=== PATIENT | female | born 1960 | race Caucasian/White ===

== ENCOUNTER → 2020-07-08 13:48 | Outpatient (CLI) | payer BC, SELFPAY ==
--- NOTE | 2020-07-08 13:53 | ECHOD_ITS ---
Reason For Study: RBBB Procedure This was a 2D Doppler, Color Flow transthoracic echocardiogram. Exam performed in department. Left Ventricle Normal LV size. Left ventricular systolic function is normal. The estimated ejection fraction is 60 %. No evidence for diastolic dysfunction. No regional wall motion abnormalities noted. Right Ventricle Normal RV size. Normal systolic function. Atria Normal left atrium. Normal right atrium. No doppler evidence for ASD. Mitral Valve There is mild mitral annular calcification. Extension of the mitral annular calcification onto the base of the posterior mitral valve leaflet. Mild mitral valve prolapse, posterior leaflet. Trivial mitral valve insufficiency. Tricuspid Valve Normal tricuspid valve. Trivial tricuspid valve insufficiency. Unable to estimate RV systolic pressure/pulmonary artery pressure due to technically difficult study. Aortic Valve Trisinus/trileaflet aortic valve. Mild diffuse aortic valve thickening. Pulmonic Valve The pulmonic valve is not well visualized. Great Vessels Normal sized aortic root. Pericardium/Pleural No pericardial effusion. MMode/2D Measurements & Calculations LVIDd: 4.7 cm IVSd: 1.1 cm Ao root diam: 3.3 cm LVIDs: 2.8 cm LVPWd: 0.99 cm LA dimension: 2.8 cm FS: 39.4 % LAV(MOD-bp): 45.1 ml LA A4 area: 13.0 cm2 RA A4 area: 11.5 cm2 LAV(MOD-bp) Indexed: 24.2 ml/m2 LAV(MOD-sp2): 57.9 ml LAV(MOD-sp4): 32.3 ml Time Measurements MV dec time: 0.26 sec Doppler Measurements & Calculations MV E max jacek: 76.4 cm/sec Lat Peak E' Jacek: 9.7 cm/sec Med Peak E' Jacek: 9.4 cm/sec MV A max jacek: 62.4 cm/sec E/E' lat: 7.8 E/E' med: 8.1 MV E/A: 1.2 MV V2 max: 67.7 cm/sec MV P1/2t max jacek: 67.7 cm/sec Ao V2 max: 112.4 cm/sec MV max P.8 mmHg MV P1/2t: 137.0 msec Ao max P.0 mmHg MV V2 mean: 37.5 cm/sec MV dec slope: 144.8 cm/sec2 MV mean P.67 mmHg MVA(P1/2t): 1.6 cm2 MV V2 VTI: 26.2 cm LV V1 max: 106.3 cm/sec PA V2 max: 83.8 cm/sec LV V1 max P.5 mmHg ECHO/Echo Complete Interpretation Summary Left ventricular systolic function is normal. The estimated ejection fraction is 60 %. There is mild mitral annular calcification. Extension of the mitral annular calcification onto the base of the posterior mi tral valve leaflet. Mild mitral valve prolapse, posterior leaflet Trivial mitral valve insufficiency. Trivial tricuspid valve insufficiency. Mild diffuse aortic valve thickening. Unable to estimate RV systolic pressure/pulmonary artery pressure due to techni angélica difficult study. No evidence for diastolic dysfunction. Ordering Physician: Carol Temple Referring Physician: Carol Temple Performed By: Dann Delgado, NATALIE
== END ==
PROVIDERS: PCP Internal Medicine; Referring Provider Internal Medicine; Visit Provider Internal Medicine
DX: I45.10 Unspecified right bundle-branch block (principal)
CPT/HCPCS: 93306

== ENCOUNTER 2023-06-16 15:26 | Emergency (ER) | payer BC, SELFPAY ==
[2023-06-16 15:27] VITALS: BP 145/94; PULSE 69; RESP 16; TEMP 36.2; O2SAT 99
--- NOTE | 2023-06-16 15:47 | EDS_ITS ---
HPI <MITCH Miller - Last Filed: 06/16/23 15:53> History of Present Illness Chief Complaint: Bite Narrative Narrative: Patient presents with a cat bite. There is a local stray cat she was seen for a long time that started staying in her barn over the last week. She wanted the cat to leave so she used gloves and butterfly net and attempted to corner it in the barn and catch it. When she grabbed the cat's neck it scratched her right hand and bit her left arm. She thoroughly cleansed the area with soap and water and covered with antibiotic ointment. She denies weakness or paresthesias in the extremities. Last tetanus unknown. [facility] <MITCH Miller - Last Filed: 06/16/23 15:53> [facility] Medical History (Updated 06/16/23 @ 15:52 by MITCH Miller) Cat bite Home Medications amoxicillin 875 mg-potassium clavulanate 125 mg tablet 1 tab PO BID 7 days #14 tabs 06/16/23 [Rx Last Taken Unknown] Allergy/AdvReac Type Severity Reaction Status Date / Time benzocaine Allergy Hives Verified 06/16/23 15:28 lisinopril Allergy Anaphylaxis Verified 06/16/23 15:28 Social History Smoking Status: Current every day smoker tobacco type: e-cigarettes ROS <MITCH Miller - Last Filed: 06/16/23 15:53> ROS ED ROS Narrative Neuro: Negative for motor/sensory dysfunction. Skin: Positive for wound. Musc: Negative for joint pain. EXAM <MITCH Miller - Last Filed: 06/16/23 15:53> Physical Exam Narrative Exam Narrative: CONST: Patient sitting in no acute distress. EYES: Normal inspection. SKIN: Scattered puncture wounds and small area of hematoma left mid anterior forearm. No involvement of the elbow or wrist joints, full ROM, normal motor and sensory function in median radial and ulnar distributions, 2+ radial pulses. 3 superficial abrasions right hand over the dorsal palm first and second metacarpals. PSYCH: Normal affect. Const Vital Signs: 06/16/23 15:27 06/16/23 16:17 Temperature 97.2 F L 97.2 F L Temperature Source Temporal Pulse Rate 69 66 Respiratory Rate 16 18 Blood Pressure 145/94 H 123/88 H Blood Pressure Mean 111 99 Pulse Ox 99 99 Oxygen Delivery Method Room Air <Dr. Peter Roberts MD - Last Filed: 06/16/23 17:09> Physical Exam Const Vital Signs: 06/16/23 15:27 06/16/23 16:17 Temperature 97.2 F L 97.2 F L Temperature Source Temporal Pulse Rate 69 66 Respiratory Rate 16 18 Blood Pressure 145/94 H 123/88 H Blood Pressure Mean 111 99 Pulse Ox 99 99 Oxygen Delivery Method Room Air MDM <MITCH Miller - Last Filed: 06/16/23 15:53> [facility] Narrative Medical decision making narrative: Patient has superficial Bites to her left forearm and superficial cat scratches to the right hand. Extremities are neurovascularly intact. None of the wounds require repair. Extremities are neurovascular intact. I updated tetanus and prescribed Augmentin and discussed wound care instructions and to return for any signs of infection. She was discharged in stable condition. <Dr. Peter Roberts MD - Last Filed: 06/16/23 17:09> [facility] Treatment and Re-Evaluation Comments:: I have personally performed a face to face assessment of the patient and have reviewed the QUINTON Note. I performed a substantive portion of the visit including all aspects of the following. My dubose findings include: History is according to stray cat in her barn has been there for 5 days not ill, was bitten when try to get her out. Left upper extremity forearm only. Exam is several superficial bite villeda and scratch villeda left forearm along with a hematoma that is small just distal to the bite villeda. No lymphangitic streaking major tenderness or signs of infection. Full range of motion, all compartments nondistended. Medical Decison Making patient had prior rabies immunization series. She is unsure if she will be able to monitor the cat for illness. She states it has been in their barn for 5 days or more without contact with other animals during that time, and did not appear to be ill. Tetanus update given, will place her on a short course of prophylactic Augmentin, we discussed rabies prophylaxis and the relatively low risk of rabies but the consequences if she had it. At this time she declines booster. Other additions or changes: [None] Discharge Plan Triage Chief Complaint: Bite ED Midlevel Provider: Marylou Chung ED Provider: Peter Roberts Dx/Rx/DC Orders Clinical Impression: Cat scratch of right hand, Cat bite of left forearm Instructions: Animal Bites and Scratches Prescriptions: New amoxicillin-pot clavulanate 875-125 mg tablet 1 tab PO BID 7 Days Qty: 14 0RF Primary Care Provider: Carol Temple Referrals: Carol Temple DO [Primary Care Provider] - Activity Restrictions/Additional Instructions: Clean with soap and water and cover with antibiotic ointment. Return immediately if any signs of infection develop like redness, increased swelling or pain, fever or pus. Disposition Disposition: Home, Self Care Discharge Date/Time: 06/16/23 16:19
[2023-06-16] MEDS: Amox/Clavulanate 875 MG Tablet PO (15:59)
[2023-06-16] MEDS: Diphth,Pertuss(Acell),Tet Vac 0.5 ML Vial IM (15:59)
[2023-06-16 16:17] VITALS: BP 123/88; PULSE 66; RESP 18; TEMP 36.2; O2SAT 99
== END 2023-06-16 16:19 | disposition home or self-care (01) ==
PROVIDERS: Emergency Provider Emergency Medicine; PCP Internal Medicine; Visit Provider Emergency Medicine
DX: S51.852A Open bite of left forearm, initial encounter (principal); F17.290 Nicotine dependence, other tobacco product, uncomplicated; W55.01XA Bitten by cat, initial encounter; Z23 Encounter for immunization
CPT/HCPCS: 90471; 90715; 99283

== ENCOUNTER → 2024-11-21 | Outpatient (CLI) | payer BC, SELFPAY ==
--- OUTSIDE RECORDS SUMMARY | 2024-11-21 06:22 | XMS RPT_ITS | CCD ---
Author Organization [facility] Care Team Providers Care Revenue Analyst Name Role Phone Carol Coker Unavailable Jame Hernandez Unavailable Mendel Valdes Unavailable Karina Tam Unavailable Unavailable Manchak, Lalitha Unavailable Unavailable Long, Tabby L Unavailable Unavailable Unavailable Unavailable Renaldo Rodriguez Unavailable Unavailable Carol Coker Unavailable Jame Hernandez Unavailable Mendel Valdes Unavailable Karina Tam Unavailable Unavailable Renaldo Rodriguez Unavailable Unavailable Long Tabby L Unavailable Unavailable Unavailable Unavailable Slarb, Michelle Unavailable Unavailable Unavailable Unavailable Karina Tam Unavailable Unavailable Barbara, Chanel Unavailable Unavailable Long, Tabby L Unavailable Unavailable Manchak, Lalitha Unavailable Unavailable Eriberto Sarah Unavailable Unavailable Gravius, Hanna Unavailable Unavailable Carol Coker DO Unavailable Jame Hernandez Unavailable Dr. Mendel Valdes Unavailable Karina Tam RN Unavailable Unavailable Sarah Wei LPN Unavailable Unavailable Tabby Alves RN Unavailable Unavailable Barbara CLINICAL PATHOLOGIST, Chanel Unavailable Unavailable Manchak CURRICULUM MANAGER, Lalitha Unavailable Unavailable Gravius CURRICULUM MANAGER, Hanna Unavailable Unavailable Unavailable Unavailable Slarb CLINICAL PATHOLOGIST, Michelle Unavailable Unavailable Ciara Scott MA Unavailable Unavailable Pablo ATKINS, TRINA Unavailable Unavailable Carol oCker DO Unavailable Carol Coker DO Primary Care Provider Carol Coker DO Unavailable [phone] Mendel Valdes Unavailable Tameka CURRICULUM MANAGER, Yovanilisbeth Unavailable Unavailable Yonatan RN, Karina Unavailable Unavailable Barbara CLINICAL PATHOLOGIST, Chanel Unavailable Unavailable RN, Tabby Melissa Unavailable Unavailable Tyler BASHIR, Ciara Unavailable Unavailable Kecia CURRICULUM MANAGER, Lalitha Unavailable Unavailable Slarb CLINICAL PATHOLOGIST, Michelle Unavailable Unavailable Unavailable Unavailable Sheela DO, Carol Attending Unavailable Sheela DO, Carol Referring Unavailable Sheela DO, Carol Consulting Unavailable Sheela DO, Carol Rudolph Primary Care Provider [place] CLINICAL PATHOLOGIST, Baron Unavailable Unavailable Sheela DO, Carol Rudolph Primary Care Provider CAROL COKER Referring Unavailab le SHEELA, CAROL RUDOLPH Primary Care Unavailab le SHEELACAROL Primary Care Unavailab le SUROVEC, JENNIFER Referring Unavailable SHEELACAROL Primary Care Unavailab le SHEMARABHAY Melissa Referring Unavailable SUROVEC, JENNIFER Referring Unavailable AMBER ROBERSON Attending Unavailable SHELEACAROL Primary Care Unavailab le SHEELA, CAROL RUDOLPH Primary Care Unavailab DARIELA Villeda Referring Unavailab le AMBER ROBERSON Attending Unavailable SHEELA, CAROL RUDOLPH Primary Care Unavailab le SUROVEC, JENNIFER Referring Unavailable SHEELACAROL Primary Care Unavailab IMMANUEL Schuster Referring Unavailable SheelaCarol Primary Care Unavailable Julita, Waka Attending Unavailable SheelaCarol Referring Unavailable SheelaCarol Attending Unavailable SheelaCarol Primary Care Unavailable SheelaCarol Referring Unavailable SheelaCarol Attending Unavailable Sheela, Carol Primary Care Unavailable SheelaCarol Referring Unavailable Allergies Allergy Classification Reported Allergen(s) Allergy Type Date of Onset Reaction(s) Facility Angiotensin Converting Enzyme (JOSEPH) Inhibitors (5 sources) Lisinopril; Translations: [Lisinopril *ANTIHYPERTENSIVE S*] Drug Allergy 01-03-20 19 [facility]; [facility] Work Phone: Comment on above: cough/lip swelling Benzocaine (1 source) Benzocaine Drug Allergy 09-23-19 16 [facility] (20 sources) lisinopril; Translations: [Lisinopril *ANTIHYPERTENSIVE S*] Drug Allergy 01-03-20 19 [facility] Work Phone: Comment on above: cough/lip swelling (20 sources) Benzocaine *DERMATOLOGICALS* ; Translations: [Benzocaine *DERMATOLOGICALS* ] drug allergy [facility] Work Phone: (20 sources) Benzocaine; Translations: [BENZOCAINE] Drug Allergy 09-23-19 16 [facility] (20 sources) environmental [Other] Propensity to adverse reactions 09-15-19 06 [facility] Work Phone: (1 source) Allergy to drug (finding) [facility]; [facility] Work Phone: (1 source) Allergy to drug (finding) [facility]; [facility] Work Phone: (1 source) Allergy to drug (finding) [facility]; [facility] Work Phone: (1 source) Allergy to drug (finding) [facility]; [facility] Work Phone: (2 sources) Lisinopril; Translations: [LISINOPRIL] Drug Allergy 01-03-20 19 [facility] (1 source) OTHER; Translations: [OTHER] Propensity to adverse reactions (disorder) 09-15-19 06 [facility] (1 source) Benzocaine Drug Allergy 06-16-19 24 [facility] NEGATED: Highlighted row has been ruled out! (1 source) drug allergy [facility] Work Phone: NEGATED: Highlighted row has been ruled out! (1 source) Allergy to drug (finding) [facility]; [facility] Work Phone: NEGATED: Highlighted row has been ruled out! (1 source) Allergy to drug (finding) [facility]; [facility] Work Phone: NEGATED: Highlighted row has been ruled out! (1 source) Allergy to drug (finding) [facility]; [facility] Work Phone: NEGATED: Highlighted row has been ruled out! (1 source) Allergy to drug (finding) [facility]; [facility] Work Phone: NEGATED: Highlighted row has been ruled out! (1 source) Allergy to drug (finding) [facility]; [facility] Work Phone: Medications Current Medications Medication Drug Class(es) Dates Sig (Normalized) Sig (Original) acetaminophen 500 mg oral tablet (20 sources) Start: 02-01-2019 take 2 tablets by mouth every six hours as needed acetaminophen (TYLENOL EXTRA STRENGTH) 500 mg tablet Take 2 tablets by mouth every 6 hours as needed. 30 tablet 02/01/2019 Active Comment on above: Take 2 tablets by mo uth every 6 hours as needed. amoxicillin 875 mg / clavulanate 125 mg oral tablet (20 sources) Penicillin-class Antibacterial Start: 06-16-2023 take 1 tablet by mouth twice daily Amoxicillin-Pot Clavulanate Active 1 TABLET PO TWICE A DAY 23 09June 16, 2023 12:00am Start: 05-08-2014 End: 05-18-2014 Start: 05-08-2014 End: 05-18-2014 take 1 tablet by mouth twice daily AUGMENTIN, 875-125MG (Oral Tablet) 1 Tablet bid for 10 days Quantity: 20 {Tablet} Refills: 0 Ordered: 08-May-2014 Carol Coker DO, DO, Kathleen Start : 08-May-2014 End : 18-May-2014 Inactive benzonatate 100 mg oral capsule (19 sources) Non-narcotic Antitussive Start: 02-19-2021 take 2 capsules by mouth three times daily as needed benzonatate (TESSALON PERLE) 100 mg capsule Indications: Cough , URI, acute Take 2 capsules by mouth three times daily as needed. 30 capsule 02/19/2021 Active Comment on above: Take 2 capsules by m outh three times daily as needed. docusate sodium 100 mg oral capsule (20 sources) Start: 02-01-2019 take 1 capsule by mouth twice daily docusate sodium (COLACE) 100 mg capsule Take 1 capsule by mouth twice daily. 30 capsule 02/01/2019 Active Comment on above: Take 1 capsule by mo [facility] twice daily. doxycycline hyclate 50 mg oral capsule (20 sources) Tetracycline-class Drug Start: 02-10-2021 doxycycline (VIBRAMYCIN) 50 mg capsule 02/10/2021 Active Start: 05-24-2011 End: 06-07-2011 fluorometholone 1 mg/ml ophthalmic suspension (20 sources) Corticosteroid Start: 02-09-2021 fluorometholone (FML LIQUID FILM) 0.1 % ophthalmic suspension 02/09/2021 Active ibuprofen 600 mg oral tablet (20 sources) Nonsteroidal Anti-inflammatory Drug Start: 02-01-2019 take 1 tablet by mouth every six hours as needed ibuprofen (MOTRIN) 600 mg tablet Take 1 tablet by mouth every 6 hours as needed for Pain. 30 tablet 02/01/2019 Active Comment on above: Take 1 tablet by [facility] every 6 hours as needed for Pain. Completed/Discontinued Medications Medication Drug Class(es) Dates Sig (Normalized) Sig (Original) acetaminophen 500 mg / HYDROcodone bitartrate 5 mg oral tablet (20 sources) Opioid Agonist Start: 09-23-2010 End: 01-27-2011 Start: 09-23-2010 End: 01-27-2011 take 1 tablet by mouth every six hours as needed VICODIN, 5-500MG (Oral Tablet) 1 Tablet q 6 hr prn for 0 days Quantity: 30 {Tablet} Refills: 0 Ordered: 27-Jan-2011 TRINA Shah LPN Start : 23-Sep-2010 End : 27-Jan-2011 Inactive Comments: thirty Comment on above: thirty [id number] actuat albutero l 0.09 mg/actuat metered dose inhaler (20 sources) beta2-Adrenergic Agonist Start: 07-05-2021 Start: 07-05-2021 Start: 07-05-2021 Ventolin HFA 1 08 (90 Base) MCG/ACT Inhalation Aerosol Solution 1 or 2 Puff q 4-6 hours prn for 30 days Quantity: 1 {Each} Refills: 2 Ordered: 05-Jul-2021 Chanel Jimenez LPN Start : 05-Jul-2021 Active Comments: dispense generic albuterol sulfate CFC-free aerosol per insurance formulary fax from [employer] Start: 04-21-2021 Ventolin HFA 1 08 (90 Base) MCG/ACT Inhalation Aerosol Solution 1 or 2 Puff q 4-6 hours prn for 0 days Quantity: 1 {Each} Refills: 0 Ordered: 21-Apr-2021 Carol Coker DO, DO, Kathleen Start : 21-Apr-2021 Active Comments: dispense generic albuterol sulfate CFC-free aerosol per insurance formulary fax from [facility] Start: 01-04-2021 Ventolin HFA 1 08 (90 Base) MCG/ACT Inhalation Aerosol Solution 1 or 2 Puff q 4-6 hours prn for 0 days Quantity: 1 {Each} Refills: 0 Ordered: 04-Jan-2021 Carol Coker DO, DO, Kathleen Start : 04-Jan-2021 Active Start: 01-01-2021 End: 01-04-2021 Start: 01-01-2021 End: 01-04-2021 take 2 puff(s) by inhalation every six hours as needed ProAir HFA 108 (90 Base) MCG/ACT Inhalation Aerosol Solution 2 (two) Puff(s) Q 6hr/PRN for 0 days Quantity: 1 {Inhaler} Refills: 3 Ordered: 04-Jan-2021 TRINA Shah LPN Start : 01-Jan-2021 End : 04-Jan-2021 Inactive Start: 12-04-2019 take 2 puff(s) by in halation every six hours as needed ProAir HFA 108 (90 Base) MCG/ACT Inhalation Aerosol Solution 2 (two) Puff(s) Q 6hr/PRN for 0 days Quantity: 1 {Inhaler} Refills: 3 Ordered: 04-Dec-2019 Carol Coker DO, DO, Kathleen Start : 04-Dec-2019 Active Start: 12-04-2019 take 2 puff(s) by in halation every six hours as needed ProAir HFA 108 (90 Base) MCG/ACT Inhalation Aerosol Solution 2 (two) Puff(s) Q 6hr/PRN for 0 days Quantity: 1 {Inhaler} Refills: 3 Ordered: 04-Dec-2019 Carol Coker DO, DO, Kathleen Start : 04-Dec-2019 Active Start: 01-17-2018 End: 11-23-2018 take 2 puff(s) by inhalation every six hours as needed ProAir HFA 108 (90 Base) MCG/ACT Inhalation Aerosol Solution 2 (two) Puff(s) Q 6hr/PRN for 0 days Quantity: 1 {Inhaler} Refills: 3 Ordered: 23-Nov-2018 Karina Tam IMLLY Start : 17-Jan-2018 End : 23-Nov-2018 Inactive Start: 05-14-2015 End: 05-27-2019 Start: 05-14-2015 End: 05-27-2019 Albuterol Sulfate 0.63 MG/3M L Inhalation Nebulization Solution 1 (one) Nebulized Soln Nebulized Soln every 6 hours prn for 30 days Quantity: 1 {Box} Refills: 3 Ordered: 27-May-2019 Asiya JENHanna Start : 14-May-2015 End : 27-May-2019 Inactive albuterol HFA (P ROVENTIL HFA, VENTOLIN HFA) 90 mcg/actuation inhaler Inhale 2 Puffs as instructed. Active take 108 ug by inhal ation every four hours as needed ALBUTEROL SULFATE HFA, 108MCG/ACT (Inhalation Aerosol Soln) 1-2 puffs q 4 hr prn (108 MCG/ACT) Inactive take 108 ug by inhal ation every four hours as needed ALBUTEROL SULFATE HFA, 108MCG/ACT (Inhalation Aerosol Soln) 1-2 puffs q 4 hr prn (108 MCG/ACT) Inactive Comment on above: dispense generic alb uterol sulfate CFC-free aerosol per insurance formulary fax from [facility] Inhale 2 Puffs as in structed. ALBUTEROL SULFATE HFA, 108MCG/ACT (Inhalation Aerosol Soln) (12 sources) take 108 ug by inhalation every four hours as needed ALBUTEROL SULFATE HFA, 108MCG/ACT (Inhalation Aerosol Soln) 1-2 puffs q 4 hr prn (108 MCG/ACT) Inactive amLODIPine 5 mg oral tablet (20 sources) Dihydropyridine Calcium [employer] Start: 04-25-19 18 Comment on above: Take 5 mg by mouth o nce daily. azithromycin 250 mg oral tablet (20 sources) Macrolide Antimicrobial Start: 04-08-19 17 End: 11-24-19 19 betamethasone 0.5 mg/ml topical cream (20 sources) Corticosteroid Start: 12-11-19 08 Start: 12-11-2007 BETAMETHASONE DIPROPIONATE, 0.05% (External Cream) topically Cream tid for 0 days Quantity: 45 {Cream} Refills: 0 Ordered: 04-Nov-2009 Karina Tam RN Start : 11-Dec-2007 Inactive Start: 05-10-2007 Start: 05-10-2007 DIPROLENE AF, 0.05% (External Cream) TAD Cream Twice daily for 0 days Quantity: 15 {Cream} Refills: 0 Ordered: 04-Nov-2009 Karina Tam RN Start : 10-May-2007 Inactive 24 hr buPROPion hydrochlorid e 150 mg extended release oral tablet (20 sources) Aminoketone Start: 12-25-2006 End: 02-12-2007 Comment on above: taper rev cefuroxime 500 mg oral table t (20 sources) Cephalosporin Antibacterial Start: 04-08-2016 End: 04-18-2016 ciprofloxacin 3 mg/ml ophtha lmic solution (20 sources) Quinolone Antimicrobial Start: 05-08-2014 End: 07-08-2014 Start: 05-08-2014 End: 07-08-2014 CIPROFLOXACIN HCL, 0.3% (Oph thalmic Solution) 1 (one) Solution R eye bid for 0 days Quantity: 1 {Bottle} Refills: 0 Ordered: 08-Jul-2014 Karina Tam RN Start : 08-May-2014 End : 08-Jul-2014 Inactive clarithromycin 500 mg oral t ablet (20 sources) Macrolide Antimicrobial Start: 03-31-2014 End: 04-10-2014 Start: 03-31-2014 End: 04-10-2014 take 2 tablets by mouth once daily BIAXIN, 500MG (Oral Tablet) 2 (two) Tablet daily for 10 days Quantity: 20 {Tablet} Refills: 0 Ordered: 31-Mar-2014 Rosie Hull Start : 31-Mar-2014 End : 10-Apr-2014 Inactive Start: 05-10-2011 End: 05-24-2011 Start: 05-10-2011 End: 05-24-2011 take 2 tablets by mouth once daily BIAXIN XL PAC, 500MG (Oral Tablet Extended Release 24 Hour) 2 (two) Tablet ER 24HR daily for 14 days Quantity: 24 {Tablet_ER_24HR} Refills: 0 Ordered: 10-May-2011 Rosie Hull Start : 10-May-2011 End : 24-May-2011 Inactive Start: 05-10-2011 End: 05-24-2011 take 2 tablets by mouth once daily BIAXIN XL PAC, 500MG (Oral Tablet Extended Release 24 Hour) 2 (two) Tablet ER 24HR daily for 14 days Quantity: 24 {Tablet_ER_24HR} Refills: 0 Ordered: 10-May-2011 Rosie Hull CNP Start : 10-May-2011 End : 24-May-2011 Inactive clindamycin 0.01 mg/mg topic al gel (20 sources) Lincosamide Antibacterial Start: 10-16-2008 Start: 10-16-2008 CLEOCIN-T, 1% (External Gel) 1 (one) Gel apply once daily for 0 days Quantity: 1 {Gel} Refills: 2 Ordered: 04-Nov-2009 Karina Tam RN Start : 16-Oct-2008 Inactive cromolyn sodium 40 mg/ml oph thalmic solution (11 sources) Mast Cell Stabilizer desonide 0.5 mg/ml topical c ream (20 sources) Corticosteroid Start: 01-27-2011 End: 10-17-2012 Start: 01-27-2011 End: 10-17-2012 DESOWEN, 0.05% (External Cre am) 1 Cream bid for 0 days Quantity: 1 {Cream} Refills: 0 Ordered: 17-Oct-2012 Karina Tam RN Start : 27-Jan-2011 End : 17-Oct-2012 Inactive 24 hr etodolac 400 mg extended release oral tablet (20 sources) Nonsteroidal Anti-inflammatory Drug Start: 09-23-2010 End: 01-27-2011 Start: 09-23-2010 End: 01-27-2011 take 2 tablets by mouth once daily at mealtime ETODOLAC CR, 400MG (Oral Tablet Extended Release 24 Hour) 2 (two) Tablet ER 24HR qd with food for 0 days Quantity: 30 {Tablet_ER_24HR} Refills: 0 Ordered: 27-Jan-2011 TRINA Shah LPN Start : 23-Sep-2010 End : 27-Jan-2011 Inactive fluconazole 150 mg oral tabl et (20 sources) Azole Antifungal Start: 06-07-2011 End: 06-08-2011 FLUoxetine 20 mg oral capsul e (20 sources) Serotonin Reuptake Inhibitor Start: 10-24-2022 Start: 07-05-2021 Start: 01-01-2021 take 1 capsule by mo ut twice daily PROzac 20 MG Oral Capsule 1 (one) Capsule BID for 0 days Quantity: 180 {Capsule} Refills: 3 Ordered: 01-Jan-2021 SheelaCarol phipps DO, DO, Kathleen Start : 01-Jan-2021 Active Start: 12-04-2019 take 1 capsule by mo ut twice daily PROzac 20 MG Oral Capsule 1 (one) Capsule BID for 0 days Quantity: 180 {Capsule} Refills: 3 Ordered: 04-Dec-2019 Sheela Carol DO, Kathleen Start : 04-Dec-2019 Active Start: 11-23-2018 take 1 capsule by mo ut twice daily PROzac 20 MG Oral Capsule 1 (one) Capsule BID for 0 days Quantity: 180 {Capsule} Refills: 3 Ordered: 23-Nov-2018 SheelaCarol phipps DO, DO, Kathleen Start : 23-Nov-2018 Active Start: 05-16-2018 take 1 capsule by ne ut twice daily PROzac 20 MG Oral Capsule 1 (one) Capsule BID for 0 days Quantity: 180 {Capsule} Refills: 3 Ordered: 16-May-2018 SheelaCarol phipps DO, DO, Kathleen Start : 16-May-2018 Active Start: 06-14-2017 take 1 capsule by [facility] twice daily PROzac 20 MG Oral Capsule 1 (one) Capsule BID for 0 days Quantity: 180 {Capsule} Refills: 3 Ordered: 14-Jun-2017 SheelaCarol phipps DO, DO, Kathleen Start : 14-Jun-2017 Active Start: 08-21-2007 fluoxetine hcl (PROZAC 20 MG CAP) 2 tablets daily 0 08/21/2007 Active Comment on above: 2 tablets daily fluticasone propionate 0.05 mg/actuat metered dose nasal spray (20 sources) Corticosteroid Start: 11-23-2018 End: 05-27-2019 Start: 11-23-2018 End: 05-27-2019 Fluticasone Propionate 50 MC G/ACT Nasal Suspension 1 (one) Suspension uad for 0 days Quantity: 1 {Box} Refills: 1 Ordered: 27-May-2019 Hanna Braden CMA Start : 23-Nov-2018 End : 27-May-2019 Inactive Start: 11-23-2018 Fluticasone Pr opionate 50 MCG/ACT Nasal Suspension 1 (one) Suspension uad for 0 days Quantity: 1 {Box} Refills: 1 Ordered: 23-Nov-2018 Carol Coker DO, DO, Kathleen Start : 23-Nov-2018 Active Start: 08-24-2015 FLUTICASONE DE OPIONATE, 50MCG/ACT (Nasal Suspension) 1 (one) Suspension uad for 0 days Quantity: 1 {Box} Refills: 1 Ordered: 24-Aug-2015 Carol Coker DO, DO Carol Start : 24-Aug-2015 Active Start: 08-24-2015 FLUTICASONE DE OPIONATE, 50MCG/ACT (Nasal Suspension) 1 (one) Suspension uad for 0 days Quantity: 1 {Box} Refills: 1 Ordered: 24-Aug-2015 Carol Coker DO, DO, Kathleen Start : 24-Aug-2015 Active Fluticasone Furo ate 27.5 MCG/SPRAY Nasal Suspension daily (27.5 MCG/SPRAY) Active 14 actuat fluticasone propionate 0.25 mg/actuat / salmeterol 0.05 mg/actuat dry powder inhaler (20 sources) Corticosteroid, beta2-Adrenergic Agonist Start: 04-21-2014 End: 07-08-2014 Start: 04-21-2014 End: 07-08-2014 Start: 04-21-2014 End: 07-08-2014 take 1 puff(s) by inhalation every twelve hours ADVAIR DISKUS, 250-50MCG/DOSE (Inhalation Aerosol Powder Breath Activated) 1 (one) Puff Puff q12hr for 0 days Quantity: 1 {Disk} Refills: 4 Ordered: 08-Jul-2014 Karina Tam RN Start : 21-Apr-2014 End : 08-Jul-2014 Inactive Start: 04-21-2014 End: 07-08-2014 ADVAIR DISKUS, 250-50MCG/DOS E (Inhalation Aerosol Powder Breath Activated) 1 (one) Puff Puff q12hr for 0 days Quantity: 1 {Disk} Refills: 4 Ordered: 08-Jul-2014 Karina Tam LPN Start : 21-Apr-2014 End : 08-Jul-2014 Inactive Start: 12-01-2006 End: 11-04-2009 Start: 12-01-2006 End: 11-04-2009 ADVAIR DISKUS, 100-50MCG/DOS E (Inhalation Miscellaneous) 1 Misc prn for 0 days Quantity: 1 {Misc} Refills: 0 Ordered: 01-Dec-2006 Karina Tam RN Start : 01-Dec-2006 End : 04-Nov-2009 Discontinued Comments: This order discontinued per [facility]. Start: 12-01-2006 End: 11-04-2009 ADVAIR DISKUS, 100-50MCG/DOS E (Inhalation Miscellaneous) 1 Misc prn for 0 days Quantity: 1 {Misc} Refills: 0 Ordered: 01-Dec-2006 Karina Tam LPN Start : 01-Dec-2006 End : 04-Nov-2009 Discontinued Comments: This order discontinued per [facility]. Comment on above: This order discontin ued per [employer]. 14 actuat fluticasone furoat e 0.1 mg/actuat / vilanterol 0.025 mg/actuat dry powder inhaler (12 sources) Corticosteroid, beta2-Adrenergic Agonist Start: 08-03-2020 End: 07-05-2021 Start: 08-03-2020 End: 07-05-2021 Start: 08-03-2020 End: 07-05-2021 take 1 puff(s) by inhalation once daily Breo Ellipta 100-25 MCG/INH Inhalation Aerosol Powder Breath Activated 1 (one) Puff daily for 0 days Quantity: 1 {Inhaler} Refills: 3 Ordered: 05-Jul-2021 Chanel Jimenez LPN Start : 03-Aug-2020 End : 05-Jul-2021 Inactive 120 actuat formoterol fumarate 0.005 mg/actuat / mometasone furoate 0.2 mg/actuat metered dose inhaler (20 sources) Corticosteroid, beta2-Adrenergic Agonist Start: 07-31-2020 End: 08-03-2020 Start: 07-31-2020 End: 08-03-2020 Start: 07-31-2020 End: 08-03-2020 Dulera 200-5 MCG/ACT Inhalat ion Aerosol 1 (one) Aerosol 1 puffs bid for 0 days Quantity: 3 {Each} Refills: 0 Ordered: 03-Aug-2020 Michelle Hawkins LPN Start : 31-Jul-2020 End : 03-Aug-2020 Inactive Comments: 2 bx 09/06/17 Start: 09-06-2017 mometasone-for moterol (DULERA) 200-5 mcg/actuation inhaler Inhale as instructed once daily. 09/06/2017 Active Start: 09-06-2017 Dulera 200-5 M CG/ACT Inhalation Aerosol 1 (one) Aerosol 1 puffs bid for 0 days Quantity: 3 {Each} Refills: 0 Ordered: 06-Sep-2017 Carol Coker DO, DO, Kathleen Start : 06-Sep-2017 Active Comments: 2 bx 09/06/17 Comment on above: 2 bx 09/06/17 Inhale as instructed once daily. hydroCHLOROthiazide 12.5 mg oral capsule (20 sources) Thiazide Diuretic Start: 10-24-2022 Start: 07-05-2021 Start: 01-01-2021 take 1 capsule by mo uth once daily hydroCHLOROthiazide 12.5 MG Oral Capsule 1 (one) Capsule daily for 0 days Quantity: 90 {Capsule} Refills: 3 Ordered: 01-Jan-2021 Carol Coker DO, DO, Kathleen Start : 01-Jan-2021 Active Start: 12-04-2019 take 1 capsule by mo uth once daily hydroCHLOROthiazide 12.5 MG Oral Capsule 1 (one) Capsule daily for 0 days Quantity: 90 {Capsule} Refills: 3 Ordered: 04-Dec-2019 Carol Coker DO, DO, Kathleen Start : 04-Dec-2019 Active Start: 11-23-2018 take 1 capsule by mo uth once daily hydroCHLOROthiazide 12.5 MG Oral Capsule 1 (one) Capsule daily for 0 days Quantity: 90 {Capsule} Refills: 3 Ordered: 23-Nov-2018 Carol Coker DO, DO, Kathleen Start : 23-Nov-2018 Active Start: 02-12-2018 take 1 capsule by mo uth once daily HydroCHLOROthiazide 12.5 MG Oral Capsule 1 (one) Capsule daily for 0 days Quantity: 90 {Capsule} Refills: 3 Ordered: 12-Feb-2018 Carol Coker DO, DO, Kathleen Start : 12-Feb-2018 Active Start: 03-17-2017 take 1 capsule by mo uth once daily HydroCHLOROthiazide 12.5 MG Oral Capsule 1 (one) Capsule daily for 0 days Quantity: 90 {Capsule} Refills: 3 Ordered: 17-Mar-2017 Sheela SPANGLER Carol Coker DO Carol Start : 17-Mar-2017 Active take 1 tablet by anu th once daily hydrochlorothiazide (HYDRODIURIL, ESIDRIX) 12.5 mg tablet Take 12.5 mg by mouth once daily. Active Comment on above: Take 12.5 mg by mout h once daily. hydroCHLOROthiazide 12.5 mg / lisinopril 10 mg oral tablet (20 sources) Thiazide Diuretic, Angiotensin Converting Enzyme Inhibitor Start: 01-08-2014 End: 02-25-2014 Start: 01-08-2014 End: 02-25-2014 take 1 tablet by mouth once daily LISINOPRIL-HYDROCHLOROTHIAZIDE, 10-12.5M G (Oral Tablet) 1 (one) Tablet qd for 0 days Quantity: 90 {Tablet} Refills: 3 Ordered: 25-Feb-2014 Gypsy Sarmiento LPN Start : 08-Jan-2014 End : 25-Feb-2014 Discontinued icosapent ethyl 1000 mg oral capsule (20 sources) Start: 12-19-2013 End: 01-08-2014 Start: 12-19-2013 End: 01-08-2014 take 2 capsules by mouth twice daily VASCEPA, 1GM (Oral Capsule) 2 (two) Capsule Capsule bid for 0 days Quantity: 120 {Capsule} Refills: 4 Ordered: 08-Jan-2014 Karina Tam RN Start : 19-Dec-2013 End : 08-Jan-2014 Inactive ketoconazole 20 mg/ml topica l cream (11 sources) Azole Antifungal Ketoconazole 2 % External Cream two times daily (2 %) Inactive levoFLOXacin 500 mg oral tab let (20 sources) Quinolone Antimicrobial Start: 05-14-2015 End: 01-22-2016 metaxalone 800 mg oral table t (20 sources) Start: 10-20-2010 End: 01-27-2011 Comment on above: thirty minocycline 50 mg oral capsu le (20 sources) Tetracycline-class Drug Start: 01-12-2015 End: 05-14-2015 Start: 01-12-2015 End: 05-14-2015 take 3 capsules by mouth twice daily MINOCYCLINE HCL, 50MG (Oral Capsule) bid for 0 days Refills: 0 Ordered: 14-May-2015 TRINA Shah LPN Start : 12-Jan-2015 End : 14-May-2015 Inactive Comments: 30 day supply, Dr. shen Comment on above: 30 day supply, Dr. manzanares orok 60 actuat mometasone furoate 0.22 mg/actuat dry powder inhaler (20 sources) Corticosteroid Start: 05-14-2015 End: 05-14-2015 Start: 05-14-2015 End: 05-14-2015 Start: 05-14-2015 End: 05-14-2015 ASMANEX 60 METERED DOSES, 220MCG/INH (Inhalation Aerosol Powder Breath Activated) 1 1/2 (one and a half) Puff Puff bid for 0 days Quantity: 1 {Inhaler} Refills: 0 Ordered: 14-May-2015 Janice Chaney MD Start : 14-May-2015 End : 14-May-2015 Discontinued Start: 05-14-2015 End: 05-14-2015 take 2 puff(s) by inhalation every twelve hours ASMANEX HFA, 100MCG/ACT (Inhalation Aerosol) 2 (two) Puff q12h for 0 days Quantity: 2 {Puff} Refills: 0 Ordered: 14-May-2015 Janice Chaney MD Start : 14-May-2015 End : 14-May-2015 Discontinued Start: 03-31-2014 End: 04-21-2014 Start: 03-31-2014 End: 04-21-2014 take 2 puff(s) by inhalation twice daily ASMANEX 14 METERED DOSES, 220MCG/INH (Inhalation Aerosol Powder Breath Activated) 2 (two) Puff bid for 0 days Quantity: 1 {Puff} Refills: 0 Ordered: 21-Apr-2014 Gypsy Sarmiento LPN Start : 31-Mar-2014 End : 21-Apr-2014 Discontinued montelukast 10 mg oral table t (20 sources) Leukotriene Receptor Antagonist Start: 12-15-2017 Comment on above: Take 10 mg by mouth daily at bedtime. mupirocin 0.02 mg/mg topical ointment (20 sources) RNA Synthetase Inhibitor Antibacterial Start: 07-07-2008 End: 08-06-2008 Start: 07-07-2008 End: 08-06-2008 BACTROBAN, 2% (External Oint ment) 1 (one) Ointment tid for 10 days Quantity: 1 {Ointment} Refills: 0 Ordered: 07-Jul-2008 Rosie Hull Start : 07-Jul-2008 End : 06-Aug-2008 Inactive predniSONE 20 mg oral tablet (20 sources) Start: 05-14-2015 End: 05-29-2015 Start: 05-14-2015 End: 05-29-2015 take 2 tablets by mouth once daily, then take 1 tablet by mouth once daily, then take 0.5 tablet by mouth once daily PREDNISONE, 20MG (Oral Tablet) 1 (one) Tablet uad for 15 days Refills: 0 Ordered: 14-May-2015 Janice Chaney MD Start : 14-May-2015 End : 29-May-2015 Inactive Comments: 2 a d for 5 d, 1 a d for 5d, 1/2 a d for 5 d Start: 01-12-2015 End: 01-23-2015 Comment on above: 2 a d for 5 d, 1 a d for 5d, 1/2 a d for 5 d with food varenicline 0.5 mg oral tabl et (20 sources) Partial Cholinergic Nicotinic Agonist Start: 11-04-2009 End: 09-23-2010 Problems Active Problems Problem Classification Problem Date Documented Date Episodic/Chronic Adjustment disorders (20 sources) Adjustment disorder with depressed mood; Translations: [Grief finding] 04-08-2016 Chronic Comment on above: lost her mom 10/28 Administrative/social admission (10 sources) Pneumococcal vaccination given; Translations: [Pneumococcal vaccination given] 04-08-2016 Episodic Allergic reactions (20 sources) Other atopic dermatitis and related conditions; Translations: [DERMATITIS, OTHER ATOPIC] Resolved: 4 04-19-2013 Chronic Allergic reactions (20 sources) Eczema; Translations: [Allergic condition] Onset: 5 04-08-2016 Episodic Comment on above: perioral dermatitis- - stable Anxiety disorders (20 sources) Mixed anxiety and depressive disorder; Translations: [Anxiety disorder, unspecified] Onset: 9 01-29-2019 Chronic Asthma (20 sources) Asthma; Translations: [Acute exacerbation of asthma] Onset: 9 Resolved: 6 04-08-2016 Chronic Comment on above: improved did alpha one antitr ypsin test 05/29 did alpha one antitr ypsin test 05/29- negative pt has 2-3 exacerbat ions a year. think time see pulm to see how can decrease. will check IGE level eos level and immunoglobulin's treat this exacerbation stable- did alpha on e antitrypsin test 05/29- negative Asthma (20 sources) Asthma Cancer of uterus (20 sources) Malignant neoplasm of endometrium of corpus uteri ; Translations: [Malignant neoplasm of endometrium] Onset: 9 Chronic Cancer of uterus (20 sources) History of malignant neoplasm of uterine body; Translations: [History of uterine cancer] Onset: 4 12-04-2019 Episodic Comment on above: s/p NICKY /Will Adler at [facility] Chronic obstructive pulmonary disease and bronchiectasis (20 sources) Acute exacerbation of chronic obstructive airways disease with asthma; Translations: [Chronic obstructive lung disease] Onset: 5 Resolved: 6 01-22-2016 Chronic Comment on above: pt has 2-3 exacerbat ions a year. think time see pulm to see how can decrease. will check IGE level eos level and immunoglobulin's treat this exacerbation screened for alpha 1 -antitrypsin 02/25quit smoking 2013 Chronic obstructive pulmonary disease and bronchiectasis (20 sources) Bronchitis; Translations: [Bronchitis] Onset: 5 Resolved: 9 04-08-2016 Episodic Chronic obstructive pulmonary disease and bronchiectasis (20 sources) Chronic obstructive pulmonary disease and bronchiectasis Conduction disorders (20 sources) Right bundle branch block; Translations: [RBBB] Onset: 5 06-24-2020 Chronic Coronary atherosclerosis and other heart disease (20 sources) Coronary atherosclerosis and other heart disease Disorders of lipid metabolism (20 sources) Hypercholesterolemia; Translations: [Hypercholesteremia] Onset: 5 04-08-2016 Chronic Comment on above: pt to do diet and ex ercise before med s Essential hypertension (20 sources) Hypertensive disorder; Translations: [Benign essential hypertension] Onset: 9 Resolved: 6 04-08-2016 Chronic Comment on above: norvasc hctz Fever of unknown origin (20 sources) Fever with chills; Translations: [Fever and chills] Resolved: 9 04-08-2016 Episodic Headache, including migraine (20 sources) Headache; Translations: [Headache] Resolved: 3 12-16-2014 Episodic Heart valve disorders (20 sources) Mitral valve prolapse; Translations: [MVP (mitral valve prolapse)] Onset: 5 07-20-2020 Chronic Comment on above: clincally stable Immunizations and screening for infectious disease (20 sources) Need for prophylactic vaccination and inoculation against influenza; Translations: [Other specified abnormal immunological findings in serum] Resolved: 6 01-22-2016 Episodic Comment on above: ? related to COPD ? aspergillus seeing Dr. hernandez 06-26 Inflammation, infection of eye (20 sources) Conjunctivitis; Translations: [Conjunctivitis] Resolved: 6 05-26-2015 Episodic Influenza (16 sources) Influenza Malaise and fatigue (20 sources) Fatigue; Translations: [Fatigue, unspecified type] Resolved: 9 04-08-2016 Episodic Comment on above: low blood sugar , de pression and stress reaction, Mood disorders (20 sources) Depression; Translations: [Depressive disorder] 04-08-2016 Chronic Comment on above: controlled Nonspecific chest pain (20 sources) Chest pain; Translations: [Chest pain] Resolved: 6 05-26-2015 Episodic Comment on above: characterisitc low s uspiscion for cv Open wounds of extremities (1 source) Cat bite - wound; Translations: [Open bite of left forearm, initial encounter] 06-16-2023 Episodic Other aftercare (1 source) History of malignant neoplasm of endometrium; Translations: [Encounter for follow-up examination after completed treatment for malignant neoplasm] 12-20-2023 Episodic Other connective tissue disease (20 sources) Cyst of bursa; Translations: [Cyst, bursa] Resolved: 6 05-26-2015 Episodic Comment on above: R foot s/p resected by ortho Other connective tissue disease (20 sources) Spasm; Translations: [Muscle spasm] Resolved: 5 07-08-2014 Episodic Comment on above: terrilbe pain and sp asm in lateral lat beds on left Other endocrine disorders (20 sources) Hypoglycemia; Translations: [Hypoglycemia] 04-08-2016 Chronic Comment on above: no episodes Other gastrointestinal disorders (19 sources) Dysphagia; Translations: [Dysphagia] Onset: 5 07-05-2021 Episodic Other inflammatory condition of skin (20 sources) Perioral dermatitis; Translations: [Perioral dermatitis] Resolved: 6 01-22-2016 Chronic Comment on above: improved Other liver diseases (5 sources) Inflammatory disease of liver; Translations: [Inflammatory liver disease, unspecified] Onset: 5 06-14-2024 Chronic Other lower respiratory disease (20 sources) Cough; Translations: [Cough] 04-08-2016 Episodic Other lower respiratory disease (20 sources) Wheezing; Translations: [Wheezing] Resolved: 6 05-26-2015 Episodic Other nutritional; endocrine; and metabolic disorders (20 sources) Body mass index 25-29 - overweight; Translations: [BMI 28.0-28.9,adult] 04-08-2016 Chronic Other nutritional; endocrine; and metabolic disorders (20 sources) Cholesterol level - finding; Translations: [Low HDL (under 40)] Onset: 5 04-08-2016 Chronic Comment on above: increase exercise Other nutritional; endocrine; and metabolic disorders (20 sources) Body mass index 25-29 - overweight; Translations: [BMI 25.0-25.9,adult] 06-24-2020 Episodic Other nutritional; endocrine; and metabolic disorders (20 sources) Overweight in adulthood with body mass index of 25 or more but less than 30; Translations: [BMI 25.0-25.9,adult] 07-05-2021 Episodic Other skin disorders (20 sources) Localized swelling, mass and lump, head; Translations: [Lip swelling] Resolved: 5 07-08-2014 Episodic Comment on above: likely related to li sinopril, improved Other upper respiratory disease (20 sources) Allergic rhinitis; Translations: [Allergic rhinitis] Resolved: 6 05-26-2015 Chronic Other upper respiratory disease (20 sources) Allergic rhinitis due to other allergen Chronic Other upper respiratory disease (20 sources) Bronchospasm; Translations: [Acute bronchospasm] Resolved: 5 07-08-2014 Episodic Other upper respiratory infections (20 sources) Chronic sinusitis; Translations: [Sinusitis, chronic] Resolved: 6 01-22-2016 Chronic Comment on above: acute infection Other upper respiratory infections (20 sources) Acute sinusitis, unspecified; Translations: [Sore throat symptom] Resolved: 6 05-26-2015 Episodic Otitis media and related conditions (20 sources) Dysfunction of eustachian tube; Translations: [Eustachian tube dysfunction] Resolved: 4 12-16-2014 Episodic Residual codes; unclassified (20 sources) Generalized aches and pains; Translations: [Body aches] Resolved: 5 07-08-2014 Episodic Residual codes; unclassified (20 sources) Influenza-like symptoms; Translations: [Flu-like symptoms] 04-12-2016 Episodic Residual codes; unclassified (20 sources) Family history of malignant neoplasm of lung; Translations: [Family history of lung cancer] Onset: 5 04-08-2016 Episodic Residual codes; unclassified (20 sources) Requires varicella vaccination; Translations: [Need for zoster vaccination (Renamed from Need for shingles vaccine)] 12-18-2019 Episodic Residual codes; unclassified (20 sources) Body mass index 20-24 - normal; Translations: [BMI 24.0-24.9, adult] Resolved: 2 06-24-2020 Episodic Residual codes; unclassified (20 sources) Non-smoker; Translations: [Non-smoker] 06-24-2020 Episodic Residual codes; unclassified (3 sources) Viral syndrome; Translations: [Flu-like symptoms] 08-10-2022 Episodic Skin and subcutaneous tissue infections (20 sources) Impetigo; Translations: [Impetigo] Resolved: 9 02-12-2015 Episodic Spondylosis; intervertebral disc disorders; other back problems (20 sources) Sciatica; Translations: [Low back pain] Resolved: 6 01-22-2016 Episodic Comment on above: pt scheduled appt at [facility] Superficial injury; contusion (1 source) Cat scratch injury; Translations: [Abrasion of right hand, initial encounter] 06-16-2023 Episodic Unclassified (20 sources) Smokes tobacco daily; Translations: [Current every day smoker] Onset: 5 04-08-2016 Chronic Comment on above: has 30 pack years qu it 3 years. needs LDCTuses E-cigs Unclassified (20 sources) Viral screening status; Translations: [Increased immunoglobulin] Onset: 4 Resolved: 6 04-08-2016 Episodic Comment on above: ? related to COPD ? aspergillus seeing Dr. hernandez 4-16 Unclassified (20 sources) Needs influenza immunization; Translations: [Influenza-like symptoms] Resolved: 5 02-10-2017 Episodic Unclassified (20 sources) Unclassified (20 sources) BMI 28.0-28.9,adult Unclassified (20 sources) Benign essential HTN (401.1) Unclassified (20 sources) Hypercholesteremia (272.0) Unclassified (20 sources) Low HDL (272.5) Unclassified (20 sources) Current every day smoker Unclassified (20 sources) Sinusitis,chronic (473.9) Unclassified (20 sources) Tobacco abuse (305.1) Unclassified (20 sources) Eustachian tube dysfunction (381.81) Unclassified (20 sources) Hypercholesteremia Unclassified (20 sources) DERMATITIS, OTHER ATOPIC (691.8) Unclassified (20 sources) Fatigue, unspecified type Unclassified (14 sources) Family history of lung cancer Unclassified (20 sources) Benign essential HTN Unclassified (20 sources) Low HDL (under 40) Unclassified (20 sources) Grieving Unclassified (20 sources) BMI 26.0-26.9,adult Unclassified (20 sources) BMI 25.0-25.9,adult Unclassified (20 sources) Sciatica of right side Unclassified (20 sources) Body mass index 20-24 - normal; Translations: [BMI 24.0-24.9, adult] 12-04-2019 Unclassified (20 sources) Non-smoker; Translations: [Non-smoker] 12-04-2019 Unclassified (20 sources) History of uterine cancer Unclassified (20 sources) Varicose vein of leg Unclassified (14 sources) Allergic condition Unclassified (20 sources) RBBB Unclassified (20 sources) BRONCHITIS, NOT SPECIFIED ACUTE OR CHRONIC (490.) Unclassified (14 sources) MVP (mitral valve prolapse) Unclassified (1 source) Patient encounter status 06-20-2024 Varicose veins of lower extremity (20 sources) Varicose veins of lower extremity; Translations: [Varicose vein of leg] Onset: 12-04-2019 Episodic Comment on above: having surgery dr Aguirre 07/30 Past or Other Problems Problem Classification Problem Date Documented Date Episodic/Chronic Acute bronchitis (20 sources) Acute bronchitis; Translations: [Acute bronchitis] Resolved: 05-26-2015 05-26-2015 Episodic Blindness and vision defects (20 sources) Visual disturbance; Translations: [Unspecified visual disturbance] Resolved: 07-08-2014 01-27-2015 Episodic Comment on above: When tired Diseases of mouth; excluding dental (16 sources) Lip swelling; Translations: [Lip swelling] Resolved: 07-08-2014 07-08-2014 Episodic Comment on above: likely related to li sinopril, improved Hemorrhoids (20 sources) Hemorrhoids; Translations: [Hemorrhoids] Resolved: 01-22-2016 01-22-2016 Episodic Hepatitis (9 sources) Hepatitis Other aftercare (1 source) Encounter for follow-up examination after completed treatment for malignant neoplasm; Translations: [Encounter for follow-up surveillance of endometrial cancer] Onset: 12-21-2023 Episodic Pneumonia (20 sources) Pneumonia Screening and history of mental health and substance abuse codes (15 sources) Ex-smoker; Translations: [Personal history of nicotine dependence] Onset: 01-29-2019 01-29-2019 Episodic Unclassified (20 sources) Cyst, bursa Unclassified (20 sources) Elevated IgE level Unclassified (20 sources) Deliveries (Parity); Translations: [Deliveries (Parity)] 04-08-2016 Comment on above: 2 Unclassified (20 sources) Unspecified Diagnosis Resolved: 05-26-2015 05-26-2015 Unclassified (20 sources) Flu-like symptoms Unclassified (20 sources) Pregnancies (); Translations: [Pregnancies ()] 04-08-2016 Comment on above: 2 Unclassified (20 sources) LOW BACK PAIN WITH RADICULOPATHY (724.4) Unclassified (20 sources) Muscle spasm (728.85) Unclassified (20 sources) Screening status; Translations: [Screening for hyperlipidemia] Resolved: 05-26-2015 05-26-2015 Unclassified (20 sources) Need for hepatitis C screening test Unclassified (20 sources) Body aches Unclassified (20 sources) Lip swelling Unclassified (20 sources) Exudative pharyngitis Unclassified (20 sources) Need for zoster vaccination (Renamed from Need for shingles vaccine) Unclassified (18 sources) Need for shingles vaccine Unclassified (10 sources) Deliveries (Parity); Translations: [Deliveries (Parity)] 06-24-2020 Comment on above: 2 Unclassified (10 sources) Pregnancies (); Translations: [Pregnancies ()] 06-24-2020 Comment on above: 2 Results Test Name Value Interpretation Reference Range Facility Coronary Angiography CTon Coronary Angiography CT [facility] [address] [place] [address] 10/16/24 0917 MR#: [id number] Acct: [id number] Name: JOSE GRACIA Rep #: [id number] : 1960 63 From: Edy Cancino MD PCP: Dr. Carol Coker, DO Status:REG REF Y Location: CT Calcium Scoring Date of Study:: 10/16/24 Indications Indications: FH Coronary Calcium Scoring: High-resolution Computed Tomographic imaging of the chest was performed on [10/16/24 ], with particular attention paid to the coronary arteries. Images from the examination were analyzed for the presence and extent of coronary artery calcification , using coronary calcium quantification software. The patient tolerated the procedure well and there were no complications. The results of the coronary calcification analysis are provided below. Findings Coronary Artery Left Main (LM): 0 Left Anterior Descending (LAD): 116 Left Circumflex (LCX): 3.1 Right Coronary Artery (RCA): 7.3 Total Agatston Score: 126.4 Percentile Rankin-90% Calcium Scoring Interpretation: Different methods to categorize the overall amount of coronary plaque. Overall amount CAC SIS Visual of coronary plaque P1 Mild -100 <2 1-2 vessels with mild amount of plaque P2 Moderate 101-300 3-4 1-2 vessels with moderate amount, 3 vessels with mild amount of plaque P3 Severe 301-999 5-7 3 vessels with moderate amount, 1 vessel with severe amount of plaque P4 Extensive >1000 >8 2-3 vessels with severe amount of plaque Calcium Score: Mild: 1-2 vessels w/mild amount of plaque Conclusion: Mild atherosclerotic plaquing noted. 10/16/24 0920 Date Edy Cancino MD Cosigner Signature (if applicable): Date CC: Dr. Edy Cancino MD; Dr. Carol Coker DO Signed Normal [facility] Limited Chest CT Cardiac Onl yon 10-16-[address] Cardiac Only [facility] [address] [place], [place] [id number] Limited Chest CT Cardiac Only MR#: [id number] Acct: [id number] Name: JOSE GRACIA Rep #: [id number] : 1960 F 63 From: Giuseppe Seals PCP: Dr. Carol Coker DO Status: REG REF Study: Limited Chest CT Cardiac Only Date of Exam: Exam# [id number] Ordering Dr: Carol Coker DO PROCEDURE: LIMITED CHEST CT CARDIAC ONLY 10/16/2024 REASON FOR EXAM: HYPERCHOLESTEROLEMIA TECHNIQUE: Limited chest CT performed for coronary artery calcification evaluation. One or more dose reduction techniques were used (e.g., Automated exposure control, adjustment of the mA and/or kV according to patient size, use of iterative reconstruction technique). RADIATION DOSE SUMMARY: CTDlvol: 12.19 mGy DLP: 291.42 mGycm COMPARISON: None. CT/Limited Chest CT Cardiac Only IMPRESSION: Limited imaging of the lungs demonstrates no acute process. No pleural effusion or pneumothorax is seen in visualized areas. No adenopathy is noted. The visualized upper abdomen demonstrates no significant abnormality. Reading Location: [place] [address] CC: Dr. Carol Coker DO Loan Auditor: [facility] Tele[facility] (BALA) ----- JOSE GRACIA ([id number]) 1960 F Date Time Provider Department 07/01/24 ART AQUINO During your visit today, we recorded the following information about you: Art Aquino RN 07/01/2024 10:42 AM Addendum Called and left the patient a VM to call the office in regards to her test results. Patient verified, returned my call. Informed the patient that her pap and HPV were negative. Patient appreciative of the information. Art Aquino RN Gyn/Onc Counter Top Assembler Allergies As of Date: 07/01/2024 Noted Allergy Reaction BENZOCAINE 09/23/2015 4 - Hives environmental [Other] 09/14/2005 LISINOPRIL 01/02/2019 7 - Swelling Date Reviewed: 06/20/2024 Reviewed by: Candice Israel MA - Fully Assessed Reason for Visit: Results [95] Prescriptions as of 07/01/2024 - doxycycline (VIBRAMYCIN) 50 mg capsule - fluorometholone (FML LIQUID FILM) 0.1 % ophthalmic suspension - benzonatate (TESSALON PERLE) 100 mg capsule Take 2 capsules by mouth three times daily as needed. - docusate sodium (COLACE) 100 mg capsule Take 1 capsule by mouth twice daily. - acetaminophen (TYLENOL EXTRA STRENGTH) 500 mg tablet Take 2 tablets by mouth every 6 hours as needed. - ibuprofen (MOTRIN) 600 mg tablet Take 1 tablet by mouth every 6 hours as needed for Pain. - mometasone-formoterol (DULERA) 200-5 mcg/actuation inhaler Inhale as instructed once daily. - albuterol HFA (PROVENTIL HFA, VENTOLIN HFA) 90 mcg/actuation inhaler Inhale 2 Puffs as instructed. - amLODIPine (NORVASC) 5 mg tablet Take 5 mg by mouth once daily. - montelukast (SINGULAIR) 10 mg tablet Take 10 mg by mouth daily at bedtime. - hydrochlorothiazide (HYDRODIURIL, ESIDRIX) 12.5 mg tablet Take 12.5 mg by mouth once daily. - fluoxetine hcl(PROZAC 20 MG CAP) 2 tablets daily Problem List As Of Date 07/01/2024 Noted Resolved Mild intermittent asthma without complication [*01/29/2019 Essential hypertension, benign [I10] 01/29/2019 Anxiety and depression [F41.9, F32.A] 01/29/2019 Endometrial cancer (HCC) [C54.1] 01/29/2019 Asthma (HCC) [J45.909] 06/14/2024 Varicose vein of leg [I83.90] 06/14/2024 Bronchitis [J40] 06/14/2024 MVP (mitral valve prolapse) [I34.1] 06/14/2024 COPD (chronic obstructive pulmonary disease) (H*06/14/2024 Hepatitis [K75.9] 06/14/2024 Right bundle branch block [I45.10] 06/14/2024 Hypercholesterolemia [E78.00] 06/14/2024 History of malignant neoplasm of uterus [Z85.42]06/14/2024 High density lipoprotein (HDL) less than 40 mg/*06/14/2024 Family history of lung cancer [Z80.1] 06/14/2024 Eczema [L30.9] 06/14/2024 Dysphagia [R13.10] 06/14/2024 Current every day smoker [F17.200] 06/14/2024 Encounter Status:Closed by ART AQUINO on 07/01/24 [facility] CNCOon 06-21-2024 CNCO Letter Text [facility] CNOVSPon 06-20-2024 CNOVSP Visit (SP) Office (BALA) ----- JOSE GRACIA ([id number]) 1960 F Date Time Provider Department 06/20/24 10:30 AM AMBER ROBERSON During your visit today, we recorded the following information about you: Temperature Pulse Blood pressure Weight 97 degrees 68/minute 131/80 73.9 kg Height 1.727 m Amber Roberson MD 06/20/2024 1:19 PM Signed DATE OF SERVICE: 06/20/2024 PROBLEM: Jose Gracia presents for a follow-up visit. 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 Patient was previously seen by Dr. Adler in 2019. CA 125 (U/mL) Date Value 01/08/2019 14 01/08/2019: EMB - Endometrial adenocarcinoma, endometrioid type, FIGO Grade 1. Immunohistochemical (IHC) staining patterns of each MMR protein: PMS2 expressed in carcinoma nuclei MLH1 expressed in carcinoma nuclei MSH6 expressed in carcinoma nuclei MSH2 expressed in carcinoma nuclei 02/01/2019: With Dr. Adler Robotic total hysterectomy, bilateral salpingo-oophorectomy and cystoscopy FINAL DIAGNOSIS Uterus, cervix, bilateral tubes and ovaries, hysterectomy with bilateral salpingo-oophorectomy - Endometrial endometrioid adenocarcinoma, FIGO Grade 1. Tumor 2 cm in size, invading 13% myometrial thickness. Negative for lymphovascular space invasion. - Benign endometrial polyp. - Cervix, fallopian tubes and ovaries negative for malignancy. Tumor Size: Greatest dimension: 2 cm Additional dimension: 1.5 cm Additional dimension: 0.3 cm Histologic Type: Endometrioid carcinoma, NOS Histologic Grade: FIGO grade 1 Myometrial Invasion: Present Depth of invasion: 1.5 mm Myometrial thickness: 12 mm Percentage of myometrial invasion: 13 % Estimated <50% myometrial invasion Uterine Serosa Involvement: Not identified Lower Uterine Segment Involvement: Not identified Cervical Stromal Involvement: Not identified Involvement of other tissue/organs: Not identified Margins: Ectocervical/vaginal cuff margin uninvolved by carcinoma Parametrial/Paracervical margin cannot be assessed: Simple hysterectomy Lymph-Vascular Invasion: Not identified Regional Lymph Nodes: No nodes submitted or found Pathologic Stage Classification (pTNM, AJCC 8th ed) TNM Descriptors: Not applicable Primary Tumor (pT): pT1a (IA): Tumor limited to endometrium or invades less than 1/2 of the myometrium Regional Lymph Nodes (pN): pNX: Regional lymph nodes cannot be assessed Distant Metastasis (pM): Not applicable/Not confirmed pathologically in this case Additional Pathologic Findings: Other: endometerial polyp Ancillary Studies: Ace syndrome screening: Mismatch repair proficient (perviously performed [id number]; 01/11/2019) Stockroom Worker Tumor block: Specify: A6 08/19/[address] Adler: Stage IA grade 1 endometrioid endometrial cancer, -LVSI, superficial myometrial invasion 1, No clinical evidence of disease. Signs and symptoms of recurrence reviewed 2. Pap done, will follow 3. CT scan as needed 4. UTD for breast cancer screening 5. RTC in 6 months 04/02/2020 Visit: Patient presents for a follow up visit. Breast exam performed in clinic today. A mammogram will be scheduled. A pap smear was obtained. Will contact the patient with the results. Plan for patient to obtain CXR today. No clinical evidence of disease the patient will be seen in 4 months time. 04/02/2020 CXR: IMPRESSION: No acute radiographic findings in the chest. 07/16/2020 visit: Patient presents for a follow up visit. Patient is up to date on her CXR. A mammogram will be scheduled. A pap smear was obtained. Will contact the patient with the results. No clinical evidence of disease the patient will be seen in 4 months time. 11/20/2020 visit: Patient presents today for follow-up visit with no complaints at this time. Patient reports that she has been wearing stockings due to her diagnosis of varicose veins. Breast exam conducted, no abnormal findings. A Pap smear was obtained will notify patient of results. Plan to schedule a mammogram and RTC in 4 months. 02/19/2021 XR CHEST: IMPRESSION: No acute radiographic abnormality. Chronic lung hyperinflation. 03/25/2021 Visit: Patient presents today for follow-up visit with no complaints at this time. Patient reports that she is wearing compression stockings due to her condition of varicose veins. I reviewed the patient's CXR (02/19/2021) showing no abnormal findings. A Pap smear was obtained will notify patient of results. RTC in 6 months. 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 She is doing well. She d (more content not included)... Normal [facility] HIGH RISK HUMAN PAPILLOMA UMAIR (HPV), PCR FOR DETECTION AND GENOTYPINGon 06-20-2024 HPV 16 Ag Ql (Unsp spec) Not detected Normal Not detected [facility] Comment on above: Order Comment: Speci men Type: FLUID SPECIMENOrdering Facility: [facility] Address: [address] [place] [address] Performed By: #### H PVHRT ####[facility] LABIA [id number] [address] [place] HPV 18 Ag Ql (Unsp spec) Not detected Normal Not detected [facility] Comment on above: Order Comment: Speci men Type: FLUID SPECIMENOrdering Facility: [facility] Address: [address] [place] [address] Performed By: #### H PVHRT ####[facility] LABIA [id number] [place] [address] [place] HPV 31+33+35+39+45+51+52+ 56+58+59+66+68 DNA PETRA+probe Ql (Cvx) Not detected Normal Not detected [facility] Comment on above: Order Comment: Speci men Type: FLUID SPECIMENOrdering Facility: [facility] Address: [address] [place] [address] Result Comment: High Risk HPV Other Type includes HPV types 31, 33, 35, 39, 45, 51, 52, 56, 58, 59, 66 and 68. Performed By: #### H PVHRT ####[facility] LABIA [id number] [place] [address] [place] MELL SCREENING W TOMOon 06-20 MELL SCREENING W JEREMIAH * * *Final Report* * * DATE OF EXAM: Jun 20 2024 9:48AM CAW [id number] - MELL SCREENING W JEREMIAH / PROCEDURE REASON: Encounter for screening mammogram for malignant neoplasm of breast * * * * Physician Interpretation * * * * RESULT: [address] [place] [address] #[id number] - MELL SCREENING W JEREMIAH HISTORY: 63 year-old patient seen for screening. No current complaints. Patient states no personal history of breast cancer. The patient has a family history of ovarian cancer. COMPARISON STUDIES: The present examination has been compared to prior imaging studies dated 03/25/2021 (mammogram), 05/19/2022 (mammogram), 06/08/2023 (mammogram), 07/04/2023 (mammogram), 07/04/2023 (ultrasound) and 08/17/2023 (mammogram). MAMMOGRAM TECHNIQUE: The study was acquired using full field digital technology and interpreted from soft copy. Digital Breast Tomosynthesis (DBT) images were obtained and used to assist in the interpretation of this examination. MAMMOGRAM FINDINGS: There are scattered areas of fibroglandular density. No suspicious masses, calcifications or other abnormalities are seen in either breast. There are no significant interval changes. IMPRESSION: There is no mammographic evidence of malignancy in either breast. Routine screening mammogram is recommended. Annual mammogram will be due in 1 year. BI-RADS Category 1: Negative RISK: Based on the Tyrer-Cuzick (TC) risk assessment model, this patient has a 4.1% lifetime risk of developing breast cancer, meaning they are at average risk for developing breast cancer. However, this is only an estimate based on available history provided on the patient's questionnaire. We encourage all patients to talk with their providers about these results, further recommendations for managing breast health, and appropriate supplemental screening options if the patient has dense breast tissue. Interpreting Radiologist: Anthony Finley M.D. Resident/Fellow: Bessie Begum D.O. Electronically signed on: 06/21/2024 Loan Auditor: MERNA Transcribe Date/Time: Jun 20 2024 9:47A Dictated by : BESSIE BEGUM, DO This examination was interpreted and the report reviewed and electronically signed by: ANTHONY FINLEY MD on Jun 21 2024 12:52PM EST [id number] Normal [facility] PAP TESTon 06-20-2024 ADEQUACY Satisfactory for interpretation. Normal [facility] Comment on above: Order Comment: Speci men Type: FLUID SPECIMENOrdering Facility: [facility] Address: [address] [place] [address] Performed By: #### L [id number] ####[facility] LABCLIA [id number] [address] [address] [place] CASE REPORT Normal [facility] Comment on above: Order Comment: Speci men Type: FLUID SPECIMENOrdering Facility: [facility] Address: [address] [place] [address] Result Comment: Gyne cologic Cytology Report Case: [id number] Authorizing Provider: Camille Munoz, Collected: 06/20/2024 11:40 AM DIRECTOR PATIENT.TNT LINE SUPERVISOR Ordering Location: Gynecology Oncology Received: 06/20/2024 08:30 PM First Screen: Mahamed Cortez, CT, ASCP Rescreen: Corby Ortiz Tech Specimen: Pap Test, ThinPrep, Vagina Performed By: #### L [id number] ####[facility] LABCLIA [id number] [address] [address] [place] CLINICAL HISTORY, CYTOLOGY, POWER SAW MECHANIC Normal [facility] Comment on above: Order Comment: Speci men Type: FLUID SPECIMENOrdering Facility: [facility] Address: [address] [place], [place] [id number] Result Comment: Hist ory of Malignancy (Describe) Hysterectomy, Total endometrial ca Performed By: #### L [id number] ####[facility] LABCLIA [id number] [address] [address] [place] FINAL PERFORMING LAB Normal [facility] Comment on above: Order Comment: Speci men Type: FLUID SPECIMENOrdering Facility: [facility] Address: [address], [place] [address] Result Comment: Tech nical component, journeyman lineman screening performed at [facility], [facility] [place] [id number] CLIA# [id number] Diagnostic interpretation performed at [facility], [facility] [place] [id number] CLIA# [id number] Delivery Consultant: Jeevan Thomas M.D. Performed By: #### L [id number] ####[facility] LABIA [id number] [place] [id number] [place] INTERPRETATION, CYTOLOGY, POWER SAW MECHANIC Normal [facility] Comment on above: Order Comment: Speci men Type: FLUID SPECIMENOrdering Facility: [facility] Address: [address] [place] [address] Result Comment: Nega tive for intraepithelial lesion or malignancy. at 0922 EDT Performed By: #### L [id number] ####[facility] LABIA [id number] [place] [address] [place] PAP DISCLAIMER COMMENT The Pap Smear is a screening test for cervical cancer. False negative results occur with all screening tests, emphasizing the need for rescreening at recommended intervals, and clinical correlation. Normal [facility] Comment on above: Order Comment: Speci men Type: FLUID SPECIMENOrdering Facility: [facility] Address: [address] [place] [address] Performed By: #### L [id number] ####[facility] LABIA [id number] [place] [address] [place] PAP BROADBAND TECHNICIAN COMMENT This specimen has be en analyzed by the ThinPrep Imaging System, an automated imaging and review system, which assists the laboratory in evaluating cells on ThinPrep Pap tests. Following automated imaging, selected malin from every slide are reviewed by a journeyman lineman. Normal [facility] Comment on above: Order Comment: Speci men Type: FLUID SPECIMENOrdering Facility: [facility] Address: [address] [place] [address] Performed By: #### L [id number] ####[facility] JENNI [id number] [id number] [address] [facility] Gabby 12-27-2023 WYATTN Telephone (BALA) ----- JOSE GRACIA ([id number]) 1960 F Date Time Provider Department 12/27/23 ART AQUINO During your visit today, we recorded the following information about you: Art Aquino RN 12/27/2023 3:42 PM Addendum Called and left the patient a VM to call the office in regards to her test results. Patient verified. The patient called back into the office . I informed the patient per the ELECTRICAL LINEMAN that her pap was normal. Patient appreciative of call. Art Aquino RN Gyn/Onc Counter Top Assembler Allergies As of Date: 12/27/2023 Noted Allergy Reaction BENZOCAINE 09/23/2015 4 - Hives environmental [Other] 09/14/2005 LISINOPRIL 01/02/2019 7 - Swelling Date Reviewed: 06/09/2023 Reviewed by: Abhay Hawkins APRN.TNT LINE SUPERVISOR - Fully Assessed Reason for Visit: Results [95] Prescriptions as of 12/27/2023 - doxycycline (VIBRAMYCIN) 50 mg capsule - fluorometholone (FML LIQUID FILM) 0.1 % ophthalmic suspension - benzonatate (TESSALON PERLE) 100 mg capsule Take 2 capsules by mouth three times daily as needed. - docusate sodium (COLACE) 100 mg capsule Take 1 capsule by mouth twice daily. - acetaminophen (TYLENOL EXTRA STRENGTH) 500 mg tablet Take 2 tablets by mouth every 6 hours as needed. - ibuprofen (MOTRIN) 600 mg tablet Take 1 tablet by mouth every 6 hours as needed for Pain. - mometasone-formoterol (DULERA) 200-5 mcg/actuation inhaler Inhale as instructed once daily. - albuterol HFA (PROVENTIL HFA, VENTOLIN HFA) 90 mcg/actuation inhaler Inhale 2 Puffs as instructed. - amLODIPine (NORVASC) 5 mg tablet Take 5 mg by mouth once daily. - montelukast (SINGULAIR) 10 mg tablet Take 10 mg by mouth daily at bedtime. - hydrochlorothiazide (HYDRODIURIL, ESIDRIX) 12.5 mg tablet Take 12.5 mg by mouth once daily. - fluoxetine hcl(PROZAC 20 MG CAP) 2 tablets daily Problem List As Of Date 12/27/2023 Noted Resolved Former smoker [Z87.891] 01/29/2019 Mild intermittent asthma without complication [*01/29/2019 Essential hypertension, benign [I10] 01/29/2019 Anxiety and depression [F41.9, F32.A] 01/29/2019 Endometrial cancer (HCC) [C54.1] 01/29/2019 Encounter Status:Closed by ART AQUINO on 12/27/23 [facility] CNOVSPon 12-21-2023 OVS Visit (SP) Office (BALA) ----- JOSE GRACIA ([id number]) 1960 F Date Time Provider Department 12/21/23 10:30 AM AMBER ROBERSON During your visit today, we recorded the following information about you: Temperature Pulse Blood pressure Weight 98.1 degrees 65/minute 132/85 75.3 kg Height 1.727 m Amber Roberson MD 12/21/2023 12:58 PM Signed Gynecologic Oncology [facility] Follow up Re: Jose Gracia [facility]#: [id number] Date of service: 12/21/2023 Jose presents for a follow-up visit for stage IA grade 1 endometrioid endometrial cancer. Briefly, she is a 63 year old female who has a past medical history of Adjustment disorder with depressed mood, Asthma, Endometrial cancer, grade I (HCC) (01/08/2019), and Hypertension. Patient was previously seen by Dr. Adler in 2019. TREATMENT HISTORY: CA 125 (U/mL) Date Value 01/08/2019 14 01/08/2019: EMB - Endometrial adenocarcinoma, endometrioid type, FIGO Grade 1. Immunohistochemical (IHC) staining patterns of each MMR protein: PMS2 expressed in carcinoma nuclei MLH1 expressed in carcinoma nuclei MSH6 expressed in carcinoma nuclei MSH2 expressed in carcinoma nuclei 02/01/2019: With Dr. Adler Robotic total hysterectomy, bilateral salpingo-oophorectomy and cystoscopy FINAL DIAGNOSIS Uterus, cervix, bilateral tubes and ovaries, hysterectomy with bilateral salpingo-oophorectomy - Endometrial endometrioid adenocarcinoma, FIGO Grade 1. Tumor 2 cm in size, invading 13% myometrial thickness. Negative for lymphovascular space invasion. - Benign endometrial polyp. - Cervix, fallopian tubes and ovaries negative for malignancy. Tumor Size: Greatest dimension: 2 cm Additional dimension: 1.5 cm Additional dimension: 0.3 cm Histologic Type: Endometrioid carcinoma, NOS Histologic Grade: FIGO grade 1 Myometrial Invasion: Present Depth of invasion: 1.5 mm Myometrial thickness: 12 mm Percentage of myometrial invasion: 13 % Estimated <50% myometrial invasion Uterine Serosa Involvement: Not identified Lower Uterine Segment Involvement: Not identified Cervical Stromal Involvement: Not identified Involvement of other tissue/organs: Not identified Margins: Ectocervical/vaginal cuff margin uninvolved by carcinoma Parametrial/Paracervical margin cannot be assessed: Simple hysterectomy Lymph-Vascular Invasion: Not identified Regional Lymph Nodes: No nodes submitted or found Pathologic Stage Classification (pTNM, AJCC 8th ed) TNM Descriptors: Not applicable Primary Tumor (pT): pT1a (IA): Tumor limited to endometrium or invades less than 1/2 of the myometrium Regional Lymph Nodes (pN): pNX: Regional lymph nodes cannot be assessed Distant Metastasis (pM): Not applicable/Not confirmed pathologically in this case Additional Pathologic Findings: Other: endometerial polyp Ancillary Studies: Ace syndrome screening: Mismatch repair proficient (perviously performed [id number]; 01/11/2019) Stockroom Worker Tumor block: Specify: A6 08/19/[address] Adler: Stage IA grade 1 endometrioid endometrial cancer, -LVSI, superficial myometrial invasion 1, No clinical evidence of disease. Signs and symptoms of recurrence reviewed 2. Pap done, will follow 3. CT scan as needed 4. UTD for breast cancer screening 5. RTC in 6 months 04/02/2020 Visit: Patient presents for a follow up visit. Breast exam performed in clinic today. A mammogram will be scheduled. A pap smear was obtained. Will contact the patient with the results. Plan for patient to obtain CXR today. No clinical evidence of disease the patient will be seen in 4 months time. 04/02/2020 CXR: IMPRESSION: No acute radiographic findings in the chest. 07/16/2020 visit: Patient presents for a follow up visit. Patient is up to date on her CXR. A mammogram will be scheduled. A pap smear was obtained. Will contact the patient with the results. No clinical evidence of disease the patient will be seen in 4 months time. 11/20/2020 visit: Patient presents today for follow-up visit with no complaints at this time. Patient reports that she has been wearing stockings due to her diagnosis of varicose veins. Breast exam conducted, no abnormal findings. A Pap smear was obtained will notify patient of results. Plan to schedule a mammogram and RTC in 4 months. 02/19/2021 XR CHEST: IMPRESSION: No acute radiographic abnormality. Chronic lung hyperinflation. 03/25/2021 Visit: Patient presents today for follow-up visit with no complaints at this time. Patient reports that she is wearing compression stockings due to her condition of varicose veins. I reviewed the patient's CXR (02/19/2021) showing no abnormal findings. A Pap smear was obtained will notify patient of results. RTC in 6 months. 10/21/2021 Visit: Patient with stage IA grade 1 end (more content not included)... Normal [facility] PAP TESTon 12-21-2023 ADEQUACY Satisfactory for interpretation. Normal [facility] Comment on above: Order Comment: Speci men Type: FLUID SPECIMEN [facility] Address: [address] [place] [address] Performed By: #### L [id number] #### [facility] CLIA [id number] [address] [place] [address] [place] [address] [place] CASE REPORT Normal [facility] Comment on above: Order Comment: Speci men Type: FLUID SPECIMEN [facility] Facility: [facility] Address: [address] [place] [address] Result Comment: Gyne cologic Cytology Report Case: [id number] Authorizing Provider: Dariela Eller, Collected: 12/21/2023 10:50 AM DIRECTOR PATIENT.TNT LINE SUPERVISOR Ordering Location: Gynecology Oncology Received: 12/21/2023 08:07 PM First Screen: Gmitro, Louis, CT, ASCP Rescreen: Gladkaya, Trudy, CT, ASCP Specimen: Pap Test, ThinPrep, Vagina Performed By: #### L [id number] #### [facility] CLIA [id number] [address] [place] [address] [place] CLINICAL HISTORY, CYTOLOGY, POWER SAW MECHANIC Normal [facility] Comment on above: Order Comment: Speci men Type: FLUID SPECIMEN [facility] Facility: [facility] Address: [address] [place] [address] Result Comment: Hist ory of Malignancy (Describe) Hysterectomy, Total endometrial cancer Performed By: #### L [id number] #### [facility] CLIA [id number] [address] [place] [address] [place] FINAL PERFORMING LAB Normal [facility] Comment on above: Order Comment: Speci men Type: FLUID SPECIMEN [facility]ing Facility: [facility] Address: [address] [place] [address] Result Comment: Tech nical component, journeyman lineman screening performed at [facility], [address] [place] [address] CLIA# [id number] Diagnostic interpretation performed at [facility], [address] [place] [address] CLIA# [id number] Delivery Consultant: Jeevan Thomas M.D. Performed By: #### L [id number] #### [facility] CLIA [id number] [address] [place] [address] [place] HPV REFLEX HPV if Atypical Normal [facility] Comment on above: Order Comment: Speci men Type: FLUID SPECIMEN [facility] Facility: [facility] Address: [address] [place] [address] Performed By: #### L [id number] #### [facility] CLIA [id number] [address] [place] [address] [place] INTERPRETATION, CYTOLOGY, POWER SAW MECHANIC Normal [facility] Comment on above: Order Comment: Speci men Type: FLUID SPECIMEN [facility] Facility: [facility] Address: [address] [place] [address] Result Comment: Nega tive for intraepithelial lesion or malignancy. Performed By: #### L [id number] #### [facility] CLIA [id number] [address] [place] [address] [place] PAP DISCLAIMER COMMENT The Pap Smear is a screening test for cervical cancer. False negative results occur with all screening tests, emphasizing the need for rescreening at recommended intervals, and clinical correlation. Normal [facility] Comment on above: Order Comment: Speci men Type: FLUID SPECIMEN [facility] Facility: [facility] Address: [address] [place] [address] Performed By: #### L [id number] #### [facility] CLIA [id number] [address] [place] [address] [place] PAP BROADBAND TECHNICIAN COMMENT This specimen has be en analyzed by the ThinPrep Imaging System, an automated imaging and review system, which assists the laboratory in evaluating cells on ThinPrep Pap tests. Following automated imaging, selected malin from every slide are reviewed by a journeyman lineman. Normal [facility] Comment on above: Order Comment: Speci men Type: FLUID SPECIMEN [facility] Facility: [facility] Address: [address] [place] [address] Performed By: #### L [id number] #### [facility] CLIA [id number] [address] [place] [address] [place] DBT Breast - right diagnosti c for implanton 08-17-2023 IMPRESSION: BENIGN FINDING The asymmetry in the right breast middle depth lateral region seen on the craniocaudal view only resembles fibroglandular tissue and is benign. There is no mammographic evidence of malignancy. A 1 year screening mammogram is recommended. The exam was reviewed by a staff physician. SUMMARY: Because neither finding in the right breast has significantly changed, and both have benign imaging characteristics, no stereotactic biopsy will be performed today. Patient can return to her annual imaging schedule. Dr. Rico reviewed these findings and recommendations with the patient at the time of interpretation. charissa Dennis M.D., M.D./chantale:08/17/2023 13:05:20 Shearing Machine Tender(s): RT Allie(Shaye)(M), [facility] BI-RADS: 2 Benign finding Multiple national specialty organizations have released breast cancer screening guidelines for women at average risk for developing breast cancer - guidelines that are based on both evidence and opinion, yet differ on when to start and how often to screen for breast cancer. With representation from Breast Imaging, Internal Medicine, Women's Health, Family Medicine, and Medical/Surgical Oncology, the [facility] has carefully reviewed the data and reached the following consensus: 1) All women should engage in shared decision-making with their providers to decide when to start and how often to screen; 2) All women should have the opportunity to start screening mammography at age 40; 3) For women ages 45-55, we recommend annual screening mammograms; 4) For women ages 55 and over, we support both the transition from an annual to a biennial interval if this aligns more with patient's values and preferences, or continuation with annual screening; 5) All women should discuss with their providers when to stop screening mammograms. Loan Auditor: Chantale Transcribe Date/Time: Aug 17 2023 12:24P Dictated by : ZAC RICO MD This examination was interpreted and the report reviewed and electronically signed by: JESSIE MCKEON MD on Aug 17 2023 1:05PM [facility] DIVISION OF RADIOLOGY * * *Final Report* * * DATE OF EXAM: Aug 17 2023 12:24PM [facility]29 - MELL DIAG W JEREMIAH RT / PROCEDURE REASON: Abnormal finding on radiological examination of breast * * * * Physician Interpretation * * * * RESULT: #[id number] - MELL DIAG W JEREMIAH RT UNILATERAL RIGHT DIGITAL DIAGNOSTIC MAMMOGRAM TOMOSYNTHESIS WITH CAD: 08/17/2023 HISTORY: Abnormal Finding On Radiological Examination Of Breast This patient initially presented today for a stereotactic biopsy of an asymmetry in the superior, posterior right breast as identified on prior diagnostic imaging dated 07-04-23. This was felt to correlate with a second asymmetry identified in the lateral right breast. Because we are not certain this is the same finding on both views, repeat diagnostic imaging was recommended prior to biopsy. RESULT: TECHNIQUE: The study was acquired using full field digital technology and interpreted from soft copy. Digital Breast Tomosynthesis (DBT) images were obtained and used to assist in the interpretation of this examination. Current study was also evaluated with a Computer Aided Detection (CAD). Comparison is made to exams dated: 07/04/2023 mammogram - [facility], 06/08/2023 mammogram, 05/19/2022 mammogram, 03/25/2021 mammogram - [facility], 01/22/2019 mammogram - [facility], and 09/30/2015 mammogram - [facility]. There are scattered areas of fibroglandular density in the right breast. There is a benign round asymmetry in the right breast posterior depth superior region seen on the mediolateral oblique view only. This asymmetry has not significantly changed when compared to prior DBT exam dated 03-25-21, and prior diagnostic 2-D imaging performed 01-22-19. Given mammographic stability, this is therefore benign. There also is an asymmetry in the right breast middle depth lateral region seen on the craniocaudal view only. This is not significantly changed. No other significant masses or calcifications are seen in the breast. DIVISION OF RADIOLOGY Provider, [facility] - 08/17/2023 * * *Final Report* * * DATE OF EXAM: Aug 17 2023 12:24PM [facility] [place] [facility] - [facility] DIAG W JEREMIAH RT / PROCEDURE REASON: Abnormal finding on radiological examination of breast * * * * Physician Interpretation * * * * RESULT: #[id number] - MELL MELODY W JEREMIAH RT UNILATERAL RIGHT DIGITAL DIAGNOSTIC MAMMOGRAM TOMOSYNTHESIS WITH CAD: 08/17/2023 HISTORY: Abnormal Finding On Radiological Examination Of Breast This patient initially presented today for a stereotactic biopsy of an asymmetry in the superior, posterior right breast as identified on prior diagnostic imaging dated 07-04-23. This was felt to correlate with a second asymmetry identified in the lateral right breast. Because we are not certain this is the same finding on both views, repeat diagnostic imaging was recommended prior to biopsy. RESULT: TECHNIQUE: The study was acquired using full field digital technology and interpreted from soft copy. Digital Breast Tomosynthesis (DBT) images were obtained and used to assist in the interpretation of this examination. Current study was also evaluated with a Computer Aided Detection (CAD). Comparison is made to exams dated: 07/04/2023 mammogram - [facility], 06/08/2023 mammogram, 05/19/2022 mammogram, 03/25/2021 mammogram - [facility], 01/22/2019 mammogram - [facility], and 09/30/2015 mammogram - [facility]. There are scattered areas of fibroglandular density in the right breast. There is a benign round asymmetry in the right breast posterior depth superior region seen on the mediolateral oblique view only. This asymmetry has not significantly changed when compared to prior DBT exam dated 03-25-21, and prior diagnostic 2-D imaging performed 01-22-19. Given mammographic stability, this is therefore benign. There also is an asymmetry in the right breast middle depth lateral region seen on the craniocaudal view only. This is not significantly changed. No other significant masses or calcifications are seen in the breast. IMPRESSION IMPRESSION: BENIGN FINDING The asymmetry in the right breast middle depth lateral region seen on the craniocaudal view only resembles fibroglandular tissue and is benign. There is no mammographic evidence of malignancy. A 1 year screening mammogram is recommended. The exam was reviewed by a staff physician. SUMMARY: Because neither finding in the right breast has significantly changed, and both have benign imaging characteristics, no stereotactic biopsy will be performed today. Patient can return to her annual imaging schedule. Dr. Rico reviewed these findings and recommendations with the patient at the time of interpretation. Jessie thomas,charissa/chantale:08/17/2023 13:05:20 Shearing Machine Tender(s): RT Allie(R)(M), [facility] Mammogram BI-RADS: 2 Benign finding Multiple national specialty organizations have released breast cancer screening guidelines for women at average risk for developing breast cancer - guidelines that are based on both evidence and opinion, yet differ on when to start and how often to screen for breast cancer. With representation from Breast Imaging, Internal Medicine, Women's Health, Family Medicine, and Medical/Surgical Oncology, the [facility] has carefully reviewed the data and reached the following consensus: 1) All women should engage in shared decision-making with their providers to decide when to start and how often to screen; 2) All women should have the opportunity to start screening mammography at age 40; 3) For women ages 45-55, we recommend annual screening mammograms; 4) For women ages 55 and over, we support both the transition from an annual to a biennial interval if this aligns more with patient's values and preferences, or continuation with annual screening; 5) All women should discuss with their providers when to stop screening mammograms. Loan Auditor: Chantale Transcribe Date/Time: Aug 17 2023 12:24P Dictated by : ZAC RICO MD This examination was interpreted and the report reviewed and electronically signed by: JESSIE MCKEON MD on Aug 17 2023 1:05PM EST [facility] Radiology Study observation (narrative) [facility] DBT Breast - right diagnosti c for implantOrdered By: [facility] Provider on 08-17-2023 [facility] MELL DIAG W JEREMIAH RTon 024 MELL DIAG W JEREMIAH RT * * *Final Report* * * DATE OF EXAM: Aug 17 2023 12:24PM [facility] 0629 - ME[facility] DIAG W JEREMIAH RT / PROCEDURE REASON: Abnormal finding on radiological examination of breast * * * * Physician Interpretation * * * * RESULT: #[id number] - [facility] DIAG W JEREMIAH RT UNILATERAL RIGHT DIGITAL DIAGNOSTIC MAMMOGRAM TOMOSYNTHESIS WITH CAD: 08/17/2023 HISTORY: Abnormal Finding On Radiological Examination Of Breast This patient initially presented today for a stereotactic biopsy of an asymmetry in the superior, posterior right breast as identified on prior diagnostic imaging dated 07-04-23. This was felt to correlate with a second asymmetry identified in the lateral right breast. Because we are not certain this is the same finding on both views, repeat diagnostic imaging was recommended prior to biopsy. RESULT: TECHNIQUE: The study was acquired using full field digital technology and interpreted from soft copy. Digital Breast Tomosynthesis (DBT) images were obtained and used to assist in the interpretation of this examination. Current study was also evaluated with a Computer Aided Detection (CAD). Comparison is made to exams dated: 07/04/2023 mammogram - [facility], 06/08/2023 mammogram, 05/19/2022 mammogram, 03/25/2021 mammogram - [facility], 01/22/2019 mammogram - [facility], and 09/30/2015 mammogram - [facility]. There are scattered areas of fibroglandular density in the right breast. There is a benign round asymmetry in the right breast posterior depth superior region seen on the mediolateral oblique view only. This asymmetry has not significantly changed when compared to prior DBT exam dated 03-25-21, and prior diagnostic 2-D imaging performed 01-22-19. Given mammographic stability, this is therefore benign. There also is an asymmetry in the right breast middle depth lateral region seen on the craniocaudal view only. This is not significantly changed. No other significant masses or calcifications are seen in the breast. IMPRESSION: BENIGN FINDING The asymmetry in the right breast middle depth lateral region seen on the craniocaudal view only resembles fibroglandular tissue and is benign. There is no mammographic evidence of malignancy. A 1 year screening mammogram is recommended. The exam was reviewed by a staff physician. SUMMARY: Because neither finding in the right breast has significantly changed, and both have benign imaging characteristics, no stereotactic biopsy will be performed today. Patient can return to her annual imaging schedule. Dr. Rico reviewed these findings and recommendations with the patient at the time of interpretation. Jessie thomas,charissa/chantale:08/17/2023 13:05:20 Shearing Machine Tender(s): RT Allie(R)(M), [facility] Mammogram BI-RADS: 2 Benign finding Multiple national specialty organizations have released breast cancer screening guidelines for women at average risk for developing breast cancer - guidelines that are based on both evidence and opinion, yet differ on when to start and how often to screen for breast cancer. With representation from Breast Imaging, Internal Medicine, Women's Health, Family Medicine, and Medical/Surgical Oncology, the [facility] has carefully reviewed the data and reached the following consensus: 1) All women should engage in shared decision-making with their providers to decide when to start and how often to screen; 2) All women should have the opportunity to start screening mammography at age 40; 3) For women ages 45-55, we recommend annual screening mammograms; 4) For women ages 55 and over, we support both the transition from an annual to a biennial interval if this aligns more with patient's values and preferences, or continuation with annual screening; 5) All women should discuss with their providers when to stop screening mammograms. Loan Auditor: Chantale Transcribe Date/Time: Aug 17 2023 12:24P Dictated by : ZAC RICO MD This examination was interpreted and the report reviewed and electronically signed by: JESSIE MCKEON MD on Aug 17 2023 1:05PM EST [id number] Normal [facility] DBT Breast - right diagnosti c for implanton 07-04-2023 * * *Final Report* * * DATE OF EXAM: Jul 04 2023 3:07PM [facility] 0629 - [facility] SORAYAG W JEREMIAH RT / PROCEDURE REASON: Abnormal mammogram * * * * Physician Interpretation * * * * RESULT: #[id number] - [facility] DIAG W JEREMIAH RT #[id number] - [facility] US BREAST LTD RT UNILATERAL RIGHT DIGITAL DIAGNOSTIC MAMMOGRAM TOMOSYNTHESIS WITH CAD: 07/04/2023 HISTORY: / Call back/abnormal mamm: Right /priors available for comparison Abnormal Mammogram Abnormal Mammogram. RESULT: TECHNIQUE: The study was acquired using full field digital technology and interpreted from soft copy. Digital Breast Tomosynthesis (DBT) images were obtained and used to assist in the interpretation of this examination. Current study was also evaluated with a Computer Aided Detection (CAD). Comparison is made to exams dated: 06/08/2023 mammogram, 05/19/2022 mammogram, and 03/25/2021 mammogram - [facility]. There are scattered areas of fibroglandular density in the right breast. There is a 7 mm asymmetry in the right breast posterior depth superior region seen on the mediolateral oblique view only. No other significant masses or calcifications are seen in the breast. DIVISION OF RADIOLOGY Provider, [facility] - 07/04/2023 * * *Final Report* * * DATE OF EXAM: Jul 04 2023 3:07PM [facility] 0629 - [facility] DIAG W JEREMIAH RT / PROCEDURE REASON: Abnormal mammogram * * * * Physician Interpretation * * * * RESULT: #[id number] - [facility] DIAG W JEREMIAH RT #[id number] - [facility] US BREAST LTD RT UNILATERAL RIGHT DIGITAL DIAGNOSTIC MAMMOGRAM TOMOSYNTHESIS WITH CAD: 07/04/2023 HISTORY: / Call back/abnormal mamm: Right /priors available for comparison Abnormal Mammogram Abnormal Mammogram. RESULT: TECHNIQUE: The study was acquired using full field digital technology and interpreted from soft copy. Digital Breast Tomosynthesis (DBT) images were obtained and used to assist in the interpretation of this examination. Current study was also evaluated with a Computer Aided Detection (CAD). Comparison is made to exams dated: 06/08/2023 mammogram, 05/19/2022 mammogram, and 03/25/2021 mammogram - [facility]. There are scattered areas of fibroglandular density in the right breast. There is a 7 mm asymmetry in the right breast posterior depth superior region seen on the mediolateral oblique view only. No other significant masses or calcifications are seen in the breast. IMPRESSION IMPRESSION: INCOMPLETE: NEEDS ADDITIONAL IMAGING EVALUATION The 7 mm asymmetry in the right breast is indeterminate. An ultrasound is recommended. LIMITED ULTRASOUND OF RIGHT BREAST: 07/04/2023 RESULT: Comparison is made to exams dated: 06/08/2023 mammogram, 05/19/2022 mammogram, and 03/25/2021 mammogram - [facility]. Real-time ultrasound of the right breast upper outer quadrant was performed. Briones scale images of the real-time examination were reviewed. IMPRESSION: SUSPICIOUS FINDING - BIOPSY SHOULD BE CONSIDERED Since the lesion is seen in two views on the 3D mammogram but not seen sonographically, biopsy based on the mammogram with 3D guidance is suggested. There is no abnormality seen in the right breast to correspond with the mammographic density. Sandra garcia/chantale:07/04/2023 15:28:19 Multiple national specialty organizations have released breast cancer screening guidelines for women at average risk for developing breast cancer - guidelines that are based on both evidence and opinion, yet differ on when to start and how often to screen for breast cancer. With representation from Breast Imaging, Internal Medicine, Women's Health, Family Medicine, and Medical/Surgical Oncology, the [facility] has carefully reviewed the data and reached the following consensus: 1) All women should engage in shared decision-making with their providers to decide when to start and how often to screen; 2) All women should have the opportunity to start screening mammography at age 40; 3) For women ages 45-55, we recommend annual screening mammograms; 4) For women ages 55 and over, we support both the transition from an annual to a biennial interval if this aligns more with patient's values and preferences, or continuation with annual screening; 5) All women should discuss with their providers when to stop screening mammograms. Shearing Machine Tender(s): Elodia Lal, [facility]; RT Enedina(R)(M), [facility] OVERALL STUDY BIRADS: 4 Suspicious finding - Biopsy should be considered Loan Auditor: Chantale Transcribe Date/Time: Jul 04 2023 2:42P Dictated by: SANDRA PATEL MD This examination was interpreted and the report reviewed and electronically signed by: SANDRA PATEL MD on Jul 04 2023 3:28PM [facility] DIAG W JEREMIAH RTon 024 MELL DIAG W JEREMIAH RT * * *Final Report* * * DATE OF EXAM: Jul 04 2023 3:07PM [facility] 0629 - [facility] DIAG W JEREMIAH RT / PROCEDURE REASON: Abnormal mammogram * * * * Physician Interpretation * * * * RESULT: #[id number] - [facility] DIAG W JEREMIAH RT #[id number] - [facility] US BREAST LTD RT UNILATERAL RIGHT DIGITAL DIAGNOSTIC MAMMOGRAM TOMOSYNTHESIS WITH CAD: 07/04/2023 HISTORY: / Call back/abnormal mamm: Right /priors available for comparison Abnormal Mammogram Abnormal Mammogram. RESULT: TECHNIQUE: The study was acquired using full field digital technology and interpreted from soft copy. Digital Breast Tomosynthesis (DBT) images were obtained and used to assist in the interpretation of this examination. Current study was also evaluated with a Computer Aided Detection (CAD). Comparison is made to exams dated: 06/08/2023 mammogram, 05/19/2022 mammogram, and 03/25/2021 mammogram - [facility]. There are scattered areas of fibroglandular density in the right breast. There is a 7 mm asymmetry in the right breast posterior depth superior region seen on the mediolateral oblique view only. No other significant masses or calcifications are seen in the breast. IMPRESSION: INCOMPLETE: NEEDS ADDITIONAL IMAGING EVALUATION The 7 mm asymmetry in the right breast is indeterminate. An ultrasound is recommended. LIMITED ULTRASOUND OF RIGHT BREAST: 07/04/2023 RESULT: Comparison is made to exams dated: 06/08/2023 mammogram, 05/19/2022 mammogram, and 03/25/2021 mammogram - [facility]. Real-time ultrasound of the right breast upper outer quadrant was performed. Briones scale images of the real-time examination were reviewed. IMPRESSION: SUSPICIOUS FINDING - BIOPSY SHOULD BE CONSIDERED Since the lesion is seen in two views on the 3D mammogram but not seen sonographically, biopsy based on the mammogram with 3D guidance is suggested. There is no abnormality seen in the right breast to correspond with the mammographic density. Sandra garcia/chantale:07/04/2023 15:28:19 Multiple national specialty organizations have released breast cancer screening guidelines for women at average risk for developing breast cancer - guidelines that are based on both evidence and opinion, yet differ on when to start and how often to screen for breast cancer. With representation from Breast Imaging, Internal Medicine, Women's Health, Family Medicine, and Medical/Surgical Oncology, the [facility] has carefully reviewed the data and reached the following consensus: 1) All women should engage in shared decision-making with their providers to decide when to start and how often to screen; 2) All women should have the opportunity to start screening mammography at age 40; 3) For women ages 45-55, we recommend annual screening mammograms; 4) For women ages 55 and over, we support both the transition from an annual to a biennial interval if this aligns more with patient's values and preferences, or continuation with annual screening; 5) All women should discuss with their providers when to stop screening mammograms. Shearing Machine Tender(s): Elodia Lal, [facility]; Delores Nice RT(R)(M), [facility] OVERALL STUDY BIRADS: 4 Suspicious finding - Biopsy should be considered Loan Auditor: Chantale Transcribe Date/Time: Jul 04 2023 2:42P Dictated by: SANDRA PATEL MD This examination was interpreted and the report reviewed and electronically signed by: SANDRA PATEL MD on Jul 04 2023 3:28PM EST [id number] Normal [facility] US BREAST LTD RTon 07-03 [facility] [employer] BREAST LTD RT * * *Final Report* * * DATE OF EXAM: Jul 04 2023 3:19PM [facility] 0594 - [facility] [employer] BREAST SoFi RT / PROCEDURE REASON: Abnormal mammogram * * * * Physician Interpretation * * * * #[id number] - [facility] DIAG W JEREMIAH RT #[id number] - [facility] [employer] BREAST SoFi RT UNILATERAL RIGHT DIGITAL DIAGNOSTIC MAMMOGRAM TOMOSYNTHESIS WITH CAD: 07/04/2023 HISTORY: / Call back/abnormal mamm: Right /priors available for comparison Abnormal Mammogram Abnormal Mammogram. RESULT: TECHNIQUE: The study was acquired using full field digital technology and interpreted from soft copy. Digital Breast Tomosynthesis (DBT) images were obtained and used to assist in the interpretation of this examination. Current study was also evaluated with a Computer Aided Detection (CAD). Comparison is made to exams dated: 06/08/2023 mammogram, 05/19/2022 mammogram, and 03/25/2021 mammogram - [facility]. There are scattered areas of fibroglandular density in the right breast. There is a 7 mm asymmetry in the right breast posterior depth superior region seen on the mediolateral oblique view only. No other significant masses or calcifications are seen in the breast. IMPRESSION: INCOMPLETE: NEEDS ADDITIONAL IMAGING EVALUATION The 7 mm asymmetry in the right breast is indeterminate. An ultrasound is recommended. LIMITED ULTRASOUND OF RIGHT BREAST: 07/04/2023 RESULT: Comparison is made to exams dated: 06/08/2023 mammogram, 05/19/2022 mammogram, and 03/25/2021 mammogram - [facility]. Real-time ultrasound of the right breast upper outer quadrant was performed. Briones scale images of the real-time examination were reviewed. IMPRESSION: SUSPICIOUS FINDING - BIOPSY SHOULD BE CONSIDERED Since the lesion is seen in two views on the 3D mammogram but not seen sonographically, biopsy based on the mammogram with 3D guidance is suggested. There is no abnormality seen in the right breast to correspond with the mammographic density. Sandra garcia/chantale:07/04/2023 15:28:19 Multiple national specialty organizations have released breast cancer screening guidelines for women at average risk for developing breast cancer - guidelines that are based on both evidence and opinion, yet differ on when to start and how often to screen for breast cancer. With representation from Breast Imaging, Internal Medicine, Women's Health, Family Medicine, and Medical/Surgical Oncology, the [facility] has carefully reviewed the data and reached the following consensus: 1) All women should engage in shared decision-making with their providers to decide when to start and how often to screen; 2) All women should have the opportunity to start screening mammography at age 40; 3) For women ages 45-55, we recommend annual screening mammograms; 4) For women ages 55 and over, we support both the transition from an annual to a biennial interval if this aligns more with patient's values and preferences, or continuation with annual screening; 5) All women should discuss with their providers when to stop screening mammograms. Shearing Machine Tender(s): Elodia Lal, [facility]; RT Enedina(R)(M), [facility] OVERALL STUDY BIRADS: 4 Suspicious finding - Biopsy should be considered Loan Auditor: Chantale Transcribe Date/Time: Jul 04 2023 2:42P Dictated by : SANDRA PATEL MD This examination was interpreted and the report reviewed and electronically signed by: SANDRA PATEL MD on Jul 04 2023 3:28PM EST [id number] Normal [facility] Panel InformationOrdered By: [facility]cf Provider on 07-04-2023 [facility] No Panel Informationon 07-03 Radiology Study observation (narrative) [facility] US Breast - right limitedon 07-04-2023 * * *Final Report* * * DATE OF EXAM: Jul 04 2023 3:19PM [facility] 0594 - [facility] US BREAST LTD RT / PROCEDURE REASON: Abnormal mammogram * * * * Physician Interpretation * * * * #[id number] - [facility] DIAG W JEREMIAH RT #[id number] - [facility] US BREAST LTD RT UNILATERAL RIGHT DIGITAL DIAGNOSTIC MAMMOGRAM TOMOSYNTHESIS WITH CAD: 07/04/2023 HISTORY: / Call back/abnormal mamm: Right /priors available for comparison Abnormal Mammogram Abnormal Mammogram. RESULT: TECHNIQUE: The study was acquired using full field digital technology and interpreted from soft copy. Digital Breast Tomosynthesis (DBT) images were obtained and used to assist in the interpretation of this examination. Current study was also evaluated with a Computer Aided Detection (CAD). Comparison is made to exams dated: 06/08/2023 mammogram, 05/19/2022 mammogram, and 03/25/2021 mammogram - [facility]. There are scattered areas of fibroglandular density in the right breast. There is a 7 mm asymmetry in the right breast posterior depth superior region seen on the mediolateral oblique view only. No other significant masses or calcifications are seen in the breast. DIVISION OF RADIOLOGY Provider, [facility] - 07/04/2023 * * *Final Report* * * DATE OF EXAM: Jul 04 2023 3:19PM [facility] 0594 - [facility] US BREAST LTD RT / PROCEDURE REASON: Abnormal mammogram * * * * Physician Interpretation * * * * #[id number] - MELL DIAG W JEREMIAH RT #[id number] - [facility] US BREAST LTD RT UNILATERAL RIGHT DIGITAL DIAGNOSTIC MAMMOGRAM TOMOSYNTHESIS WITH CAD: 07/04/2023 HISTORY: / Call back/abnormal mamm: Right /priors available for comparison Abnormal Mammogram Abnormal Mammogram. RESULT: TECHNIQUE: The study was acquired using full field digital technology and interpreted from soft copy. Digital Breast Tomosynthesis (DBT) images were obtained and used to assist in the interpretation of this examination. Current study was also evaluated with a Computer Aided Detection (CAD). Comparison is made to exams dated: 06/08/2023 mammogram, 05/19/2022 mammogram, and 03/25/2021 mammogram - [facility]. There are scattered areas of fibroglandular density in the right breast. There is a 7 mm asymmetry in the right breast posterior depth superior region seen on the mediolateral oblique view only. No other significant masses or calcifications are seen in the breast. IMPRESSION IMPRESSION: INCOMPLETE: NEEDS ADDITIONAL IMAGING EVALUATION The 7 mm asymmetry in the right breast is indeterminate. An ultrasound is recommended. LIMITED ULTRASOUND OF RIGHT BREAST: 07/04/2023 RESULT: Comparison is made to exams dated: 06/08/2023 mammogram, 05/19/2022 mammogram, and 03/25/2021 mammogram - [facility]. Real-time ultrasound of the right breast upper outer quadrant was performed. Briones scale images of the real-time examination were reviewed. IMPRESSION: SUSPICIOUS FINDING - BIOPSY SHOULD BE CONSIDERED Since the lesion is seen in two views on the 3D mammogram but not seen sonographically, biopsy based on the mammogram with 3D guidance is suggested. There is no abnormality seen in the right breast to correspond with the mammographic density. Sandra garcia/chantale:07/04/2023 15:28:19 Multiple national specialty organizations have released breast cancer screening guidelines for women at average risk for developing breast cancer - guidelines that are based on both evidence and opinion, yet differ on when to start and how often to screen for breast cancer. With representation from Breast Imaging, Internal Medicine, Women's Health, Family Medicine, and Medical/Surgical Oncology, the [facility] has carefully reviewed the data and reached the following consensus: 1) All women should engage in shared decision-making with their providers to decide when to start and how often to screen; 2) All women should have the opportunity to start screening mammography at age 40; 3) For women ages 45-55, we recommend annual screening mammograms; 4) For women ages 55 and over, we support both the transition from an annual to a biennial interval if this aligns more with patient's values and preferences, or continuation with annual screening; 5) All women should discuss with their providers when to stop screening mammograms. Shearing Machine Tender(s): Elodia Lal, [facility]; RT Enedina(R)(M), [facility] OVERALL STUDY BIRADS: 4 Suspicious finding - Biopsy should be considered Loan Auditor: Chantale Transcribe Date/Time: Jul 04 2023 2:42P Dictated by : SANDRA PATEL MD This examination was interpreted and the report reviewed and electronically signed by: SANDRA PATEL MD on Jul 04 2023 3:28PM EST [facility] MELL SCREENING W TOMOon 05-19 [facility] No Panel Informationon 05-19 [facility] CBC W/AUTO DIFF WBC (33662)O rdered By: Office Analyst on 01-21-2022 Basophils (Bld) [#/Vol] 0.0 10*3/uL Normal 0.0-0.2 [facility]; [facility] Work Phone: Basophils/100 WBC (Bld) 1 % Normal [facility]; [facility] Work Phone: Eosinophils (Bld) [#/Vol] 0.1 10*3/uL Normal 0.0-0.4 [facility]; [facility] Work Phone: Eosinophils/100 WBC (Bld) 1 % Normal [facility]; [facility] Work Phone: Erythrocyte distribution width (RBC) [Ratio] 13.1 % Normal 11.7-15.4 [facility]; [facility] Work Phone: Hematocrit (Bld) [Volume fraction] 44.4 % Normal 34.0-46.6 [facility]; [facility] Work Phone: Hemoglobin (Bld) [Mass/Vol] 14.2 g/dL Normal 11.1-15.9 [facility]; [facility] Work Phone: Immature granulocytes (Bld) [#/Vol] 0.0 10*3/uL Normal 0.0-0.1 [facility]; [facility] Work Phone: Immature granulocytes/100 WBC (Bld) 0 % Normal [facility]; [facility] Work Phone: Lymphocytes (Bld) [#/Vol] 1.2 10*3/uL Normal 0.7-3.1 [facility]; [facility] Work Phone: Lymphocytes/100 WBC (Bld) 26 % Normal [facility]; [facility] Work Phone: MCH (RBC) [Entitic mass] 29.3 pg Normal 26.6-33.0 [facility]; [facility] Work Phone: MCHC (RBC) [Mass/Vol] 32.0 g/dL Normal 31.5-35.7 [facility] prehensive Internal Medicine; [facility] Work Phone: MCV (RBC) [Entitic vol] 92 fL Normal 79-97 [facility]; [facility] Work Phone: Monocytes (Bld) [#/Vol] 0.3 10*3/uL Normal 0.1-0.9 [facility]; [facility] Work Phone: Monocytes/100 WBC (Bld) 7 % Normal [facility]; [facility] Work Phone: Neutrophils (Bld) [#/Vol] 3.0 10*3/uL Normal 1.4-7.0 [facility]; [facility] Work Phone: Neutrophils/100 WBC (Bld) 65 % Normal [facility]; [facility] Work Phone: Platelets (Bld) [#/Vol] 165 10*3/uL Normal 150-450 [facility]; [facility] Work Phone: RBC (Bld) [#/Vol] 4.85 10*6/uL Normal 3.77-5.28 [facility] ehensive Internal Medicine; [facility] Work Phone: WBC (Bld) [#/Vol] 4.6 10*3/uL Normal 3.4-10.8 [facility]; [facility] Work Phone: LIPID PANEL ([id number])Ordered B y: Office Analyst on 01-21-2022 Cholesterol [Mass/Vol] 217 mg/dL Abnormal 100-199 [facility]; [facility] Work Phone: Cholesterol in HDL [Mass/Vol] 40 mg/dL Normal [facility] Medicine; [facility] Work Phone: Triglyceride [Mass/Vol] 164 mg/dL Abnormal 0-149 [facility] Internal Medicine; [facility] Work Phone: LIPID PANEL (33712) 30 mg/dL Normal 5-40 [facility] Internal Medicine; [facility] Medicine Work Phone: LIPID PANEL (23592) 147 mg/dL Abnormal 0-99 [facility] Internal Medicine; [facility] Medicine Work Phone: LIPID PANEL (40040) 3.7 {ratio} Abnormal 0.0-3.2 [facility] Internal Medicine; [facility] Medicine Work Phone: METABOLIC PANEL, COMPREHENSI VE ([id number])Ordered By: Office Analyst on 01-21-2022 Albumin [Mass/Vol] 4.4 g/dL Normal 3.8-4.8 [facility] Internal Medicine; [facility] Medicine Work Phone: Albumin/Globulin [Mass ratio] 2.0 {ratio} Normal 1.2-2.2 [facility] Internal Medicine; [facility] Medicine Work Phone: ALP [Catalytic activity/Vol] 58 U/L Normal 44-121 [facility] Internal Medicine; [facility] Internal Medicine Work Phone: ALT [Catalytic activity/Vol] 20 U/L Normal 0-32 [facility] Internal Medicine; [facility] Internal Medicine Work Phone: AST [Catalytic activity/Vol] 24 U/L Normal 0-40 [facility] Internal Medicine; [facility] Medicine Work Phone: Bilirubin [Mass/Vol] 0.4 mg/dL Normal 0.0-1.2 [facility] Internal Medicine; [facility] Internal Medicine Work Phone: Calcium [Mass/Vol] 9.2 mg/dL Normal 8.7-10.3 [facility] Internal Medicine; [facility] Internal Medicine Work Phone: Chloride [Moles/Vol] 103 mmol/L Normal 96-106 [facility] Internal Medicine; [facility] Internal Medicine Work Phone: CO2 [Moles/Vol] 26 mmol/L Normal 20-29 Comprehen sive [facility]; [facility] Work Phone: Creatinine [Mass/Vol] 1.07 mg/dL Abnormal 0.57-1.00 [facility] prehensive Internal Medicine; [facility] Work Phone: Globulin (S) [Mass/Vol] 2.2 g/dL Normal 1.5-4.5 [facility]; [facility] Work Phone: Glucose [Mass/Vol] 91 mg/dL Normal 70-99 [facility]; [facility] Work Phone: Potassium [Moles/Vol] 3.9 mmol/L Normal 3.5-5.2 [facility] prehensive Internal Medicine; [facility] Work Phone: Protein [Mass/Vol] 6.6 g/dL Normal 6.0-8.5 [facility]; [facility] Work Phone: Sodium [Moles/Vol] 143 mmol/L Normal 134-144 [facility]; [facility] Work Phone: Urea nitrogen [Mass/Vol] 23 mg/dL Normal 8-27 [facility]; [facility] Work Phone: Urea nitrogen/Creatinine [Mass ratio] 21 mg/mg Normal 12-28 [facility]; [facility] Work Phone: METABOLIC PANEL, COMPREHENSIVE ([id number]) 59 mL/min/1.73 Abnormal [facility] Internal [facility]; [facility] Work Phone: MICROALBUMINOrdered By: Syst em Director Of National Sales on 01-21-2022 Albumin DL <= 20 mg/L (U) [Mass/Vol] 4.5 ug/mL Normal [facility]; [facility] Work Phone: Albumin/Creatinine (U) [Mass ratio] 4 {mg/g_creat} Normal 0-29 [facility]; [facility] Work Phone: Creatinine (U) [Mass/Vol] 111.0 mg/dL Normal [facility]; [facility] Work Phone: TSH ([id number])Ordered By: [employer] Energy[employer] m Director Of National Sales on 01-21-2022 TSH Qn 3.110 {uIU/mL} Normal 0.450-4.50 0 [facility]; [facility] Work Phone: URINALYSIS, W/ MICRO ([id number]) Ordered By: Office Analyst on 01-21-2022 Appearance (U) Clear Normal [facility]; [facility] Work Phone: Bilirubin Ql (U) Negative Normal Comprehe nsive [facility] Medicine; [facility] Work Phone: Color (U) Yellow Normal [facility]; [facility] Work Phone: Glucose Ql (U) Negative Normal [facility]prehens [facility]; [facility] Work Phone: Hemoglobin Ql (U) Negative Normal Compreh ensive [facility]; [facility] Work Phone: Ketones Ql (U) Negative Normal [facility]; [facility] Work Phone: Leukocyte esterase Test strip Ql (U) Negative Normal [facility]; [facility] Work Phone: Microscopic observation LM Nom (Urine sed) MICRON Normal [facility]; [facility] Work Phone: Microscopic observation LM Nom (Urine sed) See below: Normal [facility]; [facility] Work Phone: Nitrite Ql (U) Negative Normal [facility]; [facility] Work Phone: pH (U) 7.5 [pH] Normal 5.0-7.5 [facility]; [facility] Work Phone: Protein Ql (U) Negative Normal Comprehens [facility]; [facility] Work Phone: Specific gravity (U) [Rel density] 1.019 1 Normal 1.005-1.03 0 [facility]; [facility] Work Phone: Urobilinogen (U) [Mass/Vol] 0.2 mg/dL Normal 0.2-1.0 [facility]; [facility] Work Phone: XR Chest PA and Lateralon IMPRESSION: No acute radiographic abnormality. Chronic lung hyperinflation. Loan Auditor: TAVARES Transcribe Date/Time: Feb 19 2021 2:12P Dictated by : Christina STANLEY MD This examination was interpreted and the report reviewed and electronically signed by: Christina STANLEY MD on Feb 19 2021 2:14PM [facility] DIVISION OF RADIOLOGY * * *Final Report* * * DATE OF EXAM: Feb 19 2021 2:11PM WOX 5291 - XR CHEST 2V FRONTAL/LAT / PROCEDURE REASON: Cough * * * * Physician Interpretation * * * * EXAMINATION: CHEST RADIOGRAPH (2 VIEW FRONTAL & LATERAL) CLINICAL HISTORY: Cough MQ: XC2_6 EXAM DATE/TIME: 02/19/2021 2:11 PM COMPARISON: No relevant prior studies available. RESULT: Lines, tubes, and devices: None. Lungs and pleura: Chronic lung hyperinflation. No acute consolidation. No peribronchial cuffing. No pleural effusion or pneumothorax. Cardiomediastinal silhouette: Normal cardiomediastinal silhouette. Bones and soft tissues: Unremarkable. DIVISION OF RADIOLOGY Provider, [facility] - 02/19/2021 * * *Final Report* * * DATE OF EXAM: Feb 19 2021 2:11PM WOX 5291 - XR CHEST 2V FRONTAL/LAT / PROCEDURE REASON: Cough * * * * Physician Interpretation * * * * EXAMINATION: CHEST RADIOGRAPH (2 VIEW FRONTAL & LATERAL) CLINICAL HISTORY: Cough MQ: XC2_6 EXAM DATE/TIME: 02/19/2021 2:11 PM COMPARISON: No relevant prior studies available. RESULT: Lines, tubes, and devices: None. Lungs and pleura: Chronic lung hyperinflation. No acute consolidation. No peribronchial cuffing. No pleural effusion or pneumothorax. Cardiomediastinal silhouette: Normal cardiomediastinal silhouette. Bones and soft tissues: Unremarkable. IMPRESSION IMPRESSION: No acute radiographic abnormality. Chronic lung hyperinflation. Loan Auditor: TAVARES Transcribe Date/Time: Feb 19 2021 2:12P Dictated by : Christina STANLEY MD This examination was interpreted and the report reviewed and electronically signed by: Christina STANLEY MD on Dec 10 2021 2:14PM [facility] Radiology Study observation (narrative) [facility] XR Chest PA and LateralOrder ed By: Ccf Provider on 02-19-2021 [facility] CBC W/AUTO DIFF WBC (63675)O rdered By: Office Analyst on 05-29-2020 Basophils (Bld) [#/Vol] 0.0 {x10E3/uL} Normal 0.0-0.2 [facility]; [facility] Work Phone: Comment on above: Test(s) 404624-AFS-X ; 556456-LEX-P; 022671-Rouxntgkerkvb; 898301-Nhilthsibjr, Total; 272011-HJU-J (Total); 205495-Uxjlr LDL-P; 068905-KMI Size; 220262-FU-PT Scorewas developed and its performance characteristics determinedby Stockr. It has not been cleared or approved by the Foodand Drug Administration.PATIENT WAS FASTINGPERFORMED BY: IROCKE [facility] [id number] BY: [facility] [id number] Basophils (Bld) [#/Vol] 0.0 10*3/uL Normal 0.0-0.2 [facility]; [facility] Work Phone: Comment on above: Test(s) 200559-ZUX-M ; 139448-LKV-S; 396686-Lqqsxugajplne; 481368-Gfroejqivhz, Total; 390036-WFK-Q (Total); 119469-Ngcze LDL-P; 057112-FIV Size; 052745-TW-XF Scorewas developed and its performance characteristics determinedby Stock[employer]. It has not been cleared or approved by the Foodand Drug Administration.PATIENT WAS FASTINGPERFORMED BY: IROCKE [facility] [id number] BY: [employer]70 [facility] WirelessDor[facility] [id number] Basophils/100 WBC (Bld) 1 % Normal [facility]; [facility] Work Phone: Comment on above: Test(s) 257109-PKF-Q ; 868238-NZW-W; 841038-Rfrnzojavawjv; 105679-Crqpsqynuvx, Total; 959634-JRQ-W (Total); 299272-Lihgd LDL-P; 726302-FKA Size; 868874-IO-WL Scorewas developed and its performance characteristics determinedby Stockr. It has not been cleared or approved by the Foodand Drug Administration.PATIENT WAS FASTINGPERFORMED BY: ZipRec[employer]iter[address] [id number] BY: Zip[employer] [id number] Eosinophils (Bld) [#/Vol] 0.1 {x10E3/uL} Normal 0.0-0.4 [facility]; [facility] Work Phone: Comment on above: Test(s) 349092-IAE-K ; 952772-KNV-W; 335271-Snhzmlghztlkl; 031513-Jjzhebhcwxo, Total; 018956-PXY-M (Total); 735238-Wkwia LDL-P; 900505-OVN Size; 653957-WR-CV Scorewas developed and its performance characteristics determinedby Stockr. It has not been cleared or approved by the Foodand Drug Administration.PATIENT WAS FASTINGPERFORMED BY: ZipRecruiter[address] [id number] BY: ZipRecruiterNicholas [place]ille [id number] [facility] [id number] Eosinophils (Bld) [#/Vol] 0.1 10*3/uL Normal 0.0-0.4 [facility]; [facility] Work Phone: Comment on above: Test(s) 822216-XHG-C ; 182915-WNB-E; 862745-Zmyqffrdwvupb; 780296-Oeoylgfkqga, Total; 558749-WLB-X (Total); 978220-Bdigs LDL-P; 881192-CES Size; 839425-FX-BG Scorewas developed and its performance characteristics determinedby Stockr. It has not been cleared or approved by the Foodand Drug Administration.PATIENT WAS FASTINGPERFORMED BY: TyraTech[address] [id number] BY: OmPromptCentraState Healthcare SystemNdtyzj9475 [facility] [id number] Eosinophils/100 WBC (Bld) 1 % Normal [facility]; [facility] Work Phone: Comment on above: Test(s) 420253-QLX-V ; 216142-CYU-Z; 387147-Zfzdtryfaxhap; 961603-Ndbepqfixtx, Total; 079448-ZTT-W (Total); 417871-Imqhp LDL-P; 838063-OPO Size; 091422-QR-JG Scorewas developed and its performance characteristics determinedby Stockr. It has not been cleared or approved by the Foodand Drug Administration.PATIENT WAS FASTINGPERFORMED BY: CÜR [address] [id number] BY: [email or web address] [facility] [id number] Erythrocyte distribution width (RBC) [Ratio] 12.5 % Normal 11.7-15.4 [facility]; [facility] Work Phone: Comment on above: Test(s) 593161-ZMG-S ; 466793-GKJ-I; 182642-Lhlyawrgnhtuc; 792766-Enbvyrukacr, Total; 490730-GTO-H (Total); 455805-Ghaeq LDL-P; 465987-ZME Size; 855359-EW-MA Scorewas developed and its performance characteristics determinedby Stockr. It has not been cleared or approved by the Foodand Drug Administration.PATIENT WAS FASTINGPERFORMED BY: CÜR [address] [id number] BY: OmPromptCentraState Healthcare SystemJbkwix5122 [facility] [id number] Hematocrit (Bld) [Volume fraction] 41.7 % Normal 34.0-46.6 [facility]; [facility] Work Phone: Comment on above: Test(s) 890987-AYN-B ; 924653-CVK-F; 503556-Gnbrxfurzcxxx; 571661-Mbuzycknmkx, Total; 808315-ZRV-W (Total); 836461-Xyjxc LDL-P; 069343-SVB Size; 102204-OD-GI Scorewas developed and its performance characteristics determinedby Stockr. It has not been cleared or approved by the Foodand Drug Administration.PATIENT WAS FASTINGPERFORMED BY: CÜR [address] [id number] BY: [employer] Cjbkux1156 [facility] [id number] Hemoglobin (Bld) [Mass/Vol] 13.9 g/dL Normal 11.1-15.9 [facility]; [facility] Work Phone: Comment on above: Test(s) 226614-LUI-U ; 240890-XYT-G; 806972-Kzfhrwopzbbka; 355502-Buxkhvrqyjj, Total; 707788-UDC-K (Total); 611612-Qdpki LDL-P; 083673-MJV Size; 498278-HV-FL Scorewas developed and its performance characteristics determinedby Stockr. It has not been cleared or approved by the Foodand Drug Administration.PATIENT WAS FASTINGPERFORMED BY: CÜR [address] [id number] BY: [employer] Kyivfd3348 [facility] [id number] Immature granulocytes (Bld) [#/Vol] 0.0 {x10E3/uL} Normal 0.0-0.1 [facility]; [facility] Work Phone: Comment on above: Test(s) 334282-AJJ-S ; 754929-CSK-O; 421577-Goklfcnennhmj; 436388-Lbaycbhfeic, Total; 472782-MRJ-T (Total); 543213-Zucgs LDL-P; 670117-RDP Size; 321131-UB-DQ Scorewas developed and its performance characteristics determinedby Stockr. It has not been cleared or approved by the Foodand Drug Administration.PATIENT WAS FASTINGPERFORMED BY: CÜR [address] [id number] BY: [employer] Zuponf0674 [facility] [id number] Immature granulocytes (Bld) [#/Vol] 0.0 10*3/uL Normal 0.0-0.1 [facility]; [facility] Work Phone: Comment on above: Test(s) 582207-SQJ-N ; 306637-ROA-U; 277556-Nhtvurozdgizg; 477716-Bxmwrlswjnv, Total; 567548-DCO-Z (Total); 539690-Tgyct LDL-P; 240815-TQC Size; 965353-TC-XO Scorewas developed and its performance characteristics determinedby Stockr. It has not been cleared or approved by the Foodand Drug Administration.PATIENT WAS FASTINGPERFORMED BY: CÜR [address] [id number] BY: [email or web address] [facility] [id number] Immature granulocytes/100 WBC (Bld) 0 % Normal [facility]; [facility] Work Phone: Comment on above: Test(s) 976286-MJZ-M ; 989158-IAO-H; 654570-Mvsghdzmhgyrx; 239483-Dasyipvfork, Total; 921519-VDW-H (Total); 413148-Jgvdi LDL-P; 361793-GNK Size; 281852-DP-KV Scorewas developed and its performance characteristics determinedby Stockr. It has not been cleared or approved by the Foodand Drug Administration.PATIENT WAS FASTINGPERFORMED BY: CÜR [address] [id number] BY: OmPromptCentraState Healthcare SystemPaxtow6660 [facility] [id number] Lymphocytes (Bld) [#/Vol] 1.3 {x10E3/uL} Normal 0.7-3.1 [facility]; [facility] Work Phone: Comment on above: Test(s) 474397-NLE-L ; 749805-EAI-O; 477686-Lqhwhnjhhekam; 663631-Zmemvfqbrbp, Total; 945236-ACL-N (Total); 641464-Eajup LDL-P; 590127-MZO Size; 291886-VG-CT Scorewas developed and its performance characteristics determinedby Stockr. It has not been cleared or approved by the Foodand Drug Administration.PATIENT WAS FASTINGPERFORMED BY: CÜR [address] [id number] BY: [email or web address] [facility] WirelessDorothe[facility] Dix Hospital [id number] Lymphocytes (Bld) [#/Vol] 1.3 10*3/uL Normal 0.7-3.1 [facility]; [facility] Work Phone: Comment on above: Test(s) 214741-XCE-I ; 907361-CAS-B; 907746-Vfuuxrvmrbngg; 255602-Cpgllqdjzzr, Total; 895625-ZVS-V (Total); 850432-Nsvyz LDL-P; 281541-UQZ Size; 622173-RQ-PZ Scorewas developed and its performance characteristics determinedby Stockr. It has not been cleared or approved by the Foodand Drug Administration.PATIENT WAS FASTINGPERFORMED BY: CÜR [address] [id number] BY: [employer]Week70 [facility] WirelessDorothea Dix Hospital [id number] Lymphocytes/100 WBC (Bld) 24 % Normal [facility]; [facility] Work Phone: Comment on above: Test(s) 387214-PYK-P ; 212169-RPA-Z; 088887-Nfvvkgxtgjmva; 088096-Zysqwouynou, Total; 390457-BCA-E (Total); 837026-Oohhw LDL-P; 771149-FAQ Size; 952413-HV-OV Scorewas developed and its performance characteristics determinedby Stockr. It has not been cleared or approved by the Foodand Drug Administration.PATIENT WAS FASTINGPERFORMED BY: CÜR [address] [id number] BY: [email or web address] [facility]ary [facility] [id number] MCH (RBC) [Entitic mass] 30.5 pg Normal 26.6-33.0 [facility]; [facility] Work Phone: Comment on above: Test(s) 724440-ZLI-O ; 706208-OSS-W; 290944-Lapimgqbwvhpt; 184681-Jbkyvvssedc, Total; 419844-HXT-Y (Total); 084642-Sskdq LDL-P; 910815-SJY Size; 795838-KC-BZ Scorewas developed and its performance characteristics determinedby Stockr. It has not been cleared or approved by the Foodand Drug Administration.PATIENT WAS FASTINGPERFORMED BY: Epoxy[address] [id number] BY: HyperWeek70 [facility] [id number] MCHC (RBC) [Mass/Vol] 33.3 g/dL Normal 31.5-35.7 [facility] Internal [facility]; [facility] Work Phone: Comment on above: Test(s) 979950-RDU-X ; 162781-QCZ-B; 834442-Hnflhzxvmmbes; 716370-Dpluwjvupcp, Total; 503777-LUI-T (Total); 200534-Jivpr LDL-P; 153801-AFM Size; 418267-YC-PP Scorewas developed and its performance characteristics determinedby Stockr. It has not been cleared or approved by the Foodand Drug Administration.PATIENT WAS FASTINGPERFORMED BY: Epoxy[address] [id number] BY: [email or web address] [facility] [id number] MCV (RBC) [Entitic vol] 92 fL Normal 79-97 [facility]; [facility] Work Phone: Comment on above: Test(s) 466356-QZD-H ; 874885-LDH-N; 436069-Cpjoencmcvbtp; 015069-Ygifcnyoqay, Total; 614835-UGG-C (Total); 883701-Miens LDL-P; 120421-UWO Size; 548845-FE-MZ Scorewas developed and its performance characteristics determinedby Stockr. It has not been cleared or approved by the Foodand Drug Administration.PATIENT WAS FASTINGPERFORMED BY: ZipRecruiter[address] [id number] BY: ZipRecruiterCentraState Healthcare SystemZontwy2159 [facility] [id number] Monocytes (Bld) [#/Vol] 0.4 {x10E3/uL} Normal 0.1-0.9 [facility]; [facility] Work Phone: Comment on above: Test(s) 575236-MLP-B ; 044437-BHK-T; 238655-Zrdlwybcoceyo; 407255-Tsmmodmkkwj, Total; 141280-SYK-Q (Total); 369916-Suvkz LDL-P; 383089-KGU Size; 537444-BU-GN Scorewas developed and its performance characteristics determinedby Stockr. It has not been cleared or approved by the Foodand Drug Administration.PATIENT WAS FASTINGPERFORMED BY: ZipRecruiter[address] [id number] BY: ZipRecruiterNicholas Ville 8609170 [facility] [id number] Monocytes (Bld) [#/Vol] 0.4 10*3/uL Normal 0.1-0.9 [facility]; [facility] Work Phone: Comment on above: Test(s) 695365-OOG-J ; 254632-YTM-S; 803379-Nolhibigmduyr; 528195-Xhzllbovcge, Total; 350317-GWP-F (Total); 447617-Ijeci LDL-P; 417919-WZT Size; 099647-BD-JI Scorewas developed and its performance characteristics determinedby Stockr. It has not been cleared or approved by the Foodand Drug Administration.PATIENT WAS FASTINGPERFORMED BY: ZipRecruiter[address] [id number] BY: ZipRecruiterCentraState Healthcare SystemDmmuni7429 [facility] [id number] Monocytes/100 WBC (Bld) 7 % Normal [facility]; [facility] Work Phone: Comment on above: Test(s) 848015-LND-C ; 854861-BPM-V; 473486-Higssycoqebpz; 445872-Ifulctlktmf, Total; 429975-EGI-Y (Total); 481614-Csggy LDL-P; 662264-HHM Size; 487160-FI-SR Scorewas developed and its performance characteristics determinedby Stockr. It has not been cleared or approved by the Foodand Drug Administration.PATIENT WAS FASTINGPERFORMED BY: Flixpress [address] [id number] BY: ZipRecruiterCentraState Healthcare SystemFcsrov3506 [facility] [id number] Neutrophils (Bld) [#/Vol] 3.6 {x10E3/uL} Normal 1.4-7.0 [facility]; [facility] Work Phone: Comment on above: Test(s) 073294-AQV-A ; 730907-PFU-D; 212933-Uwzwfwwygatrt; 585729-Qbwerbaotib, Total; 438215-RDT-H (Total); 520389-Zouys LDL-P; 931137-AMV Size; 429740-GM-FJ Scorewas developed and its performance characteristics determinedby Stockr. It has not been cleared or approved by the Foodand Drug Administration.PATIENT WAS FASTINGPERFORMED BY: Flixpress [address] [id number] BY: ZipRecruiterCentraState Healthcare SystemOewzjr8299 [facility] [id number] Neutrophils (Bld) [#/Vol] 3.6 10*3/uL Normal 1.4-7.0 [facility]; [facility] Work Phone: Comment on above: Test(s) 050400-EXP-S ; 675431-QCD-A; 773212-Unuaqavcsaqiz; 620724-Zwjkpkxwszt, Total; 860584-AVE-Z (Total); 797320-Rpyqz LDL-P; 932570-ENO Size; 287608-PM-NX Scorewas developed and its performance characteristics determinedby Stockr. It has not been cleared or approved by the Foodand Drug Administration.PATIENT WAS FASTINGPERFORMED BY: CÜR [address] [id number] BY: [employer] Jiahcy3392 [facility] [id number] Neutrophils/100 WBC (Bld) 67 % Normal [facility]; [facility] Work Phone: Comment on above: Test(s) 000691-MOY-J ; 433949-ZNR-N; 726157-Uadusucevuwjd; 850065-Uiditzehndt, Total; 424544-BIO-X (Total); 204047-Abywz LDL-P; 582467-PUQ Size; 870804-LX-XZ Scorewas developed and its performance characteristics determinedby Stockr. It has not been cleared or approved by the Foodand Drug Administration.PATIENT WAS FASTINGPERFORMED BY: Epoxy[address] [id number] BY: [email or web address] [facility] [id number] Platelets (Bld) [#/Vol] 201 {x10E3/uL} Normal 150-450 [facility]; [facility] Work Phone: Comment on above: Test(s) 823121-JNT-B ; 950692-YQB-E; 655649-Dzkievfwrzgcn; 347516-Swugryoitrp, Total; 855730-MUR-L (Total); 220322-Lwgnp LDL-P; 721991-LBQ Size; 800838-WV-LA Scorewas developed and its performance characteristics determinedby Stockr. It has not been cleared or approved by the Foodand Drug Administration.PATIENT WAS FASTINGPERFORMED BY: CÜR [address] [id number] BY: [employer] Nwhcgl4844 [facility] [id number] Platelets (Bld) [#/Vol] 201 10*3/uL Normal 150-450 [facility]; [facility] Work Phone: Comment on above: Test(s) 465242-HYH-F ; 159310-GJK-X; 893067-Hkwnikoblzhzz; 890695-Kvlvgnacgik, Total; 174068-XXY-N (Total); 200721-Pzjrp LDL-P; 466555-OGR Size; 124613-PU-BU Scorewas developed and its performance characteristics determinedby [employer]. It has not been cleared or approved by the Foodand Drug Administration.PATIENT WAS FASTINGPERFORMED BY: IMGuestCo[address] [id number] BY: ZipRecruiterCentraState Healthcare SystemVacrbk1950 [facility] [id number] RBC (Bld) [#/Vol] 4.55 {x10E6/uL} Normal 3.77-5.28 [facility] Internal [facility]; [facility] Work Phone: Comment on above: Test(s) 365995-WRE-E ; 636584-KDI-K; 223517-Xrweghebtdveb; 491952-Wlgertvopin, Total; 204207-SCM-H (Total); 809320-Yiyyp LDL-P; 788526-VHK Size; 874563-PQ-QU Scorewas developed and its performance characteristics determinedby [employer]. It has not been cleared or approved by the Foodand Drug Administration.PATIENT WAS FASTINGPERFORMED BY: [facility] [address] [id number] BY: ZipRecruiterCentraState Healthcare SystemKpyjeq9223 [facility] [id number] RBC (Bld) [#/Vol] 4.55 10*6/uL Normal 3.77-5.28 [facility] Internal Medicine; [facility] Work Phone: Comment on above: Test(s) 243218-CEN-E ; 365551-UIK-Q; 777069-Pkgdydsxbiuqm; 154391-Ymrevkhrhki, Total; 324127-VUG-F (Total); 926662-Duauc LDL-P; 452822-NPL Size; 116149-AF-XQ Scorewas developed and its performance characteristics determinedby [employer]. It has not been cleared or approved by the Foodand Drug Administration.PATIENT WAS FASTINGPERFORMED BY: Epoxyton1447 [facility] [id number] BY: [email or web address] [facility] [id number] WBC (Bld) [#/Vol] 5.4 {x10E3/uL} Normal 3.4-10.8 [facility]; [facility] Work Phone: Comment on above: Test(s) 449899-LYK-Q ; 075059-LZY-Z; 063118-Izufmpcdmzsfg; 253493-Vsxxzvgdjfp, Total; 820605-STV-L (Total); 779364-Iseef LDL-P; 990295-FAS Size; 252965-TK-YD Scorewas developed and its performance characteristics determinedby Stockr. It has not been cleared or approved by the Foodand Drug Administration.PATIENT WAS FASTINGPERFORMED BY: Epoxy[address] [id number] BY: [email or web address] [facility] [id number] WBC (Bld) [#/Vol] 5.4 10*3/uL Normal 3.4-10.8 [facility] Internal Medicine; [facility] Work Phone: Comment on above: Test(s) 697619-JIS-G ; 204488-QXH-L; 393030-Lzbhilwxvrdke; 169946-Cfpxktrfjhw, Total; 439576-DKY-E (Total); 566499-Jndnx LDL-P; 006243-RRW Size; 945102-KM-CI Scorewas developed and its performance characteristics determinedby Stockr. It has not been cleared or approved by the Foodand Drug Administration.PATIENT WAS FASTINGPERFORMED BY: Epoxy[address] [id number] BY: Yippylin6370 [facility] [id number] METABOLIC PANEL, COMPREHENSI VE (68619)Ordered By: Office Analyst on 05-29-2020 Albumin [Mass/Vol] 4.1 g/dL Normal 3.8-4.9 [facility] Internal Medicine; [facility] Work Phone: Comment on above: Test(s) 077469-BSW-K ; 842192-FON-X; 283966-Gicrdtgepsbxf; 909161-Gvjiqxffgob, Total; 934948-THO-Y (Total); 346903-Idblg LDL-P; 882382-LDF Size; 153041-QM-ZV Scorewas developed and its performance characteristics determinedby Stockr. It has not been cleared or approved by the Foodand Drug Administration.PATIENT WAS FASTINGPERFORMED BY: CÜR [address] [id number] BY: HyperWeek70 [facility] [id number] Albumin/Globulin [Mass ratio] 1.7 {ratio} Normal 1.2-2.2 [facility]; [facility] Work Phone: Comment on above: Test(s) 708023-KXU-Z ; 912353-YVA-B; 920985-Ducekyhhszaqq; 403513-Bmlbgzzmkra, Total; 590645-QKB-Z (Total); 604205-Hoaeu LDL-P; 234726-WLL Size; 624306-QY-TL Scorewas developed and its performance characteristics determinedby Stockr. It has not been cleared or approved by the Foodand Drug Administration.PATIENT WAS FASTINGPERFORMED BY: CÜR [address] [id number] BY: [email or web address] [facility] [id number] ALP [Catalytic activity/Vol] 63 [iU]/L Normal 39-117 [facility]; [facility] Work Phone: Comment on above: Test(s) 574837-TDU-L ; 901127-TCP-C; 298744-Pgqcphssvhrfz; 968446-Ohzwpjfgeed, Total; 565360-SYW-X (Total); 195385-Jcnli LDL-P; 453846-OMG Size; 291347-ZR-UP Scorewas developed and its performance characteristics determinedby Stockr. It has not been cleared or approved by the Foodand Drug Administration.PATIENT WAS FASTINGPERFORMED BY: ZipRecruiter[address] [id number] BY: ZipRecruiterCentraState Healthcare SystemYqedrq7659 [facility] [id number] ALP [Catalytic activity/Vol] 63 U/L Normal 39-117 [facility]; [facility] Work Phone: Comment on above: Test(s) 301933-QSI-P ; 381639-LPZ-E; 788357-Avlzesrwmthwv; 738875-Tcetkeoxnnw, Total; 692416-ZSO-C (Total); 065802-Fnhkv LDL-P; 599835-TZO Size; 478396-ZX-NU Scorewas developed and its performance characteristics determinedby ticketstreet. It has not been cleared or approved by the Foodand Drug Administration.PATIENT WAS FASTINGPERFORMED BY: Flixpress [address] [id number] BY: ZipRecruiterCentraState Healthcare SystemJstzdf7386 [facility] [id number] ALT [Catalytic activity/Vol] 20 [iU]/L Normal 0-32 [facility]; [facility] Work Phone: Comment on above: Test(s) 051414-VLD-X ; 078541-CDC-O; 482187-Wfjkynlhhhulb; 246629-Pzzevfyupzx, Total; 236929-UGL-P (Total); 448163-Zzmou LDL-P; 688175-HHS Size; 715758-GR-XJ Scorewas developed and its performance characteristics determinedby Stockr. It has not been cleared or approved by the Foodand Drug Administration.PATIENT WAS FASTINGPERFORMED BY: ZipRecruiter[address] [id number] BY: ZipRecruiterCentraState Healthcare SystemSdwlrb7379 [facility] [id number] ALT [Catalytic activity/Vol] 20 U/L Normal 0-32 [facility]; [facility] Work Phone: Comment on above: Test(s) 780241-OUU-U ; 481817-WPM-S; 230293-Udvjzspbdzoup; 019272-Cxowwdvszma, Total; 007095-XLD-Y (Total); 687742-Poxza LDL-P; 464139-CEV Size; 409491-SF-XZ Scorewas developed and its performance characteristics determinedby Stockr. It has not been cleared or approved by the Foodand Drug Administration.PATIENT WAS FASTINGPERFORMED BY: TyraTech[address] [id number] BY: Antengo70 [facility] [id number] AST [Catalytic activity/Vol] 24 [iU]/L Normal 0-40 [facility]; [facility] Work Phone: Comment on above: Test(s) 913361-JYZ-F ; 633565-LTI-N; 585239-Esmzwuxrezefv; 025817-Aagwdblqfdh, Total; 872229-BXD-C (Total); 483802-Qihlm LDL-P; 007384-OHN Size; 232892-CI-JY Scorewas developed and its performance characteristics determinedby Stockr. It has not been cleared or approved by the Foodand Drug Administration.PATIENT WAS FASTINGPERFORMED BY: CÜR [address] [id number] BY: HyperWeek70 [facility] [id number] AST [Catalytic activity/Vol] 24 U/L Normal 0-40 [facility]; [facility] Work Phone: Comment on above: Test(s) 701028-KZI-M ; 566219-XJO-Q; 146025-Zslklzarhzkqy; 249539-Crfrvqiwmhg, Total; 678517-QCI-V (Total); 070643-Efdoz LDL-P; 100790-VOX Size; 007342-UC-CJ Scorewas developed and its performance characteristics determinedby Stockr. It has not been cleared or approved by the Foodand Drug Administration.PATIENT WAS FASTINGPERFORMED BY: CÜR [address] [id number] BY: HyperWeek70 [facility] [id number] Bilirubin [Mass/Vol] 0.3 mg/dL Normal 0.0-1.2 [facility] Internal Medicine; [facility] Work Phone: Comment on above: Test(s) 653773-HTX-K ; 228203-RVT-J; 302914-Niatsogopmviz; 924736-Yflpdfbrryc, Total; 790460-HFB-D (Total); 288890-Cjdgp LDL-P; 850651-TZL Size; 057630-ET-BO Scorewas developed and its performance characteristics determinedby Stockr. It has not been cleared or approved by the Foodand Drug Administration.PATIENT WAS FASTINGPERFORMED BY: Epoxy[address] [id number] BY: HyperWeek70 [facility] [id number] Calcium [Mass/Vol] 9.5 mg/dL Normal 8.7-10.3 [facility] Internal [facility]; [facility] Internal Medicine Work Phone: Comment on above: Test(s) 580539-EHC-T ; 256787-GHW-V; 442730-Apaoyjxnfnrra; 798594-Kqxdskzjryi, Total; 362522-RPW-M (Total); 725270-Bilkh LDL-P; 810880-JPA Size; 850686-VQ-BX Scorewas developed and its performance characteristics determinedby Stockr. It has not been cleared or approved by the Foodand Drug Administration.PATIENT WAS FASTINGPERFORMED BY: CÜR [address] [id number] BY: Yippylin6370 [facility] [id number] Chloride [Moles/Vol] 103 mmol/L Normal 96-106 [facility] Internal Medicine; [facility] Internal Medicine Work Phone: Comment on above: Test(s) 621871-FHF-V ; 838057-NRT-D; 497328-Vsqzswcrbfimq; 619860-Ummhfqirkiv, Total; 297300-YPN-L (Total); 194646-Invro LDL-P; 950553-TNK Size; 823000-AF-KR Scorewas developed and its performance characteristics determinedby Stockr. It has not been cleared or approved by the Foodand Drug Administration.PATIENT WAS FASTINGPERFORMED BY: CÜR [address] [id number] BY: [email or web address] [place] [facility] [id number] CO2 [Moles/Vol] 26 mmol/L Normal 20-29 [facility] Internal Medicine; [facility] Work Phone: Comment on above: Test(s) 128563-LAX-C ; 988069-ODN-J; 279031-Xelwbkfwbmfmp; 466500-Tbkasyoempl, Total; 839854-FDO-F (Total); 023333-Ovymw LDL-P; 551477-FHW Size; 807857-XE-QC Scorewas developed and its performance characteristics determinedby Stockr. It has not been cleared or approved by the Foodand Drug Administration.PATIENT WAS FASTINGPERFORMED BY: CÜR [address] [id number] BY: HyperWeek70 [facility] [id number] Creatinine [Mass/Vol] 1.26 mg/dL Abnormal 0.57-1.00 [facility] Internal Medicine; [facility] Work Phone: Comment on above: Test(s) 126929-VCR-P ; 538254-FIH-G; 704542-Caxyhbiedelgg; 023368-Dwmnpuujoge, Total; 661957-GVB-G (Total); 127530-Mrzkg LDL-P; 710554-ZON Size; 482884-EZ-YM Scorewas developed and its performance characteristics determinedby Stockr. It has not been cleared or approved by the Foodand Drug Administration.PATIENT WAS FASTINGPERFORMED BY: CÜR [address] [id number] BY: [email or web address] [facility] [id number] GFR/1.73 sq M predicted among blacks CKD-EPI (S/P/Bld) [Vol rate/Area] 54 mL/min/1.73 Abnormal [facility]; [facility] Work Phone: Comment on above: Test(s) 422186-BFH-D ; 973486-UMC-T; 015685-Swmkivvkzbjuu; 294895-Jymzxkmftns, Total; 879397-MTM-K (Total); 755642-Dfnds LDL-P; 731895-TBO Size; 331748-VZ-EO Scorewas developed and its performance characteristics determinedby Stockr. It has not been cleared or approved by the Foodand Drug Administration.PATIENT WAS FASTINGPERFORMED BY: Epoxy[address] [id number] BY: HyperWeek70 [facility] [id number] GFR/1.73 sq M predicted among non-blacks CKD-EPI (S/P/Bld) [Vol rate/Area] 46 mL/min/1.73 Abnormal [facility]; [facility] Work Phone: Comment on above: Test(s) 906444-NPW-B ; 253600-UOG-S; 058275-Smtidnyvhawzy; 748375-Ilzsntzwyiy, Total; 083290-VYB-B (Total); 814777-Mpsqm LDL-P; 960796-XPJ Size; 530208-ZL-RQ Scorewas developed and its performance characteristics determinedby Stockr. It has not been cleared or approved by the Foodand Drug Administration.PATIENT WAS FASTINGPERFORMED BY: CÜR [address] [id number] BY: [email or web address] [facility] [id number] Globulin (S) [Mass/Vol] 2.4 g/dL Normal 1.5-4.5 [facility]; [facility] Work Phone: Comment on above: Test(s) 373942-PJN-F ; 692066-ONU-I; 935232-Lsspxayvzabjy; 522613-Tzhsonyizvg, Total; 893997-PCH-T (Total); 257021-Mejbv LDL-P; 114178-CBT Size; 292138-FN-BJ Scorewas developed and its performance characteristics determinedby Stockr. It has not been cleared or approved by the Foodand Drug Administration.PATIENT WAS FASTINGPERFORMED BY: CÜR [address] [id number] BY: [email or web address] [place] [facility] [id number] Glucose [Mass/Vol] 92 mg/dL Normal 65-99 [facility] Internal Medicine; [facility] Work Phone: Comment on above: Test(s) 898479-EUK-B ; 021213-SWZ-W; 627992-Gqzqymdmxjjmo; 430386-Fkpvvnfczeq, Total; 910151-ZWD-U (Total); 376385-Fgrsm LDL-P; 637532-IFZ Size; 339893-JG-KO Scorewas developed and its performance characteristics determinedby Stockr. It has not been cleared or approved by the Foodand Drug Administration.PATIENT WAS FASTINGPERFORMED BY: CÜR [address] [id number] BY: HyperWeek70 [place] [facility] [id number] Potassium [Moles/Vol] 3.9 mmol/L Normal 3.5-5.2 [facility] Internal Medicine; [facility] Work Phone: Comment on above: Test(s) 655069-FTT-U ; 364419-UZY-Z; 183358-Mshtgedozacep; 509821-Ezfdfsbhhfe, Total; 184678-ZDN-K (Total); 155135-Bnzzj LDL-P; 492074-ONK Size; 872544-AO-MF Scorewas developed and its performance characteristics determinedby Stockr. It has not been cleared or approved by the Foodand Drug Administration.PATIENT WAS FASTINGPERFORMED BY: CÜR [address] [id number] BY: [email or web address] [place] [facility] [id number] Protein [Mass/Vol] 6.5 g/dL Normal 6.0-8.5 [facility] Internal Medicine; [facility] Work Phone: Comment on above: Test(s) 923315-BQB-E ; 351525-EOU-B; 559319-Uspndxcsnkqow; 777360-Mbcwpkfqmer, Total; 005697-MVV-R (Total); 052394-Aqmdg LDL-P; 276969-NHY Size; 044917-OV-CS Scorewas developed and its performance characteristics determinedby Stockr. It has not been cleared or approved by the Foodand Drug Administration.PATIENT WAS FASTINGPERFORMED BY: CÜR [address] [id number] BY: HyperWeek70 [facility] [id number] Sodium [Moles/Vol] 142 mmol/L Normal 134-144 [facility] Internal Medicine; [facility] Work Phone: Comment on above: Test(s) 476880-IIM-N ; 174375-RMN-Y; 271015-Oiiogvyqxmmkx; 725016-Btcmextrwbw, Total; 289383-HKE-V (Total); 903402-Dnzzy LDL-P; 439297-KHD Size; 488484-PD-BR Scorewas developed and its performance characteristics determinedby Stockr. It has not been cleared or approved by the Foodand Drug Administration.PATIENT WAS FASTINGPERFORMED BY: CÜR [address] [id number] BY: [email or web address] [facility] [id number] Urea nitrogen [Mass/Vol] 24 mg/dL Normal 8-27 [facility]; [facility] Work Phone: Comment on above: Test(s) 984615-UCN-L ; 877836-DPO-S; 001678-Iyknxwsevqizj; 805321-Bqmvlxoaiip, Total; 740437-SLE-X (Total); 819096-Nddqj LDL-P; 751852-GEE Size; 696617-LL-IL Scorewas developed and its performance characteristics determinedby Stockr. It has not been cleared or approved by the Foodand Drug Administration.PATIENT WAS FASTINGPERFORMED BY: Epoxyton1447 [facility] [id number] BY: HyperWeek70 [facility] [id number] Urea nitrogen/Creatinine [Mass ratio] 19 mg/mg Normal 12-28 [facility]; [facility] Work Phone: Comment on above: Test(s) 457737-BSF-E ; 179521-DWK-K; 862553-Mcfkssvefepoj; 736888-Qthjrvdjekj, Total; 934068-NUC-V (Total); 957804-Pxpku LDL-P; 957022-NUM Size; 508578-ZR-PC Scorewas developed and its performance characteristics determinedby Stock[employer]. It has not been cleared or approved by the Foodand Drug Administration.PATIENT WAS FASTINGPERFORMED BY: Epoxyton1447 [facility] [id number] BY: HyperWeek70 [place] [facility] [id number] MICROALBUMINOrdered By: Syst em Director Of [employer] Sales on 05-29-2020 Albumin DL <= 20 mg/L (U) [Mass/Vol] 14.5 ug/mL Normal [facility]; [facility] Work Phone: Comment on above: Test(s) 094181-JRB-B ; 559926-ELJ-X; 607427-Coabpfbtpohmc; 814614-Pbcglaxmwma, Total; 367980-JHS-E (Total); 287611-Qfgxc LDL-P; 976597-CSL Size; 405540-AL-TF Scorewas developed and its performance characteristics determinedby Stockr. It has not been cleared or approved by the Foodand Drug Administration.PATIENT WAS FASTINGPERFORMED BY: Epoxy[address] [id number] BY: [email or web address] [facility] [id number] Albumin/Creatinine (U) [Mass ratio] 5 {mg/g_creat} Normal 0-29 [facility]; [facility] Work Phone: Comment on above: Normal: 0 - 29 Moder ately increased: 30 - 300 Severely increased: >300 Test(s) 963871-XVV-G ; 557191-CBJ-V; 397804-Zzpfeoiquxtkq; 317118-Ejdpxptctnd, Total; 970566-MMT-Z (Total); 876895-Odktf LDL-P; 447335-LTA Size; 150374-ZK-OX Scorewas developed and its performance characteristics determinedby Stockr. It has not been cleared or approved by the FoodInhale Digital Drug Administration.PATIENT WAS FASTINGPERFORMED BY: [employer] [place] [address] [id number] BY: HyperWeek70 [facility] [id number] Creatinine (U) [Mass/Vol] 294.8 mg/dL Normal [facility]; [facility] Work Phone: Comment on above: Test(s) 018508-YTH-I ; 071961-JRG-T; 434705-Eldmsjkxrafse; 196931-Gstcrotftnn, Total; 752808-QXU-K (Total); 855731-Jiyco LDL-P; 315105-FTH Size; 107790-UR-AD Scorewas developed and its performance characteristics determinedby Stockr. It has not been cleared or approved by the FoodInhale Digital Drug Administration.PATIENT WAS FASTINGPERFORMED BY: Epoxy[address] [id number] BY: [email or web address] [facility] [id number] NMR Profile (84217)Ordered B y: Office Analyst on 05-29-2020 Cholesterol [Mass/Vol] 215 mg/dL Abnormal 100-199 [facility]; [facility] Work Phone: Comment on above: Test(s) 188040-JJR-X ; 631223-XAS-V; 614665-Xyewgtkykosts; 844564-Tgnrqxscljn, Total; 970521-QZL-X (Total); 086830-Axcav LDL-P; 480813-UHL Size; 449244-QJ-UL Scorewas developed and its performance characteristics determinedby Stockr. It has not been cleared or approved by the Foodand Drug Administration.PATIENT WAS FASTINGPERFORMED BY: CÜR [address] [id number] BY: Flixpress Wtfasq7672 [facility] [id number]; ov 3 Lipoprotein.alpha [Moles/Vol] 33.4 umol/L Normal [facility]; [facility] Work Phone: Comment on above: Test(s) 056564-JTD-O ; 291408-AOD-K; 204228-Dvypjblsqynxe; 823478-Wyvetlopqve, Total; 327849-QJX-K (Total); 581952-Kkajl LDL-P; 125824-UTC Size; 111013-NO-TD Scorewas developed and its performance characteristics determinedby Stockr. It has not been cleared or approved by the Foodand Drug Administration.PATIENT WAS FASTINGPERFORMED BY: CÜR [address] [id number] BY: [email or web address] [facility] [id number]; ov 06/03 Lipoprotein.beta.subp article [Entitic length] 20.0 nm Abnormal [facility]; [facility] Work Phone: Comment on above: INTERPRETATIVE INFORMATION PARTICLE CONCENTRATION AND SIZE <--Lower CVD Risk Higher CVD Risk--> LDL AND HDL PARTICLES Percentile in Reference Population HDL-P (total) High 75th 50th 25th Low >34.9 34.9 30.5 26.7 <26.7 . Small LDL-P Low 25th 50th 75th High <117 117 527 839 >839 . LDL Size <-Large (Pattern A)-> <-Small (Pattern B)-> 23.0 20.6 20.5 19.0 Small LDL-P and LDL Size are associated with CVD risk, but not afterLDL-P is taken into account. Test(s) 029452-VMA-P ; 644115-EQU-E; 136650-Fqfbyftwuxbyj; 321213-Xattglqomiw, Total; 718692-JSJ-E (Total); 124454-Hiihl LDL-P; 496065-YKD Size; 770254-GI-RU Scorewas developed and its performance characteristics determinedby Stockr. It has not been cleared or approved by the Foodand Drug Administration.PATIENT WAS FASTINGPERFORMED BY: Epoxy[address] [id number] BY: HyperWeek70 [facility] [id number]; ov 06/03 Lipoprotein.beta.subp article [Moles/Vol] 1624 nmol/L Abnormal Comprehensiv e Internal Medicine; [facility] Work Phone: Comment on above: Low < 1000 Moderate 1000 - 1299 Borderline-High 1300 - 1599 High 1600 - 2000 Very High > 2000 Test(s) 563334-UAI-D ; 712950-FHC-T; 247258-Xcqylvuhsumtb; 117543-Xinibvpplbo, Total; 096788-PSP-G (Total); 505447-Apubt LDL-P; 762526-WRN Size; 767072-NV-JQ Scorewas developed and its performance characteristics determinedby Stockr. It has not been cleared or approved by the Foodand Drug Administration.PATIENT WAS FASTINGPERFORMED BY: CÜR [address] [id number] BY: HyperWeek70 [facility] [id number]; ov 3 Lipoprotein.beta.subp article.small [Moles/Vol] 987 nmol/L Abnormal [facility]; [facility] Work Phone: Comment on above: Test(s) 785633-RAM-L ; 672040-IHR-Y; 405285-Tiogkrcezdzyv; 642239-Aydocvfqflr, Total; 796270-OKQ-U (Total); 475259-Egsba LDL-P; 019101-EIM Size; 457318-JP-UG Scorewas developed and its performance characteristics determinedby Stockr. It has not been cleared or approved by the Foodand Drug Administration.PATIENT WAS FASTINGPERFORMED BY: CÜR [address] [id number] BY: [employer] Rwxcva5243 [facility] [id number]; ov 06/03 Triglyceride [Mass/Vol] 188 mg/dL Abnormal 0-149 [facility]; [facility] Work Phone: Comment on above: Test(s) 277333-TTI-V ; 700464-OLF-G; 710141-Acjbloylpuixp; 427476-Ahdvsprqlwp, Total; 297521-QOT-O (Total); 545344-Kjgfh LDL-P; 245309-EBE Size; 791891-WC-ZC Scorewas developed and its performance characteristics determinedby Stockr. It has not been cleared or approved by the Foodand Drug Administration.PATIENT WAS FASTINGPERFORMED BY: CÜR [address] [id number] BY: [employer] Ntxquf9732 [facility] [id number]; ov 06/03 NMR Profile (83133) 142 mg/dL Abnormal 0-99 [facility] Internal Medicine; [facility] Work Phone: Comment on above: . Optimal < 100 Abov e optimal 100 - 129 Borderline 130 - 159 High 160 - 189 Very high > 189 . Test(s) 772872-XNC-K ; 701932-AOE-R; 325746-Ejpjtltmxmpkr; 399150-Xjanypgvklg, Total; 450257-AFQ-A (Total); 230480-Tlivp LDL-P; 945944-AUI Size; 970193-ZR-AS Scorewas developed and its performance characteristics determinedby Stockr. It has not been cleared or approved by the Foodand Drug Administration.PATIENT WAS FASTINGPERFORMED BY: ZipRecruiter[address] [id number] BY: [facility]6370 [facility] [id number]; ov 324 NMR Profile (09635) 39 mg/dL Abnormal Compr ehensive Internal Medicine; [facility] Work Phone: Comment on above: Test(s) 949227-IVQ-X ; 011528-HDM-R; 250513-Pybvssgtcafvh; 340471-Jlhqcwplgqx, Total; 055223-QCT-W (Total); 999583-Rclhj LDL-P; 480646-OQJ Size; 190506-EQ-ID Scorewas developed and its performance characteristics determinedby Stockr. It has not been cleared or approved by the Foodand Drug Administration.PATIENT WAS FASTINGPERFORMED BY: ZipRecruiter[address] [id number] BY: [facility] CenterHomeSpaceCentraState Healthcare SystemJrdgfn1036 [facility] [id number]; ov 324 NMR Profile (48226) 188 mg/dL Abnormal 0-149 Compr ehensive Internal Medicine; [facility] Work Phone: NMR Profile (69401) 215 mg/dL Abnormal 100-199 Compr ehensive [facility] Medicine; [facility] Work Phone: TSH (69523)Ordered By: Sasha Lewis on 05-29-2020 TSH Qn 1.680 {uIU/mL} Normal 0.450-4.50 0 [facility]; [facility] Work Phone: Comment on above: Test(s) 693728-KPD-L ; 818225-TIN-F; 440755-Mngtudryygvkq; 175658-Npqcilyihrl, Total; 996562-QPR-C (Total); 222719-Nstrv LDL-P; 839874-PUW Size; 201176-ZR-HZ Scorewas developed and its performance characteristics determinedby Stockr. It has not been cleared or approved by the Foodand Drug Administration.PATIENT WAS FASTINGPERFORMED BY: TyraTech[address] [id number] BY: ZipRecruiterKayenta Health CenterIhgqdq7687 [facility] [id number] URINALYSIS, W/ MICRO (49212) Ordered By: Office Analyst on 05-29-2020 Appearance (U) Clear Normal Comprehens rosario [facility]; [facility] Work Phone: Comment on above: Test(s) 815340-AOD-X ; 670339-SXD-A; 065207-Kaefejxgbbucw; 116355-Voevafsiiet, Total; 460730-VOB-L (Total); 782751-Hdkid LDL-P; 984532-FRS Size; 769045-YW-FJ Scorewas developed and its performance characteristics determinedby Stockr. It has not been cleared or approved by the Foodand Drug Administration.PATIENT WAS FASTINGPERFORMED BY: Epoxy[address] [id number] BY: [email or web address] [facility] [id number] Bilirubin Ql (U) Negative Normal Comprehe nsive Internal Medicine; [facility] Work Phone: Comment on above: Test(s) 924472-JWC-C ; 288908-LMT-D; 847125-Otqkurpoclflb; 671727-Bccfokvfoem, Total; 563315-RTN-P (Total); 796536-Jyhvf LDL-P; 225263-RZO Size; 919843-WQ-ZC Scorewas developed and its performance characteristics determinedby Stockr. It has not been cleared or approved by the Foodand Drug Administration.PATIENT WAS FASTINGPERFORMED BY: CÜR [address] [id number] BY: OmPromptCentraState Healthcare SystemUmemme9778 [facility] [id number] Bilirubin Ql (U) Negative Normal Comprehe nsive Internal Medicine; [facility] Work Phone: Comment on above: Test(s) 307256-SUQ-O ; 354261-FVP-Q; 449326-Cxsgpksgmqsfm; 003476-Bahkxlcupzq, Total; 670054-EOM-M (Total); 454734-Iupxt LDL-P; 747547-FLL Size; 668022-EM-QS Scorewas developed and its performance characteristics determinedby Stockr. It has not been cleared or approved by the Foodand Drug Administration.PATIENT WAS FASTINGPERFORMED BY: CÜR [address] [id number] BY: Zelos TherapeuticsDorothea Dix Hospital [id number] Color (U) Yellow Normal [facility]; [facility] Work Phone: Comment on above: Test(s) 646053-CZX-C ; 236590-ACN-X; 620585-Arqzejqapbqpm; 590249-Pdicqysuwpt, Total; 439514-NZS-J (Total); 960320-Wvtms LDL-P; 237156-URO Size; 206356-QI-UG Scorewas developed and its performance characteristics determinedby Stockr. It has not been cleared or approved by the [employer] Digital Drug Administration.PATIENT WAS FASTINGPERFORMED BY: CÜR [address] [id number] BY: Zelos TherapeuticsDorothea Dix Hospital [id number] Glucose Ql (U) Negative Normal Comprehens rosario [facility]; [facility] Work Phone: Comment on above: Test(s) 548973-EVV-A ; 372060-PTO-L; 108740-Oucbqhqrbdhzu; 884281-Pwkwzakxfin, Total; 256755-YKB-C (Total); 767039-Rsidw LDL-P; 382821-GQI Size; 771189-QX-BE Scorewas developed and its performance characteristics determinedby Stockr. It has not been cleared or approved by the Foodand Drug Administration.PATIENT WAS FASTINGPERFORMED BY: CÜR [address] [id number] BY: [email or web address] Comm[facility] WirelessDorothea Dix Hospital [id number] Glucose Ql (U) Negative Normal Comprehens rosario [facility]; [facility] Work Phone: Comment on above: Test(s) 483391-SXG-W ; 690257-RFH-F; 360812-Jrgzeuxorkoky; 656389-Vpetkqsqxon, Total; 356953-VLM-M (Total); 018254-Ieaeu LDL-P; 384850-CCL Size; 641616-SS-EK Scorewas developed and its performance characteristics determinedby Stockr. It has not been cleared or approved by the Foodand Drug Administration.PATIENT WAS FASTINGPERFORMED BY: CÜR [address] [id number] BY: HyperWeek70 [facility] [id number] Hemoglobin Ql (U) Negative Normal Compreh ensive Internal Medicine; [facility] Work Phone: Comment on above: Test(s) 756802-XDD-C ; 587879-EIR-N; 710867-Qggqqepbaptki; 052435-Hjulyecidnr, Total; 427813-NEV-M (Total); 407097-Lwbzn LDL-P; 541096-FDS Size; 382054-PP-LK Scorewas developed and its performance characteristics determinedby Stockr. It has not been cleared or approved by the Foodand Drug Administration.PATIENT WAS FASTINGPERFORMED BY: CÜR [address] [id number] BY: [email or web address] [facility] [id number] Hemoglobin Ql (U) Negative Normal Compreh ensive Internal Medicine; [facility] Work Phone: Comment on above: Test(s) 086313-HGZ-P ; 979483-UVQ-N; 384559-Xlsqnabgjnalv; 871006-Zbxnyxdqpza, Total; 872672-QEI-T (Total); 528327-Bvghn LDL-P; 499433-KUS Size; 559389-IE-MC Scorewas developed and its performance characteristics determinedby Stockr. It has not been cleared or approved by the Foodand Drug Administration.PATIENT WAS FASTINGPERFORMED BY: BN [employer] [id number] BY: ZipRecruiterNicholas Ville 8609170 [facility] [id number] Ketones Ql (U) Trace Abnormal Comprehens rosario [facility]; [facility] Work Phone: Comment on above: Test(s) 509172-MDZ-P ; 082601-MST-V; 313503-Plhsunhpqxcqs; 282042-Lahpmeqxxuz, Total; 318406-VIG-X (Total); 459058-Uwpcy LDL-P; 250733-LDK Size; 646275-XT-CS Scorewas developed and its performance characteristics determinedby ticketstreet. It has not been cleared or approved by the Foodand Drug Administration.PATIENT WAS FASTINGPERFORMED BY: ZipRecruiter[address] [id number] BY: [employer]iter Vaiqde7233 [facility] [id number] Leukocyte esterase Test strip Ql (U) Negative Normal [facility]; [facility] Work Phone: Comment on above: Test(s) 252719-LLG-X ; 282785-CUH-F; 992738-Slsoqkqhzbfzf; 450331-Jsminxbcwvp, Total; 309182-SFY-G (Total); 105275-Ualmw LDL-P; 619967-VSK Size; 235344-YH-KP Scorewas developed and its performance characteristics determinedby ticketstreet. It has not been cleared or approved by the Foodand Drug Administration.PATIENT WAS FASTINGPERFORMED BY: ZipRecruiter[address] [id number] BY: ZipRecruiterCentraState Healthcare SystemKbvmxg8825 [facility] [id number] Leukocyte esterase Test strip Ql (U) Negative Normal [facility]; [facility] Work Phone: Comment on above: Test(s) 469335-FUW-D ; 323849-WSZ-Q; 093968-Xwoylhxjsbmbd; 990482-Gsswtcdtifv, Total; 448110-XJO-L (Total); 815294-Cxrvi LDL-P; 452343-FSJ Size; 344616-TT-KS Scorewas developed and its performance characteristics determinedby Stockr. It has not been cleared or approved by the Foodand Drug Administration.PATIENT WAS FASTINGPERFORMED BY: CÜR [address] [id number] BY: [email or web address] Choudhary Proteus AgilityOnslow Memorial Hospital [id number] Microscopic observation LM Nom (Urine sed) MICRON Normal [facility]; [facility] Work Phone: Comment on above: Microscopic follows if indicated. Test(s) 201488-HXS-G ; 103749-RQP-M; 961257-Gizepnickhpvd; 992702-Kurfhxsmrjk, Total; 982377-DYW-Y (Total); 915114-Ytmhx LDL-P; 238915-FYM Size; 649544-GF-HW Scorewas developed and its performance characteristics determinedby Stockr. It has not been cleared or approved by the Foodand Drug Administration.PATIENT WAS FASTINGPERFORMED BY: CÜR [address] [id number] BY: HyperWeek70 Ch[facility]ary Proteus AgilityOnslow Memorial Hospital [id number] Microscopic observation LM Nom (Urine sed) See below: Normal [facility]; [facility] Work Phone: Comment on above: Microscopic was rick cated and was performed. Test(s) 815743-LRK-Q ; 466800-RCZ-Z; 491517-Gsgaofpoukfdx; 812379-Hhzneifdxlg, Total; 409202-YBX-F (Total); 579871-Ipzeq LDL-P; 297834-QQQ Size; 119387-GQ-NF Scorewas developed and its performance characteristics determinedby Stockr. It has not been cleared or approved by the Foodand Drug Administration.PATIENT WAS FASTINGPERFORMED BY: CÜR [address] [id number] BY: Yippylin6370 [facility] [id number] Nitrite Ql (U) Negative Normal Comprehens rosario [facility]; [facility] Work Phone: Comment on above: Test(s) 626909-VSX-Q ; 722851-PFZ-X; 718605-Qumzjuonqhnqv; 078480-Yccrcasivfd, Total; 033730-YUV-R (Total); 628322-Xiwlo LDL-P; 055581-LXW Size; 719389-EL-AH Scorewas developed and its performance characteristics determinedby Stockr. It has not been cleared or approved by the Foodand Drug Administration.PATIENT WAS FASTINGPERFORMED BY: CÜR [address] [id number] BY: [employer] Fjdfwj9804 [facility] [id number] Nitrite Ql (U) Negative Normal Comprehens [facility] Internal Medicine; [facility] Work Phone: Comment on above: Test(s) 957901-CML-N ; 191393-ODW-D; 990111-Pxewmsmumfmeo; 738793-Dbapcwcobqs, Total; 496089-HVX-C (Total); 544530-Awher LDL-P; 232794-ZAE Size; 154293-OF-XT Scorewas developed and its performance characteristics determinedby Stock[employer]. It has not been cleared or approved by the Foodand Drug Administration.PATIENT WAS FASTINGPERFORMED BY: CÜR [address] [id number] BY: [employer] Ywsrsw6586 [facility] [id number] pH (U) 5.5 [pH] Normal 5.0-7.5 [facility]; [facility] Work Phone: Comment on above: Test(s) 902578-ZUR-W ; 049618-QVO-F; 460675-Qzqyufajqaaym; 279848-Zcdpmudxmyy, Total; 977167-QUM-I (Total); 956078-Lirwo LDL-P; 705960-DOM Size; 992931-VG-LL Scorewas developed and its performance characteristics determinedby Stockr. It has not been cleared or approved by the Foodand Drug Administration.PATIENT WAS FASTINGPERFORMED BY: CÜR [address] [id number] BY: [email or web address] Comm[facility] WirelessDorothea Dix Hospital [id number] Protein Ql (U) Trace Normal Comprehens rosario [facility]; [facility] Work Phone: Comment on above: Test(s) 829343-LXO-V ; 688284-ULW-F; 106205-Ynhlzbfaezekl; 821524-Eeywqbjntze, Total; 650291-SUS-Y (Total); 817897-Xexej LDL-P; 743359-ZUR Size; 769242-LX-NV Scorewas developed and its performance characteristics determinedby Stockr. It has not been cleared or approved by the Foodand Drug Administration.PATIENT WAS FASTINGPERFORMED BY: CÜR [address] [id number] BY: [email or web address] Comm[facility] WirelessDorothea Dix Hospital [id number] Specific gravity (U) [Rel density] 1.025 1 Normal 1.005-1.03 0 [facility]; [facility] Work Phone: Comment on above: Test(s) 321478-UOD-B ; 964717-HCI-O; 337962-Stfknndkfcxsi; 433240-Mwdgllffvjn, Total; 746257-JFZ-A (Total); 148790-Kgxtq LDL-P; 489230-QIR Size; 629560-DT-XD Scorewas developed and its performance characteristics determinedby Stockr. It has not been cleared or approved by the Foodand Drug Administration.PATIENT WAS FASTINGPERFORMED BY: CÜR [address] [id number] BY: Yippylin6370 [facility] HealthO[facility] [id number] Urobilinogen (U) [Mass/Vol] 0.2 mg/dL Normal 0.2-1.0 [facility]; [facility] Work Phone: Comment on above: Test(s) 518626-CTT-A ; 481645-XUW-J; 403439-Hxkakuuuhcetn; 864844-Usuxpbphnrn, Total; 115151-ZFB-D (Total); 841666-Xohog LDL-P; 642845-LGX Size; 139172-CL-LB Scorewas developed and its performance characteristics determinedby Stockr. It has not been cleared or approved by the Foodand Drug Administration.PATIENT WAS FASTINGPERFORMED BY: CÜR [address] [id number] BY: HyperWeek70 [facility] IncantheraDorothea Dix Hospital [id number] Urobilinogen Test strip (U) [Mass/Vol] 0.2 mg/dL Normal 0.2-1.0 [facility] Internal Medicine; [facility] Work Phone: Comment on above: Test(s) 999748-NHT-J ; 286350-EFD-W; 559429-Xidoeeqwmmyje; 960909-Gcaxmizpwyc, Total; 706083-RFU-W (Total); 066733-Kyjqp LDL-P; 254617-JSK Size; 254697-ZI-VR Scorewas developed and its performance characteristics determinedby Stockr. It has not been cleared or approved by the Foodand Drug Administration.PATIENT WAS FASTINGPERFORMED BY: CÜR [address] [id number] BY: [employer] Ntgkro5460 [facility] [id number] CBC W/AUTO DIFF WBC (28430)O rdered By: Office Analyst on 05-17-2019 Basophils (Bld) [#/Vol] 0.0 {x10E3/uL} Normal 0.0-0.2 [facility] Work Phone: Comment on above: Test(s) 012651-VNL-P ; 214213-FUQ-Z; 187501-ZQR-S; 579288-Bndwohuojyneg; 295198-Ifqmjkywafp, Total; 729780-VKO-Q (Total);405949-Hrjlm LDL-P; 814521-NOY Size; 999947-WM-GU Scorewas developed and its performance characteristics determinedby [employer]. It has not been cleared or approved by the Foodand Drug Administration.PATIENT WAS FASTINGPERFORMED BY: Epoxy[address] [id number] BY: Om[employer] Krpukw6965 [facility] [id number]; ov 3/16 Basophils (Bld) [#/Vol] 0.0 10*3/uL Normal 0.0-0.2 [facility]; [facility] Work Phone: Comment on above: Test(s) 497387-KRI-H ; 744074-AAQ-K; 922229-GIP-M; 379362-Rdsbnajcofted; 360743-Awnbygmmmxu, Total; 999789-WCE-Y (Total);585147-Kuzub LDL-P; 228386-EXL Size; 014319-NV-YE Scorewas developed and its performance characteristics determinedby [employer]. It has not been cleared or approved by the Foodand Drug Administration.PATIENT WAS FASTINGPERFORMED BY: CÜR [address] [id number] BY: [email or web address] [place]ary Proteus AgilityOnslow Memorial Hospital [id number]; ov 3/16 Basophils/100 WBC (Bld) 1 % Normal [facility] Work Phone: Comment on above: Test(s) 503193-LBC-Y ; 418940-LFI-R; 869035-PRW-L; 785117-Jxsekkiuxjgvq; 771610-Ozijnxdhimm, Total; 097170-QXX-L (Total);073091-Xfzqi LDL-P; 937013-EMR Size; 668061-UI-IM Scorewas developed and its performance characteristics determinedby [employer]. It has not been cleared or approved by the Foodand Drug Administration.PATIENT WAS FASTINGPERFORMED BY: CÜR [address] [id number] BY: Yippylin6370 [facility] [id number]; ov 3/16 Eosinophils (Bld) [#/Vol] 0.1 {x10E3/uL} Normal 0.0-0.4 [facility] Work Phone: Comment on above: Test(s) 232633-DUP-X ; 839553-XJC-R; 846098-ZZC-V; 621852-Qnqasqebqcidz; 880102-Xbhzynuvnfg, Total; 069998-OYK-C (Total);191908-Mhged LDL-P; 398891-UTA Size; 658668-PQ-CI Scorewas developed and its performance characteristics determinedby [employer]. It has not been cleared or approved by the Foodand Drug Administration.PATIENT WAS FASTINGPERFORMED BY: CÜR [address] [id number] BY: HyperWeek70 [facility] [id number]; ov 05/26 Eosinophils (Bld) [#/Vol] 0.1 10*3/uL Normal 0.0-0.4 [facility]; [facility] Work Phone: Comment on above: Test(s) 666127-KSR-Q ; 443189-SFV-I; 196301-KKM-Y; 728638-Nzkjkfbiguepo; 546114-Yosossuuzey, Total; 583723-FCW-D (Total);593377-Rztxn LDL-P; 855581-LVX Size; 682588-XH-AR Scorewas developed and its performance characteristics determinedby [employer]. It has not been cleared or approved by the Foodand Drug Administration.PATIENT WAS FASTINGPERFORMED BY: CÜR [address] [id number] BY: [email or web address] [facility] [id number]; ov 05/26 Eosinophils/100 WBC (Bld) 1 % Normal [facility] Work Phone: Comment on above: Test(s) 696353-JZR-H ; 113224-VNK-V; 234888-PXQ-M; 920607-Jccfwsohshiwu; 111133-Liyygdhtobp, Total; 644315-LSV-V (Total);099744-Fxkpt LDL-P; 417108-YFE Size; 799676-HM-MU Scorewas developed and its performance characteristics determinedby [employer]. It has not been cleared or approved by the Foodand Drug Administration.PATIENT WAS FASTINGPERFORMED BY: CÜR [address] [id number] BY: [facility] Fvmnnf4909 [facility] [id number]; ov 3/16 Erythrocyte distribution width (RBC) [Ratio] 12.5 % Normal 11.7-15.4 [facility] Work Phone: Comment on above: Test(s) 693850-RYS-L ; 865547-FVO-V; 308178-GNL-Q; 614169-Nbmkkwbybreoj; 309977-Egqsexjhyhb, Total; 501277-YYN-W (Total);859480-Mbtua LDL-P; 386317-UVW Size; 904994-AW-OM Scorewas developed and its performance characteristics determinedby [employer]. It has not been cleared or approved by the Foodand Drug Administration.PATIENT WAS FASTINGPERFORMED BY: CÜR [address] [id number] BY: [email or web address] [facility] [id number]; ov 316 Hematocrit (Bld) [Volume fraction] 44.4 % Normal 34.0-46.6 [facility] Work Phone: Comment on above: Test(s) 692734-JTM-T ; 094473-CJS-G; 301600-UTG-H; 315904-Xxzbtixpcisgy; 123935-Zusmzmtaocl, Total; 852408-YNA-F (Total);277319-Wvdrg LDL-P; 477575-CYA Size; 573962-YF-QH Scorewas developed and its performance characteristics determinedby [employer]. It has not been cleared or approved by the Foodand Drug Administration.PATIENT WAS FASTINGPERFORMED BY: [employer] [address] [id number] BY: [facility] Ukdril2957 [facility] [id number]; ov 3/16 Hemoglobin (Bld) [Mass/Vol] 14.5 g/dL Normal 11.1-15.9 [facility] Work Phone: Comment on above: Test(s) 859421-SVO-M ; 128506-CUX-V; 987080-HIL-K; 679688-Ekoalwrfghnts; 948400-Uqmstgpdjcu, Total; 899359-CIA-C (Total);010583-Mugvw LDL-P; 207361-JFX Size; 048366-EW-OE Scorewas developed and its performance characteristics determinedby [employer]. It has not been cleared or approved by the Foodand Drug Administration.PATIENT WAS FASTINGPERFORMED BY: CÜR [address] [id number] BY: [employer] Smrdav3995 [facility] [id number]; ov 3 Immature granulocytes (Bld) [#/Vol] 0.0 {x10E3/uL} Normal 0.0-0.1 [facility] Work Phone: Comment on above: Test(s) 854418-MTL-E ; 391873-PCH-F; 690293-OFL-K; 714890-Xlzicvaftyjdc; 969323-Zcifbcqhnas, Total; 287275-LEJ-O (Total);252585-Jzpde LDL-P; 518682-HTR Size; 695099-QR-LM Scorewas developed and its performance characteristics determinedby [employer]. It has not been cleared or approved by the Foodand Drug Administration.PATIENT WAS FASTINGPERFORMED BY: CÜR [address] [id number] BY: [employer] Agttqo0789 [facility] [id number]; ov 316 Immature granulocytes (Bld) [#/Vol] 0.0 10*3/uL Normal 0.0-0.1 [facility]; [facility] Work Phone: Comment on above: Test(s) 794293-BEG-C ; 477735-HIV-E; 856673-SLH-S; 797446-Muydnljqroiwg; 339223-Hrujzbqxexa, Total; 826436-SJI-M (Total);749366-Lpevd LDL-P; 392955-ADP Size; 892389-KK-VK Scorewas developed and its performance characteristics determinedby [employer]. It has not been cleared or approved by the Foodand Drug Administration.PATIENT WAS FASTINGPERFORMED BY: CÜR [address] [id number] BY: [employer] Lgrrdn7813 [facility] [id number]; ov 3/16 Immature granulocytes/100 WBC (Bld) 0 % Normal [facility] Work Phone: Comment on above: Test(s) 003464-BJU-W ; 411022-IAC-Z; 036135-GTH-N; 057939-Fyfsvsaqmmzgu; 798011-Maugwzvpjug, Total; 688342-SSP-F (Total);946618-Bydqm LDL-P; 186840-TEL Size; 657267-LQ-UV Scorewas developed and its performance characteristics determinedby [employer]. It has not been cleared or approved by the Foodand Drug Administration.PATIENT WAS FASTINGPERFORMED BY: CÜR [address] [id number] BY: [employer] Mfmnfz0523 [facility] [id number]; ov 3/16 Lymphocytes (Bld) [#/Vol] 1.4 {x10E3/uL} Normal 0.7-3.1 [facility] Work Phone: Comment on above: Test(s) 805244-AFQ-Y ; 348605-KOQ-A; 309673-XTV-B; 126315-Bahpgffklkuub; 032113-Nsxpyopgruz, Total; 236961-BVW-W (Total);151727-Nbooc LDL-P; 123444-EIX Size; 181436-GD-QR Scorewas developed and its performance characteristics determinedby [employer]. It has not been cleared or approved by the Foodand Drug Administration.PATIENT WAS FASTINGPERFORMED BY: CÜR [address] [id number] BY: [employer]70 [facility] [id number]; ov 05/26 Lymphocytes (Bld) [#/Vol] 1.4 10*3/uL Normal 0.7-3.1 [facility]; [facility] Work Phone: Comment on above: Test(s) 222042-REW-X ; 556701-HPL-W; 941089-GRL-L; 026142-Cvaiywrdlhqph; 480022-Hvgibrasbiz, Total; 058645-WNN-Y (Total);352494-Pkytu LDL-P; 270851-JST Size; 090152-GC-UC Scorewas developed and its performance characteristics determinedby [employer]. It has not been cleared or approved by the Foodand Drug Administration.PATIENT WAS FASTINGPERFORMED BY: [employer] [place] [address] [id number] BY: Yippylin6370 [facility] [id number]; ov 05/26 Lymphocytes/100 WBC (Bld) 27 % Normal [facility] Work Phone: Comment on above: Test(s) 711152-ION-G ; 781688-YYI-R; 787735-NBJ-I; 818609-Nbyxiyrlmxdzs; 152330-Yhgjnyzzvor, Total; 191834-TSA-I (Total);068555-Mdlyf LDL-P; 706665-LTU Size; 876669-CU-VD Scorewas developed and its performance characteristics determinedby [employer]. It has not been cleared or approved by the Foodand Drug Administration.PATIENT WAS FASTINGPERFORMED BY: Epoxy[address] [id number] BY: [employer] Mrhgoj9497 [facility] [id number]; ov 05/26 MCH (RBC) [Entitic mass] 30.0 pg Normal 26.6-33.0 [facility] Work Phone: Comment on above: Test(s) 228669-LYW-H ; 992254-AGV-N; 474771-YQB-U; 961710-Bhzdfrctwcfot; 796649-Zdtuuoesapr, Total; 458493-IDK-O (Total);484244-Kiauz LDL-P; 801522-DRX Size; 881192-CC-IG Scorewas developed and its performance characteristics determinedby [employer]. It has not been cleared or approved by the Foodand Drug Administration.PATIENT WAS FASTINGPERFORMED BY: CÜR [address] [id number] BY: [employer] Vnussv8264 [facility] [id number]; ov 3 MCHC (RBC) [Mass/Vol] 32.7 g/dL Normal 31.5-35.7 [facility] Internal Medicine Work Phone: Comment on above: Test(s) 229400-SCL-O ; 813300-JSS-A; 381535-YFE-T; 473753-Rkaybpsoyggyt; 892557-Qvgzqqrmsne, Total; 925798-XIW-N (Total);219222-Izszj LDL-P; 696860-TEU Size; 657864-EU-VI Scorewas developed and its performance characteristics determinedby [employer]. It has not been cleared or approved by the Foodand Drug Administration.PATIENT WAS FASTINGPERFORMED BY: CÜR [address] [id number] BY: [employer] Jpzqkz1151 [facility] [id number]; ov 3 MCV (RBC) [Entitic vol] 92 fL Normal 79-97 [facility] Internal Medicine Work Phone: Comment on above: Test(s) 016054-SYN-T ; 389698-HCS-E; 532357-WFK-A; 367158-Buqwuvjsgfotc; 064217-Pojrqavvaee, Total; 971392-UFV-T (Total);837819-Ohtyx LDL-P; 562682-FPY Size; 830851-YO-CE Scorewas developed and its performance characteristics determinedby [employer]. It has not been cleared or approved by the Foodand Drug Administration.PATIENT WAS FASTINGPERFORMED BY: CÜR [address] [id number] BY: [email or web address] [facility] [id number]; ov 3/16 Monocytes (Bld) [#/Vol] 0.4 {x10E3/uL} Normal 0.1-0.9 [facility] Work Phone: Comment on above: Test(s) 979045-CWR-O ; 376968-CJP-Q; 545479-RFY-H; 513242-Blieruqqdpokq; 742994-Actkhtqgsof, Total; 003381-TYZ-Q (Total);382194-Ukgni LDL-P; 934615-HVE Size; 284596-AP-JX Scorewas developed and its performance characteristics determinedby [employer]. It has not been cleared or approved by the Foodand Drug Administration.PATIENT WAS FASTINGPERFORMED BY: Epoxy[address] [id number] BY: [email or web address] [facility] [id number]; ov 3/16 Monocytes (Bld) [#/Vol] 0.4 10*3/uL Normal 0.1-0.9 [facility]; [facility] Work Phone: Comment on above: Test(s) 488351-BQZ-W ; 925211-LBB-Q; 601121-NNP-X; 009527-Mvqqhjhslsgri; 709829-Jatxgucuwkz, Total; 476282-AVE-T (Total);335900-Ttrql LDL-P; 697590-IDB Size; 952082-LV-ZP Scorewas developed and its performance characteristics determinedby [employer]. It has not been cleared or approved by the Foodand Drug Administration.PATIENT WAS FASTINGPERFORMED BY: CÜR [address] [id number] BY: Yippylin6370 [facility] [id number]; ov 3/16 Monocytes/100 WBC (Bld) 8 % Normal [facility] Work Phone: Comment on above: Test(s) 171305-XTL-J ; 862373-AOP-O; 780049-PLL-B; 532400-Iutxmyvdirvuj; 651627-Zmpaphfixyz, Total; 689327-QIR-K (Total);917577-Vjftk LDL-P; 765009-XQY Size; 743489-MG-HM Scorewas developed and its performance characteristics determinedby [employer]. It has not been cleared or approved by the Foodand Drug Administration.PATIENT WAS FASTINGPERFORMED BY: ZipRecruiter[address] [id number] BY: ZipRecruiterCentraState Healthcare SystemYlsgfk7048 [facility] [id number]; ov 05/26 Neutrophils (Bld) [#/Vol] 3.2 {x10E3/uL} Normal 1.4-7.0 [facility] Work Phone: Comment on above: Test(s) 172768-YBO-Q ; 549371-ZPD-X; 784508-NTN-Y; 210215-Pdaruauzhelym; 100717-Prgwakyqwrl, Total; 246248-JIM-F (Total);168677-Fkogd LDL-P; 190674-MKX Size; 860988-IF-FP Scorewas developed and its performance characteristics determinedby [employer]. It has not been cleared or approved by the Foodand Drug Administration.PATIENT WAS FASTINGPERFORMED BY: ZipRecruiter[address] [id number] BY: ZipRecruiterCentraState Healthcare SystemRungdz8140 [facility] [id number]; ov 05/26 Neutrophils (Bld) [#/Vol] 3.2 10*3/uL Normal 1.4-7.0 [facility]; [facility] Work Phone: Comment on above: Test(s) 859567-NFQ-W ; 396668-JTZ-V; 160644-LOC-J; 840211-Kcqkhcemvhhyw; 625813-Ioibdisoqul, Total; 204763-ECC-V (Total);649148-Cakif LDL-P; 885598-HSA Size; 161369-GM-VP Scorewas developed and its performance characteristics determinedby [employer]. It has not been cleared or approved by the Foodand Drug Administration.PATIENT WAS FASTINGPERFORMED BY: Epoxy[address] [id number] BY: [employer] Niowdt9716 [facility] WirelessDor[facility] Hospital [id number]; ov 316 Neutrophils/100 WBC (Bld) 63 % Normal [facility] Work Phone: Comment on above: Test(s) 220487-SVK-P ; 707852-EYF-S; 145202-MTK-N; 404966-Eshghihhchypz; 675396-Siohxcerngn, Total; 591415-XRE-W (Total);405991-Njjuy LDL-P; 549715-FSY Size; 334290-CU-LQ Scorewas developed and its performance characteristics determinedby [employer]. It has not been cleared or approved by the Foodand Drug Administration.PATIENT WAS FASTINGPERFORMED BY: Epoxy[address] [id number] BY: [email or web address] [facility] [id number]; ov 05/26 Platelets (Bld) [#/Vol] 183 {x10E3/uL} Normal 150-450 [facility] Work Phone: Comment on above: Test(s) 676887-RVW-M ; 618077-NET-L; 617159-VJP-Q; 505036-Bkuakfkogqiar; 673193-Xylaosdinwy, Total; 583576-MGF-Q (Total);123853-Nkfbn LDL-P; 736255-ZWM Size; 444743-XZ-OO Scorewas developed and its performance characteristics determinedby [employer]. It has not been cleared or approved by the Foodand Drug Administration.PATIENT WAS FASTINGPERFORMED BY: Epoxy[address] [id number] BY: OmPromptCentraState Healthcare SystemQinmcv6504 [facility] [id number]; ov 3 Platelets (Bld) [#/Vol] 183 10*3/uL Normal 150-450 [facility]; [facility] Work Phone: Comment on above: Test(s) 780634-VQH-Q ; 383128-RSX-W; 162055-IIP-A; 307981-Jpmssnxthqfcw; 266224-Wbikgaichyd, Total; 367008-SHP-G (Total);463085-Wesqh LDL-P; 051430-QFP Size; 743400-EY-XJ Scorewas developed and its performance characteristics determinedby [employer]. It has not been cleared or approved by the Foodand Drug Administration.PATIENT WAS FASTINGPERFORMED BY: Epoxy[address] [id number] BY: HyperWeek70 [facility] [id number]; ov 05/26 RBC (Bld) [#/Vol] 4.84 {x10E6/uL} Normal 3.77-5.28 [facility] Internal Medicine Work Phone: Comment on above: Test(s) 908684-GNE-I ; 628283-TYS-E; 015652-IQM-O; 682851-Psqqgnorelfmy; 098181-Qmpoovqdwrx, Total; 701116-MCK-H (Total);066513-Dydbv LDL-P; 984518-ETI Size; 609820-FR-DU Scorewas developed and its performance characteristics determinedby [employer]. It has not been cleared or approved by the Foodand Drug Administration.PATIENT WAS FASTINGPERFORMED BY: CÜR [address] [id number] BY: [email or web address] [facility] [id number]; ov 05/26 RBC (Bld) [#/Vol] 4.84 10*6/uL Normal 3.77-5.28 [facility] Internal Medicine; [facility] Internal Medicine Work Phone: Comment on above: Test(s) 806328-RQD-T ; 305613-NXS-O; 437017-DZH-Z; 104213-Dsjhdyepvexzp; 866765-Ddqzllzsdfm, Total; 657600-OBA-E (Total);811791-Gmrvt LDL-P; 099339-WNG Size; 327536-MK-NP Scorewas developed and its performance characteristics determinedby [employer]. It has not been cleared or approved by the Foodand Drug Administration.PATIENT WAS FASTINGPERFORMED BY: CÜR [address] [id number] BY: [employer] Ybfljn5145 [facility] [id number]; ov 3/16 WBC (Bld) [#/Vol] 5.0 {x10E3/uL} Normal 3.4-10.8 [facility] Work Phone: Comment on above: Test(s) 835221-AJY-K ; 903121-LET-F; 982061-JWX-T; 745138-Vpnztsiucznuu; 244788-Wkxuzfyytkd, Total; 077894-PQU-U (Total);511636-Pxooq LDL-P; 903197-BWU Size; 305024-DG-PN Scorewas developed and its performance characteristics determinedby [employer]. It has not been cleared or approved by the Foodand Drug Administration.PATIENT WAS FASTINGPERFORMED BY: CÜR [address] [id number] BY: [email or web address] [facility] [id number]; ov 3/16 WBC (Bld) [#/Vol] 5.0 10*3/uL Normal 3.4-10.8 [facility] Internal Medicine; [facility] Internal Medicine Work Phone: Comment on above: Test(s) 840893-IHP-C ; 937410-RCE-N; 078205-EMB-C; 829119-Tmomapjglfrrz; 946815-Bbbazxgxmqh, Total; 576453-VGN-S (Total);600567-Yfifd LDL-P; 817246-CUM Size; 909110-KJ-UR Scorewas developed and its performance characteristics determinedby [employer]. It has not been cleared or approved by the Foodand Drug Administration.PATIENT WAS FASTINGPERFORMED BY: CÜR [address] [id number] BY: [employer]Week70 [facility] WirelessDor[facility] [id number]; ov 05/26 METABOLIC PANEL, COMPREHENSI VE (51569)Ordered By: Office Analyst on 05-17-2019 Albumin [Mass/Vol] 4.7 g/dL Normal 3.8-4.9 [facility] Internal Medicine Work Phone: Comment on above: Test(s) 774904-RWP-A ; 867480-LIW-G; 380463-OVU-T; 131942-Xongoqnpmqtmt; 041632-Oyysdjfzqst, Total; 755009-CLS-V (Total);752391-Votjy LDL-P; 657055-BSK Size; 537830-GV-KO Scorewas developed and its performance characteristics determinedby [employer]. It has not been cleared or approved by the Foodand Drug Administration.PATIENT WAS FASTINGPERFORMED BY: Epoxy[address] [id number] BY: [email or web address] [facility] WirelessDor[facility] [id number] Albumin/Globulin [Mass ratio] 2.1 {ratio} Normal 1.2-2.2 [facility] Work Phone: Comment on above: Test(s) 808790-OXU-V ; 011661-ITK-T; 526055-XLG-Q; 361194-Lopfirodxjuwb; 030619-Siihuajgnpw, Total; 233210-RBI-N (Total);288858-Dbpst LDL-P; 624586-MER Size; 896430-IB-OF Scorewas developed and its performance characteristics determinedby [employer]. It has not been cleared or approved by the Foodand Drug Administration.PATIENT WAS FASTINGPERFORMED BY: Epoxy[address] [id number] BY: [email or web address] [facility] [id number] ALP [Catalytic activity/Vol] 60 [iU]/L Normal 39-117 [facility] Work Phone: Comment on above: Test(s) 836516-PKE-C ; 053022-XQA-G; 667859-GEA-B; 685266-Cdtavtxjoizwn; 238080-Esaoxlwrkwn, Total; 631055-LEE-O (Total);433725-Lmatu LDL-P; 098751-SZO Size; 454691-NF-RK Scorewas developed and its performance characteristics determinedby [employer]. It has not been cleared or approved by the Foodand Drug Administration.PATIENT WAS FASTINGPERFORMED BY: CÜR [address] [id number] BY: [employer] Fjijcq5259 [facility] [id number] ALP [Catalytic activity/Vol] 60 U/L Normal 39-117 [facility]; [facility] Work Phone: Comment on above: Test(s) 899986-UGA-C ; 539732-SBH-Q; 239969-VLF-K; 817938-Jnyfhupvqmrwq; 854538-Dddgajihuvo, Total; 852204-IHV-B (Total);145191-Mwdzw LDL-P; 304632-POT Size; 533217-HS-YK Scorewas developed and its performance characteristics determinedby [employer]. It has not been cleared or approved by the Foodand Drug Administration.PATIENT WAS FASTINGPERFORMED BY: CÜR [address] [id number] BY: [employer] Mzwttk4273 [facility] [id number] ALT [Catalytic activity/Vol] 15 [iU]/L Normal 0-32 [facility] Work Phone: Comment on above: Test(s) 750379-PUS-L ; 202045-XRU-N; 097063-CIP-C; 447522-Qedsbzmvvgonl; 261960-Naaxqpdzdie, Total; 128462-DGL-K (Total);224955-Yzbsi LDL-P; 987690-TOT Size; 354436-QI-DS Scorewas developed and its performance characteristics determinedby [employer]. It has not been cleared or approved by the Foodand Drug Administration.PATIENT WAS FASTINGPERFORMED BY: CÜR [address] [id number] BY: [employer] Dubtqd6346 [facility] [id number] ALT [Catalytic activity/Vol] 15 U/L Normal 0-32 [facility]; [facility] Work Phone: Comment on above: Test(s) 690201-GXF-T ; 777714-SQS-K; 095290-BDZ-B; 306754-Qqpyyudbnjgxw; 131344-Vkxbqjoomei, Total; 350164-JZO-F (Total);595550-Kjxev LDL-P; 350077-PJQ Size; 862179-MI-QN Scorewas developed and its performance characteristics determinedby [employer]. It has not been cleared or approved by the Foodand Drug Administration.PATIENT WAS FASTINGPERFORMED BY: CÜR [address] [id number] BY: [email or web address] [facility] [id number] AST [Catalytic activity/Vol] 21 [iU]/L Normal 0-40 [facility] Internal Medicine Work Phone: Comment on above: Test(s) 448437-ZDQ-D ; 887495-YUI-X; 847435-WBR-C; 830415-Vzykxtfkvmvew; 541526-Ocavsslbuph, Total; 550404-VAM-L (Total);400389-Fgxvz LDL-P; 505463-WUA Size; 471238-PP-BB Scorewas developed and its performance characteristics determinedby [employer]. It has not been cleared or approved by the Foodand Drug Administration.PATIENT WAS FASTINGPERFORMED BY: TyraTech[address] [id number] BY: ZipRecruiterCentraState Healthcare SystemLvwfhj5097 [facility] [id number] AST [Catalytic activity/Vol] 21 U/L Normal 0-40 [facility]; [facility] Work Phone: Comment on above: Test(s) 388571-XNB-J ; 068248-DGN-B; 791028-KCP-Q; 238607-Tmqkkbiwcgaky; 877033-Ygbezayvejr, Total; 617176-LAW-Q (Total);179530-Zyztf LDL-P; 211947-ZJL Size; 390561-LT-CT Scorewas developed and its performance characteristics determinedby [employer]. It has not been cleared or approved by the Foodand Drug Administration.PATIENT WAS FASTINGPERFORMED BY: CÜR [address] [id number] BY: [employer] Lislnt9088 [facility] [id number] Bilirubin [Mass/Vol] 0.4 mg/dL Normal 0.0-1.2 [facility] Internal Medicine Work Phone: Comment on above: Test(s) 057811-JAB-Y ; 946634-LDC-Q; 137746-NTQ-Y; 776826-Tskobvbpmugov; 829436-Ihhbbvnmzmu, Total; 540046-GHM-Z (Total);895244-Ybaia LDL-P; 112069-DMG Size; 475279-GF-HZ Scorewas developed and its performance characteristics determinedby [employer]. It has not been cleared or approved by the Foodand Drug Administration.PATIENT WAS FASTINGPERFORMED BY: CÜR [address] [id number] BY: [employer] Sahpix9622 [facility] [id number] Calcium [Mass/Vol] 9.7 mg/dL Normal 8.7-10.2 [facility] Internal Medicine Work Phone: Comment on above: Test(s) 570382-SEM-V ; 824221-CVR-E; 048337-AFB-L; 006737-Usvxlcbneicrg; 273224-Kzlrlperkes, Total; 971335-BWH-L (Total);693687-Cukbl LDL-P; 807054-FLS Size; 936146-YX-YM Scorewas developed and its performance characteristics determinedby [employer]. It has not been cleared or approved by the Foodand Drug Administration.PATIENT WAS FASTINGPERFORMED BY: CÜR [address] [id number] BY: [employer]6370 [facility] [id number] Chloride [Moles/Vol] 101 mmol/L Normal 96-106 [facility] Internal Medicine Work Phone: Comment on above: Test(s) 325500-FXM-H ; 571871-KRE-C; 227573-VHX-Y; 079235-Xqgxkvcvypeqi; 912922-Pvxuiqwpmlb, Total; 342747-JDC-B (Total);957575-Seqhm LDL-P; 109789-YNM Size; 753391-AC-IE Scorewas developed and its performance characteristics determinedby [employer]. It has not been cleared or approved by the Foodand Drug Administration.PATIENT WAS FASTINGPERFORMED BY: [employer] [place] [address] [id number] BY: [email or web address] [facility] [id number] CO2 [Moles/Vol] 27 mmol/L Normal 20-29 [facility] Internal Medicine Work Phone: Comment on above: Test(s) 101443-MTI-S ; 088624-CBE-L; 810588-NXH-Z; 593521-Bnwclodcffptv; 115146-Ozgnbpcrtcw, Total; 399263-SKX-F (Total);059845-Lskli LDL-P; 109761-AFU Size; 452518-PF-MN Scorewas developed and its performance characteristics determinedby [employer]. It has not been cleared or approved by the Foodand Drug Administration.PATIENT WAS FASTINGPERFORMED BY: Epoxy[address] [id number] BY: [email or web address] [facility] [id number] Creatinine [Mass/Vol] 1.14 mg/dL Abnormal 0.57-1.00 [facility] Internal Medicine Work Phone: Comment on above: Test(s) 471381-JKL-R ; 316563-RZT-E; 244564-TWN-X; 510004-Jiueiworxiojq; 027958-Vfjleesdqgf, Total; 630405-TIN-S (Total);441439-Mwhdk LDL-P; 021090-FSD Size; 180913-SN-ZI Scorewas developed and its performance characteristics determinedby [employer]. It has not been cleared or approved by the Foodand Drug Administration.PATIENT WAS FASTINGPERFORMED BY: CÜR [address] [id number] BY: ZipRecruiterNicholas Ville 8609170 [facility] [id number] GFR/1.73 sq M predicted among blacks CKD-EPI (S/P/Bld) [Vol rate/Area] 61 mL/min/1.73 Normal [facility] Work Phone: Comment on above: Test(s) 342211-JLQ-E ; 405052-CZJ-I; 360284-QJK-K; 750552-Bjoryhfyhcswr; 994749-Jqsfaovrsdi, Total; 550274-SJP-X (Total);796645-Exnjl LDL-P; 137003-GEV Size; 516386-KQ-TI Scorewas developed and its performance characteristics determinedby [employer]. It has not been cleared or approved by the Foodand Drug Administration.PATIENT WAS FASTINGPERFORMED BY: CÜR [address] [id number] BY: ZipRecruiterCentraState Healthcare [id number] [facility] [id number] GFR/1.73 sq M predicted among non-blacks CKD-EPI (S/P/Bld) [Vol rate/Area] 53 mL/min/1.73 Abnormal [facility] Work Phone: Comment on above: Test(s) 104832-YSG-F ; 835905-LEH-Q; 628507-YEH-U; 577268-Vqttrrupktgbo; 859064-Uvamafavjyw, Total; 312485-HMI-N (Total);812020-Styvi LDL-P; 887416-JQR Size; 255149-HM-PZ Scorewas developed and its performance characteristics determinedby [employer]. It has not been cleared or approved by the Foodand Drug Administration.PATIENT WAS FASTINGPERFORMED BY: CÜR [address] [id number] BY: [employer] Buitbr8031 [facility] [id number] Globulin (S) [Mass/Vol] 2.2 g/dL Normal 1.5-4.5 [facility] Internal Medicine Work Phone: Comment on above: Test(s) 423902-DPR-N ; 094626-LOU-C; 252948-IPS-J; 386010-Oqkcumovbezxy; 735923-Fnvqzkzrfsl, Total; 453904-KZU-C (Total);356809-Gkjpq LDL-P; 929991-MLZ Size; 382199-CE-FQ Scorewas developed and its performance characteristics determinedby [employer]. It has not been cleared or approved by the Foodand Drug Administration.PATIENT WAS FASTINGPERFORMED BY: Epoxy[address] [id number] BY: [email or web address] [facility] [id number] Glucose [Mass/Vol] 97 mg/dL Normal 65-99 [facility] Internal Medicine Work Phone: Comment on above: Test(s) 768855-CZC-I ; 199809-URY-W; 291968-YYP-M; 661088-Jyhzkjmgcdscn; 670904-Lcmsmlrtfcl, Total; 523984-OUC-L (Total);603584-Uludn LDL-P; 049197-SLP Size; 170747-BO-LU Scorewas developed and its performance characteristics determinedby [employer]. It has not been cleared or approved by the Foodand Drug Administration.PATIENT WAS FASTINGPERFORMED BY: CÜR [address] [id number] BY: [email or web address] [facility] [id number] Potassium [Moles/Vol] 4.1 mmol/L Normal 3.5-5.2 [facility] Internal Medicine Work Phone: Comment on above: Test(s) 169290-YIV-B ; 470102-UXE-U; 330229-CFA-Y; 093343-Uusnxxywuyrjx; 526123-Cwypanvzmil, Total; 592914-QPY-T (Total);497876-Rkwru LDL-P; 221921-IIN Size; 930566-VR-CZ Scorewas developed and its performance characteristics determinedby [employer]. It has not been cleared or approved by the Foodand Drug Administration.PATIENT WAS FASTINGPERFORMED BY: CÜR [address] [id number] BY: HyperWeek70 [facility] [id number] Protein [Mass/Vol] 6.9 g/dL Normal 6.0-8.5 [facility] Internal Medicine Work Phone: Comment on above: Test(s) 311823-AOR-O ; 784939-VON-O; 767099-CVK-R; 004800-Ltwherzsksdfg; 807422-Pgcukcrzcgt, Total; 526060-EIU-G (Total);793745-Rtacf LDL-P; 663011-RBA Size; 718121-YA-QM Scorewas developed and its performance characteristics determinedby [employer]. It has not been cleared or approved by the Foodand Drug Administration.PATIENT WAS FASTINGPERFORMED BY: CÜR [address] [id number] BY: [email or web address] [facility] [id number] Sodium [Moles/Vol] 142 mmol/L Normal 134-144 [facility] Internal Medicine Work Phone: Comment on above: Test(s) 146167-MKR-B ; 739308-DVG-A; 159042-FDU-E; 119001-Zylzdlsywemof; 414189-Cedqnmrkidy, Total; 921437-BQK-I (Total);233364-Gbjhe LDL-P; 238333-XDA Size; 045924-MQ-HH Scorewas developed and its performance characteristics determinedby [employer]. It has not been cleared or approved by the Foodand Drug Administration.PATIENT WAS FASTINGPERFORMED BY: CÜR [address] [id number] BY: HyperWeek70 [facility] [id number] Urea nitrogen [Mass/Vol] 23 mg/dL Normal 6-24 [facility] Work Phone: Comment on above: Test(s) 354696-PKG-N ; 650268-YYO-A; 691715-WQQ-H; 138630-Wfsumwiesiwuy; 374072-Fyogqucazka, Total; 457644-IMP-Z (Total);799011-Rjonm LDL-P; 677136-ASD Size; 846689-MY-HL Scorewas developed and its performance characteristics determinedby [employer]. It has not been cleared or approved by the Foodand Drug Administration.PATIENT WAS FASTINGPERFORMED BY: Epoxy[address] [id number] BY: [email or web address] [facility] [id number] Urea nitrogen/Creatinine [Mass ratio] 20 mg/mg Normal 9 [facility] Work Phone: Comment on above: Test(s) 311042-UYC-A ; 231308-IKT-O; 809528-IMM-J; 521322-Ogfvmzzyttjdp; 028583-Kyeqvdjksmd, Total; 530038-PAC-H (Total);993328-Zbkup LDL-P; 878531-TLN Size; 077483-HS-CZ Scorewas developed and its performance characteristics determinedby [employer]. It has not been cleared or approved by the Foodand Drug Administration.PATIENT WAS FASTINGPERFORMED BY: CÜR [address] [id number] BY: [email or web address] [facility] [id number] MICROALBUMINOrdered By: Syst em Director Of National Sales on 05-17-2019 Albumin DL <= 20 mg/L (U) [Mass/Vol] 7.7 ug/mL Normal [facility] Work Phone: Comment on above: Test(s) 502604-SIK-G ; 961503-UXM-E; 200237-UVC-M; 414663-Bcploktfckmzu; 926617-Libnmcgreem, Total; 286779-LUA-B (Total);950582-Iglvs LDL-P; 410103-CSR Size; 167604-TW-LX Scorewas developed and its performance characteristics determinedby [employer]. It has not been cleared or approved by the Foodand Drug Administration.PATIENT WAS FASTINGPERFORMED BY: CÜR [address] [id number] BY: [employer] M[address] [place] [address] [id number] Albumin/Creatinine (U) [Mass ratio] 3 {mg/g_creat} Normal 0-29 [facility] Work Phone: Comment on above: Normal: 0 - 29 Moder ately increased: 30 - 300 Severely increased: >300 Please note reference interval change Test(s) 314510-CHK-Z ; 737296-ZVP-K; 521274-VOF-Q; 752423-Mmfzawfqpbtpc; 439576-Usdpetnmbih, Total; 849361-IOQ-W (Total);497326-Jllsk LDL-P; 577609-EUS Size; 121062-OY-AN Scorewas developed and its performance characteristics determinedby [employer]. It has not been cleared or approved by the Foodand Drug Administration.PATIENT WAS FASTINGPERFORMED BY: CÜR [place] [id number] BY: HyperWeek70 [facility] [id number] Creatinine (U) [Mass/Vol] 227.7 mg/dL Normal [facility] Work Phone: Comment on above: Test(s) 302479-STS-Z ; 318248-XDV-K; 717881-SKT-P; 402858-Xnrtbqenaghmy; 493358-Evplhegbtzj, Total; 814928-LER-I (Total);576275-Wbxpm LDL-P; 957415-GKZ Size; 537698-LI-PR Scorewas developed and its performance characteristics determinedby [employer]. It has not been cleared or approved by the Foodand Drug Administration.PATIENT WAS FASTINGPERFORMED BY: CÜR [address] [id number] BY: [email or web address] [facility] [id number] NMR Profile (47847)Ordered B y: Office Analyst on 05-17-2019 Cholesterol [Mass/Vol] 221 mg/dL Abnormal 100-199 [facility] Work Phone: Comment on above: Test(s) 184441-FXX-I ; 642283-OAU-E; 287344-BDH-G; 598102-Wndhionyttjos; 554463-Rccbpnizbzp, Total; 407192-DBF-S (Total);745190-Skuos LDL-P; 674352-YUR Size; 402315-OK-UA Scorewas developed and its performance characteristics determinedby [employer]. It has not been cleared or approved by the Foodand Drug Administration.PATIENT WAS FASTINGPERFORMED BY: CÜR [address] [id number] BY: HyperWeek70 Comm[facility] WirelessDorothea Dix Hospital [id number] Lipoprotein.alpha [Moles/Vol] 30.8 umol/L Normal [facility] Work Phone: Comment on above: Test(s) 431624-FQO-V ; 387023-STG-X; 533818-EVB-G; 653125-Ycdemizuusnbe; 469335-Kzbkabewvkt, Total; 002176-WKW-I (Total);803803-Wgotz LDL-P; 489982-TER Size; 326565-TI-YL Scorewas developed and its performance characteristics determinedby [employer]. It has not been cleared or approved by the Foodand Drug Administration.PATIENT WAS FASTINGPERFORMED BY: CÜR [address] [id number] BY: [email or web address] [place] [facility] AgilityOnslow Memorial Hospital [id number] Lipoprotein.beta.subp article [Entitic length] 20.3 nm Abnormal [facility] Work Phone: Comment on above: INTERPRETATIVE INFORMATION PARTICLE CONCENTRATION AND SIZE <--Lower CVD Risk Higher CVD Risk--> LDL AND HDL PARTICLES Percentile in Reference Population HDL-P (total) High 75th 50th 25th Low >34.9 34.9 30.5 26.7 <26.7 . Small LDL-P Low 25th 50th 75th High <117 117 527 839 >839 . LDL Size <-Large (Pattern A)-> <-Small (Pattern B)-> 23.0 20.6 20.5 19.0 Small LDL-P and LDL Size are associated with CVD risk, but not afterLDL-P is taken into account. Test(s) 847377-CNA-V ; 464845-ODA-J; 920445-DYV-A; 780671-Ypqbkecgzfshe; 371945-Rooihkffndn, Total; 298142-ANX-K (Total);137488-Ewhgh LDL-P; 662483-WEM Size; 254099-WE-DY Scorewas developed and its performance characteristics determinedby [employer]. It has not been cleared or approved by the Foodand Drug Administration.PATIENT WAS FASTINGPERFORMED BY: ZipRecruiter[address] [id number] BY: LabHomeSpaceCentraState Healthcare SystemEjipia7919 [facility] [id number] Lipoprotein.beta.subp article [Moles/Vol] 1714 nmol/L Abnormal Comprehens[facility] e Internal Medicine Work Phone: Comment on above: Low < 1000 Moderate 1000 - 1299 Borderline-High 1300 - 1599 High 1600 - 2000 Very High > 2000 Test(s) 676831-DSP-E ; 763902-LCM-U; 491252-PUY-X; 592262-Hlqcfhsegmrku; 159457-Xxidcqqbcfr, Total; 324551-SUI-B (Total);965831-Lfcft LDL-P; 206637-YWD Size; 367362-CP-TJ Scorewas developed and its performance characteristics determinedby [employer]. It has not been cleared or approved by the Foodand Drug Administration.PATIENT WAS FASTINGPERFORMED BY: TyraTech[address] [id number] BY: ZipRecruiter Juottf2203 [place] [facility] AgilityOnslow Memorial Hospital [id number] Lipoprotein.beta.subp article.small [Moles/Vol] 791 nmol/L Abnormal [facility] Work Phone: Comment on above: Test(s) 676998-JCO-X ; 617221-DOL-L; 227327-UZB-Z; 722223-Eaontwyanuijr; 986766-Ndvzxyywxcb, Total; 727235-CVT-Z (Total);640799-Kydki LDL-P; 008690-KKM Size; 457623-SR-NO Scorewas developed and its performance characteristics determinedby [employer]. It has not been cleared or approved by the Foodand Drug Administration.PATIENT WAS FASTINGPERFORMED BY: CÜR [address] [id number] BY: HyperWeek70 [facility] [id number] Triglyceride [Mass/Vol] 158 mg/dL Abnormal 0-149 [facility] Work Phone: Comment on above: Test(s) 874289-DPD-D ; 685859-VIB-E; 007433-XCT-V; 328469-Ntpoeurfqtrnd; 080531-Ovigulihgjx, Total; 781526-NKI-Y (Total);548414-Zhydc LDL-P; 535673-YEP Size; 193557-NX-KK Scorewas developed and its performance characteristics determinedby [employer]. It has not been cleared or approved by the Foodand Drug Administration.PATIENT WAS FASTINGPERFORMED BY: CÜR [address] [id number] BY: HyperWeek70 [facility] [id number] NMR Profile (89217) 149 mg/dL Abnormal 0-99 [facility]: Comment on above: . Optimal < 100 Abov e optimal 100 - 129 Borderline 130 - 159 High 160 - 189 Very high > 189 .LDL-C is inaccurate if patient is non-fasting. Test(s) 765870-GLT-T ; 730959-KWR-U; 902710-IMA-C; 334644-Lkchsemwdzhec; 358691-Koyobenuume, Total; 626592-DDU-Z (Total);576227-Aanil LDL-P; 587354-XRC Size; 580991-HH-TX Scorewas developed and its performance characteristics determinedby [employer]. It has not been cleared or approved by the Foodand Drug Administration.PATIENT WAS FASTINGPERFORMED BY: [employer] [place] [address] [id number] BY: HyperWeek70 [facility] [id number] NMR Profile (83477) 40 mg/dL Normal [facility] Work Phone: Comment on above: Test(s) 299249-RHS-L ; 822802-SSB-T; 737810-CMK-U; 838935-Dhvraogeuripm; 961455-Ykmmbwehbxh, Total; 093677-PEO-R (Total);182440-Zmszv LDL-P; 029141-KZG Size; 472706-PP-AI Scorewas developed and its performance characteristics determinedby [employer]. It has not been cleared or approved by the Foodand Drug Administration.PATIENT WAS FASTINGPERFORMED BY: Epoxy[address] [id number] BY: HyperWeek70 [address] [facility] [id number] NMR Profile (24890) 158 mg/dL Abnormal 0-149 [facility] ehensive Internal Medicine; [facility] Work Phone: NMR Profile (77861) 221 mg/dL Abnormal 100-199 Compr ehensive Internal Medicine; [facility] Work Phone: TSH (90731)Ordered By: Syste m Director Of National Sales on 05-17-2019 TSH Qn 1.970 {uIU/mL} Normal 0.450-4.50 0 [facility] Work Phone: Comment on above: Test(s) 576390-VBH-L ; 156188-GJS-O; 661905-ZWT-T; 900160-Szxdkuylkopwz; 371196-Lvvkszbcvbz, Total; 628283-QCG-L (Total);931364-Agbhm LDL-P; 217753-CSO Size; 037420-MY-JN Scorewas developed and its performance characteristics determinedby [employer]. It has not been cleared or approved by the Foodand Drug Administration.PATIENT WAS FASTINGPERFORMED BY: [employer] [address] [id number] BY: ZipRecruiterCentraState Healthcare SystemHczuqc4514 [place] IncantheraDorothea Dix Hospital [id number] CBC W/AUTO DIFF WBC (59885)O rdered By: Office Analyst on 05-25-2018 Basophils (Bld) [#/Vol] 0.0 {x10E3/uL} Normal 0.0-0.2 [facility] Work Phone: Comment on above: PATIENT WAS FASTINGP ERFORMED BY: Flixpress [address] [id number] BY: ZipRecruiterCentraState Healthcare SystemAhcrek[address] [place] Proteus AgilityOnslow Memorial Hospital [id number] Basophils (Bld) [#/Vol] 0.0 10*3/uL Normal 0.0-0.2 [facility]; [facility] Work Phone: Comment on above: PATIENT WAS FASTINGP ERFORMED BY: ESTmob[address] [id number] BY: ViralizeDorothea Dix Hospital [id number] Basophils/100 WBC (Bld) 0 % Normal [facility] Work Phone: Comment on above: PATIENT WAS FASTINGP ERFORMED BY: Flixpress [address] [id number] BY: LabCo Ezejxf5572 Choudhary RoadDublin [place] [id number] Eosinophils (Bld) [#/Vol] 0.1 {x10E3/uL} Normal 0.0-0.4 [facility] Work Phone: Comment on above: PATIENT WAS FASTINGP ERFORMED BY: [address] [id number] BY: LabCoKayenta Health CenterQlvxkv9936 Choudhary RoadDublin [place] [id number] Eosinophils (Bld) [#/Vol] 0.1 10*3/uL Normal 0.0-0.4 [facility]; [facility] Work Phone: Comment on above: PATIENT WAS FASTINGP ERFORMED BY: [address] [id number] BY: [facility]6370 [address] RoadDuin [place] [id number] Eosinophils/100 WBC (Bld) 1 % Normal [facility] Work Phone: Comment on above: PATIENT WAS FASTINGP ERFORMED BY: [address] [id number] BY: LabMelissa V[place] 7872070 [address] [facility] [id number] Erythrocyte distribution width (RBC) [Ratio] 13.5 % Normal 12.3-15.4 [facility] Work Phone: Comment on above: PATIENT WAS FASTINGP ERFORMED BY: [address] [id number] BY: LabFitzgibbon Hospital Ifqdmk1901 [address] [facility] Hospitalin [place] [id number] Hematocrit (Bld) [Volume fraction] 43.4 % Normal 34.0-46.6 [facility] Work Phone: Comment on above: PATIENT WAS FASTINGP ERFORMED BY: [address] [id number] BY: LabMelissa [place] 7872070 [facility] [id number] Hemoglobin (Bld) [Mass/Vol] 14.0 g/dL Normal 11.1-15.9 [facility] Work Phone: Comment on above: PATIENT WAS FASTINGP ERFORMED BY: [address] [id number] BY: MAXI LabCo Cetlgl7301 Choudhary RoadOnslow Memorial Hospital [id number] Immature granulocytes (Bld) [#/Vol] 0.0 {x10E3/uL} Normal 0.0-0.1 [facility] Work Phone: Comment on above: PATIENT WAS FASTINGP ERFORMED BY: [address] [id number] BY: [facility]6[address] [facility] [id number] Immature granulocytes (Bld) [#/Vol] 0.0 10*3/uL Normal 0.0-0.1 [facility]; [facility] Work Phone: Comment on above: PATIENT WAS FASTINGP ERFORMED BY: [address] [id number] BY: LabBeaumont Hospital6370 [facility]aryCenterPointe Hospital [id number] Immature granulocytes/100 WBC (Bld) 0 % Normal [facility] Work Phone: Comment on above: PATIENT WAS FASTINGP ERFORMED BY: [address] [id number] BY: LabFitzgibbon Hospital Xiztqp475[address] [facility] [id number] Lymphocytes (Bld) [#/Vol] 1.5 {x10E3/uL} Normal 0.7-3.1 [facility] Work Phone: Comment on above: PATIENT WAS FASTINGP ERFORMED BY: [address] [id number] BY: LabFitzgibbon Hospital Ejgpua7170 [facility] [id number] Lymphocytes (Bld) [#/Vol] 1.5 10*3/uL Normal 0.7-3.1 [facility]; [facility] Work Phone: Comment on above: PATIENT WAS FASTINGP ERFORMED BY: [address] [id number] BY: MAXI LabBeaumont Hospital6370 [facility] [id number] Lymphocytes/100 WBC (Bld) 29 % Normal [facility] Work Phone: Comment on above: PATIENT WAS FASTINGP ERFORMED BY: [address] [id number] BY: MAXI [place] 2644370 [facility] [id number] MCH (RBC) [Entitic mass] 29.4 pg Normal 26.6-33.0 [facility] Work Phone: Comment on above: PATIENT WAS FASTINGP ERFORMED BY: [address] [id number] BY: MAXI [facility]6370 [facility] [id number] MCHC (RBC) [Mass/Vol] 32.3 g/dL Normal 31.5-35.7 [facility] Internal Medicine Work Phone: Comment on above: PATIENT WAS FASTINGP ERFORMED BY: [address] [id number] BY: [facility]6370 [facility] [id number] MCV (RBC) [Entitic vol] 91 fL Normal 79-97 [facility] Work Phone: Comment on above: PATIENT WAS FASTINGP ERFORMED BY: [address] [id number] BY: LabBeaumont Hospital6370 [facility] [id number] Monocytes (Bld) [#/Vol] 0.4 {x10E3/uL} Normal 0.1-0.9 [facility] Work Phone: Comment on above: PATIENT WAS FASTINGP ERFORMED BY: [address] [id number] BY: [facility] Zpuvgq9880 [address] RoadDublin [place] [id number] Monocytes (Bld) [#/Vol] 0.4 10*3/uL Normal 0.1-0.9 [facility]; [facility] Work Phone: Comment on above: PATIENT WAS FASTINGP ERFORMED BY: [address] [id number] BY: [facility] Qdattg4005 [address] RoadDublin [place] [id number] Monocytes/100 WBC (Bld) 7 % Normal [facility] Work Phone: Comment on above: PATIENT WAS FASTINGP ERFORMED BY: [address] [id number] BY: [facility] Dbthgf5930 [address] RoadDublin [place] [id number] Neutrophils (Bld) [#/Vol] 3.3 {x10E3/uL} Normal 1.4-7.0 [facility] Work Phone: Comment on above: PATIENT WAS FASTINGP ERFORMED BY: [address] [id number] BY: [facility] Kfxssx8893 [address] RoadDublin [place] [id number] Neutrophils (Bld) [#/Vol] 3.3 10*3/uL Normal 1.4-7.0 [facility]; [facility] Work Phone: Comment on above: PATIENT WAS FASTINGP ERFORMED BY: [address] [id number] BY: [facility] Rzogpw1708 [address] RoadDublin [place] [id number] Neutrophils/100 WBC (Bld) 63 % Normal [facility] Work Phone: Comment on above: PATIENT WAS FASTINGP ERFORMED BY: [facility] [address] [id number] BY: CB [facility] Nsgves3540 [address] RoadDublin [place] [id number] Platelets (Bld) [#/Vol] 203 {x10E3/uL} Normal 150-379 [facility] Work Phone: Comment on above: PATIENT WAS FASTINGP ERFORMED BY: [facility] [address] [id number] BY: CB [facility] Qejvwa9470 [address] RoadDublin [place] [id number] Platelets (Bld) [#/Vol] 203 10*3/uL Normal 150-379 [facility]; [facility] Work Phone: Comment on above: PATIENT WAS FASTINGP ERFORMED BY: LabMnrp [address] [id number] BY: [facility] Zzelgb0625 [address] RoadDublin [place] [id number] RBC (Bld) [#/Vol] 4.77 {x10E6/uL} Normal 3.77-5.28 [facility] Internal Medicine Work Phone: Comment on above: PATIENT WAS FASTINGP ERFORMED BY: LabCo[address] [id number] BY: [facility] Kujlme2529 [address] RoadDublin [place] [id number] RBC (Bld) [#/Vol] 4.77 10*6/uL Normal 3.77-5.28 [facility] Internal Medicine; [facility] Work Phone: Comment on above: PATIENT WAS FASTINGP ERFORMED BY: [facility] [address] [id number] BY: CB [facility] Suraai7402 [address] RoadDublin [place] [id number] WBC (Bld) [#/Vol] 5.2 {x10E3/uL} Normal 3.4-10.8 [facility] Internal Medicine Work Phone: Comment on above: PATIENT WAS FASTINGP ERFORMED BY: [facility] [address] [id number] BY: MAXI [facility] Tpynit4765 [address] RoadDublin [place] [id number] WBC (Bld) [#/Vol] 5.2 10*3/uL Normal 3.4-10.8 [facility] Internal Medicine; [facility] Work Phone: Comment on above: PATIENT WAS FASTINGP ERFORMED BY: LabCo[address] [id number] BY: MAXI [facility] Xkbohd4106 [address] RoadDublin [place] [id number] METABOLIC PANEL, COMPREHENSI VE (82095)Ordered By: Office Analyst on 05-25-2018 Albumin [Mass/Vol] 4.4 g/dL Normal 3.5-5.5 [facility] Internal Medicine Work Phone: Comment on above: PATIENT WAS FASTINGP ERFORMED BY: [facility] [address] [id number] BY: MAXI [facility] Oougll1072 [address] RoadDublin [place] [id number] Albumin/Globulin [Mass ratio] 1.8 {ratio} Normal 1.2-2.2 [facility] Internal Medicine Work Phone: Comment on above: PATIENT WAS FASTINGP ERFORMED BY: LabHomeSpace[address] [id number] BY: [facility] Kvwhqt8877 [address] RoadDublin [place] [id number] ALP [Catalytic activity/Vol] 64 [iU]/L Normal 39-117 [facility] Internal Medicine Work Phone: Comment on above: PATIENT WAS FASTINGP ERFORMED BY: [facility] [address] [id number] BY: [facility] Iwknzf5630 [address] RoadDublin [place] [id number] ALP [Catalytic activity/Vol] 64 U/L Normal 39-117 [facility]; [facility] Work Phone: Comment on above: PATIENT WAS FASTINGP ERFORMED BY: LabCo[address] [id number] BY: MAXI [facility] Cxtbtx2956 [address] RoadDublin [place] [id number] ALT [Catalytic activity/Vol] 16 [iU]/L Normal 0-32 [facility] Work Phone: Comment on above: PATIENT WAS FASTINGP ERFORMED BY: Lab[address] [id number] BY: MAXI [facility] Ghfntx8407 [address] RoadDublin [place] [id number] ALT [Catalytic activity/Vol] 16 U/L Normal 0-32 [facility]; [facility] Work Phone: Comment on above: PATIENT WAS FASTINGP ERFORMED BY: Lab[address] [id number] BY: MAXI [facility] Srysun9909 [address] RoadDublin [place] [id number] AST [Catalytic activity/Vol] 22 [iU]/L Normal 0-40 [facility] Work Phone: Comment on above: PATIENT WAS FASTINGP ERFORMED BY: [address] [id number] BY: MAXI [facility] Frifaa1580 Choudhary RoadDublin [place] [id number] AST [Catalytic activity/Vol] 22 U/L Normal 0-40 [facility]; [facility] Work Phone: Comment on above: PATIENT WAS FASTINGP ERFORMED BY: Lab[address] [id number] BY: MAXI [facility] Fbdbtr5154 Choudhary RoadDublin [place] [id number] Bilirubin [Mass/Vol] 0.4 mg/dL Normal 0.0-1.2 Comp rehensive Internal Medicine Work Phone: Comment on above: PATIENT WAS FASTINGP ERFORMED BY: [facility] [address] [id number] BY: CB [facility] Xidwdl9405 Choudhary RoadDublin [place] [id number] Calcium [Mass/Vol] 9.6 mg/dL Normal 8.7-10.2 [facility] Internal Medicine Work Phone: Comment on above: PATIENT WAS FASTINGP ERFORMED BY: BN [facility] Odgbthhdty[address] [id number] BY: CB [facility] Rxxprj6000 Choudhary RoadDublin [place] [id number] Chloride [Moles/Vol] 104 mmol/L Normal 96-106 [facility] Work Phone: Comment on above: PATIENT WAS FASTINGP ERFORMED BY: LabHomeSpacerp [address] [id number] BY: CB [facility] Oxytbz9513 Ch[address]hary RoadCone Healthin [place] [id number] CO2 [Moles/Vol] 26 mmol/L Normal 20-29 [facility] Internal Medicine Work Phone: Comment on above: PATIENT WAS FASTINGP ERFORMED BY: LabHomeSpacerp [address] [id number] BY: CB [facility] Dbkscs8096 [address]ary RoadCone Healthin [place] [id number] Creatinine [Mass/Vol] 1.03 mg/dL Abnormal 0.57-1.00 [facility] Centerensive [facility] Work Phone: Comment on above: PATIENT WAS FASTINGP ERFORMED BY: LabHomeSpacerp [address] [id number] BY: CB [facility] Mdfndu[address] [facility] [place] [id number] GFR/1.73 sq M predicted among blacks CKD-EPI (S/P/Bld) [Vol rate/Area] 69 mL/min/1.73 Normal [facility] Work Phone: Comment on above: PATIENT WAS FASTINGP ERFORMED BY: LabHomeSpace[address] [id number] BY: [facility] Yktikl3882 Ch[address] RoadDublin [place] [id number] GFR/1.73 sq M predicted among non-blacks CKD-EPI (S/P/Bld) [Vol rate/Area] 60 mL/min/1.73 Normal [facility] Internal Medicine Work Phone: Comment on above: PATIENT WAS FASTINGP ERFORMED BY: [facility] [address] [id number] BY: [facility] Qxttqd3688 Ch[address]hary RoadCone Healthin [place] [id number] Globulin (S) [Mass/Vol] 2.4 g/dL Normal 1.5-4.5 [facility] Internal Medicine Work Phone: Comment on above: PATIENT WAS FASTINGP ERFORMED BY: LabHomeSpace[address] [id number] BY: [facility] Ivydrg7505 [address] RoadDublin [place] [id number] Glucose [Mass/Vol] 96 mg/dL Normal 65-99 [facility] Internal Medicine Work Phone: Comment on above: PATIENT WAS FASTINGP ERFORMED BY: LabHomeSpace[address] [id number] BY: [facility] Ntzrco[address] [facility] Hospitalblin [place] [id number] Potassium [Moles/Vol] 4.0 mmol/L Normal 3.5-5.2 [facility] Internal Medicine Work Phone: Comment on above: PATIENT WAS FASTINGP ERFORMED BY: LabCo[address] [id number] BY: [facility] Qyzrni4693 [address] RoadDublin [place] [id number] Protein [Mass/Vol] 6.8 g/dL Normal 6.0-8.5 [facility] Internal Medicine Work Phone: Comment on above: PATIENT WAS FASTINGP ERFORMED BY: [facility] [address] [id number] BY: MAXI [facility] Idjcpf6675 [address] RoadDublin [place] [id number] Sodium [Moles/Vol] 143 mmol/L Normal 134-144 [facility] Internal Medicine Work Phone: Comment on above: PATIENT WAS FASTINGP ERFORMED BY: BN [facility] [address] [id number] BY: CB [facility] Shrkfr1086 [address] RoadDublin [place] [id number] Urea nitrogen [Mass/Vol] 23 mg/dL Normal 6-24 [facility] Work Phone: Comment on above: PATIENT WAS FASTINGP ERFORMED BY: [facility] [address] [id number] BY: MAXI [facility] Manjmc9395 [address] RoadDublin [place] [id number] Urea nitrogen/Creatinine [Mass ratio] 22 mg/mg Normal 9- [facility] Work Phone: Comment on above: PATIENT WAS FASTINGP ERFORMED BY: [facility] [address] [id number] BY: [facility] Wrnznh6485 [address] RoadDublin [place] [id number] MICROALBUMINOrdered By: Syst em Director Of National Sales on 05-25-2018 Albumin DL <= 20 mg/L (U) [Mass/Vol] 9.2 ug/mL Normal [facility] Work Phone: Comment on above: PATIENT WAS FASTINGP ERFORMED BY: [facility] [address] [id number] BY: [facility] Agqxqo2781 [address] RoadDublin [place] [id number] Albumin/Creatinine (U) [Mass ratio] 6.5 {mg/g_creat} Normal 0.0-30.0 [facility] Work Phone: Comment on above: Normal: 0.0 - 30.0 A lbuminuria: 31.0 - 300.0 Clinical albuminuria: >300.0 PATIENT WAS FASTINGP ERFORMED BY: TyraTech[address] [id number] BY: [employer] Qvhhxi1042 [facility] [id number] Creatinine (U) [Mass/Vol] 141.7 mg/dL Normal [facility] Work Phone: Comment on above: PATIENT WAS FASTINGP ERFORMED BY: CÜR [address] [id number] BY: OmPrompt Nidobr6106 [facility] [id number] NMR Profile (95433)Ordered B y: Office Analyst on 05-25-2018 Cholesterol [Mass/Vol] 221 mg/dL Abnormal 100-199 [facility] Work Phone: Comment on above: PATIENT WAS FASTINGP ERFORMED BY: CÜR [address] [id number] BY: [employer] Wshcmx7047 [facility] [id number] Lipoprotein.alpha [Moles/Vol] 32.2 umol/L Normal [facility] Work Phone: Comment on above: PATIENT WAS FASTINGP ERFORMED BY: CÜR [address] [id number] BY: Om[employer] Mstjqz3305 [facility] [id number] Lipoprotein.beta.subp article [Entitic length] 20.5 nm Abnormal [facility] Work Phone: Comment on above: INTERPRETATIVE INFORMATION PARTICLE CONCENTRATION AND SIZE <--Lower CVD Risk Higher CVD Risk--> LDL AND HDL PARTICLES Percentile in Reference Population HDL-P (total) High 75th 50th 25th Low >34.9 34.9 30.5 26.7 <26.7 . Small LDL-P Low 25th 50th 75th High <117 117 527 839 >839 . LDL Size <-Large (Pattern A)-> <-Small (Pattern B)-> 23.0 20.6 20.5 19.0 Small LDL-P and LDL Size are associated with CVD risk, but not afterLDL-P is taken into account. .These assays were developed and their performance characteristicsdetermined by [employer]. These assays have not been cleared by [employer] Food and Drug Administration. The clinical utility of theselaboratory values have not been fully established. PATIENT WAS FASTINGP ERFORMED BY: IROCKE [facility] [id number] BY: HyperWeek70 [facility] [id number] Lipoprotein.beta.subp article [Moles/Vol] 1546 nmol/L Abnormal Comprehensiv e Internal Medicine Work Phone: Comment on above: Low < 1000 Moderate 1000 - 1299 Borderline-High 1300 - 1599 High 1600 - 2000 Very High > 2000 PATIENT WAS FASTINGP ERFORMED BY: Epoxy[address] [id number] BY: [employer]70 [place] [facility]ilityO[facility] [id number] Lipoprotein.beta.subp article.small [Moles/Vol] 707 nmol/L Abnormal [facility] Work Phone: Comment on above: PATIENT WAS FASTINGP ERFORMED BY: Epoxy[address] [id number] BY: HyperWeek70 [place] [facility] AgilityO[facility] [id number] Triglyceride [Mass/Vol] 180 mg/dL Abnormal 0-149 [facility] Work Phone: Comment on above: PATIENT WAS FASTINGP ERFORMED BY: [employer] Ayhzdyelux[address] [id number] BY: LabBeaumont Hospital6370 [facility] [id number] NMR Profile (89959) 39 mg/dL Abnormal Compr ensive Internal Medicine Work Phone: Comment on above: PATIENT WAS FASTINGP ERFORMED BY: Zip[employer]iter[address] [id number] BY: LabFitzgib[facility] Hospital Zmamyj[address] [facility] [id number] NMR Profile (18650) 146 mg/dL Abnormal 0-99 Compr ensive Internal Medicine Work Phone: Comment on above: . Optimal < 100 Abov e optimal 100 - 129 Borderline 130 - 159 High 160 - 189 Very high > 189 .LDL-C is inaccurate if patient is non-fasting. PATIENT WAS FASTINGP ERFORMED BY: [employer] Gnomyurlhm02[address] [id number] BY: IMGuestFitzgibbon Hospital Taspxf3007 [facility] [id number] NMR Profile (81204) 180 mg/dL Abnormal 0-149 Compr ehensive Internal Medicine; [facility] Work Phone: NMR Profile (51424) 221 mg/dL Abnormal 100-199 Compr ehensive Internal Medicine; [facility] Work Phone: TSH (15493)Ordered By: GT Energye m Director Of National Sales on 05-25-2018 TSH Qn 2.270 {uIU/mL} Normal 0.450-4.50 0 [facility] Work Phone: Comment on above: PATIENT WAS FASTINGP ERFORMED BY: ZipRecruiter[address] [id number] BY: IMGuestFitzgibbon Hospital Ccsdip8966 [facility] [id number] URINALYSIS, W/ MICRO (49926) Ordered By: Office Analyst on 05-25-2018 Appearance (U) Clear Normal Comprehens rosario Internal Medicine Work Phone: Comment on above: PATIENT WAS FASTINGP ERFORMED BY: Lab[address] [id number] BY: MAXI [facility] Ajbipa7572 [address] RoadDublin [place] [id number] Bilirubin Ql (U) Negative Normal Comprehe nsive Internal Medicine Work Phone: Comment on above: PATIENT WAS FASTINGP ERFORMED BY: [facility] [address] [id number] BY: MAXI [facility] Tpbhcf0968 [address] RoadDublin [place] [id number] Bilirubin Ql (U) Negative Normal Comprehe nsive Internal Medicine; [facility] Work Phone: Comment on above: PATIENT WAS FASTINGP ERFORMED BY: [address] [id number] BY: MAXI [facility] Bilgtw0551 [address] RoadDublin [place] [id number] Color (U) Yellow Normal [facility] Work Phone: Comment on above: PATIENT WAS FASTINGP ERFORMED BY: [address] [id number] BY: MAXI [facility] Oocdnt4442 [address] RoadDublin [place] [id number] Glucose Ql (U) Negative Normal Comprehens rosario Internal Medicine Work Phone: Comment on above: PATIENT WAS FASTINGP ERFORMED BY: Lab[address] [id number] BY: MAXI [facility] Gnnxhv6819 [address] RoadDublin [place] [id number] Glucose Ql (U) Negative Normal Comprehens rosario [facility]; [facility] Work Phone: Comment on above: PATIENT WAS FASTINGP ERFORMED BY: Lab[address] [id number] BY: MAXI [facility] Gecmoh3419 [address] RoadDublin [place] [id number] Hemoglobin Ql (U) Negative Normal Compreh ensive Internal Medicine Work Phone: Comment on above: PATIENT WAS FASTINGP ERFORMED BY: [facility] [address] [id number] BY: MAXI [facility] Cklfzf8199 [address] RoadDublin [place] [id number] Hemoglobin Ql (U) Negative Normal Compreh ensive Internal Medicine; [facility] Work Phone: Comment on above: PATIENT WAS FASTINGP ERFORMED BY: [facility] [address] [id number] BY: MAXI [facility] Mjtepo7485 [address] RoadDublin [place] [id number] Ketones Ql (U) Negative Normal Comprehens rosario [facility] Medicine Work Phone: Comment on above: PATIENT WAS FASTINGP ERFORMED BY: [facility] [address] [id number] BY: MAXI [facility] Kohrck4332 [address] RoadDublin [place] [id number] Ketones Ql (U) Negative Normal Comprehens rosario [facility]; [facility] Work Phone: Comment on above: PATIENT WAS FASTINGP ERFORMED BY: [facility] [address] [id number] BY: MAXI LabColucero Scehyl6915 [address] RoadDublin [place] [id number] Leukocyte esterase Test strip Ql (U) Negative Normal [facility] Work Phone: Comment on above: PATIENT WAS FASTINGP ERFORMED BY: [facility] [address] [id number] BY: MAXI [facility] Msscdy0984 [address] RoadDublin [place] [id number] Leukocyte esterase Test strip Ql (U) Negative Normal [facility]; [facility] Work Phone: Comment on above: PATIENT WAS FASTINGP ERFORMED BY: LabCo[address] [id number] BY: MAXI [facility] Fhzyxl7950 [address] RoadDublin [place] [id number] Microscopic observation LM Nom (Urine sed) See below: Normal [facility] Work Phone: Comment on above: Microscopic was rick cated and was performed. PATIENT WAS FASTINGP ERFORMED BY: [address] [id number] BY: [facility] Naomun2311 [address] RoadDublin [place] [id number] Microscopic observation LM Nom (Urine sed) MICRON Normal [facility] Work Phone: Comment on above: Microscopic follows if indicated. PATIENT WAS FASTINGP ERFORMED BY: [address] [id number] BY: [facility] Wmdzlg7477 [address] RoadDublin [place] [id number] Nitrite Ql (U) Negative Normal Comprehens rosario Internal Medicine Work Phone: Comment on above: PATIENT WAS FASTINGP ERFORMED BY: [address] [id number] BY: [facility] Vsoinx9570 [address] RoadDublin [place] [id number] Nitrite Ql (U) Negative Normal Comprehens rosario [facility]; [facility] Work Phone: Comment on above: PATIENT WAS FASTINGP ERFORMED BY: [address] [id number] BY: [facility] Kxooey8277 [address] RoadDublin [place] [id number] pH (U) 6.5 [pH] Normal 5.0-7.5 [facility] Work Phone: Comment on above: PATIENT WAS FASTINGP ERFORMED BY: [address] [id number] BY: [facility] Gulvfp0877 [address] RoadDublin [place] [id number] Protein Ql (U) Negative Normal Comprehens rosario Internal Medicine Work Phone: Comment on above: PATIENT WAS FASTINGP ERFORMED BY: Lab[address] [id number] BY: [facility] Ijiaha8954 [address] RoadDublin [place] [id number] Protein Ql (U) Negative Normal Comprehens rosario Internal Medicine; [facility] Work Phone: Comment on above: PATIENT WAS FASTINGP ERFORMED BY: Lab[address] [id number] BY: [facility] Qvhluj7251 [address] RoadDublin [place] [id number] Specific gravity (U) [Rel density] 1.021 1 Normal 1.005-1.03 0 [facility] Work Phone: Comment on above: PATIENT WAS FASTINGP ERFORMED BY: Lab[address] [id number] BY: [facility] Azzsal9058 [address] RoadDublin [place] [id number] Urobilinogen (U) [Mass/Vol] 0.2 mg/dL Normal 0.2-1.0 [facility]; [facility] Work Phone: Comment on above: PATIENT WAS FASTINGP ERFORMED BY: Lab[address] [id number] BY: [facility] Wyweas8124 [address] RoadDublin [place] [id number] Urobilinogen Test strip (U) [Mass/Vol] 0.2 mg/dL Normal 0.2-1.0 [facility] Work Phone: Comment on above: PATIENT WAS FASTINGP ERFORMED BY: Lab[address] [id number] BY: [facility] Gcdqme2901 [address] RoadDublin [place] [id number] COLON BIOPSY (CHOOSE SITE)Or dered By: Office Analyst on 08-30-2016 COLON BIOPSY (CHOOSE SITE) See Note Normal [facility] Work Phone: Comment on above: Patient: NANCI GRACIA : 1960 (55/F) Acct Num: [id number] Phys: Mendel Valdes Unit Num: [id number] Loc: LABSPEC Specimen: [id number] Received: 08/30/16 - 1604 Spec Type: COLON BX TISSUES TISSUES: GROSS DESCRIPTION Received in fixative is one container labeled with the patient's name and designated biopsy distal sigmoid. The specimen consists of multiple irregularfragments of light hoskins soft tissue that in aggregate measure 0.5 x 0.5 x 0.1 cm. The specimen is totally submitted in one cassette. / SJ:iesha 08/31/16 TC:1 CPT: 17645 HEADER OPERATION: Colonoscopy with biopsy PRE-OP DIAGNOSIS: Screening/polyp TISSUE SUBMITTED: Distal sigmoid, rule out adenoma MICROSCOPIC DESCRIPTION Slides are reviewed. MICROSCOPIC DIAGNOSIS Distal sigmoid polyp, biopsy: Fragments of hyperplastic polyp. SJ:iesah 09/01/16 Signed Puneet Lopez 09/01/16 [facility] Fnqterdawe[address] [place], [place], 029971 Rapid Flu (45246 x 2)Ordered By: Michelle Hawkins on 04-08-2016 FLUAV Ag IA Ql (Throat) neg a/b Normal [facility] Work Phone: C-REACTIVE PROTEIN (63930)Or dered By: Office Analyst on 02-29-2016 CRP mass conc 0.9 mg/L Normal 0.0-4.9 Comprehensi ve Internal Medicine Work Phone: Comment on above: PATIENT NOT FASTINGP ERFORMED BY: [facility] Kmcexj0549 [facility] [id number] CALCIFIDIOL (54468) VIT D 25 Ordered By: Office Analyst on 02-29-2016 25-Hydroxyvitamin D2+25-Hydroxyvitamin D3 mass conc 31.4 ng/mL Normal 30.0-100.0 [facility] Work Phone: Comment on above: Vitamin D deficiency has been defined by the [place] ofMedicine and an Endocrine Society practice guideline as alevel of serum 25-OH vitamin D less than 20 ng/mL (1,2).The Endocrine Society went on to further define vitamin Dinsufficiency as a level between 21 and 29 ng/mL (2).1. IOM ([place] of Medicine). 2010. Dietary reference intakes for calcium and D. [place]: The National Academies Press.2. Sung MF, Justus BATISTA, Walter FATIMA, et al. Evaluation, treatment, and prevention of vitamin D deficiency: an Endocrine Society clinical practice guideline. JCEM. 2010; 96(7):1911-30. PATIENT NOT FASTINGP ERFORMED BY: Riskified [facility] Dofsgk8321 [address] Incantherablin [place] [id number] SED RATE ERYTHROCYTE (59468) Ordered By: Office Analyst on 02-29-2016 ESR Velocity (Bld) 2 mm/h Normal 0-40 [facility] Internal Medicine Work Phone: Comment on above: PATIENT NOT FASTINGP ERFORMED BY: Riskified [facility] Bhcasb9878 [address] Incantherablin [place] [id number] VITAMIN B-12 (CYANOCOBALAMIN ) (89909)Ordered By: Office Analyst on 02-29-2016 Cobalamin (Vitamin B12) mass conc 560 pg/mL Normal 211-946 [facility] Work Phone: Comment on above: PATIENT NOT FASTINGP ERFORMED BY: Riskified [facility] Tcxteq0260 [address] Incantherablin [place] [id number] CBC W/AUTO DIFF WBC (54464)O rdered By: Office Analyst on 02-08-2016 Basophils #/vol (Bld) 0.0 {x10E3/uL} Normal 0.0-0.2 [facility] Work Phone: Comment on above: PATIENT WAS FASTINGP ERFORMED BY: Riskified [facility] Iqqmsj4031 [address] RoadDublin [place] [id number] Basophils (Bld) [#/Vol] 0.0 10*3/uL Normal 0.0-0.2 [facility]; [facility] Work Phone: Comment on above: PATIENT WAS FASTINGP ERFORMED BY: [facility]6370 [facility] [id number] Basophils Auto #/vol (Bld) 0.0 {x10E3/uL} Normal 0.0-0.2 [facility] Work Phone: Basophils/100 WBC (Bld) 0 % Normal [facility] Work Phone: Comment on above: PATIENT WAS FASTINGP ERFORMED BY: [place] 5248670 [facility] [id number] Basophils/100 WBC Auto (Bld) 0 % Normal [facility] Work Phone: Eosinophils #/vol (Bld) 0.1 {x10E3/uL} Normal 0.0-0.4 [facility] Work Phone: Comment on above: PATIENT WAS FASTINGP ERFORMED BY: [place] 5248670 [facility] [id number] Eosinophils (Bld) [#/Vol] 0.1 10*3/uL Normal 0.0-0.4 [facility]; [facility] Work Phone: Comment on above: PATIENT WAS FASTINGP ERFORMED BY: [place] 5248670 [facility] [id number] Eosinophils Auto #/vol (Bld) 0.1 {x10E3/uL} Normal 0.0-0.4 [facility] Work Phone: Eosinophils/100 WBC (Bld) 1 % Normal [facility] Work Phone: Comment on above: PATIENT WAS FASTINGP ERFORMED BY: [place] 5248670 [facility] [id number] Eosinophils/100 WBC Auto (Bld) 1 % Normal [facility] Work Phone: Erythrocyte distribution width Auto Ratio (RBC) 13.4 % Normal 12.3-15.4 [facility] Work Phone: Erythrocyte distribution width Ratio (RBC) 13.4 % Normal 12.3-15.4 [facility] Work Phone: Comment on above: PATIENT WAS FASTINGP ERFORMED BY: MAXI [facility] Onttgh9223 [address] RoadDublin [place] [id number] Hematocrit Auto Volume Fraction (Bld) 41.7 % Normal 34.0-46.6 [facility] Internal Medicine Work Phone: Hematocrit Volume Fraction (Bld) 41.7 % Normal 34.0-46.6 [facility] Work Phone: Comment on above: PATIENT WAS FASTINGP ERFORMED BY: MAXI [facility] Eatnrh7131 [address] RoadDublin [place] [id number] Hemoglobin mass conc (Bld) 13.8 g/dL Normal 11.1-15.9 [facility] Work Phone: Comment on above: PATIENT WAS FASTINGP ERFORMED BY: MAXI LabColucero BarreraKayjba4444 [address] RoadDublin [place] [id number] Immature granulocytes #/vol (Bld) 0.0 {x10E3/uL} Normal 0.0-0.1 [facility] Work Phone: Comment on above: PATIENT WAS FASTINGP ERFORMED BY: MAXI [facility] Cnnefz1727 [address] RoadDublin [place] [id number] Immature granulocytes (Bld) [#/Vol] 0.0 10*3/uL Normal 0.0-0.1 [facility]; [facility] Work Phone: Comment on above: PATIENT WAS FASTINGP ERFORMED BY: MAXI [facility] Dgwidb4960 [address] RoadDublin [place] [id number] Immature granulocytes/100 WBC (Bld) 0 % Normal [facility] Work Phone: Comment on above: PATIENT WAS FASTINGP ERFORMED BY: MAXI [facility] Hdcrxk6245 [address] RoadDublin [place] [id number] Lymphocytes #/vol (Bld) 1.4 {x10E3/uL} Normal 0.7-3.1 [facility] Work Phone: Comment on above: PATIENT WAS FASTINGP ERFORMED BY: MAXI [facility] Osnpiu9921 [address] RoadDublin [place] [id number] Lymphocytes (Bld) [#/Vol] 1.4 10*3/uL Normal 0.7-3.1 [facility]; [facility] Work Phone: Comment on above: PATIENT WAS FASTINGP ERFORMED BY: MAXI [facility] HospitalJanina Walters6370 [facility] [id number] Lymphocytes Auto #/vol (Bld) 1.4 {x10E3/uL} Normal 0.7-3.1 [facility] Work Phone: Lymphocytes/100 WBC (Bld) 29 % Normal [facility] Work Phone: Comment on above: PATIENT WAS FASTINGP ERFORMED BY: MAXI [address] [id number] Lymphocytes/100 WBC Auto (Bld) 29 % Normal [facility] Work Phone: MCH Auto Entitic mass (RBC) 29.1 pg Normal 26.6-33.0 [facility] Work Phone: MCH Entitic mass (RBC) 29.1 pg Normal 26.6-33.0 [facility] Work Phone: Comment on above: PATIENT WAS FASTINGP ERFORMED BY: MAXI Barreralin6370 [facility] [id number] MCHC Auto mass conc (RBC) 33.1 g/dL Normal 31.5-35.7 [facility] Work Phone: MCHC mass conc (RBC) 33.1 g/dL Normal 31.5-35.7 [facility] Internal Medicine Work Phone: Comment on above: PATIENT WAS FASTINGP ERFORMED BY: MAXI [place] 2644370 [facility] [id number] MCV Auto Entitic volume (RBC) 88 fL Normal 79-97 [facility] Work Phone: MCV Entitic volume (RBC) 88 fL Normal 79-97 [facility] Work Phone: Comment on above: PATIENT WAS FASTINGP ERFORMED BY: MAXI [address]in [place] [id number] Monocytes #/vol (Bld) 0.4 {x10E3/uL} Normal 0.1-0.9 [facility] Work Phone: Comment on above: PATIENT WAS FASTINGP ERFORMED BY: [facility]6[address] [facility] [id number] Monocytes (Bld) [#/Vol] 0.4 10*3/uL Normal 0.1-0.9 [facility]; [facility] Work Phone: Comment on above: PATIENT WAS FASTINGP ERFORMED BY: [place] [id number] [facility] [id number] Monocytes Auto #/vol (Bld) 0.4 {x10E3/uL} Normal 0.1-0.9 [facility] Work Phone: Monocytes/100 WBC (Bld) 7 % Normal [facility] Work Phone: Comment on above: PATIENT WAS FASTINGP ERFORMED BY: [place] [id number] [facility] [id number] Monocytes/100 WBC Auto (Bld) 7 % Normal [facility] Work Phone: Neutrophils #/vol (Bld) 3.0 {x10E3/uL} Normal 1.4-7.0 [facility] Work Phone: Comment on above: PATIENT WAS FASTINGP ERFORMED BY: [place] [id number] [facility] [id number] Neutrophils (Bld) [#/Vol] 3.0 10*3/uL Normal 1.4-7.0 [facility]; [facility] Work Phone: Comment on above: PATIENT WAS FASTINGP ERFORMED BY: [place] [id number] [facility] [id number] Neutrophils Auto #/vol (Bld) 3.0 {x10E3/uL} Normal 1.4-7.0 [facility] Work Phone: Neutrophils/100 WBC (Bld) 63 % Normal [facility] Work Phone: Comment on above: PATIENT WAS FASTINGP ERFORMED BY: [facility] Zmvlwt5298 [address] Roadblin [place] [id number] Neutrophils/100 WBC Auto (Bld) 63 % Normal [facility] Work Phone: Platelets #/vol (Bld) 168 {x10E3/uL} Normal 150-379 [facility] Work Phone: Comment on above: PATIENT WAS FASTINGP ERFORMED BY: LabCoCentraState Healthcare SystemNdosxj2125 [address] Roadblin [place] [id number] Platelets (Bld) [#/Vol] 168 10*3/uL Normal 150-379 [facility]; [facility] Work Phone: Comment on above: PATIENT WAS FASTINGP ERFORMED BY: MAXI [facility] Wmkimm1474 Ch[address]hary RoadDublin [place] [id number] Platelets Auto #/vol (Bld) 168 {x10E3/uL} Normal 150-379 [facility] Work Phone: RBC #/vol (Bld) 4.75 {x10E6/uL} Normal 3.77-5.28 Comp [facility] Internal Medicine Work Phone: Comment on above: PATIENT WAS FASTINGP ERFORMED BY: [facility] Iifhrl[address] [facility] Hospitalblin [place] [id number] RBC (Bld) [#/Vol] 4.75 10*6/uL Normal 3.77-5.28 Compr ensive Internal Medicine; [facility] Work Phone: Comment on above: PATIENT WAS FASTINGP ERFORMED BY: [facility] Yhhdwq5033 [address] RoadDublin [place] [id number] RBC Auto #/vol (Bld) 4.75 {x10E6/uL} Normal 3.77-5.28 [facility] Work Phone: WBC #/vol (Bld) 4.9 {x10E3/uL} Normal 3.4-10.8 Compr ensive Internal Medicine Work Phone: Comment on above: PATIENT WAS FASTINGP ERFORMED BY: MAXI Sheth Holyce5863 [facility] [id number] WBC (Bld) [#/Vol] 4.9 10*3/uL Normal 3.4-10.8 [facility] Internal Medicine; [facility] Work Phone: Comment on above: PATIENT WAS FASTINGP ERFORMED BY: [facility] Ogkmyl5398 [facility] [id number] WBC Auto #/vol (Bld) 4.9 {x10E3/uL} Normal 3.4-10.8 [facility] Work Phone: HCV AntibodyOrdered By: Syst em Director Of National Sales on 02-08-2016 HCV Ab Signal/Cutoff IA RelACnc 0.2 {s/co_ratio} Normal 0.0-0.9 [facility] Work Phone: Comment on above: Negative: < 0.8 Inde terminate: 0.8 - 0.9 Positive: > 0.9 . The CDC recommends that a positive HCV antibody result be followed up with a HCV Nucleic Acid Amplification test (617858). PATIENT WAS FASTINGP ERFORMED BY: MAXI [facility] Cetost6272 [facility] [id number] LIPID PANEL ([id number])Ordered B y: Office Analyst on 02-08-2016 Cholesterol in HDL mass conc 39 mg/dL Abnormal [facility] Work Phone: Comment on above: PATIENT WAS FASTINGP ERFORMED BY: [facility] Qgftvi8957 [facility] [id number] Cholesterol in LDL mass conc 145 mg/dL Abnormal 0-99 [facility] Work Phone: Comment on above: PATIENT WAS FASTINGP ERFORMED BY: MAXI [facility] Tfjifi7650 [facility] [id number] Cholesterol in LDL/Cholesterol in HDL mass ratio 3.7 {ratio_units} Abnormal 0.0-3.2 [facility] Work Phone: Comment on above: LDL/HDL Ratio Men Wo men 1/2 Avg.Risk 1.0 1.5 Avg.Risk 3.6 3.2 2X Avg.Risk 6.2 5.0 3X Avg.Risk 8.0 6.1 PATIENT WAS FASTINGP ERFORMED BY: MAXI Barreralin6370 [facility] [id number] Cholesterol in VLDL mass conc 30 mg/dL Normal 5-40 [facility] Work Phone: Comment on above: PATIENT WAS FASTINGP ERFORMED BY: MAXI Barreralin6370 [facility] [id number] Cholesterol mass conc 214 mg/dL Abnormal 100-199 Com prehensive Internal Medicine Work Phone: Comment on above: PATIENT WAS FASTINGP ERFORMED BY: MAXI Barreralin6370 [facility] [id number] Triglyceride mass conc 148 mg/dL Normal 0-149 [facility] Work Phone: Comment on above: PATIENT WAS FASTINGP ERFORMED BY: MAXI Barreralin6370 [facility] [id number] METABOLIC PANEL, COMPREHENSI VE ([id number])Ordered By: Office Analyst on 02-08-2016 Albumin mass conc 4.2 g/dL Normal 3.5-5.5 Compreh ensive Internal Medicine Work Phone: Comment on above: PATIENT WAS FASTINGP ERFORMED BY: MAXI Barreralin6370 [facility] [id number] Albumin/Globulin mass ratio 1.8 {ratio} Normal 1.1-2.5 [facility] Work Phone: Comment on above: PATIENT WAS FASTINGP ERFORMED BY: MAXI Barreralin6370 [facility] [id number] ALP [Catalytic activity/Vol] 61 U/L Normal 39-117 [facility]; [facility] Work Phone: Comment on above: PATIENT WAS FASTINGP ERFORMED BY: MAXI Barreralin[address] [facility] [place] [id number] ALP enzyme act/vol 61 [iU]/L Normal 39-117 Compre [facility] Internal Medicine Work Phone: Comment on above: PATIENT WAS FASTINGP ERFORMED BY: MAXI [facility] Ymlngd0472 [address] RoadDublin [place] [id number] ALT [Catalytic activity/Vol] 21 U/L Normal 0-32 [facility]; [facility] Internal Medicine Work Phone: Comment on above: PATIENT WAS FASTINGP ERFORMED BY: CB [facility] Xkcrnr0938 [address] RoadDublin [place] [id number] ALT enzyme act/vol 21 [iU]/L Normal 0-32 [facility] Internal Medicine Work Phone: Comment on above: PATIENT WAS FASTINGP ERFORMED BY: CB [facility] Iweacu3828 [address] RoadDublin [place] [id number] AST [Catalytic activity/Vol] 19 U/L Normal 0-40 [facility] Internal Medicine; [facility] Internal Medicine Work Phone: Comment on above: PATIENT WAS FASTINGP ERFORMED BY: [facility] Vezpsm3459 [address] RoadDublin [place] [id number] AST enzyme act/vol 19 [iU]/L Normal 0-40 [facility] Internal Medicine Work Phone: Comment on above: PATIENT WAS FASTINGP ERFORMED BY: MAXI [facility] Issimb6815 [address] RoadDublin [place] [id number] Bilirubin mass conc 0.3 mg/dL Normal 0.0-1.2 [facility] Internal Medicine Work Phone: Comment on above: PATIENT WAS FASTINGP ERFORMED BY: CB [facility] Rvgqvx3614 [address] RoadDublin [place] [id number] Calcium mass conc 9.5 mg/dL Normal 8.7-10.2 [facility] Internal Medicine Work Phone: Comment on above: PATIENT WAS FASTINGP ERFORMED BY: CB [facility] Kplcmr5342 [address] RoadDublin [place] [id number] Chloride molar conc 102 mmol/L Normal 97-106 [facility] Internal Medicine Work Phone: Comment on above: Effective February 22, 2016 the reference interval for Chloride, Serum will be changing to: 96 - 106 PATIENT WAS FASTINGP ERFORMED BY: MAXI [facility] Mwlpya0701 [address]blin [place] [id number] CO2 molar conc 29 mmol/L Normal 18-29 Comprehens rosario Internal Medicine Work Phone: Comment on above: PATIENT WAS FASTINGP ERFORMED BY: MAXI [facility] Ifgknl[address] [facility]blin [place] [id number] Creatinine mass conc 1.03 mg/dL Abnormal 0.57-1.00 Comp rehensive Internal Medicine Work Phone: Comment on above: PATIENT WAS FASTINGP ERFORMED BY: MAXI [facility] Yxvaij2225 Choudhary RoadCone Healthin [place] [id number] GFR/1.73 sq M predicted among blacks CKD-EPI vol rate/area (S/P/Bld) 70 mL/min/1.73 Normal Comprehensiv e Internal Medicine Work Phone: Comment on above: PATIENT WAS FASTINGP ERFORMED BY: MAXI LabBeaumont Hospital[address] [facility] [id number] GFR/1.73 sq M predicted among non-blacks CKD-EPI vol rate/area (S/P/Bld) 61 mL/min/1.73 Normal [facility] Work Phone: Comment on above: PATIENT WAS FASTINGP ERFORMED BY: MAXI [facility] Uioxkv1933 [facility] [id number] Globulin Calculated mass conc (S) 2.4 g/dL Normal 1.5-4.5 [facility] Work Phone: Globulin mass conc (S) 2.4 g/dL Normal 1.5-4.5 [facility] Work Phone: Comment on above: PATIENT WAS FASTINGP ERFORMED BY: MAXI [facility] Wjezyj0256 [address] [facility] [place] [id number] Glucose mass conc 90 mg/dL Normal 65-99 Compreh ensive Internal Medicine Work Phone: Comment on above: PATIENT WAS FASTINGP ERFORMED BY: MAXI [facility] Opohbt6624 [address] [facility]in [place] [id number] Potassium molar conc 4.2 mmol/L Normal 3.5-5.2 Comp rehensive Internal Medicine Work Phone: Comment on above: PATIENT WAS FASTINGP ERFORMED BY: MAXI LabColucero Eujfgl5830 [address] [facility]in [place] [id number] Protein mass conc 6.6 g/dL Normal 6.0-8.5 Compreh ensive Internal Medicine Work Phone: Comment on above: PATIENT WAS FASTINGP ERFORMED BY: MAXI [facility] Gzdcsa2504 Choudhary RoadCone Healthin [place] [id number] Sodium molar conc 145 mmol/L Abnormal 136-144 Compreh ensive Internal Medicine Work Phone: Comment on above: Effective February 22, 2016 the reference interval for Sodium, Serum will be changing to: 134 - 144 PATIENT WAS FASTINGP ERFORMED BY: MAXI LabJanina BarreraUiqkna[address] [facility] [id number] Urea nitrogen mass conc 17 mg/dL Normal 6-24 [facility] Work Phone: Comment on above: PATIENT WAS FASTINGP ERFORMED BY: MAXI LabJanina Ahbpth4406 [address] [facility] [id number] Urea nitrogen/Creatinine mass ratio 17 mg/mg Normal 9- [facility] Work Phone: Comment on above: PATIENT WAS FASTINGP ERFORMED BY: MAXI LabJanina Aawfzu4472 [address] [facility] [id number] MICROALBUMINOrdered By: Syst em Director Of National Sales on 02-08-2016 Albumin DL <= 20 mg/L mass conc (U) 10.2 ug/mL Normal [facility] Work Phone: Comment on above: PATIENT WAS FASTINGP ERFORMED BY: MAXI [facility] Uslrvn5077 [address] [facility]bl[facility] [place] [id number] Albumin/Creatinine mass ratio (U) 3.6 {mg/g_creat} Normal 0.0-30.0 [facility] Work Phone: Comment on above: PATIENT WAS FASTINGP ERFORMED BY: MAXI [facility] Anhxle9896 [address] [facility] [place] [id number] Creatinine mass conc (U) 281.5 mg/dL Normal [facility] Work Phone: Comment on above: PATIENT WAS FASTINGP ERFORMED BY: [employer]com6370 [facility] [id number] TSH ([id number])Ordered By: GT Energye m Director Of National Sales on 02-08-2016 Thyrotropin Qn 1.420 {uIU/mL} Normal 0.450-4.50 0 [facility] Work Phone: Comment on above: PATIENT WAS FASTINGP ERFORMED BY: [employer] Iyezin8829 [facility] [id number] Written AuthorizationOrdered By: Office Analyst on 02-08-2016 Written Authorization WAR Normal Com prehensive Internal Medicine Work Phone: Comment on above: Written Authorizatio n Received.Authorization received from DR COKER [id number] by Moira Martínez PATIENT WAS FASTINGP ERFORMED BY: [employer] Nypjtl7792 [facility] [id number] ASPERGILLUS ANTIBODIES 13013 5 (14361)Ordered By: Office Analyst on 05-26-2015 A. flavus Ab Immune diff Ql (S) Negative Normal [facility]; [facility] Work Phone: Comment on above: cpy to Dr. hernandez; PATIENT NOT FASTINGPERFORMED BY: ESTmob[address] [id number] Information: [id number] A. flavus Ab Immune diffusion (ID) Ql (S) Negative Normal Comprehens rosario Internal Medicine Work Phone: Comment on above: cpy to Dr. hernandez; PATIENT NOT FASTINGPERFORMED BY: ZipRecruiter[address] [id number] Information: [id number] A. fumigatus Ab Immune diff Ql (S) Negative Normal [facility]; [facility] Work Phone: Comment on above: cpy to Dr. hernandez; PATIENT NOT FASTINGPERFORMED BY: [address] [id number] Information: [id number],I06439 A. fumigatus Ab Immune diffusion (ID) Ql (S) Negative Normal [facility] Work Phone: Comment on above: cpy to Dr. hernandez; PATIENT NOT FASTINGPERFORMED BY: [address] [id number] Information: 150528,I21324 A. niger Ab Immune diff Ql (S) Negative Normal [facility]; [facility] Work Phone: Comment on above: cpy to Dr. hernandez; PATIENT NOT FASTINGPERFORMED BY: [address] [id number] Information: 105878,W78091 A. niger Ab Immune diffusion (ID) Ql (S) Negative Normal [facility] Internal Medicine Work Phone: Comment on above: cpy to Dr. hernandez; PATIENT NOT FASTINGPERFORMED BY: [address] [id number] Information: [id number] ANCA-C (ANTI NEUTROPHIL CYTO PLASMIC ANTIBODY)Ordered By: Office Analyst on 05-14-2015 Myeloperoxidase Ab IA Qn (S) <9.0 Normal 0.0-9.0 [facility] Work Phone: Comment on above: PATIENT NOT FASTINGP ERFORMED BY: [address] [id number] BY: Lab[address] [id number] Information: [id number],S87695 Neutrophil cytoplasmic Ab.classic IF titer (S) <1:20 Normal [facility] Work Phone: Comment on above: PATIENT NOT FASTINGP ERFORMED BY: [address] [id number] BY: [facility] Zaokfv3636 [facility] [id number] Information: [id number],R48335 Neutrophil cytoplasmic Ab.perinuclear IF titer (S) <1:20 Normal [facility] Work Phone: Comment on above: The presence of posi tive fluorescence exhibiting P-ANCA or C-ANCApatterns alone is not specific for the diagnosis of Dom'sGranulomatosis (WG) or microscopic polyangiitis. Decisions abouttreatment should not be based solely on ANCA IFA results. TheInternational ANCA Group Consensus recommends follow up testing ofpositive sera with both DE-3 and MPO-ANCA enzyme immunoassays. Asmany as 5% serum samples are positive only by EIA.Ref. AM J Clin Pathol 1999;111:507-513. PATIENT NOT FASTINGP ERFORMED BY: CÜR [address] [id number] BY: Tablefinder [facility] [id number] Information: 395924,M81733 Neutrophil cytoplasmic Ab.perinuclear.atypic al IF titer (S) <1:20 Normal [facility] Work Phone: Comment on above: The atypical pANCA p attern has been observed in a significantpercentage of patients with ulcerative colitis, primary sclerosingcholangitis and autoimmune hepatitis. PATIENT NOT FASTINGP ERFORMED BY: CÜR [address] [id number] BY: OmPromptNicholas [place] 8609170 [facility] [id number] Information: 706342,[id number] Proteinase 3 Ab IA Qn (S) <3.5 Normal 0.0-3.5 [facility] Work Phone: Comment on above: PATIENT NOT FASTINGP ERFORMED BY: [employer] Jopxjoexoh[address] [id number] BY: OmPromptNicholas [place] 8609170 [facility] [id number] Information: 189384,M08465 CBC, Platelets & Auto Diff ( 48633)Ordered By: Office Analyst on 05-14-2015 Basophils #/vol (Bld) 0.0 {x10E3/uL} Normal 0.0-0.2 [facility] Work Phone: Comment on above: PATIENT NOT FASTINGP ERFORMED BY: ZipRecruiter[address] [id number] BY: MAXI LabCoNicholas Ville 8609170 [facility] [id number] Basophils (Bld) [#/Vol] 0.0 10*3/uL Normal 0.0-0.2 [facility]; [facility] Work Phone: Comment on above: PATIENT NOT FASTINGP ERFORMED BY: ZipRecruiter[address] [id number] BY: MAXI [employer] Jzzapw6995 [facility] [id number] Basophils Auto #/vol (Bld) 0.0 {x10E3/uL} Normal 0.0-0.2 [facility] Work Phone: Basophils/100 WBC (Bld) 1 % Normal [facility] Work Phone: Comment on above: PATIENT NOT FASTINGP ERFORMED BY: ZipRecruiter[address] [id number] BY: ZipRecruiterNicholas [place] 8609170 [facility] [id number] Basophils/100 WBC Auto (Bld) 1 % Normal [facility] Work Phone: Eosinophils #/vol (Bld) 0.5 {x10E3/uL} Abnormal 0.0-0.4 [facility] Work Phone: Comment on above: PATIENT NOT FASTINGP ERFORMED BY: ZipRecruiter[address] [id number] BY: ZipRecruiterNicholas [place] 8609170 [facility] [id number] Eosinophils (Bld) [#/Vol] 0.5 10*3/uL Abnormal 0.0-0.4 [facility]; [facility] Work Phone: Comment on above: PATIENT NOT FASTINGP ERFORMED BY: TyraTechrp Bzgprnlhtq2603 [facility] [id number] BY: MAXI [facility] Yowvvq3886 [address] [facility]ilityO[facility] [id number] Eosinophils Auto #/vol (Bld) 0.5 {x10E3/uL} Abnormal 0.0-0.4 [facility] Work Phone: Eosinophils/100 WBC (Bld) 10 % Normal [facility] Work Phone: Comment on above: PATIENT NOT FASTINGP ERFORMED BY: CÜR [address] [id number] BY: MAXI [employer] Oukbpe4989 [address] [facility]ilityO[facility] [id number] Eosinophils/100 WBC Auto (Bld) 10 % Normal [facility] Work Phone: Erythrocyte distribution width Auto Ratio (RBC) 13.8 % Normal 12.3-15.4 [facility] Work Phone: Erythrocyte distribution width Ratio (RBC) 13.8 % Normal 12.3-15.4 [facility] Work Phone: Comment on above: PATIENT NOT FASTINGP ERFORMED BY: TyraTech[address] [id number] BY: MAXI ZipRecruiterrp Igduin2047 [facility] [id number] Hematocrit Auto Volume Fraction (Bld) 44.2 % Normal 34.0-46.6 [facility] Internal Medicine Work Phone: Hematocrit Volume Fraction (Bld) 44.2 % Normal 34.0-46.6 [facility] Work Phone: Comment on above: PATIENT NOT FASTINGP ERFORMED BY: TyraTechrp [address] [id number] BY: [employer] [facility] Kkdafm7735 [address] [facility] [id number] Hemoglobin mass conc (Bld) 14.7 g/dL Normal 11.1-15.9 [facility] Work Phone: Comment on above: PATIENT NOT FASTINGP ERFORMED BY: [facility] [address] [id number] BY: [facility] Jluzlo0047 [address]ary RoadDublin [place] [id number] Immature granulocytes #/vol (Bld) 0.0 {x10E3/uL} Normal 0.0-0.1 [facility] Work Phone: Comment on above: PATIENT NOT FASTINGP ERFORMED BY: [facility] [address] [id number] BY: [facility] Rxjiqw8222 [address] RoadDublin [place] [id number] Immature granulocytes (Bld) [#/Vol] 0.0 10*3/uL Normal 0.0-0.1 [facility]; [facility] Work Phone: Comment on above: PATIENT NOT FASTINGP ERFORMED BY: [facility] [address] [id number] BY: [facility] Arzhgd4993 [address]ary RoadDublin [place] [id number] Immature granulocytes/100 WBC (Bld) 0 % Normal [facility] Work Phone: Comment on above: PATIENT NOT FASTINGP ERFORMED BY: [facility] [address] [id number] BY: [facility] Eavlsz9578 [address] RoadDublin [place] [id number] Lymphocytes #/vol (Bld) 1.5 {x10E3/uL} Normal 0.7-3.1 [facility] Work Phone: Comment on above: PATIENT NOT FASTINGP ERFORMED BY: [facility] [address] [id number] BY: [facility] Rywjak3117 [address] RoadDublin [place] [id number] Lymphocytes (Bld) [#/Vol] 1.5 10*3/uL Normal 0.7-3.1 [facility]; [facility] Work Phone: Comment on above: PATIENT NOT FASTINGP ERFORMED BY: CÜR [address] [id number] BY: MAXI ZipRecruiterNicholas Ville 8609170 [facility] [id number] Lymphocytes Auto #/vol (Bld) 1.5 {x10E3/uL} Normal 0.7-3.1 [facility] Work Phone: Lymphocytes/100 WBC (Bld) 31 % Normal [facility] Work Phone: Comment on above: PATIENT NOT FASTINGP ERFORMED BY: CÜR [address] [id number] BY: OmPromptNich[place] 8609170 [facility] [id number] Lymphocytes/100 WBC Auto (Bld) 31 % Normal [facility] Work Phone: MCH Auto Entitic mass (RBC) 29.6 pg Normal 26.6-33.0 [facility] Work Phone: MCH Entitic mass (RBC) 29.6 pg Normal 26.6-33.0 [facility] Work Phone: Comment on above: PATIENT NOT FASTINGP ERFORMED BY: TyraTech[address] [id number] BY: ZipRecruiterNicholas [place] 8609170 [facility] [id number] MCHC Auto mass conc (RBC) 33.3 g/dL Normal 31.5-35.7 [facility] Work Phone: MCHC mass conc (RBC) 33.3 g/dL Normal 31.5-35.7 Comp rehensive Internal Medicine Work Phone: Comment on above: PATIENT NOT FASTINGP ERFORMED BY: ZipRecruiter[address] [id number] BY: OmPromptNicholas [place] 8609170 [facility] [id number] MCV Auto Entitic volume (RBC) 89 fL Normal 79-97 [facility] Work Phone: MCV Entitic volume (RBC) 89 fL Normal 79-97 [facility] Work Phone: Comment on above: PATIENT NOT FASTINGP ERFORMED BY: [facility] [address] [id number] BY: [facility] Ctdwdw5071 [address]ary RoadDuin [place] [id number] Monocytes #/vol (Bld) 0.7 {x10E3/uL} Normal 0.1-0.9 [facility] Work Phone: Comment on above: PATIENT NOT FASTINGP ERFORMED BY: [facility] [address] [id number] BY: [facility] Dylkag1450 [address] [facility] [id number] Monocytes (Bld) [#/Vol] 0.7 10*3/uL Normal 0.1-0.9 [facility]; [facility] Work Phone: Comment on above: PATIENT NOT FASTINGP ERFORMED BY: ZipRecruiterrp [address] [id number] BY: LabCoCentraState Healthcare SystemRsxhrx0266 [facility] [id number] Monocytes Auto #/vol (Bld) 0.7 {x10E3/uL} Normal 0.1-0.9 [facility] Work Phone: Monocytes/100 WBC (Bld) 14 % Normal [facility] Work Phone: Comment on above: PATIENT NOT FASTINGP ERFORMED BY: ZipRecruiterrp [address] [id number] BY: [facility] Zvjljk9634 [facility] [id number] Monocytes/100 WBC Auto (Bld) 14 % Normal [facility] Work Phone: Neutrophils #/vol (Bld) 2.1 {x10E3/uL} Normal 1.4-7.0 [facility] Work Phone: Comment on above: PATIENT NOT FASTINGP ERFORMED BY: [facility] [address] [id number] BY: MAXI [facility] Omsnst9030 Choudhary RoadDublin [place] [id number] Neutrophils (Bld) [#/Vol] 2.1 10*3/uL Normal 1.4-7.0 [facility]; [facility] Work Phone: Comment on above: PATIENT NOT FASTINGP ERFORMED BY: [facility] [address] [id number] BY: MAXI [facility] Khcgiu5614 Choudhary RoadDublin [place] [id number] Neutrophils Auto #/vol (Bld) 2.1 {x10E3/uL} Normal 1.4-7.0 [facility] Work Phone: Neutrophils/100 WBC (Bld) 44 % Normal [facility] Work Phone: Comment on above: PATIENT NOT FASTINGP ERFORMED BY: [facility] [address] [id number] BY: MAXI [facility] Kxoott6373 Choudhary RoadDublin [place] [id number] Neutrophils/100 WBC Auto (Bld) 44 % Normal [facility] Work Phone: Platelets #/vol (Bld) 170 {x10E3/uL} Normal 150-379 [facility] Work Phone: Comment on above: PATIENT NOT FASTINGP ERFORMED BY: [facility] [address] [id number] BY: CB [facility] Qbovgl2488 Choudhary RoadDublin [place] [id number] Platelets (Bld) [#/Vol] 170 10*3/uL Normal 150-379 [facility]; [facility] Work Phone: Comment on above: PATIENT NOT FASTINGP ERFORMED BY: [facility] [address] [id number] BY: CB [facility] Ureydl6624 Ch[address]hary RoadDublin [place] [id number] Platelets Auto #/vol (Bld) 170 {x10E3/uL} Normal 150-379 [facility] Work Phone: RBC #/vol (Bld) 4.97 {x10E6/uL} Normal 3.77-5.28 [facility] Work Phone: Comment on above: PATIENT NOT FASTINGP ERFORMED BY: Lab[address] [id number] BY: LabCoCentraState Healthcare SystemUrzadp9311 [facility] [id number] RBC (Bld) [#/Vol] 4.97 10*6/uL Normal 3.77-5.28 Compr ensive Internal Medicine; [facility] Work Phone: Comment on above: PATIENT NOT FASTINGP ERFORMED BY: [address] [id number] BY: LabBe[facility]umont [facility]6370 [facility] [id number] RBC Auto #/vol (Bld) 4.97 {x10E6/uL} Normal 3.77-5.28 [facility] Work Phone: WBC #/vol (Bld) 4.8 {x10E3/uL} Normal 3.4-10.8 [facility] Internal Medicine Work Phone: Comment on above: PATIENT NOT FASTINGP ERFORMED BY: LabCo[address] [id number] BY: LabCoCentraState Healthcare SystemYahfsl1592 [facility] [id number] WBC (Bld) [#/Vol] 4.8 10*3/uL Normal 3.4-10.8 Compre [facility] Internal Medicine; [facility] Work Phone: Comment on above: PATIENT NOT FASTINGP ERFORMED BY: [address] [id number] BY: LabCoNicholas V[place] 8609170 [facility] [id number] WBC Auto #/vol (Bld) 4.8 {x10E3/uL} Normal 3.4-10.8 [facility] Work Phone: IGA/IGD/IGG/IGM-EACH (59573) Ordered By: Office Analyst on 05-14-2015 IgA mass conc 141 mg/dL Normal 91-414 Comprehensi ve Internal Medicine Work Phone: Comment on above: Effective May the reference interval for Immunoglobulin, A, Qn, Serum will be changing to: Male 0 - 10 days 2 - 362 11 days - 6 months 8 - 37 7 - 11 months 12 - 58 1 - 3 years 21 - 111 4 - 15 years 52 - 221 16 - 60 years 90 - 386 >60 years 61 - 437 Female 0 - 10 days 2 - 362 11 days - 6 months 8 - 32 7 - 11 months 11 - 45 1 - 3 years 19 - 102 4 - 15 years 51 - 220 16 - 70 years 87 - 352 >70 years 64 - 422 PATIENT NOT FASTINGP ERFORMED BY: Epoxy[address] [id number] BY: MAXI [employer] Mhecau[address] [facility] [id number] IgE Qn 644 {IU/mL} Abnormal 0-100 [facility] Work Phone: Comment on above: PATIENT NOT FASTINGP ERFORMED BY: ESTmob[address] [id number] BY: [employer] Lrhrcs1070 [facility] [id number] IgG mass conc 1081 mg/dL Normal 700-1600 Comprehensi ve Internal Medicine Work Phone: Comment on above: PATIENT NOT FASTINGP ERFORMED BY: Epoxy[address] [id number] BY: Riskified LabRiskified Lmbxpf6087 [facility] [id number] IgM mass conc 120 mg/dL Normal 40-230 Comprehensi ve Internal Medicine Work Phone: Comment on above: Effective May the reference interval for Immunoglobulin M, Qn, Serum will be changing to: Male 0 - 10 days 3 - 10 11 days - 6 months 18 - 91 7 - 11 months 27 - 112 1 - 3 years 39 - 146 4 - 6 years 40 - 152 7 - 9 years 37 - 151 10 - 11 years 36 - 153 12 - 13 years 36 - 156 14 - 15 years 35 - 163 16 - 19 years 35 - 168 20 - 70 years 20 - 172 >70 years 15 - 143 Female 0 - 10 days 1 - 19 11 days - 6 months 18 - 96 7 - 11 months 32 - 127 1 - 3 years 45 - 163 4 - 6 years 51 - 181 7 - 9 years 51 - 187 10 - 11 years 53 - 194 12 - 13 years 57 - 209 14 - 15 years 59 - 220 16 - 19 years 58 - 230 >19 years 26 - 217 PATIENT NOT FASTINGP ERFORMED BY: [employer] [place] [address] [id number] BY: Ztail [place] [id number] Sed Rate Erythrocyte (42666) Ordered By: Office Analyst on 05-14-2015 ESR Velocity (Bld) 4 mm/h Normal 0-40 Compre [facility] Internal Medicine Work Phone: Comment on above: PATIENT NOT FASTINGP ERFORMED BY: [employer] [place] [address] [id number] BY: Z[place] [id number] HgA1C , Office (07626)Ordere d By: Michelle Hawkins on 07-08-2014 Hemoglobin A1c/Hemoglobin.total mass fraction (Bld) 5.3 % Normal 4.6 - 7.1 Comprehensiv e Internal Medicine Work Phone: CBC W/AUTO DIFF WBC (11344)O rdered By: Office Analyst on 05-08-2014 Basophils #/vol (Bld) 0.0 {x10E3/uL} Normal 0.0-0.2 [facility] Work Phone: Comment on above: PERFORMED BY: GradeFundblin [place] [id number] Basophils (Bld) [#/Vol] 0.0 10*3/uL Normal 0.0-0.2 [facility]; [facility] Work Phone: Comment on above: PERFORMED BY: Etreasurebox[address] [id number] Basophils Auto #/vol (Bld) 0.0 {x10E3/uL} Normal 0.0-0.2 [facility] Work Phone: Basophils/100 WBC (Bld) 0 % Normal [facility] Work Phone: Comment on above: PERFORMED BY: [employer] [place], [place] [address]ox [facility] [id number] Basophils/100 WBC Auto (Bld) 0 % Normal [facility] Work Phone: Eosinophils #/vol (Bld) 0.1 {x10E3/uL} Normal 0.0-0.4 [facility] Work Phone: Comment on above: PERFORMED BY: Etreasurebox[address] [id number] Eosinophils (Bld) [#/Vol] 0.1 10*3/uL Normal 0.0-0.4 [facility]; [facility] Work Phone: Comment on above: PERFORMED BY: Etreasurebox[address] [id number] Eosinophils Auto #/vol (Bld) 0.1 {x10E3/uL} Normal 0.0-0.4 [facility] Work Phone: Eosinophils/100 WBC (Bld) 2 % Normal [facility] Work Phone: Comment on above: PERFORMED BY: Etreasurebox[address] [id number] Eosinophils/100 WBC Auto (Bld) 2 % Normal [facility] Work Phone: Erythrocyte distribution width Auto Ratio (RBC) 13.4 % Normal 12.3-15.4 [facility] Work Phone: Erythrocyte distribution width Ratio (RBC) 13.4 % Normal 12.3-15.4 [facility] Work Phone: Comment on above: PERFORMED BY: [employer]70 ChoudharySynovexOnslow [facility] Hospital [id number] Hematocrit Auto Volume Fraction (Bld) 40.7 % Normal 34.0-46.6 [facility] Internal Medicine Work Phone: Hematocrit Volume Fraction (Bld) 40.7 % Normal 34.0-46.6 [facility] Work Phone: Comment on above: PERFORMED BY: [employer]70 Commnet WirelessDorothea Dix Hospital [id number] Hemoglobin mass conc (Bld) 13.1 g/dL Normal 11.1-15.9 [facility] Work Phone: Comment on above: PERFORMED BY: [employer]70 Lum[facility] HealthO[facility] [id number] Immature granulocytes #/vol (Bld) 0.0 {x10E3/uL} Normal 0.0-0.1 [facility] Work Phone: Comment on above: PERFORMED BY: [employer]70 Commnet WirelessDorothea Dix Hospital [id number] Immature granulocytes (Bld) [#/Vol] 0.0 10*3/uL Normal 0.0-0.1 [facility]; [facility] Work Phone: Comment on above: PERFORMED BY: [employer]70 ChoudharySynovexOnslow Memorial Hospital [id number] Immature granulocytes/100 WBC (Bld) 0 % Normal [facility] Work Phone: Comment on above: PERFORMED BY: GradeFundDorothea Dix Hospital [id number] Lymphocytes #/vol (Bld) 1.1 {x10E3/uL} Normal 0.7-3.1 [facility] Work Phone: Comment on above: PERFORMED BY: Rexter ChoudharySynovexOnslow Memorial Hospital [id number] Lymphocytes (Bld) [#/Vol] 1.1 10*3/uL Normal 0.7-3.1 [facility]; [facility] Work Phone: Comment on above: PERFORMED BY: Rexter Choudhary [facility] [id number] Lymphocytes Auto #/vol (Bld) 1.1 {x10E3/uL} Normal 0.7-3.1 [facility] Work Phone: Lymphocytes/100 WBC (Bld) 16 % Normal [facility] Work Phone: Comment on above: PERFORMED BY: GradeFundDorothea Dix Hospital [id number] Lymphocytes/100 WBC Auto (Bld) 16 % Normal [facility] Work Phone: MCH Auto Entitic mass (RBC) 28.7 pg Normal 26.6-33.0 [facility] Work Phone: MCH Entitic mass (RBC) 28.7 pg Normal 26.6-33.0 [facility] Work Phone: Comment on above: PERFORMED BY: Planar SemiconductorOnslow Memorial Hospital [id number] MCHC Auto mass conc (RBC) 32.2 g/dL Normal 31.5-35.7 [facility] Work Phone: MCHC mass conc (RBC) 32.2 g/dL Normal 31.5-35.7 [facility] Internal Medicine Work Phone: Comment on above: PERFORMED BY: Rexter Choudhary [facility] [id number] MCV Auto Entitic volume (RBC) 89 fL Normal 79-97 [facility] Work Phone: MCV Entitic volume (RBC) 89 fL Normal 79-97 [facility] Work Phone: Comment on above: PERFORMED BY: Planar SemiconductorOnslow Memorial Hospital [id number] Monocytes #/vol (Bld) 0.6 {x10E3/uL} Normal 0.1-0.9 [facility] Work Phone: Comment on above: PERFORMED BY: [employer] [place] [id number] Monocytes (Bld) [#/Vol] 0.6 10*3/uL Normal 0.1-0.9 [facility]; [facility] Work Phone: Comment on above: PERFORMED BY: [employer]70 Ch[address]hary RoadCone Healthin [place] [id number] Monocytes Auto #/vol (Bld) 0.6 {x10E3/uL} Normal 0.1-0.9 [facility] Work Phone: Monocytes/100 WBC (Bld) 8 % Normal [facility] Work Phone: Comment on above: PERFORMED BY: [employer] [facility] [id number] Monocytes/100 WBC Auto (Bld) 8 % Normal [facility] Work Phone: Neutrophils #/vol (Bld) 5.2 {x10E3/uL} Normal 1.4-7.0 [facility] Work Phone: Comment on above: PERFORMED BY: [employer] [facility] [id number] Neutrophils (Bld) [#/Vol] 5.2 10*3/uL Normal 1.4-7.0 [facility]; [facility] Work Phone: Comment on above: PERFORMED BY: [employer]6[address] [facility] [id number] Neutrophils Auto #/vol (Bld) 5.2 {x10E3/uL} Normal 1.4-7.0 [facility] Work Phone: Neutrophils/100 WBC (Bld) 74 % Normal [facility] Work Phone: Comment on above: PERFORMED BY: [employer] [facility] [id number] Neutrophils/100 WBC Auto (Bld) 74 % Normal [facility] Work Phone: Platelets #/vol (Bld) 164 {x10E3/uL} Normal 150-379 [facility] Work Phone: Comment on above: PERFORMED BY: [employer] [facility] [id number] Platelets (Bld) [#/Vol] 164 10*3/uL Normal 150-379 [facility]; [facility] Work Phone: Comment on above: PERFORMED BY: [employer]70 [facility] [id number] Platelets Auto #/vol (Bld) 164 {x10E3/uL} Normal 150-379 [facility] Work Phone: RBC #/vol (Bld) 4.57 {x10E6/uL} Normal 3.77-5.28 [facility] Work Phone: Comment on above: PERFORMED BY: [employer] [facility] [id number] RBC (Bld) [#/Vol] 4.57 10*6/uL Normal 3.77-5.28 Compr ensive Internal Medicine; [facility] Work Phone: Comment on above: PERFORMED BY: [employer]70 [facility] HealthO[facility]low [facility] Hospital [id number] RBC Auto #/vol (Bld) 4.57 {x10E6/uL} Normal 3.77-5.28 [facility] Work Phone: WBC #/vol (Bld) 7.1 {x10E3/uL} Normal 3.4-10.8 Compr ensive Internal Medicine Work Phone: Comment on above: PERFORMED BY: [employer] [facility] [id number] WBC (Bld) [#/Vol] 7.1 10*3/uL Normal 3.4-10.8 Compre [facility] Internal Medicine; [facility] Work Phone: Comment on above: PERFORMED BY: [employer]70 [facility] [id number] WBC Auto #/vol (Bld) 7.1 {x10E3/uL} Normal 3.4-10.8 [facility] Work Phone: EBV Acute Infection Antibodi esOrdered By: Office Analyst on 05-08-2014 EBV capsid IgG IA Qn (S) 454.0 U/mL Abnormal 0.0-17.9 [facility] Work Phone: Comment on above: Negative <18.0 Equiv ocal 18.0 - 21.9 Positive >21.9 PERFORMED BY: [employer]6370 Commnet WirelessDorothea Dix Hospital [id number] EBV capsid IgM IA Qn (S) <36.0 Normal 0.0-35.9 [facility] Work Phone: Comment on above: Negative <36.0 Equiv ocal 36.0 - 43.9 Positive >43.9 PERFORMED BY: [employer]6370 Commnet WirelessDorothea Dix Hospital [id number] EBV early IgG Qn (S) 59.8 U/mL Abnormal 0.0-8.9 [facility] Internal Medicine Work Phone: Comment on above: Hepatitis A, Hepatit is C and HIV antibodies may cross- reactwith this assay. Negative < 9.0 Equivocal 9.0 - 10.9 Positive >10.9 PERFORMED BY: [employer]6370 Comm[facility] WirelessDorothea Dix Hospital [id number] EBV nuclear IgG IA Qn (S) <18.0 Normal 0.0-17.9 [facility] Work Phone: Comment on above: Negative <18.0 Equiv ocal 18.0 - 21.9 Positive >21.9 PERFORMED BY: [employer]63[employer] Holdings, LLCDorothea Dix Hospital [id number] Service comment Interp (Unsp spec) SPRCS Normal [facility] Work Phone: Comment on above: EBV Interpretation C greer . Interpretation EBV-IgM EA(D)-IgG VCA-IgG EBNA-IgG . EBV Seronegative - - - - Early Phase + - - - Acute Primary + +or- + - Infection Convalescence/Past - +or- + + Infection Reactivated +or- + + + Infection + Antibody Present - Antibody Absent PERFORMED BY: Mapidy Janina Onxgcc3496 Commnet WirelessDorothea Dix Hospital [id number] Rapid Strep Test, Office (48 497)Ordered By: Michelle Hawkins on 05-08-2014 S. pyogenes Ag EIA Ql (Throat) Negative Normal [facility]; [facility] Work Phone: S. pyogenes Ag IA Ql (Unsp spec) Negative Normal [facility] Work Phone: Throat Culture ([id number])Ordere d By: Office Analyst on 05-08-2014 Bacteria identified Respiratory culture Nom (Unsp spec) Final report Normal [facility] Work Phone: Comment on above: PATIENT NOT FASTINGP ERFORMED BY: [employer]6370 Commnet WirelessDorothea Dix Hospital [id number] Information: SRC:THRT [id number] Bacteria identified Respiratory culture Nom (Unsp spec) RRF Normal [facility] Work Phone: Comment on above: Routine respiratory aleksander PATIENT NOT FASTINGP ERFORMED BY: MapidyCoC3DNA70 Commnet WirelessDorothea Dix Hospital [id number] Information: SRC:THRT [id number] Sputum Culture ([id number])Ordere d By: Office Analyst on 01-22-2014 Bacteria identified Cx Nom (Sput) Final report Normal [facility] Work Phone: Comment on above: PATIENT NOT FASTINGP ERFORMED BY: [employer] Ojymol2598 Comm[facility] WirelessDorothea Dix Hospital [id number] Information: [id number] Bacteria identified Cx Nom (Unsp spec) RRF Normal [facility] Work Phone: Comment on above: Routine respiratory aleksander PATIENT NOT FASTINGP ERFORMED BY: [employer] Shxdsd9253 Lumara HealthOnslow [facility] Hospital [id number] Information: [id number] CBC W/AUTO DIFF WBC (30487)O rdered By: Office Analyst on 12-30-2013 Basophils #/vol (Bld) 0.0 {x10E3/uL} Normal 0.0-0.2 [facility] Work Phone: Comment on above: PATIENT WAS FASTINGP ERFORMED BY: [address] [id number] Information: [id number] Basophils (Bld) [#/Vol] 0.0 10*3/uL Normal 0.0-0.2 [facility]; [facility] Work Phone: Comment on above: PATIENT WAS FASTINGP ERFORMED BY: [address] [id number] Information: [id number] Basophils Auto #/vol (Bld) 0.0 {x10E3/uL} Normal 0.0-0.2 [facility] Work Phone: Basophils/100 WBC (Bld) 0 % Normal [facility] Work Phone: Comment on above: PATIENT WAS FASTINGP ERFORMED BY: [address] [id number] Information: [id number] Basophils/100 WBC Auto (Bld) 0 % Normal [facility] Work Phone: Eosinophils #/vol (Bld) 0.2 {x10E3/uL} Normal 0.0-0.4 [facility] Work Phone: Comment on above: PATIENT WAS FASTINGP ERFORMED BY: [address] [id number] Information: [id number] Eosinophils (Bld) [#/Vol] 0.2 10*3/uL Normal 0.0-0.4 [facility]; [facility] Work Phone: Comment on above: PATIENT WAS FASTINGP ERFORMED BY: [address] [id number] Information: [id number] Eosinophils Auto #/vol (Bld) 0.2 {x10E3/uL} Normal 0.0-0.4 [facility] Work Phone: Eosinophils/100 WBC (Bld) 3 % Normal [facility] Work Phone: Comment on above: PATIENT WAS FASTINGP ERFORMED BY: MAXI MickiMel[place] 7872070 [facility] [id number] Information: [id number] Eosinophils/100 WBC Auto (Bld) 3 % Normal [facility] Work Phone: Erythrocyte distribution width Auto Ratio (RBC) 13.3 % Normal 12.3-15.4 [facility] Work Phone: Erythrocyte distribution width Ratio (RBC) 13.3 % Normal 12.3-15.4 [facility] Work Phone: Comment on above: PATIENT WAS FASTINGP ERFORMED BY: MAXI [address] [id number] Information: [id number] Hematocrit Auto Volume Fraction (Bld) 42.0 % Normal 34.0-46.6 [facility] Internal Medicine Work Phone: Hematocrit Volume Fraction (Bld) 42.0 % Normal 34.0-46.6 [facility] Work Phone: Comment on above: PATIENT WAS FASTINGP ERFORMED BY: MAXI [place] [id number] [facility] [id number] Information: [id number] Hemoglobin mass conc (Bld) 13.7 g/dL Normal 11.1-15.9 [facility] Work Phone: Comment on above: PATIENT WAS FASTINGP ERFORMED BY: [place] [id number] [facility] [id number] Information: [id number] Immature granulocytes #/vol (Bld) 0.0 {x10E3/uL} Normal 0.0-0.1 [facility] Work Phone: Comment on above: PATIENT WAS FASTINGP ERFORMED BY: [address] [id number] Information: [id number] Immature granulocytes (Bld) [#/Vol] 0.0 10*3/uL Normal 0.0-0.1 [facility]; [facility] Work Phone: Comment on above: PATIENT WAS FASTINGP ERFORMED BY: [address] [id number] Information: [id number] Immature granulocytes/100 WBC (Bld) 0 % Normal [facility] Work Phone: Comment on above: PATIENT WAS FASTINGP ERFORMED BY: [address] [id number] Information: [id number] Lymphocytes #/vol (Bld) 1.5 {x10E3/uL} Normal 0.7-3.1 [facility] Work Phone: Comment on above: PATIENT WAS FASTINGP ERFORMED BY: [address] [id number] Information: [id number] Lymphocytes (Bld) [#/Vol] 1.5 10*3/uL Normal 0.7-3.1 [facility]; [facility] Work Phone: Comment on above: PATIENT WAS FASTINGP ERFORMED BY: [address] [id number] Information: [id number],[id number] Lymphocytes Auto #/vol (Bld) 1.5 {x10E3/uL} Normal 0.7-3.1 [facility] Work Phone: Lymphocytes/100 WBC (Bld) 20 % Normal [facility] Work Phone: Comment on above: PATIENT WAS FASTINGP ERFORMED BY: [address] [id number] Information: [id number] Lymphocytes/100 WBC Auto (Bld) 20 % Normal [facility] Work Phone: MCH Auto Entitic mass (RBC) 28.2 pg Normal 26.6-33.0 [facility] Work Phone: MCH Entitic mass (RBC) 28.2 pg Normal 26.6-33.0 [facility] Work Phone: Comment on above: PATIENT WAS FASTINGP ERFORMED BY: MAXI [place] [id number] [facility] [id number] Information: [id number] MCHC Auto mass conc (RBC) 32.6 g/dL Normal 31.5-35.7 [facility] Work Phone: MCHC mass conc (RBC) 32.6 g/dL Normal 31.5-35.7 Comp [facility] Internal Medicine Work Phone: Comment on above: PATIENT WAS FASTINGP ERFORMED BY: MAXI [facility] Hospitallucero BarreraRljrhd[address] [id number] Information: [id number] MCV Auto Entitic volume (RBC) 87 fL Normal 79-97 [facility] Work Phone: MCV Entitic volume (RBC) 87 fL Normal 79-97 [facility] Work Phone: Comment on above: PATIENT WAS FASTINGP ERFORMED BY: MAXI Barreralin6370 [facility] [id number] Information: [id number] Monocytes #/vol (Bld) 0.4 {x10E3/uL} Normal 0.1-0.9 [facility] Work Phone: Comment on above: PATIENT WAS FASTINGP ERFORMED BY: MAXI LabMelissa [place] 7872070 [facility] [id number] Information: [id number] Monocytes (Bld) [#/Vol] 0.4 10*3/uL Normal 0.1-0.9 [facility]; [facility] Work Phone: Comment on above: PATIENT WAS FASTINGP ERFORMED BY: MAXI LabMelissa [place] 7872070 [facility] [id number] Information: [id number] Monocytes Auto #/vol (Bld) 0.4 {x10E3/uL} Normal 0.1-0.9 [facility] Work Phone: Monocytes/100 WBC (Bld) 5 % Normal [facility] Work Phone: Comment on above: PATIENT WAS FASTINGP ERFORMED BY: [place] [id number] [facility] [id number] Information: [id number] Monocytes/100 WBC Auto (Bld) 5 % Normal [facility] Work Phone: Neutrophils #/vol (Bld) 5.4 {x10E3/uL} Normal 1.4-7.0 [facility] Work Phone: Comment on above: PATIENT WAS FASTINGP ERFORMED BY: [place] [id number] [facility] [id number] Information: [id number] Neutrophils (Bld) [#/Vol] 5.4 10*3/uL Normal 1.4-7.0 [facility]; [facility] Work Phone: Comment on above: PATIENT WAS FASTINGP ERFORMED BY: [place] [id number] [facility] [id number] Information: [id number] Neutrophils Auto #/vol (Bld) 5.4 {x10E3/uL} Normal 1.4-7.0 [facility] Work Phone: Neutrophils/100 WBC (Bld) 72 % Normal [facility] Work Phone: Comment on above: PATIENT WAS FASTINGP ERFORMED BY: [place] [id number] [facility] [id number] Information: [id number] Neutrophils/100 WBC Auto (Bld) 72 % Normal [facility] Work Phone: Platelets #/vol (Bld) 190 {x10E3/uL} Normal 150-379 [facility] Work Phone: Comment on above: PATIENT WAS FASTINGP ERFORMED BY: [facility] Uyambj3442 [facility] [id number] Information: [id number] Platelets (Bld) [#/Vol] 190 10*3/uL Normal 150-379 [facility]; [facility] Internal Medicine Work Phone: Comment on above: PATIENT WAS FASTINGP ERFORMED BY: [facility] Ikyoag7629 [facility] [id number] Information: [id number] Platelets Auto #/vol (Bld) 190 {x10E3/uL} Normal 150-379 [facility] Work Phone: RBC #/vol (Bld) 4.85 {x10E6/uL} Normal 3.77-5.28 [facility] Internal Medicine Work Phone: Comment on above: PATIENT WAS FASTINGP ERFORMED BY: [address] [id number] Information: [id number] RBC (Bld) [#/Vol] 4.85 10*6/uL Normal 3.77-5.28 [facility]; [facility] Work Phone: Comment on above: PATIENT WAS FASTINGP ERFORMED BY: MAXI [facility] Meeghr4104 [facility] [id number] Information: [id number] RBC Auto #/vol (Bld) 4.85 {x10E6/uL} Normal 3.77-5.28 [facility] Work Phone: WBC #/vol (Bld) 7.6 {x10E3/uL} Normal 3.4-10.8 [facility] Internal Medicine Work Phone: Comment on above: PATIENT WAS FASTINGP ERFORMED BY: [facility]6370 [facility] [id number] Information: [id number] WBC (Bld) [#/Vol] 7.6 10*3/uL Normal 3.4-10.8 [facility] Internal [facility]; [facility] Work Phone: Comment on above: PATIENT WAS FASTINGP ERFORMED BY: MAXI Grisel Walters6370 [facility] WirelessDorothea Dix Hospital [id number] Information: [id number] WBC Auto #/vol (Bld) 7.6 {x10E3/uL} Normal 3.4-10.8 [facility] Work Phone: LIPID PANEL ([id number])Ordered B y: Office Analyst on 12-30-2013 Cholesterol in HDL mass conc 42 mg/dL Normal [facility] Work Phone: Comment on above: According to ATP-III Guidelines, HDL-C >59 mg/dL is considered anegative risk factor for CHD. PATIENT WAS FASTINGP ERFORMED BY: MAXI ZipRecruiterlucero Jjfjuy3077 Comm[facility] WirelessDorothea Dix Hospital [id number] Cholesterol in LDL mass conc 111 mg/dL Abnormal 0-99 [facility] Work Phone: Comment on above: PATIENT WAS FASTINGP ERFORMED BY: MAXI ZipRecruiterlucero Kivhtl0165 [address] IncantheraDorothea Dix Hospital [id number] Cholesterol in LDL/Cholesterol in HDL mass ratio 2.6 {ratio_units} Normal 0.0-3.2 [facility] Work Phone: Comment on above: LDL/HDL Ratio Men Wo men 1/2 Avg.Risk 1.0 1.5 Avg.Risk 3.6 3.2 2X Avg.Risk 6.2 5.0 3X Avg.Risk 8.0 6.1 PATIENT WAS FASTINGP ERFORMED BY: MAXI LabHomeSpacelucero Pucckm8378 [address] IncantheraDorothea Dix Hospital [id number] Cholesterol in VLDL mass conc 30 mg/dL Normal 5-40 [facility] Work Phone: Comment on above: PATIENT WAS FASTINGP ERFORMED BY: MAXI ZipRecruiterrp Dqxyyb5675 [employer] WirelessDorothea Dix Hospital [id number] Cholesterol mass conc 183 mg/dL Normal 100-199 Com prehensive Internal Medicine Work Phone: Comment on above: PATIENT WAS FASTINGP ERFORMED BY: MAXI LabColucero Ghhlsq3515 [address] [facility]blin [place] [id number] Triglyceride mass conc 148 mg/dL Normal 0-149 [facility] Work Phone: Comment on above: PATIENT WAS FASTINGP ERFORMED BY: MAXI LabColucero BarreraInwium2904 [address] [facility] [id number] METABOLIC PANEL, COMPREHENSI VE ([id number])Ordered By: Office Analyst on 12-30-2013 Albumin mass conc 4.4 g/dL Normal 3.5-5.5 Compreh [facility] Internal Medicine Work Phone: Comment on above: PATIENT WAS FASTINGP ERFORMED BY: MAXI LabColucero BarreraJrpabh2228 [facility] [id number] Albumin/Globulin mass ratio 1.8 {ratio} Normal 1.1-2.5 [facility] Work Phone: Comment on above: PATIENT WAS FASTINGP ERFORMED BY: MAXI LabChica Metiqj3162 [facility] [id number] ALP [Catalytic activity/Vol] 85 U/L Normal 39-117 [facility]; [facility] Work Phone: Comment on above: PATIENT WAS FASTINGP ERFORMED BY: MAXI LabColucero BarreraWycmpv2833 [facility] [id number] ALP enzyme act/vol 85 [iU]/L Normal 39-117 [facility] Internal Medicine Work Phone: Comment on above: PATIENT WAS FASTINGP ERFORMED BY: MAXI LabCo Vpbkcz8263 [facility] [id number] ALT [Catalytic activity/Vol] 19 U/L Normal 0-32 [facility]; [facility] Work Phone: Comment on above: PATIENT WAS FASTINGP ERFORMED BY: MAXI [facility] Orpxls2075 [address] [facility] [place] [id number] ALT enzyme act/vol 19 [iU]/L Normal 0-32 [facility] Internal Medicine Work Phone: Comment on above: PATIENT WAS FASTINGP ERFORMED BY: [facility] Lrglpc9371 [address]ary RoadDublin [place] [id number] AST [Catalytic activity/Vol] 21 U/L Normal 0-40 [facility]; [facility] Work Phone: Comment on above: PATIENT WAS FASTINGP ERFORMED BY: [facility] Umdjuc3449 [address]ary RoadDublin [place] [id number] AST enzyme act/vol 21 [iU]/L Normal 0-40 [facility] Internal Medicine Work Phone: Comment on above: PATIENT WAS FASTINGP ERFORMED BY: [facility] Wqjtor1729 [address]ary RoadDublin [place] [id number] Bilirubin mass conc 0.2 mg/dL Normal 0.0-1.2 [facility] Work Phone: Comment on above: PATIENT WAS FASTINGP ERFORMED BY: LabCo Wastru3289 [address]oudhary RoadCone Healthin [place] [id number] Calcium mass conc 9.7 mg/dL Normal 8.7-10.2 Compreh [facility] Internal Medicine Work Phone: Comment on above: PATIENT WAS FASTINGP ERFORMED BY: Lab[facility] Jnulxz7224 [address] Roadblin [place] [id number] Chloride molar conc 99 mmol/L Normal 97-108 [facility] Internal Medicine Work Phone: Comment on above: PATIENT WAS FASTINGP ERFORMED BY: [facility] Twhpry9341 Choudhary RoadCone Healthin [place] [id number] CO2 molar conc 27 mmol/L Normal 18-29 Comprehens [facility] Internal Medicine Work Phone: Comment on above: PATIENT WAS FASTINGP ERFORMED BY: [facility] Bhyzmr3944 [address] RoadDublin [place] [id number] Creatinine mass conc 1.07 mg/dL Abnormal 0.57-1.00 [facility] Internal Medicine Work Phone: Comment on above: PATIENT WAS FASTINGP ERFORMED BY: [facility] Eqvgsv4104 [address]ary RoadDublin [place] [id number] GFR/1.73 sq M predicted among blacks CKD-EPI vol rate/area (S/P/Bld) 68 mL/min/1.73 Normal Comprehensiv e Internal Medicine Work Phone: Comment on above: PATIENT WAS FASTINGP ERFORMED BY: MAXI Barreralin6370 [facility] [id number] GFR/1.73 sq M predicted among non-blacks CKD-EPI vol rate/area (S/P/Bld) 59 mL/min/1.73 Abnormal [facility] Work Phone: Comment on above: PATIENT WAS FASTINGP ERFORMED BY: MAXI Barreralin6370 [facility] [id number] Globulin Calculated mass conc (S) 2.5 g/dL Normal 1.5-4.5 [facility] Work Phone: Globulin mass conc (S) 2.5 g/dL Normal 1.5-4.5 [facility] Work Phone: Comment on above: PATIENT WAS FASTINGP ERFORMED BY: MAXI Barreralin6370 [facility] [id number] Glucose mass conc 96 mg/dL Normal 65-99 Compreh ensive Internal Medicine Work Phone: Comment on above: PATIENT WAS FASTINGP ERFORMED BY: MAXI Barreralin6370 [facility] [id number] Potassium molar conc 4.4 mmol/L Normal 3.5-5.2 Comp rehensive Internal Medicine Work Phone: Comment on above: PATIENT WAS FASTINGP ERFORMED BY: MAXI Barreralin6370 [facility] [id number] Protein mass conc 6.9 g/dL Normal 6.0-8.5 Compreh ensive Internal Medicine Work Phone: Comment on above: PATIENT WAS FASTINGP ERFORMED BY: MAXI Barreralin6370 [facility] [id number] Sodium molar conc 139 mmol/L Normal 134-144 Compreh ensive Internal Medicine Work Phone: Comment on above: PATIENT WAS FASTINGP ERFORMED BY: MAXI Barreralin6370 [facility] [id number] Urea nitrogen mass conc 22 mg/dL Normal 6-24 [facility] Work Phone: Comment on above: PATIENT WAS FASTINGP ERFORMED BY: MAXI MickiJanina Zfxkwx5624 [facility] [id number] Urea nitrogen/Creatinine mass ratio 21 mg/mg Normal 9-23 [facility] Work Phone: Comment on above: PATIENT WAS FASTINGP ERFORMED BY: MAXI [facility] Kraihx1097 [facility] [id number] MICROALBUMINOrdered By: Syst em Director Of National Sales on 12-30-2013 Albumin DL <= 20 mg/L mass conc (U) 11.0 ug/mL Normal 0.0-17.0 [facility] Work Phone: Comment on above: PATIENT WAS FASTINGP ERFORMED BY: MAXI [facility] Nivgvr7192 [facility] [id number] Albumin/Creatinine mass ratio (U) 7.9 {mg/g_creat} Normal 0.0-30.0 [facility] Work Phone: Comment on above: PATIENT WAS FASTINGP ERFORMED BY: MAXI Barreralin6370 [facility] [id number] Creatinine mass conc (U) 139.2 mg/dL Normal 15.0-278.0 [facility] Work Phone: Comment on above: PATIENT WAS FASTINGP ERFORMED BY: MAXI Sheth Pcnhhs8623 [facility] [id number] Microscopic ExaminationOrder ed By: Office Analyst on 12-30-2013 Bacteria LM.HPF #/area (Urine sed) None seen Normal [facility] Work Phone: Comment on above: PATIENT WAS FASTINGP ERFORMED BY: MAXI [facility]6370 [facility] [id number] Epithelial cells LM.HPF #/area (Urine sed) 0-10 Normal 0 - 10 [facility] Work Phone: Comment on above: PATIENT WAS FASTINGP ERFORMED BY: CB [facility] Xosaim9997 [address] RoadDublin [place] [id number] Mucus LM Ql (Urine sed) Present Normal [facility] Work Phone: Mucus Ql (Urine sed) Present Normal Comp rehensive Internal Medicine Work Phone: Comment on above: PATIENT WAS FASTINGP ERFORMED BY: CB [facility] Wkkrqx4612 [address] RoadDublin [place] [id number] RBC LM.HPF #/area (Urine sed) 0-2 Normal 0 - 2 [facility] Work Phone: Comment on above: PATIENT WAS FASTINGP ERFORMED BY: CB [facility] Tcynhi0859 [address] RoadDublin [place] [id number] WBC LM.HPF #/area (Urine sed) 0-5 Normal 0 - 5 [facility] Work Phone: Comment on above: PATIENT WAS FASTINGP ERFORMED BY: [facility] Hkwqas3596 [address] RoadDublin [place] [id number] TSH ([id number])Ordered By: Syste m Director Of National Sales on 12-30-2013 Thyrotropin Qn 1.770 {uIU/mL} Normal 0.450-4.50 0 [facility] Work Phone: Comment on above: PATIENT WAS FASTINGP ERFORMED BY: [facility] Gtrvnj4345 [address] RoadDublin [place] [id number] URINALYSIS, W/ MICRO ([id number]) Ordered By: Office Analyst on 12-30-2013 Appearance Nom (U) Clear Normal Compre hensive Internal Medicine Work Phone: Comment on above: PATIENT WAS FASTINGP ERFORMED BY: CB [facility] Cmjvjz2896 [address] RoadDublin [place] [id number] Bilirubin Ql (U) Negative Normal Comprehe nsive Internal Medicine Work Phone: Comment on above: PATIENT WAS FASTINGP ERFORMED BY: CB [facility] Avwdxn7251 [address] RoadDublin [place] [id number] Bilirubin Ql (U) Negative Normal Comprehe nsive Internal Medicine; [facility] Work Phone: Comment on above: PATIENT WAS FASTINGP ERFORMED BY: MAXI [facility] Lquajx5680 [address] RoadDublin [place] [id number] Color Nom (U) Yellow Normal Comprehensi ve Internal Medicine Work Phone: Comment on above: PATIENT WAS FASTINGP ERFORMED BY: MAXI [facility] Nppvqf4873 [address] RoadDublin [place] [id number] Glucose Ql (U) Negative Normal Comprehens rosario Internal Medicine Work Phone: Comment on above: PATIENT WAS FASTINGP ERFORMED BY: MAXI [facility] Qkjjvp4874 [address] RoadDublin [place] [id number] Glucose Ql (U) Negative Normal Comprehens [facility] Internal [facility]; [facility] Work Phone: Comment on above: PATIENT WAS FASTINGP ERFORMED BY: MAXI LabColucero BarreraJnkrlt9865 [address] RoadDublin [place] [id number] Hemoglobin Ql (U) Negative Normal Compreh ensive Internal Medicine Work Phone: Comment on above: PATIENT WAS FASTINGP ERFORMED BY: MAXI [facility] Vjepli7662 [address] RoadDublin [place] [id number] Hemoglobin Ql (U) Negative Normal Compreh ensive Internal Medicine; [facility] Work Phone: Comment on above: PATIENT WAS FASTINGP ERFORMED BY: MAXI LabMnlucero BarreraIztruu8180 [address] RoadDublin [place] [id number] Hemoglobin Test strip Ql (U) Negative Normal [facility] Work Phone: Ketones Ql (U) Negative Normal Comprehens [facility] Work Phone: Comment on above: PATIENT WAS FASTINGP ERFORMED BY: MAXI [facility] Glatnj2709 [address] RoadDublin [place] [id number] Ketones Ql (U) Negative Normal Comprehens rosario [facility]; [facility] Work Phone: Comment on above: PATIENT WAS FASTINGP ERFORMED BY: MAXI [facility] Eufinl5719 [address] RoadDublin [place] [id number] Leukocyte esterase Test strip Ql (U) 1+ Abnormal [facility] Work Phone: Comment on above: PATIENT WAS FASTINGP ERFORMED BY: MAXI [facility] Menszo4048 [address] RoadDublin [place] [id number] Microscopic observation LM Nom (Urine sed) See below: Normal [facility] Work Phone: Comment on above: Microscopic was rick cated and was performed. PATIENT WAS FASTINGP ERFORMED BY: MAXI [facility] Wnohza5092 [address] RoadDublin [place] [id number] Nitrite Ql (U) Negative Normal Comprehens [facility] Work Phone: Comment on above: PATIENT WAS FASTINGP ERFORMED BY: MAXI [facility] Xqfzpt4030 [address] RoadDublin [place] [id number] Nitrite Ql (U) Negative Normal Comprehens [facility]; [facility] Work Phone: Comment on above: PATIENT WAS FASTINGP ERFORMED BY: MAXI [facility] Spyuqj7758 [address] RoadDublin [place] [id number] Nitrite Test strip Ql (U) Negative Normal [facility] Work Phone: pH (U) 7.0 [pH] Normal 5.0-7.5 [facility] Work Phone: Comment on above: PATIENT WAS FASTINGP ERFORMED BY: MAXI [facility] Zdtvng2270 [address] RoadDublin [place] [id number] pH Test strip (U) 7.0 [pH] Normal 5.0-7.5 Compreh ensive Internal Medicine Work Phone: Protein Ql (U) Negative Normal Comprehens [facility] Work Phone: Comment on above: PATIENT WAS FASTINGP ERFORMED BY: MAXI [facility] Rvzvro5944 [address] RoadDublin [place] [id number] Protein Ql (U) Negative Normal Comprehens ro[facility]; [facility] Work Phone: Comment on above: PATIENT WAS FASTINGP ERFORMED BY: MAXI [facility] Uesvgv4267 [address] RoadDublin [place] [id number] Protein Test strip Ql (U) Negative Normal [facility] Work Phone: Specific gravity Relative Density (U) 1.019 1 Normal 1.005-1.03 0 [facility] Work Phone: Comment on above: PATIENT WAS FASTINGP ERFORMED BY: [facility]6370 [facility] [id number] Urobilinogen (U) [Mass/Vol] 0.2 mg/dL Normal 0.0-1.9 [facility]; [facility] Work Phone: Comment on above: PATIENT WAS FASTINGP ERFORMED BY: [facility]6370 [facility] [id number] Urobilinogen Test strip mass conc (U) 0.2 mg/dL Normal 0.0-1.9 Comprehensiv e Internal Medicine Work Phone: Comment on above: PATIENT WAS FASTINGP ERFORMED BY: [facility]6370 [facility] [id number] CBC WITH MANUAL DIFF ([id number]) Ordered By: Office Analyst on 04-09-2013 Basophils #/vol (Bld) 0.0 {x10E3/uL} Normal 0.0-0.2 [facility] Work Phone: Comment on above: fax copy of labs to brianne Uribe at [facility]; PATIENT WAS FASTINGPERFORMED BY: [facility]6370 [facility] [id number] Information: ADD [id number] AND DRAW FEE 99 6660 Basophils (Bld) [#/Vol] 0.0 10*3/uL Normal 0.0-0.2 [facility]; [facility] Work Phone: Comment on above: fax copy of labs to brianne Uribe at [facility]; PATIENT WAS FASTINGPERFORMED BY: [facility]6370 [facility] [id number] Information: ADD [id number] AND DRAW FEE 99 6660 Basophils Auto #/vol (Bld) 0.0 {x10E3/uL} Normal 0.0-0.2 [facility] Work Phone: Basophils/100 WBC (Bld) 0 % Normal 0-3 [facility] Work Phone: Comment on above: fax copy of labs to brianne Hairstons at [facility]; PATIENT WAS FASTINGPERFORMED BY: Antengo70 [facility] HealthO[facility] [id number] Information: ADD [id number] AND DRAW FEE 99 6660 Basophils/100 WBC Auto (Bld) 0 % Normal 0-3 [facility] Work Phone: Eosinophils #/vol (Bld) 0.2 {x10E3/uL} Normal 0.0-0.4 [facility] Work Phone: Comment on above: fax copy of labs to brianne Hairstons at [facility]; PATIENT WAS FASTINGPERFORMED BY: Mengcao Choudhary [facility] AgilityOnslow Memorial Hospital [id number] Information: ADD [id number] AND DRAW FEE 99 6660 Eosinophils (Bld) [#/Vol] 0.2 10*3/uL Normal 0.0-0.4 [facility]; [facility] Work Phone: Comment on above: fax copy of labs to brianne Hairstons at [facility]; PATIENT WAS FASTINGPERFORMED BY: Antengo70 [facility] [id number] Information: ADD [id number] AND DRAW FEE 99 6660 Eosinophils Auto #/vol (Bld) 0.2 {x10E3/uL} Normal 0.0-0.4 [facility] Work Phone: Eosinophils/100 WBC (Bld) 3 % Normal 0-5 [facility] Work Phone: Comment on above: fax copy of labs to brianne Hairstons at [facility]; PATIENT WAS FASTINGPERFORMED BY: Antengo70 [address] [facility] AgilityOnslow [facility] Hospital [id number] Information: ADD [id number] AND DRAW FEE 99 6660 Eosinophils/100 WBC Auto (Bld) 3 % Normal 0-5 [facility] Work Phone: Erythrocyte distribution width Auto Ratio (RBC) 13.9 % Normal 12.3-15.4 [facility] Work Phone: Erythrocyte distribution width Ratio (RBC) 13.9 % Normal 12.3-15.4 [facility] Internal Medicine Work Phone: Comment on above: fax copy of labs to brianne Uribe at [facility]; PATIENT WAS FASTINGPERFORMED BY: MAXI [facility] Ntegor3286 [facility] [id number] Information: ADD [id number] AND DRAW FEE 99 6660 Hematocrit Auto Volume Fraction (Bld) 41.8 % Normal 34.0-46.6 [facility] Internal Medicine Work Phone: Hematocrit Volume Fraction (Bld) 41.8 % Normal 34.0-46.6 [facility] Internal Medicine Work Phone: Comment on above: fax copy of labs to brianne Uribe at [facility]; PATIENT WAS FASTINGPERFORMED BY: MAXI [facility] Vcokrk5622 [facility] [id number] Information: ADD [id number] AND DRAW FEE 99 6660 Hemoglobin mass conc (Bld) 14.1 g/dL Normal 11.1-15.9 [facility] Internal Medicine Work Phone: Comment on above: fax copy of labs to brianne Uribe at [facility]; PATIENT WAS FASTINGPERFORMED BY: MAXI [facility] Cfmset9073 [facility] [id number] Information: ADD [id number] AND DRAW FEE 99 6660 Immature granulocytes #/vol (Bld) 0.0 {x10E3/uL} Normal 0.0-0.1 [facility] Work Phone: Comment on above: fax copy of labs to brianne Uribe at [facility]; PATIENT WAS FASTINGPERFORMED BY: MAXI [facility] Bsdyjj9144 [facility] [id number] Information: ADD [id number] AND DRAW FEE 99 6660 Immature granulocytes (Bld) [#/Vol] 0.0 10*3/uL Normal 0.0-0.1 [facility]; [facility] Work Phone: Comment on above: fax copy of labs to brianne Uribe at [facility]; PATIENT WAS FASTINGPERFORMED BY: IMGuestCo Mngdmw1385 [facility] [id number] Information: ADD [id number] AND DRAW FEE 99 6660 Immature granulocytes/100 WBC (Bld) 0 % Normal 0-2 [facility] Work Phone: Comment on above: fax copy of labs to brianne Uribe at [facility]; PATIENT WAS FASTINGPERFORMED BY: LabCoCentraState Healthcare SystemImvlhz1418 [facility] [id number] Information: ADD [id number] AND DRAW FEE 99 6660 Lymphocytes #/vol (Bld) 1.8 {x10E3/uL} Normal 0.7-3.1 [facility] Work Phone: Comment on above: fax copy of labs to brianne Uribe at [facility]; PATIENT WAS FASTINGPERFORMED BY: LabCoCentraState Healthcare SystemByqfzu8291 [facility] [id number] Information: ADD [id number] AND DRAW FEE 99 6660 Lymphocytes (Bld) [#/Vol] 1.8 10*3/uL Normal 0.7-3.1 [facility]; [facility] Work Phone: Comment on above: fax copy of labs to brianne Uribe at [facility]; PATIENT WAS FASTINGPERFORMED BY: ZipRecruiterCentraState Healthcare SystemWzjjrv8431 [facility] [id number] Information: ADD [id number] AND DRAW FEE 99 6660 Lymphocytes Auto #/vol (Bld) 1.8 {x10E3/uL} Normal 0.7-3.1 [facility] Work Phone: Lymphocytes/100 WBC (Bld) 29 % Normal 14-46 [facility] Work Phone: Comment on above: fax copy of labs to brianne Uribe at [facility]; PATIENT WAS FASTINGPERFORMED BY: MAXI [facility] Nbnosn0501 [facility] [id number] Information: ADD [id number] AND DRAW FEE 99 6660 Lymphocytes/100 WBC Auto (Bld) 29 % Normal 14-46 [facility] Work Phone: MCH Auto Entitic mass (RBC) 29.7 pg Normal 26.6-33.0 [facility] Work Phone: MCH Entitic mass (RBC) 29.7 pg Normal 26.6-33.0 [facility] Work Phone: Comment on above: fax copy of labs to brianne Uribe at [facility]; PATIENT WAS FASTINGPERFORMED BY: MAXI ZipRec[employer]iter Bjonnl0221 [facility] [id number] Information: ADD [id number] AND DRAW FEE 99 6660 MCHC Auto mass conc (RBC) 33.7 g/dL Normal 31.5-35.7 [facility] Work Phone: MCHC mass conc (RBC) 33.7 g/dL Normal 31.5-35.7 Comp [facility] Internal Medicine Work Phone: Comment on above: fax copy of labs to brianne Rony at [facility]; PATIENT WAS FASTINGPERFORMED BY: ZipRecruiter Zenidq[address] [place] [address] [id number] Information: ADD [id number] AND DRAW FEE 99 6660 MCV Auto Entitic volume (RBC) 88 fL Normal 79-97 [facility] Work Phone: MCV Entitic volume (RBC) 88 fL Normal 79-97 [facility] Internal Medicine Work Phone: Comment on above: fax copy of labs to brianne Uribe at [facility]; PATIENT WAS FASTINGPERFORMED BY: [place] [id number] [facility] [id number] Information: ADD [id number] AND DRAW FEE 99 6660 Monocytes #/vol (Bld) 0.4 {x10E3/uL} Normal 0.1-0.9 [facility] Work Phone: Comment on above: fax copy of labs to brianne Uribe at [facility]; PATIENT WAS FASTINGPERFORMED BY: MAXI Recinos Fcaecq3037 [facility] [id number] Information: ADD [id number] AND DRAW FEE 99 6660 Monocytes (Bld) [#/Vol] 0.4 10*3/uL Normal 0.1-0.9 [facility]; [facility] Work Phone: Comment on above: fax copy of labs to brianne Uribe at [facility]; PATIENT WAS FASTINGPERFORMED BY: MAXI Barreralin6370 [facility] [id number] Information: ADD [id number] AND DRAW FEE 99 6660 Monocytes Auto #/vol (Bld) 0.4 {x10E3/uL} Normal 0.1-0.9 [facility] Work Phone: Monocytes/100 WBC (Bld) 7 % Normal -12 [facility] Work Phone: Comment on above: fax copy of labs to brianne Uribe at [facility]; PATIENT WAS FASTINGPERFORMED BY: MAXI Recinos Kutqnw4205 [facility] [id number] Information: ADD [id number] AND DRAW FEE 99 6660 Monocytes/100 WBC Auto (Bld) 7 % Normal 4-12 [facility] Work Phone: Neutrophils #/vol (Bld) 3.8 {x10E3/uL} Normal 1.4-7.0 [facility] Work Phone: Comment on above: fax copy of labs to brianne Uribe at [facility]; PATIENT WAS FASTINGPERFORMED BY: MAXI [facility] Hospitall[facility]ero Cxcoic0966 [facility] [id number] Information: ADD [id number] AND DRAW FEE 99 6660 Neutrophils (Bld) [#/Vol] 3.8 10*3/uL Normal 1.4-7.0 [facility]; [facility] Work Phone: Comment on above: fax copy of labs to brianne Uribe at [facility]; PATIENT WAS FASTINGPERFORMED BY: MAXI ZipRecruiterlucero BarreraDwbwrg6185 [facility] [id number] Information: ADD [id number] AND DRAW FEE 99 6660 Neutrophils Auto #/vol (Bld) 3.8 {x10E3/uL} Normal 1.4-7.0 [facility] Work Phone: Neutrophils/100 WBC (Bld) 61 % Normal 40-74 [facility] Work Phone: Comment on above: fax copy of labs to brianne Uribe at [facility]; PATIENT WAS FASTINGPERFORMED BY: MAXI ZipRecruiterlucero BarreraVbncxw2457 [facility] [id number] Information: ADD [id number] AND DRAW FEE 99 6660 Neutrophils/100 WBC Auto (Bld) 61 % Normal 40-74 [facility] Work Phone: Platelets #/vol (Bld) 183 {x10E3/uL} Normal 155-379 [facility] Work Phone: Comment on above: fax copy of labs to brianne Uribe at [facility]; PATIENT WAS FASTINGPERFORMED BY: MAXI ZipRecruiterlucero BarreraQjival[address] [place] [address] [id number] Information: ADD [id number] AND DRAW FEE 99 6660 Platelets (Bld) [#/Vol] 183 10*3/uL Normal 155-379 [facility]; [facility] Work Phone: Comment on above: fax copy of labs to brianne Uribe at [facility]; PATIENT WAS FASTINGPERFORMED BY: MAXI ZipRecruiterlucero Vrmoxe1304 [facility] [id number] Information: ADD [id number] AND DRAW FEE 99 6660 Platelets Auto #/vol (Bld) 183 {x10E3/uL} Normal 155-379 [facility] Work Phone: RBC #/vol (Bld) 4.74 {x10E6/uL} Normal 3.77-5.28 [facility] Internal Medicine Work Phone: Comment on above: fax copy of labs to brianne Uribe at [facility]; PATIENT WAS FASTINGPERFORMED BY: MAXI [facility]CoCentraState Healthcare SystemBwgprm4862 [facility] [id number] Information: ADD [id number] AND DRAW FEE 99 6660 RBC (Bld) [#/Vol] 4.74 10*6/uL Normal 3.77-5.28 [facility] Internal Medicine; [facility] Work Phone: Comment on above: fax copy of labs to brianne Uribe at [facility]; PATIENT WAS FASTINGPERFORMED BY: MAXI LabColucero BarreraFminix8612 [facility] [id number] Information: ADD [id number] AND DRAW FEE 99 6660 RBC Auto #/vol (Bld) 4.74 {x10E6/uL} Normal 3.77-5.28 [facility] Internal Medicine Work Phone: WBC #/vol (Bld) 6.2 {x10E3/uL} Normal 3.4-10.8 [facility] Internal Medicine Work Phone: Comment on above: fax copy of labs to brianne Uribe at [facility]; PATIENT WAS FASTINGPERFORMED BY: MAXI LabCoN[place] [id number] [facility] [id number] Information: ADD [id number] AND DRAW FEE 99 6660 WBC (Bld) [#/Vol] 6.2 10*3/uL Normal 3.4-10.8 [facility] Internal Medicine; [facility] Internal Medicine Work Phone: Comment on above: fax copy of labs to brianne Uribe at [facility]; PATIENT WAS FASTINGPERFORMED BY: MAXI LabCoCentraState Healthcare SystemGhupdi8918 [facility] [id number] Information: ADD [id number] AND DRAW FEE 99 6660 WBC Auto #/vol (Bld) 6.2 {x10E3/uL} Normal 3.4-10.8 [facility] Internal Medicine Work Phone: LIPID PANEL ([id number])Ordered B y: Office Analyst on 04-09-2013 Cholesterol in HDL mass conc 39 mg/dL Abnormal [facility] Work Phone: Comment on above: According to ATP-III Guidelines, HDL-C >59 mg/dL is considered anegative risk factor for CHD. PATIENT WAS FASTINGP ERFORMED BY: MAXI LabColucero Esqzre4799 [address] Prote[place] AgilityDublin [place] [id number] Cholesterol in LDL mass conc 116 mg/dL Abnormal 0-99 [facility] Work Phone: Comment on above: PATIENT WAS FASTINGP ERFORMED BY: MAXI LabColucero Zkdxmy0990 [address] [employer] AgilityDublin [place] [id number] Cholesterol in LDL/Cholesterol in HDL mass ratio 3.0 {ratio_units} Normal 0.0-3.2 [facility] Work Phone: Comment on above: PATIENT WAS FASTINGP ERFORMED BY: MAXI LabColucero BarreraZviwgx0668 [address] [place] Agilityblin [place] [id number] Cholesterol in VLDL mass conc 44 mg/dL Abnormal 5-40 [facility] Work Phone: Comment on above: PATIENT WAS FASTINGP ERFORMED BY: MAXI LabJanina Gwkdxo6530 [address] [employer] AgilityDublin [place] [id number] Cholesterol mass conc 199 mg/dL Normal 100-199 [facility] prehensive Internal Medicine Work Phone: Comment on above: PATIENT WAS FASTINGP ERFORMED BY: MAXI [facility] Ufccqe7011 [address] Proteus AgilityCone Healthin [place] [id number] Triglyceride mass conc 222 mg/dL Abnormal 0-149 [facility] Work Phone: Comment on above: PATIENT WAS FASTINGP ERFORMED BY: MAXI [facility] Mrzltv4052 [address] Proteus AgilityCone Healthin [place] [id number] METABOLIC PANEL, COMPREHENSI VE ([id number])Ordered By: Office Analyst on 04-09-2013 Albumin mass conc 4.3 g/dL Normal 3.5-5.5 Compreh ensive Internal Medicine Work Phone: Comment on above: PATIENT WAS FASTINGP ERFORMED BY: MAXI [facility] Qglqfz8707 [address] RoadDublin [place] [id number] Albumin/Globulin mass ratio 1.5 {ratio} Normal 1.1-2.5 [facility] Internal Medicine Work Phone: Comment on above: PATIENT WAS FASTINGP ERFORMED BY: MAXI [facility] Sjccan6394 [address]hary RoadDublin [place] [id number] ALP [Catalytic activity/Vol] 82 U/L Normal 39-117 [facility] Internal Medicine; [facility] Internal Medicine Work Phone: Comment on above: PATIENT WAS FASTINGP ERFORMED BY: MAXI [facility] Zdlklt2742 [address] RoadDublin [place] [id number] ALP enzyme act/vol 82 [iU]/L Normal 39-117 [facility] Internal Medicine Work Phone: Comment on above: PATIENT WAS FASTINGP ERFORMED BY: MAXI [facility] Hnppae7317 [address] RoadDublin [place] [id number] ALT [Catalytic activity/Vol] 21 U/L Normal 0-32 [facility] Internal Medicine; [facility] Internal Medicine Work Phone: Comment on above: PATIENT WAS FASTINGP ERFORMED BY: MAXI [facility] Nmispy6210 [address] RoadDublin [place] [id number] ALT enzyme act/vol 21 [iU]/L Normal 0-32 [facility] Internal Medicine Work Phone: Comment on above: PATIENT WAS FASTINGP ERFORMED BY: MAXI [facility] Cpninu5261 [address] RoadDublin [place] [id number] AST [Catalytic activity/Vol] 23 U/L Normal 0-40 [facility] Internal Medicine; [facility] Internal Medicine Work Phone: Comment on above: PATIENT WAS FASTINGP ERFORMED BY: MAXI [facility] Qrefhj9318 [address] RoadDublin [place] [id number] AST enzyme act/vol 23 [iU]/L Normal 0-40 [facility] Internal Medicine Work Phone: Comment on above: PATIENT WAS FASTINGP ERFORMED BY: MAXI [facility] Hmhrio2268 [address] RoadDublin [place] [id number] Bilirubin mass conc 0.2 mg/dL Normal 0.0-1.2 Compr ehensive Internal Medicine Work Phone: Comment on above: PATIENT WAS FASTINGP ERFORMED BY: MAXI LabColucero BarreraQgnyas9161 [address] [facility] Hospitalblin [place] [id number] Calcium mass conc 9.6 mg/dL Normal 8.7-10.2 Compreh ensive Internal Medicine Work Phone: Comment on above: PATIENT WAS FASTINGP ERFORMED BY: MAXI [facility] Fnojpx6624 [address] [facility] [place] [id number] Chloride molar conc 99 mmol/L Normal 97-108 Compr ehensive Internal Medicine Work Phone: Comment on above: PATIENT WAS FASTINGP ERFORMED BY: MAXI LabColucero BarreraZneqyu3432 [address] [facility] [id number] CO2 molar conc 27 mmol/L Normal 19-28 Comprehens [facility] Internal Medicine Work Phone: Comment on above: PATIENT WAS FASTINGP ERFORMED BY: MAXI Lab[facility] Ulixgx0635 [address] [facility] [id number] Creatinine mass conc 0.98 mg/dL Normal 0.57-1.00 [facility] Work Phone: Comment on above: PATIENT WAS FASTINGP ERFORMED BY: LabCo Xzqcdg7604 [address] [facility] [id number] GFR/1.73 sq M predicted among blacks CKD-EPI vol rate/area (S/P/Bld) 76 mL/min/1.73 Normal Comprehensiv e Internal Medicine Work Phone: Comment on above: PATIENT WAS FASTINGP ERFORMED BY: LabCo Uchgfn9504 [address] [facility] [place] [id number] GFR/1.73 sq M predicted among non-blacks CKD-EPI vol rate/area (S/P/Bld) 66 mL/min/1.73 Normal [facility] Work Phone: Comment on above: PATIENT WAS FASTINGP ERFORMED BY: [facility] Ofukdy6415 [address] [facility] [place] [id number] Globulin Calculated mass conc (S) 2.9 g/dL Normal 1.5-4.5 [facility] Work Phone: Globulin mass conc (S) 2.9 g/dL Normal 1.5-4.5 [facility] Work Phone: Comment on above: PATIENT WAS FASTINGP ERFORMED BY: MAXI LabJanina BarreraJvdlhj5052 [address] RoadDublin [place] [id number] Glucose mass conc 91 mg/dL Normal 65-99 Compreh ensive Internal Medicine Work Phone: Comment on above: PATIENT WAS FASTINGP ERFORMED BY: MAXI LabColucero BarreraDsoeqa0871 [address] RoadDublin [place] [id number] Potassium molar conc 3.9 mmol/L Normal 3.5-5.2 Comp rehensive Internal Medicine Work Phone: Comment on above: PATIENT WAS FASTINGP ERFORMED BY: MAXI LabJanina BarreraEvbvww1059 [address] RoadDublin [place] [id number] Protein mass conc 7.2 g/dL Normal 6.0-8.5 Compreh ensive Internal Medicine Work Phone: Comment on above: PATIENT WAS FASTINGP ERFORMED BY: MAXI LabJanina BarreraLhkluv0166 [address] RoadDublin [place] [id number] Sodium molar conc 139 mmol/L Normal 134-144 Compreh ensive Internal Medicine Work Phone: Comment on above: PATIENT WAS FASTINGP ERFORMED BY: MAXI LabJanina BarreraPtnnht0171 [address] Prote[employer] AgilityDublin [place] [id number] Urea nitrogen mass conc 21 mg/dL Normal 6-24 [facility] Work Phone: Comment on above: PATIENT WAS FASTINGP ERFORMED BY: MAXI LabJanina Gqkwgf5478 [address] RoadDublin [place] [id number] Urea nitrogen/Creatinine mass ratio 21 mg/mg Normal 9-23 [facility] Work Phone: Comment on above: PATIENT WAS FASTINGP ERFORMED BY: MAXI [facility] Qoonuy2796 [address] RoadDublin [place] [id number] MICROALBUMINOrdered By: Syst em Director Of National Sales on 04-09-2013 Albumin DL <= 20 mg/L mass conc (U) 5.5 ug/mL Normal 0.0-17.0 [facility] Work Phone: Comment on above: PATIENT NOT FASTINGP ERFORMED BY: MAXI LabColucero Dmzkiw8767 [address] Roadblin [place] [id number] Albumin/Creatinine mass ratio (U) 2.9 {mg/g_creat} Normal 0.0-30.0 [facility] Work Phone: Comment on above: PATIENT NOT FASTINGP ERFORMED BY: MAXI [facility] Rckhqp7697 [address]hary RoadCone Healthin [place] [id number] Creatinine mass conc (U) 188.9 mg/dL Normal 15.0-278.0 [facility] Work Phone: Comment on above: PATIENT NOT FASTINGP ERFORMED BY: MAXI LabColucero BarreraBdyusu1920 [address] [facility]in [place] [id number] Microscopic ExaminationOrder ed By: Office Analyst on 04-09-2013 Bacteria LM.HPF #/area (Urine sed) Few Normal [facility] Work Phone: Comment on above: PATIENT NOT FASTINGP ERFORMED BY: MAXI [facility] Zxpaif8261 [address] [facility]in [place] [id number] Epithelial cells LM.HPF #/area (Urine sed) 0-10 Normal 0 - 10 [facility] Work Phone: Comment on above: PATIENT NOT FASTINGP ERFORMED BY: MAXI [facility] Vdagjw0901 [address] [facility]in [place] [id number] Mucus LM Ql (Urine sed) Present Normal [facility] Work Phone: Mucus Ql (Urine sed) Present Normal Comp rehensive Internal Medicine Work Phone: Comment on above: PATIENT NOT FASTINGP ERFORMED BY: MAXI [facility] Xxgsgh0701 [address] RoadDublin [place] [id number] RBC LM.HPF #/area (Urine sed) None seen Normal 0 - 3 [facility] Work Phone: Comment on above: PATIENT NOT FASTINGP ERFORMED BY: MAXI [facility] Rlrpos6567 [address] RoadDublin [place] [id number] WBC LM.HPF #/area (Urine sed) 0-5 Normal 0 - 5 [facility] Work Phone: Comment on above: PATIENT NOT FASTINGP ERFORMED BY: LabBe[facility] Hospital6370 [address] [facility]in [place] [id number] TSH ([id number])Ordered By: Syste m Director Of National Sales on 04-09-2013 Thyrotropin Qn 2.170 {uIU/mL} Normal 0.450-4.50 0 [facility] Work Phone: Comment on above: PATIENT WAS FASTINGP ERFORMED BY: LabBe[facility] Hospital6370 [facility] [id number] URINALYSIS, W/ MICRO ([id number]) Ordered By: Office Analyst on 04-09-2013 Appearance Nom (U) Clear Normal Compre hensive Internal Medicine Work Phone: Comment on above: PATIENT NOT FASTINGP ERFORMED BY: [facility]6370 [address] [facility] [id number] Information: ADD C06711 Bilirubin Ql (U) Negative Normal Comprehe nsive Internal Medicine Work Phone: Comment on above: PATIENT NOT FASTINGP ERFORMED BY: [facility] Hospital6370 [address] [facility] [id number] Information: ADD N30953 Bilirubin Ql (U) Negative Normal Comprehe nsive Internal Medicine; [facility] Work Phone: Comment on above: PATIENT NOT FASTINGP ERFORMED BY: [facility] Dlchkx8589 [address] [facility] [id number] Information: ADD U90447 Color Nom (U) Yellow Normal Comprehensi ve Internal Medicine Work Phone: Comment on above: PATIENT NOT FASTINGP ERFORMED BY: [facility] Tabjjw5039 [facility] [id number] Information: ADD O99483 Glucose Ql (U) Negative Normal Comprehens [facility] Medicine Work Phone: Comment on above: PATIENT NOT FASTINGP ERFORMED BY: CB [facility] Wyutqk5305 [address] RoadDublin [place] [id number] Information: ADD T65519 Glucose Ql (U) Negative Normal Comprehens [facility]; [facility] Work Phone: Comment on above: PATIENT NOT FASTINGP ERFORMED BY: CB [facility] Nbxonb8382 [address] RoadDublin [place] [id number] Information: ADD [id number] Hemoglobin Ql (U) Negative Normal Compreh ensive Internal Medicine Work Phone: Comment on above: PATIENT NOT FASTINGP ERFORMED BY: CB [facility] Akxnnf5091 [address] RoadDublin [place] [id number] Information: ADD N74860 Hemoglobin Ql (U) Negative Normal Compreh ensive Internal Medicine; [facility] Work Phone: Comment on above: PATIENT NOT FASTINGP ERFORMED BY: CB [facility] Lipsdq6027 [address] RoadDublin [place] [id number] Information: ADD O74701 Hemoglobin Test strip Ql (U) Negative Normal [facility] Work Phone: Ketones Ql (U) Negative Normal Comprehens [facility] Work Phone: Comment on above: PATIENT NOT FASTINGP ERFORMED BY: CB [facility] Jpyclj8031 [address] RoadDublin [place] [id number] Information: ADD L07361 Ketones Ql (U) Negative Normal Comprehens [facility]; [facility] Work Phone: Comment on above: PATIENT NOT FASTINGP ERFORMED BY: CB [facility] Yzkfbp2219 [address] RoadDublin [place] [id number] Information: ADD C48968 Leukocyte esterase Test strip Ql (U) Negative Normal [facility] Work Phone: Comment on above: PATIENT NOT FASTINGP ERFORMED BY: CB [facility] Fejish6510 [address] RoadDublin [place] [id number] Information: ADD F06343 Leukocyte esterase Test strip Ql (U) Negative Normal [facility]; [facility] Work Phone: Comment on above: PATIENT NOT FASTINGP ERFORMED BY: MAXI [facility] Tvbuhe2883 [address] [facility] [id number] Information: ADD C89156 Microscopic observation LM Nom (Urine sed) See below: Normal [facility] Work Phone: Comment on above: PATIENT NOT FASTINGP ERFORMED BY: MAXI [facility] Ctfsng6720 [address] [facility] [id number] Information: ADD G53257 Microscopic observation LM Nom (Urine sed) MICRON Normal [facility] Work Phone: Comment on above: Microscopic follows if indicated. PATIENT NOT FASTINGP ERFORMED BY: MAXI [facility] Rmnfrp6566 [address] [facility] [id number] Information: ADD D66927 Nitrite Ql (U) Negative Normal Comprehens [facility] Work Phone: Comment on above: PATIENT NOT FASTINGP ERFORMED BY: MAXI [facility] Ovvdnx7372 [address] [facility] [id number] Information: ADD Y17598 Nitrite Ql (U) Negative Normal Comprehens [facility]; [facility] Work Phone: Comment on above: PATIENT NOT FASTINGP ERFORMED BY: MAXI [facility] Mmjrph6653 [address] [facility] [id number] Information: ADD Y49206 Nitrite Test strip Ql (U) Negative Normal [facility] Work Phone: pH (U) 6.5 [pH] Normal 5.0-7.5 [facility] Work Phone: Comment on above: PATIENT NOT FASTINGP ERFORMED BY: MAXI [facility] Lguwfg0174 [address] [facility] [id number] Information: ADD K54033 pH Test strip (U) 6.5 [pH] Normal 5.0-7.5 Compreh ensive Internal Medicine Work Phone: Protein Ql (U) Negative Normal Comprehens [facility] Work Phone: Comment on above: PATIENT NOT FASTINGP ERFORMED BY: CB [facility] Kzdiaa7193 [address]ary RoadCone Healthin [place] [id number] Information: ADD I29231 Protein Ql (U) Negative Normal Comprehens [facility]; [facility] Work Phone: Comment on above: PATIENT NOT FASTINGP ERFORMED BY: CB [facility] Nnehyu4312 [address] [facility] [id number] Information: ADD T17715 Protein Test strip Ql (U) Negative Normal [facility] Work Phone: Specific gravity Relative Density (U) 1.023 1 Normal 1.005-1.03 0 [facility] Work Phone: Comment on above: PATIENT NOT FASTINGP ERFORMED BY: CB [facility] Qbhtmt1850 [facility]oudhary RoadOnslow [facility] [id number] Information: ADD C20748 Urobilinogen (U) [Mass/Vol] 0.2 mg/dL Normal 0.0-1.9 [facility]; [facility] Work Phone: Comment on above: PATIENT NOT FASTINGP ERFORMED BY: CB [facility] Vpkwuh5799 [address] [facility] [id number] Information: ADD G82856 Urobilinogen Test strip mass conc (U) 0.2 mg/dL Normal 0.0-1.9 Comprehensiv e Internal Medicine Work Phone: Comment on above: PATIENT NOT FASTINGP ERFORMED BY: CB [facility] Tqhevh0426 [address] [facility] [id number] Information: ADD W71566 CBCMDOrdered By: Vivian avina on 03-31-2012 Erythrocyte distribution width Auto Ratio (RBC) 12.6 % Normal 11.6-14.6 [facility] Work Phone: Erythrocyte distribution width Ratio (RBC) 12.6 % Normal 11.6-14.6 [facility] Work Phone: Hematocrit Auto Volume Fraction (Bld) 43.8 % Normal 37-47 Comprehens [facility] Work Phone: Hematocrit Volume Fraction (Bld) 43.8 % Normal 37-47 [facility] Work Phone: Hemoglobin mass conc (Bld) 14.6 g/dL Normal 12.0-15.0 [facility] Internal Medicine Work Phone: MCH Auto Entitic mass (RBC) 29.3 pg Normal 27.0-32.0 [facility] Work Phone: MCH Entitic mass (RBC) 29.3 pg Normal 27.0-32.0 [facility] Internal Medicine Work Phone: MCHC Auto mass conc (RBC) 33.3 g/dL Normal 32-36 [facility] Internal Medicine Work Phone: MCHC mass conc (RBC) 33.3 g/dL Normal 32-36 [facility] Internal Medicine Work Phone: MCV Auto Entitic volume (RBC) 87.8 fL Normal 81-99 [facility] Internal Medicine Work Phone: MCV Entitic volume (RBC) 87.8 fL Normal 81-99 [facility] Internal Medicine Work Phone: Platelet mean volume Auto Entitic volume (Bld) 10.7 fL Normal 6.2-12.0 [facility] Internal Medicine Work Phone: Platelet mean volume Entitic volume (Bld) 10.7 fL Normal 6.2-12.0 Comprehensi Internal Medicine Work Phone: Platelets #/vol (Bld) 162 10*3/uL Normal 150-450 [facility] centerensive [facility] Medicine Work Phone: Platelets Auto #/vol (Bld) 162 10*3/uL Normal 150-450 [facility] Work Phone: RBC #/vol (Bld) 4.99 {M/mm3} Normal 4.2-5.4 Compreh ensive Internal Medicine Work Phone: RBC Auto #/vol (Bld) 4.99 {M/mm3} Normal 4.2-5.4 [facility] centerensive [facility] Work Phone: WBC #/vol (Bld) 7.4 {k/mm3} Normal 4.4-11.0 Comprehe nsive Internal Medicine Work Phone: WBC Auto #/vol (Bld) 7.4 {k/mm3} Normal 4.4-11.0 Com prehensive Internal Medicine Work Phone: CBCMD 5.4 3/uL Normal 2.0-7.7 [facility] Work Phone: CBCMD 0.000 3/ul Normal 0.0-0.0 [facility] Work Phone: CBCMD 0.00 % Normal 0.0-0.0 [facility] Work Phone: CBCMD 0.3 % Normal 0-1 [facility] Work Phone: CBCMD 1.8 % Normal 0-5 [facility] Work Phone: CBCMD 5.4 % Normal 0-10 [facility] Work Phone: CBCMD 20.1 % Normal 19-41 [facility] Work Phone: CBCMD 72.4 % Abnormal 47-70 [facility] Work Phone: CBCMD 39.8 fL Normal 35.1-43.9 [facility] Work Phone: CMPOrdered By: System Manage r on 03-31-2012 Albumin mass conc 3.7 g/dL Normal 3.4-5.0 Compreh ensive Internal Medicine Work Phone: Albumin/Globulin mass ratio 1.1 {RATIO} Normal 0.9-2.4 [facility] Work Phone: ALP enzyme act/vol 68 U/L Normal 50-136 Compre hensive Internal Medicine Work Phone: ALT enzyme act/vol 28 U/L Normal 12-78 Compre hensive Internal Medicine Work Phone: Anion gap 3 molar conc 9 mmol/L Normal 5-15 [facility] Work Phone: Anion gap molar conc 9 mmol/L Normal 5-15 [facility] Work Phone: AST enzyme act/vol 18 U/L Normal 15-37 [facility]pre hens[facility] Work Phone: Bilirubin mass conc 0.30 mg/dL Normal 0.00-1.00 Compr ehens[facility] Work Phone: Calcium mass conc 8.7 mg/dL Normal 8.5-10.1 [facility]preh ens[facility] Work Phone: Chloride molar conc 104 mmol/L Normal 98-107 Compr ehens[facility] Work Phone: CO2 molar conc 29.0 mmol/L Normal 21.0-32.0 Comprehen s[facility] Work Phone: Creatinine mass conc 1.0 mg/dL Normal 0.6-1.0 [facility] Work Phone: GFR/1.73 sq M predicted among blacks MDRD vol rate/area (S/P/Bld) 75 mL/min/{1.73_m2} Normal Comprehe ns[facility] Work Phone: GFR/1.73 sq M.predicted MDRD vol rate/area 62 mL/min/{1.73_m2} Normal Comprehensiv e [facility] Work Phone: Globulin Calculated mass conc (S) 3.5 g/dL Normal 2.7-4.2 [facility] Work Phone: Globulin mass conc (S) 3.5 g/dL Normal 2.7-4.2 [facility] Work Phone: Glucose mass conc 91 mg/dL Normal 70-110 Compre[facility] ens[facility] Work Phone: Potassium molar conc 4.3 mmol/L Normal 3.5-5.1 [facility] Work Phone: Protein mass conc 7.2 g/dL Normal 6.4-8.2 [facility] ens[facility] Work Phone: Sodium molar conc 142 mmol/L Normal 136-145 [facility] ens[facility] Work Phone: Urea nitrogen mass conc 22 mg/dL Abnormal 7-18 [facility] Work Phone: Urea nitrogen/Creatinine mass ratio 22.0 {RATIO} Abnormal 10-20 [facility] Work Phone: LIPIDOrdered By: System Judy avina on 03-31-2012 Cholesterol in HDL mass conc 43 mg/dL Normal [facility] Work Phone: Comment on above: Reference Range HDL <40 mg/dL Low HDL Cholesterol HDL >or= 60 mg/dL High HDL Cholesterol Cholesterol in LDL mass conc 133 mg/dL Abnormal 0-130 [facility] Work Phone: Cholesterol in VLDL mass conc 20 mg/dL Normal 5-40 [facility] Work Phone: Cholesterol mass conc 196 mg/dL Normal [facility] Work Phone: Comment on above: <200 mg/dL Desirable 200-240 mg/dL Borderline >240 mg/dL High Risk Triglyceride mass conc 99 mg/dL Normal [facility] Work Phone: Comment on above: Serum Triglycerides Reference Interval Normal <150 mg/dL Borderline high 150 - 199 mg/dL High 200 - 499 mg/dL Very High > or = 500 mg/dL MIACREOrdered By: System Rl osborn on 03-31-2012 Creatinine mass conc 11.5 {mg/g_CRE} Normal [facility] Work Phone: MIACRE 16.7 mg/L Normal [facility] Work Phone: MIACRE 145.2 mg/dL Normal [facility] Work Phone: TSHOrdered By: System Flixpress r on 03-31-2012 Thyrotropin Qn 1.37 {uIU/mL} Normal 0.358-3.74 Compre[facility] ens[facility] Work Phone: UACOrdered By: Enkia r on 03-31-2012 RBC #/vol (U) 0 SEEN Normal 0-5 Comprehensi ve [facility] Work Phone: WBC #/vol (U) 0 SEEN Normal 0-5 Comprehensi ve [facility] Work Phone: UAC 0 SEEN Normal [facility] Work Phone: UAC 0-5 SEEN Normal 5-10 [facility] Work Phone: UAC 100 /ul Abnormal [facility] Work Phone: UAC 50 /ul Abnormal [facility] Work Phone: UAC Negative Normal [facility] Work Phone: UAC Normal Normal [facility] Work Phone: UAC 6 1 Normal 5.0 - 8.0 [facility] Work Phone: UAC 1.020 1 Normal 1.002-1.03 0 [facility] Work Phone: UAC Sl. Cloudy Normal [facility] Work Phone: UAC Yellow Normal [facility] Work Phone: CHEST, PA AND LATERALOrdered By: Office Analyst on 05-24-2011 CHEST, PA AND LATERAL See Note Normal [facility] Work Phone: Comment on above: PROCEDURE: X-RAY [facility] REASON FOR EXAM: Female, 50 years old. Cough, fever TECHNIQUE: PA and lateral views of the chest. COMPARISON: None. FINDINGS: The lungs are hyper expanded, with flattening of the hemidiaphragms.Linear scarring in the left lower lobe. No focal infiltrate. There isnodemonstrated pleural abnormality. Normal heart and pericardium. Normal mediastinum and samson. Normal visualized pulmonary arteries.Thereis atherosclerotic tortuosity of the aortic arch and descending thoracicaorta. Normal visualized thoracic spine. Normal visualized ribs, clavicles, andshoulders. There is no demonstrated abnormality of the visualized soft tissuestructures of the upper abdomen. IMPRESSION:1. No focal infiltrate or pleural effusion. 2. Hyperinflation compatible with chronic obstructive airway disease.Minimal fibrotic changes of the left lower lobe. To consult with a radiologist regarding this report, please call our [id number] line @ Dictated on 05/24/11 1444 by ANTONIA DEE MD BTranscribed on 05/25/111813 by ITS IMPORTSign by ANTONIA DEE MD on 05/25/111814 Sign by: ANTONIA DEE MD LIPIDOrdered By: System Judy avina on 05-06-2011 Cholesterol in HDL mass conc 37 mg/dL Abnormal [facility] Work Phone: Comment on above: Reference Range HDL <40 mg/dL Low HDL Cholesterol HDL >or= 60 mg/dL High HDL Cholesterol Cholesterol in LDL mass conc 120 mg/dL Normal 0-130 [facility] Work Phone: Cholesterol in VLDL mass conc 29 mg/dL Normal 5-40 [facility] Work Phone: Cholesterol mass conc 186 mg/dL Normal [facility] Work Phone: Comment on above: <200 mg/dL Desirable 200-240 mg/dL Borderline >240 mg/dL High Risk Triglyceride mass conc 146 mg/dL Normal [facility] Work Phone: Comment on above: Serum Triglycerides Reference Interval Normal <150 mg/dL Borderline high 150 - 199 mg/dL High 200 - 499 mg/dL Very High > or = 500 mg/dL L/S SPINE,MIN 4 VIEWSOrdered By: Office Analyst on 10-15-2010 L/S SPINE,MIN 4 VIEWS See Note Normal [facility] Work Phone: Comment on above: PROCEDURE: X-RAY - L UMBAR SPINE REASON FOR EXAM: Female, 49 years old. Low back pain. TECHNIQUE: Five views of the lumbar spine were obtained. COMPARISON: None FINDINGS:Normal lumbar lordosis. There is no substantial scoliosis. Normal lumbar vertebrae. There is mild disk space narrowing with endplate spondylosis at the L3 --L4 and L4 -- L5 levels. No evidence of spondylolysis orspondylolisthesis.The facet joints are unremarkable. No other mass is seen of thesacroiliac joints, sacrum or coccyx. The soft tissue structures are unremarkable. IMPRESSION:Mild degenerative disk disease. Dictated on 10/15/101553 by PHOEBE MENDOZA DOTranscribed on 10/15/102031 by ITS IMPORTSign by PHOEBE MENDOZA DO on 10/15/102032 Sign by: KELLY SPANGLERPHOEBE Vital Signs Date Time Vital Sign Value Performing Clinician Facility 06-20-2024 10:19-0400 Body height 172.7 cm Amber Roberson MD Work Phone: [facility] 06-20-2024 10:19-0400 Body mass index (BMI) [Ratio] 24.77 kg/m2 Amber Roberson MD Work Phone: [facility] 06-20-2024 10:19-0400 Body temperature 97 [degF] Amber Roberson MD Work Phone: [facility] 06-20-2024 10:19-0400 Body weight 73.9 kg Amber Roberson MD Work Phone: [facility] 06-20-2024 10:19-0400 Diastolic blood pressure 80 mm[Hg] Amber Roberson MD Work Phone: [facility] 06-20-2024 10:19-0400 Heart rate 68 /min Amber Roberson MD Work Phone: [facility] 06-20-2024 10:19-0400 SaO2% (BldA) [Mass fraction] 98 % Amber Roberson MD Work Phone: [facility] 06-20-2024 10:19-0400 Systolic blood pressure 131 mm[Hg] Amber Roberson MD Work Phone: [facility] 12-21-2023 10:33-0400 Body height 172.7 cm Amber Roberson MD Work Phone: [facility] 12-21-2023 10:33-0400 Body mass index (BMI) [Ratio] 25.24 kg/m2 Amber Roberson MD Work Phone: [facility] 12-21-2023 10:33-0400 Body temperature 98.1 [degF] Amber Roberson MD Work Phone: [facility] 12-21-2023 10:33-0400 Body weight 75.3 kg Amber Roberson MD Work Phone: [facility] 12-21-2023 10:33-0400 Diastolic blood pressure 85 mm[Hg] Amber Roberson MD Work Phone: [facility] 12-21-2023 10:33-0400 Heart rate 65 /min Amber Roberson MD Work Phone: [facility] 12-21-2023 10:33-0400 SaO2% (BldA) [Mass fraction] 100 % Amber Roberson MD Work Phone: [facility] 12-21-2023 10:33-0400 Systolic blood pressure 132 mm[Hg] Amber Roberson MD Work Phone: [facility] 06-16-2023 16:17-0400 Body temperature 97.2 [degF] [facility] 06-16-2023 16:17-0400 Diastolic blood pressure 88 mm[Hg] [facility] 06-16-2023 16:17-0400 Heart rate 66 /min [facility] 06-16-2023 16:17-0400 Respiratory rate 18 /min [facility] 06-16-2023 16:17-0400 SaO2% (BldA) [Mass fraction] 99 % [facility] 06-16-2023 16:17-0400 Systolic blood pressure 123 mm[Hg] [facility] 06-16-2023 15:27-0400 Body height 172.72 cm [facility] 11-24-2022 10:40-0400 Body height 172.7 cm Amber Roberson MD Work Phone: [facility] 11-24-2022 10:40-0400 Body temperature 97 [degF] Amber Roberson MD Work Phone: [facility] 11-24-2022 10:40-0400 Body weight 72.67 kg Amber Roberson MD Work Phone: [facility] 11-24-2022 10:40-0400 Diastolic blood pressure 76 mm[Hg] Amber Roberson MD Work Phone: [facility] 11-24-2022 10:40-0400 Heart rate 54 /min Amber Roberson MD Work Phone: [facility] 11-24-2022 10:40-0400 SaO2% (BldA) [Mass fraction] 98 % Amber Roberson MD Work Phone: [facility] 11-24-2022 10:40-0400 Systolic blood pressure 114 mm[Hg] Amber Roebrson MD Work Phone: [facility] 08-10-2022 13:55-0400 Body height 172.72 cm [facility]; [facility] Work Phone: 08-10-2022 13:55-0400 Body mass index (BMI) [Ratio] 24.94 kg/m2 [facility]; [facility] Work Phone: 08-10-2022 13:55-0400 Body surface area Derived from formula 1.88 m2 [facility]; [facility] Work Phone: 08-10-2022 13:55-0400 Body temperature 97.7 [degF] [facility]; [facility] Work Phone: 08-10-2022 13:55-0400 Body weight 74.39 kg [facility]; [facility] Work Phone: 08-10-2022 13:55-0400 Diastolic blood pressure 60 mm[Hg] [facility]; [facility] Work Phone: 08-10-2022 13:55-0400 Heart rate 66 /min [facility]; [facility] Work Phone: 08-10-2022 13:55-0400 Respiratory rate 18 /min [facility]; [facility] Work Phone: 08-10-2022 13:55-0400 SaO2% (BldA) [Mass fraction] 97 % [facility]; [facility] Work Phone: 08-10-2022 13:55-0400 Systolic blood pressure 110 mm[Hg] Baron Perry [facility]; [facility] Work Phone: 05-19-2022 10:45-0500 Body temperature 97.11 [degF] Amber Roberson MD Work Phone: [facility] 05-19-2022 10:45-0500 Body weight 72.58 kg Amber Roberson MD Work Phone: [facility] 05-19-2022 10:45-0500 Diastolic blood pressure 76 mm[Hg] Amber Roberson MD Work Phone: [facility] 05-19-2022 10:45-0500 Heart rate 71 /min Amber Roberson MD Work Phone: [facility] 05-19-2022 10:45-0500 SaO2% (BldA) [Mass fraction] 98 % Amber Roberson MD Work Phone: [facility] 05-19-2022 10:45-0500 Systolic blood pressure 112 mm[Hg] Amber Roberson MD Work Phone: [facility] 02-02-2022 14:58-0500 Body height 172.72 cm [facility]; [facility] Work Phone: 02-02-2022 14:58-0500 Body mass index (BMI) [Ratio] 23.91 kg/m2 [facility]; [facility] Work Phone: 02-02-2022 14:58-0500 Body surface area Derived from formula 1.85 m2 [facility]; [facility] Work Phone: 02-02-2022 14:58-0500 Body temperature 96.9 [degF] [facility]; [facility] Work Phone: 02-02-2022 14:58-0500 Body weight 71.33 kg [facility]; [facility] Work Phone: 02-02-2022 14:58-0500 Diastolic blood pressure 80 mm[Hg] [facility]; [facility] Work Phone: 02-02-2022 14:58-0500 Heart rate 73 /min [facility]; [facility] Work Phone: 02-02-2022 14:58-0500 Respiratory rate 16 /min [facility]; [facility] Work Phone: 02-02-2022 14:58-0500 SaO2% (BldA) [Mass fraction] 96 % [facility]; [facility] Work Phone: 02-02-2022 14:58-0500 Systolic blood pressure 122 mm[Hg] [facility]; [facility] Work Phone: 10-21-2021 13:14-0400 Body temperature 97.2 [degF] Amber Roberson MD Work Phone: [facility] 10-21-2021 13:14-0400 Body weight 72.58 kg Amber Roberson MD Work Phone: [facility] 10-21-2021 13:14-0400 Diastolic blood pressure 84 mm[Hg] Amber Roberson MD Work Phone: [facility] 10-21-2021 13:14-0400 Heart rate 57 /min Amber Roberson MD Work Phone: [facility] 10-21-2021 13:14-0400 SaO2% (BldA) [Mass fraction] 100 % Amber Roberson MD Work Phone: [facility] 10-21-2021 13:14-0400 Systolic blood pressure 139 mm[Hg] Amber Roberson MD Work Phone: [facility] 07-05-2021 14:32-0400 Body height 172.72 cm Chanel Jimenez LPN [facility]; [facility] Work Phone: 07-05-2021 14:32-0400 Body mass index (BMI) [Ratio] 24.69 kg/m2 Chanel Barbara CLINICAL PATHOLOGIST [facility]; [facility] Work Phone: 07-05-2021 14:32-0400 Body surface area Derived from formula 1.87 m2 Chanel Jimenez LPN [facility]; [facility] Work Phone: 07-05-2021 14:32-0400 Body temperature 97 [degF] Chanel Jimenez LPN [facility]; [facility] Work Phone: 07-05-2021 14:32-0400 Body weight 73.65 kg Chanel Jimenez LPN [facility]; [facility] Work Phone: 07-05-2021 14:32-0400 Diastolic blood pressure 80 mm[Hg] Chanel Jimenez LPN [facility]; [facility] Work Phone: Comment on above: Patient Position: Sitting; Cuff Location : Left Arm; Cuff Size: Standard 07-05-2021 14:32-0400 Heart rate 60 /min Chanel Jimenez LPN [facility]; [facility] Work Phone: Comment on above: Pattern: Regular 07-05-2021 14:32-0400 Respiratory rate 16 /min Chanel Jimenez LPN [facility]; [facility] Work Phone: Comment on above: Pattern: Unlabored 07-05-2021 14:32-0400 SaO2% (BldA) [Mass fraction] 98 % Chanel Jimenez MILLY [facility]; [facility] Work Phone: Comment on above: Room air 07-05-2021 14:32-0400 Systolic blood pressure 122 mm[Hg] Chanel Jimenez LPN [facility]; [facility] Work Phone: Comment on above: Patient Position: Sitting; Cuff Location : Left Arm; Cuff Size: Standard 01-01-2021 14:39-0400 Body height 172.72 cm Ciara Scott MA [facility]; [facility] Work Phone: 01-01-2021 14:39-0400 Body mass index (BMI) [Ratio] 24.37 kg/m2 Ciara Scott MA [facility]; [facility] Work Phone: 01-01-2021 14:39-0400 Body surface area Derived from formula 1.86 m2 Ciara Scott MA [facility]; [facility] Work Phone: 01-01-2021 14:39-0400 Body temperature 97.1 [degF] Ciara Scott MA [facility]; [facility] Work Phone: Comment on above: Method: Temporal 01-01-2021 14:39-0400 Body weight 72.69 kg Ciara Scott MA [facility]; [facility] Work Phone: 01-01-2021 14:39-0400 Diastolic blood pressure 79 mm[Hg] Ciara Scott MA [facility]; [facility] Work Phone: Comment on above: Patient Position: Sitting; Cuff Location : Left Arm; Cuff Size: Standard 01-01-2021 14:39-0400 Heart rate 61 /min Ciara Scott MA [facility]; [facility] Work Phone: Comment on above: Pattern: Regular 01-01-2021 14:39-0400 Respiratory rate 17 /min Ciara Scott MA [facility]; [facility] Work Phone: Comment on above: Pattern: Unlabored 01-01-2021 14:39-0400 SaO2% (BldA) [Mass fraction] 98 % Ciara Scott MA [facility]; [facility] Work Phone: Comment on above: Room air 01-01-2021 14:39-0400 Systolic blood pressure 121 mm[Hg] Ciara Scott MA [facility]; [facility] Work Phone: Comment on above: Patient Position: Sitting; Cuff Location : Left Arm; Cuff Size: Standard 07-20-2020 09:05-0400 Body height 172.72 cm Carol Coker DO Work Phone: [facility]; [facility] Work Phone: Comment on above: virtual visit 07-20-2020 09:05-0400 Body mass index (BMI) [Ratio] 24.37 kg/m2 Carol Lazoon DO Work Phone: [facility]; [facility] Work Phone: Comment on above: virtual visit 07-20-2020 09:05-0400 Body surface area Derived from formula 1.86 m2 Carol Coker DO Work Phone: [facility]; [facility] Work Phone: Comment on above: virtual visit 07-20-2020 09:05-0400 Body weight 72.69 kg Carol Coker DO Work Phone: [facility]; [facility] Work Phone: Comment on above: virtual visit 07-20-2020 09:05-0400 Diastolic blood pressure 80 mm[Hg] Carol Coker DO Work Phone: [facility]; [facility] Work Phone: Comment on above: Patient Position: Sitting virtual visit 07-20-2020 09:05-0400 Heart rate 80 /min Carol Coker DO Work Phone: [facility]; [facility] Work Phone: Comment on above: Pattern: Regular virtual visit 07-20-2020 09:05-0400 Systolic blood pressure 122 mm[Hg] Carol Coker DO Work Phone: [facility]; [facility] Work Phone: Comment on above: Patient Position: Sitting virtual visit 06-24-2020 11:05-0400 BMI (Body Mass Index) 24.82 kg/m2 Carol Montielens [facility]; [facility] Work Phone: 06-24-2020 11:05-0400 BMI (Body Mass Index) 24.37 kg/m2 Lalitha Mcdonnell [facility]; [facility] Work Phone: 06-24-2020 11:05-0400 Body Temperature 97.1 [degF] Lalitha Mcdonnell [facility]; [facility] Work Phone: Comment on above: Method: Thermal Scan 06-24-2020 11:05-0400 Body weight 74.05 kg Carol Coker [facility]; [facility] Work Phone: 06-24-2020 11:05-0400 Body weight 72.69 kg Lalitha Mcdonnell [facility]; [facility] Work Phone: 06-24-2020 11:05-0400 BP Diastolic 68 mm[Hg] Lalitha Mcdonnell [facility]; [facility] Work Phone: Comment on above: Patient Position: Sitting; Cuff Location : Left Arm; Cuff Size: Standard 06-24-2020 11:05-0400 BP Systolic 120 mm[Hg] Lalitha Mcdonnell [facility]; [facility] Work Phone: Comment on above: Patient Position: Sitting; Cuff Location : Left Arm; Cuff Size: Standard 06-24-2020 11:05-0400 BSA (Body Surface Area) 1.88 m2 Carol Coker [facility]; [facility] Work Phone: 06-24-2020 11:05-0400 BSA (Body Surface Area) 1.86 m2 Lalitha Mcdonnell [facility]; [facility] Work Phone: 06-24-2020 11:05-0400 Height 172.72 cm Lalitha Mcdonnell [facility]; [facility] Work Phone: 06-24-2020 11:05-0400 Pulse (Heart Rate) 59 /min Lalitha Mcdonnell [facility]; [facility] Work Phone: Comment on above: Pattern: Regular 06-24-2020 11:05-0400 Pulse Oximetry 99 % Carol Coker [facility]; [facility] Work Phone: Comment on above: Room air 06-24-2020 11:05-0400 Respiratory Rate 16 /min Lalitha Mcdonnell [facility]; [facility] Work Phone: Comment on above: Pattern: Unlabored 06-24-2020 11:05-0400 SaO2% (BldA) [Mass fraction] 99 % Lalitha Mcdonnell [facility]; [facility] Work Phone: Comment on above: Room air 12-04-2019 15:07-0400 BMI (Body Mass Index) 24.82 kg/m2 Chanelkelvin Jimenez CLINICAL PATHOLOGIST Comprehe nsive Internal Medicine Work Phone: 12-04-2019 15:07-0400 Body Temperature 98 [degF] Chanel Jimenez CLINICAL PATHOLOGIST [facility] Work Phone: Comment on above: Method: Temporal 12-04-2019 [id number] Body weight 74.05 kg Chanel Jimenez CLINICAL PATHOLOGIST [facility] Work Phone: 12-04-2019 15:07-0400 BP Diastolic 78 mm[Hg] Chanelkelvin Jimenez CLINICAL PATHOLOGIST [facility] Work Phone: Comment on above: Patient Position: Sitting; Cuff Location : Left Arm; Cuff Size: Standard 12-04-2019 15:07-0400 BP Systolic 118 mm[Hg] Chanel Jimenez CLINICAL PATHOLOGIST [facility] Work Phone: Comment on above: Patient Position: Sitting; Cuff Location : Left Arm; Cuff Size: Standard 12-04-2019 15:07-0400 BSA (Body Surface Area) 1.88 m2 Chanel Jimenez CLINICAL PATHOLOGIST [facility] Work Phone: 12-04-2019 15:07-0400 Height 172.72 cm Chanelkelvin Jimenez CLINICAL PATHOLOGIST [facility] Work Phone: 12-04-2019 15:07-0400 Pulse (Heart Rate) 63 /min Chanelkelvin Jimenez CLINICAL PATHOLOGIST Comprehensi Internal Medicine Work Phone: Comment on above: Pattern: Regular 12-04-2019 15:07-0400 Pulse Oximetry 97 % Carol Sheela [facility] Work Phone: Comment on above: Room air 12-04-2019 15:07-0400 Respiratory Rate 16 /min Chanelkelvin Jimenez CLINICAL PATHOLOGIST [facility] Work Phone: Comment on above: Pattern: Unlabored 12-04-2019 15:07-0400 SaO2% (BldA) [Mass fraction] 97 % Chanel Jimenez LPN [facility]; [facility] Work Phone: Comment on above: Room air 05-27-2019 13:45-0400 BMI (Body Mass Index) 25.61 kg/m2 Hanna Braden [facility] Work Phone: 05-27-2019 13:45-0400 Body Temperature 96.2 [degF] Hanna Braden [facility] Work Phone: Comment on above: Method: Temporal 05-27-2019 13:45-0400 Body weight 76.4 kg Hanna Braden [facility] Work Phone: 05-27-2019 13:45-0400 BP Diastolic 70 mm[Hg] Hanna Braden [facility] Work Phone: Comment on above: Patient Position: Sitting; Cuff Location : Left Arm; Cuff Size: Standard 05-27-2019 13:45-0400 BP Systolic 108 mm[Hg] Hanna Braden [facility] Work Phone: Comment on above: Patient Position: Sitting; Cuff Location : Left Arm; Cuff Size: Standard 05-27-2019 13:45-0400 BSA (Body Surface Area) 1.9 m2 Hanna Braden [facility] Work Phone: 05-27-2019 13:45-0400 Height 172.72 cm Hanna Braden [facility] Work Phone: 05-27-2019 13:45-0400 Pulse (Heart Rate) 79 /min Hanna Braden [facility] Work Phone: Comment on above: Pattern: Regular 05-27-2019 13:45-0400 Pulse Oximetry 98 % Carol Coker [facility] Work Phone: Comment on above: Room air 05-27-2019 13:45-0400 Respiratory Rate 16 /min Hanna Braden [facility] Work Phone: Comment on above: Pattern: Unlabored 05-27-2019 13:45-0400 SaO2% (BldA) [Mass fraction] 98 % Hanna Braden CMA [facility]; [facility] Work Phone: Comment on above: Room air 11-23-2018 14:00-0400 BMI (Body Mass Index) 25.61 kg/m2 Karina Tam RN [facility] Work Phone: 11-23-2018 14:00-0400 Body weight 76.4 kg Karina Tam RN [facility] Work Phone: 11-23-2018 14:00-0400 BP Diastolic 78 mm[Hg] Karina Tam RN [facility] Work Phone: Comment on above: Patient Position: Sitting; Cuff Location : Left Arm; Cuff Size: Standard 11-23-2018 14:00-0400 BP Systolic 128 mm[Hg] Karina Tam RN [facility] Work Phone: Comment on above: Patient Position: Sitting; Cuff Location : Left Arm; Cuff Size: Standard 11-23-2018 14:00-0400 BSA (Body Surface Area) 1.9 m2 Karina Tam RN [facility] Work Phone: 11-23-2018 14:00-0400 Height 172.72 cm Karina Tam RN [facility] Work Phone: 11-23-2018 14:00-0400 Pulse (Heart Rate) 67 /min Karina Tam RN [facility] Work Phone: Comment on above: Pattern: Regular 11-23-2018 14:00-0400 Pulse Oximetry 98 % Carol Sheela [facility] Work Phone: Comment on above: Room air 11-23-2018 14:00-0400 Respiratory Rate 18 /min Karina Tam RN [facility] Work Phone: Comment on above: Pattern: Unlabored 11-23-2018 14:00-0400 SaO2% (BldA) [Mass fraction] 98 % Karina Tam RN [facility]; [facility] Work Phone: Comment on above: Room air 05-16-2018 15:11-0500 BMI (Body Mass Index) 26.01 kg/m2 Renaldo Landon LPN [facility] Work Phone: 05-16-2018 15:11-0500 Body weight 77.59 kg Renaldo Landon LPN [facility] Work Phone: 05-16-2018 15:11-0500 BP Diastolic 74 mm[Hg] Renaldo Landon LPN [facility] Work Phone: Comment on above: Patient Position: Sitting; Cuff Location : Left Arm; Cuff Size: Standard 05-16-2018 15:11-0500 BP Systolic 132 mm[Hg] Renaldo Landon LPN [facility] Work Phone: Comment on above: Patient Position: Sitting; Cuff Location : Left Arm; Cuff Size: Standard 05-16-2018 15:11-0500 BSA (Body Surface Area) 1.91 m2 Renaldo Landon LPN [facility] Work Phone: 05-16-2018 15:11-0500 Height 172.72 cm Renaldo Landon LPN [facility] Work Phone: 05-16-2018 15:11-0500 Pulse (Heart Rate) 56 /min Renaldo Landon LPN [facility] Work Phone: Comment on above: Pattern: Regular 05-16-2018 15:11-0500 Pulse Oximetry 99 % Carol Coker [facility] Work Phone: Comment on above: Room air 05-16-2018 15:11-0500 Respiratory Rate 18 /min Renaldo Landon LPN [facility] Work Phone: Comment on above: Pattern: Unlabored 05-16-2018 15:11-0500 SaO2% (BldA) [Mass fraction] 99 % Renaldo Landon LPN [facility]; [facility] Work Phone: Comment on above: Room air 05-16-2018 15:11-0500 Weight 77.59 kg Carol Sheela [facility] Work Phone: 04-08-2016 11:08-0500 BMI (Body Mass Index) 27.41 kg/m2 Karina Tam RN [facility] Work Phone: 04-08-2016 11:08-0500 Body Temperature 97 [degF] Karina Tam RN [facility] Work Phone: Comment on above: Method: Temporal 04-08-2016 11:08-0500 Body weight 81.76 kg Karina Tam RN [facility] Work Phone: 04-08-2016 11:08-0500 BP Diastolic 82 mm[Hg] Karina Tam RN [facility] Work Phone: Comment on above: Patient Position: Sitting; Cuff Location : Left Arm; Cuff Size: Large 04-08-2016 11:08-0500 BP Systolic 122 mm[Hg] Karina Tam RN [facility] Work Phone: Comment on above: Patient Position: Sitting; Cuff Location : Left Arm; Cuff Size: Large 04-08-2016 11:08-0500 BSA (Body Surface Area) 1.96 m2 Karina Tam RN [facility] Work Phone: 04-08-2016 11:08-0500 Height 172.72 cm Karina Tam RN [facility] Work Phone: 04-08-2016 11:08-0500 Pulse (Heart Rate) 89 /min Karina Tam RN [facility] Work Phone: Comment on above: Pattern: Regular 04-08-2016 11:08-0500 Pulse Oximetry 95 % Carol Lazoon [facility] Work Phone: Comment on above: Room air 04-08-2016 11:08-0500 Respiratory Rate 18 /min Karina Tam RN [facility] Work Phone: Comment on above: Pattern: Unlabored 04-08-2016 11:08-0500 SaO2% (BldA) [Mass fraction] 95 % Karina Tam RN [facility]; [facility] Work Phone: Comment on above: Room air 04-08-2016 11:08-0500 Weight 81.76 kg Carol Lazoon [facility] Work Phone: 02-29-2016 15:00-0500 BMI (Body Mass Index) 27.41 kg/m2 Karina Tam RN [facility] Work Phone: 02-29-2016 15:00-0500 Body weight 81.76 kg Karina Tam RN [facility] Work Phone: 02-29-2016 15:00-0500 BP Diastolic 88 mm[Hg] Karina Tam RN [facility] Work Phone: Comment on above: Patient Position: Sitting; Cuff Location : Left Arm; Cuff Size: Standard 02-29-2016 15:00-0500 BP Systolic 128 mm[Hg] Karina Tam RN [facility] Work Phone: Comment on above: Patient Position: Sitting; Cuff Location : Left Arm; Cuff Size: Standard 02-29-2016 15:00-0500 BSA (Body Surface Area) 1.96 m2 Karina Tam RN [facility] Work Phone: 02-29-2016 15:00-0500 Height 172.72 cm Karina Tam RN [facility] Work Phone: 02-29-2016 15:00-0500 Pulse (Heart Rate) 60 /min Karina Tam RN [facility] Work Phone: Comment on above: Pattern: Regular 02-29-2016 15:00-0500 Pulse Oximetry 98 % Carol Coker [facility] Work Phone: Comment on above: Room air 02-29-2016 15:00-0500 Respiratory Rate 18 /min Karina Tam RN [facility] Work Phone: Comment on above: Pattern: Unlabored 02-29-2016 15:00-0500 SaO2% (BldA) [Mass fraction] 98 % Karina Tam RN [facility]; [facility] Work Phone: Comment on above: Room air 02-29-2016 15:00-0500 Weight 81.76 kg Carol Sheela [facility] Work Phone: 01-22-2016 14:05-0500 BMI (Body Mass Index) 28.03 kg/m2 Karina Tam RN [facility] Work Phone: 01-22-2016 14:05-0500 Body weight 83.63 kg Karina Tam RN [facility] Work Phone: 01-22-2016 14:05-0500 BP Diastolic 82 mm[Hg] Karina Tam RN [facility] Work Phone: Comment on above: Patient Position: Sitting; Cuff Location : Left Arm; Cuff Size: Large 01-22-2016 14:05-0500 BP Systolic 118 mm[Hg] Karina Tam RN [facility] Work Phone: Comment on above: Patient Position: Sitting; Cuff Location : Left Arm; Cuff Size: Large 01-22-2016 14:05-0500 BSA (Body Surface Area) 1.97 m2 Karina Tam RN [facility] Work Phone: 01-22-2016 14:05-0500 Height 172.72 cm Karina Tam RN [facility] Work Phone: 01-22-2016 14:05-0500 Pulse (Heart Rate) 76 /min Karina Tam RN [facility] Work Phone: Comment on above: Pattern: Regular 01-22-2016 14:05-0500 Pulse Oximetry 97 % Carolalessio Coker [facility] Work Phone: Comment on above: Room air 01-22-2016 14:05-0500 Respiratory Rate 18 /min Karina Tam RN [facility] Work Phone: Comment on above: Pattern: Unlabored 01-22-2016 14:05-0500 SaO2% (BldA) [Mass fraction] 97 % Karina Tam RN [facility]; [facility] Work Phone: Comment on above: Room air 01-22-2016 14:05-0500 Weight 83.63 kg Carol Sheela [facility] Work Phone: 05-26-2015 13:55-0400 BMI (Body Mass Index) 27.06 kg/m2 TRINA Shah LPN [facility] Work Phone: 05-26-2015 13:55-0400 Body Temperature 97.6 [degF] TRINA Shah LPN [facility] Work Phone: Comment on above: Method: Temporal 05-26-2015 13:55-0400 Body weight 80.74 kg TRINA Shah LPN [facility] Work Phone: 05-26-2015 13:55-0400 BP Diastolic 80 mm[Hg] TRINA Shah LPN [facility] Work Phone: Comment on above: Patient Position: Sitting; Cuff Location : Left Arm; Cuff Size: Standard 05-26-2015 13:55-0400 BP Systolic 120 mm[Hg] TRINA Shah LPN [facility] Work Phone: Comment on above: Patient Position: Sitting; Cuff Location : Left Arm; Cuff Size: Standard 05-26-2015 13:55-0400 BSA (Body Surface Area) 1.95 m2 TRINA Shah LPN [facility] Work Phone: 05-26-2015 13:55-0400 Height 172.72 cm TRINA Shah LPN [facility] Work Phone: 05-26-2015 13:55-0400 Pulse (Heart Rate) 74 /min TRINA Shah LPN [facility] Work Phone: Comment on above: Pattern: Regular 05-26-2015 13:55-0400 Pulse Oximetry 97 % Carol Coker [facility] Work Phone: Comment on above: Room air 05-26-2015 13:55-0400 Respiratory Rate 18 /min TRINA Shah LPN [facility] Work Phone: Comment on above: Pattern: Unlabored 05-26-2015 13:55-0400 SaO2% (BldA) [Mass fraction] 97 % TRINA Shah LPN [facility]; [facility] Work Phone: Comment on above: Room air 05-26-2015 13:55-0400 Weight 80.74 kg Carol Coker [facility] Work Phone: 05-14-2015 08:28-0500 BMI (Body Mass Index) 27.06 kg/m2 TRINA Shah LPN [facility] Work Phone: 05-14-2015 08:28-0500 Body Temperature 97.6 [degF] TRINA Shah MILLY [facility] Work Phone: Comment on above: Method: Temporal 05-14-2015 08:28-0500 Body weight 80.74 kg TRINA Shah MILLY [facility] Work Phone: 05-14-2015 08:28-0500 BP Diastolic 80 mm[Hg] TRINA Shah MILLY [facility] Work Phone: Comment on above: Patient Position: Sitting; Cuff Location : Left Arm; Cuff Size: Standard 05-14-2015 08:28-0500 BP Systolic 120 mm[Hg] TRINA hSah MILLY [facility] Work Phone: Comment on above: Patient Position: Sitting; Cuff Location : Left Arm; Cuff Size: Standard 05-14-2015 08:28-0500 BSA (Body Surface Area) 1.95 m2 TRINA Shah MILLY [facility] Work Phone: 05-14-2015 08:28-0500 Height 172.72 cm TRINA Shah MILLY [facility] Work Phone: 05-14-2015 08:28-0500 Pulse (Heart Rate) 78 /min TRINA Shah MILLY [facility] Work Phone: Comment on above: Pattern: Regular 05-14-2015 08:28-0500 Pulse Oximetry 96 % Carol Coker [facility] Work Phone: Comment on above: Room air 05-14-2015 08:28-0500 Respiratory Rate 24 /min TRINA Shah MILLY [facility] Work Phone: Comment on above: Pattern: Wheezing 05-14-2015 08:28-0500 SaO2% (BldA) [Mass fraction] 96 % TRINA Shah MILLY [facility]; [facility] Work Phone: Comment on above: Room air 05-14-2015 08:28-0500 Weight 80.74 kg Carol Coker [facility] Work Phone: 01-23-2015 07:39-0500 BMI (Body Mass Index) 27.06 kg/m2 Michelle Hawkins LPN [facility] Work Phone: 01-23-2015 07:39-0500 Body Temperature 97.8 [degF] Michelle Slarb CLINICAL PATHOLOGIST [facility] Work Phone: 01-23-2015 07:39-0500 Body weight 80.74 kg Michelle Miteshrb CLINICAL PATHOLOGIST [facility] Work Phone: 01-23-2015 07:39-0500 BP Diastolic 78 mm[Hg] Michelle Slarb CLINICAL PATHOLOGIST [facility] Work Phone: Comment on above: Patient Position: Sitting; Cuff Location : Left Arm; Cuff Size: Standard 01-23-2015 07:39-0500 BP Systolic 118 mm[Hg] Michelle Slarb CLINICAL PATHOLOGIST [facility] Work Phone: Comment on above: Patient Position: Sitting; Cuff Location : Left Arm; Cuff Size: Standard 01-23-2015 07:39-0500 BSA (Body Surface Area) 1.95 m2 Michelle Slarb CLINICAL PATHOLOGIST [facility] Work Phone: 01-23-2015 07:39-0500 Height 172.72 cm Michelle Slarb CLINICAL PATHOLOGIST [facility] Work Phone: 01-23-2015 07:39-0500 Pulse (Heart Rate) 80 /min Michelle Miteshrb CLINICAL PATHOLOGIST [facility] Work Phone: Comment on above: Pattern: Regular 01-23-2015 07:39-0500 Pulse Oximetry 98 % Carol Coker [facility] Work Phone: Comment on above: Room air 01-23-2015 07:39-0500 Respiratory Rate 17 /min Michelle Slarb CLINICAL PATHOLOGIST [facility] Work Phone: Comment on above: Pattern: Unlabored 01-23-2015 07:39-0500 SaO2% (BldA) [Mass fraction] 98 % Michelle Slarb CLINICAL PATHOLOGIST [facility]; [facility] Work Phone: Comment on above: Room air 01-23-2015 07:39-0500 Weight 80.74 kg Carol Coker [facility] Work Phone: 01-12-2015 10:13-0500 BMI (Body Mass Index) 27.06 kg/m2 [facility]cd[facility] Work Phone: 01-12-2015 10:13-0500 Body weight 80.74 kg [facility]cd[facility] Work Phone: 01-12-2015 10:13-0500 BP Diastolic 80 mm[Hg] [facility]cd[facility] Work Phone: Comment on above: Patient Position: Sitting; Cuff Location : Left Arm; Cuff Size: Standard 01-12-2015 10:13-0500 BP Systolic 120 mm[Hg] [facility] Work Phone: Comment on above: Patient Position: Sitting; Cuff Location : Left Arm; Cuff Size: Standard 01-12-2015 10:13-0500 BSA (Body Surface Area) 1.95 m2 [facility] Work Phone: 01-12-2015 10:13-0500 Height 172.72 cm [facility] Work Phone: 01-12-2015 10:13-0500 Pulse (Heart Rate) 96 /min [facility]cd[facility] Work Phone: Comment on above: Pattern: Regular 01-12-2015 10:13-0500 Pulse Oximetry 96 % Carol Coker [facility] Work Phone: Comment on above: Room air 01-12-2015 10:13-0500 Respiratory Rate 16 /min [facility]cd[facility] Work Phone: Comment on above: Pattern: Unlabored 01-12-2015 10:13-0500 SaO2% (BldA) [Mass fraction] 96 % [facility]cd[facility]nell [facility]; [facility] Work Phone: Comment on above: Room air 01-12-2015 10:13-0500 Weight 80.74 kg Carol Coker [facility] Work Phone: 07-08-2014 09:12-0400 BMI (Body Mass Index) 27.06 kg/m2 Karina Tam RN [facility] Work Phone: 07-08-2014 09:12-0400 Body weight 80.74 kg Karina Tam RN [facility] Work Phone: 07-08-2014 09:12-0400 BP Diastolic 78 mm[Hg] Karina Tam RN [facility] Work Phone: Comment on above: Patient Position: Sitting; Cuff Location : Left Arm; Cuff Size: Large 07-08-2014 09:12-0400 BP Systolic 124 mm[Hg] Karina Tam RN [facility] Work Phone: Comment on above: Patient Position: Sitting; Cuff Location : Left Arm; Cuff Size: Large 07-08-2014 09:12-0400 BSA (Body Surface Area) 1.95 m2 Karina Tam RN [facility] Work Phone: 07-08-2014 09:12-0400 Height 172.72 cm Karina Tam RN [facility] Work Phone: 07-08-2014 09:12-0400 Pulse (Heart Rate) 83 /min Karina Tam RN [facility] Work Phone: Comment on above: Pattern: Regular 07-08-2014 09:12-0400 Pulse Oximetry 98 % Carol Lazoon [facility] Work Phone: Comment on above: Room air 07-08-2014 09:12-0400 Respiratory Rate 18 /min Karina Tam RN [facility] Work Phone: Comment on above: Pattern: Unlabored 07-08-2014 09:12-0400 SaO2% (BldA) [Mass fraction] 98 % Karina Tam RN [facility]; [facility] Work Phone: Comment on above: Room air 07-08-2014 09:12-0400 Weight 80.74 kg Carol Lazoon [facility] Work Phone: 05-08-2014 08:35-0500 BMI (Body Mass Index) 27.87 kg/m2 Karina Tam RN [facility] Work Phone: 05-08-2014 08:35-0500 Body Temperature 97.2 [degF] Karina Tam RN [facility] Work Phone: Comment on above: Method: Temporal 05-08-2014 08:35-0500 Body weight 83.15 kg Karina Tam RN [facility] Work Phone: 05-08-2014 08:35-0500 BP Diastolic 82 mm[Hg] Karina Tam RN [facility] Work Phone: Comment on above: Patient Position: Sitting; Cuff Location : Left Arm; Cuff Size: Large 05-08-2014 08:35-0500 BP Systolic 138 mm[Hg] Karina Tam RN [facility] Work Phone: Comment on above: Patient Position: Sitting; Cuff Location : Left Arm; Cuff Size: Large 05-08-2014 08:35-0500 BSA (Body Surface Area) 1.97 m2 Karina Tam RN [facility] Work Phone: 05-08-2014 08:35-0500 Height 172.72 cm Karina Tam RN [facility] Work Phone: 05-08-2014 08:35-0500 Pulse (Heart Rate) 72 /min Karina Tam RN [facility] Work Phone: Comment on above: Pattern: Regular 05-08-2014 08:35-0500 Pulse Oximetry 97 % Carol Sheela [facility] Work Phone: Comment on above: Room air 05-08-2014 08:35-0500 Respiratory Rate 18 /min Karina Tam RN [facility] Work Phone: Comment on above: Pattern: Unlabored 05-08-2014 08:35-0500 SaO2% (BldA) [Mass fraction] 97 % Karina Tam RN [facility]; [facility] Work Phone: Comment on above: Room air 05-08-2014 08:35-0500 Weight 83.15 kg Carol Lazoon [facility] Work Phone: 04-21-2014 10:39-0500 BMI (Body Mass Index) 27.87 kg/m2 Gypsy Sarmiento LPN [facility] Work Phone: 04-21-2014 10:39-0500 Body Temperature 98 [degF] Gypsy Sarmiento LPN [facility] Work Phone: Comment on above: Method: Oral 04-21-2014 10:39-0500 Body weight 83.15 kg Gypsy Sarmiento LPN [facility] Work Phone: 04-21-2014 10:39-0500 BP Diastolic 80 mm[Hg] Gypsy Sarmiento LPN [facility] Work Phone: Comment on above: Patient Position: Sitting; Cuff Location : Left Arm; Cuff Size: Standard 04-21-2014 10:39-0500 BP Systolic 124 mm[Hg] Gypsy Sarmiento LPN [facility] Work Phone: Comment on above: Patient Position: Sitting; Cuff Location : Left Arm; Cuff Size: Standard 04-21-2014 10:39-0500 BSA (Body Surface Area) 1.97 m2 Gypsy Sarmiento LPN [facility] Work Phone: 04-21-2014 10:39-0500 Height 172.72 cm Gypsy Sarmiento LPN [facility] Work Phone: 04-21-2014 10:39-0500 Pulse (Heart Rate) 76 /min Gypsy Sarmiento LPN [facility] Work Phone: Comment on above: Pattern: Regular 04-21-2014 10:39-0500 Pulse Oximetry 97 % Carol Sheela [facility] Work Phone: Comment on above: Room air 04-21-2014 10:39-0500 Respiratory Rate 16 /min Gypsy Sarmiento LPN [facility] Work Phone: 04-21-2014 10:39-0500 SaO2% (BldA) [Mass fraction] 97 % Gypsy Sarmiento LPN [facility]; [facility] Work Phone: Comment on above: Room air 04-21-2014 10:39-0500 Weight 83.15 kg Carol Coker [facility] Work Phone: 03-31-2014 08:53-0500 BMI (Body Mass Index) 27.87 kg/m2 Gypsy Sarmiento LPN [facility] Work Phone: 03-31-2014 08:53-0500 Body Temperature 97.5 [degF] Gypsy Sarmiento LPN [facility] Work Phone: Comment on above: Method: Oral 03-31-2014 08:53-0500 Body weight 83.15 kg Gypsy Sarmiento LPN [facility] Work Phone: 03-31-2014 08:53-0500 BP Diastolic 82 mm[Hg] Gypsy Sarmiento LPN [facility] Work Phone: Comment on above: Patient Position: Sitting; Cuff Location : Left Arm; Cuff Size: Standard 03-31-2014 08:53-0500 BP Systolic 128 mm[Hg] Gypsy Sarmiento LPN [facility] Work Phone: Comment on above: Patient Position: Sitting; Cuff Location : Left Arm; Cuff Size: Standard 03-31-2014 08:53-0500 BSA (Body Surface Area) 1.97 m2 Gypsy Sarmiento LPN [facility] Work Phone: 03-31-2014 08:53-0500 Height 172.72 cm Gypsy Sarmiento LPN [facility] Work Phone: 03-31-2014 08:53-0500 Pulse (Heart Rate) 78 /min Gypsy Sarmiento LPN [facility] Work Phone: Comment on above: Pattern: Regular 03-31-2014 08:53-0500 Pulse Oximetry 98 % Carol Coker [facility] Work Phone: Comment on above: Room air 03-31-2014 08:53-0500 Respiratory Rate 18 /min Gypsy Sarmiento LPN [facility] Work Phone: 03-31-2014 08:53-0500 SaO2% (BldA) [Mass fraction] 98 % Gypsy Sarmiento MILLY [facility]; [facility] Work Phone: Comment on above: Room air 03-31-2014 08:53-0500 Weight 83.15 kg Carol Coker [facility] Work Phone: 02-25-2014 14:05-0500 BMI (Body Mass Index) 27.87 kg/m2 yGpsy Sarmiento LPN [facility] Work Phone: 02-25-2014 14:05-0500 Body Temperature 97.9 [degF] Gypsy Sarmiento LPN [facility] Work Phone: Comment on above: Method: Oral 02-25-2014 14:05-0500 Body weight 83.15 kg Gypsy Sarmiento LPN [facility] Work Phone: 02-25-2014 14:05-0500 BP Diastolic 88 mm[Hg] Gypsy Sarmiento LPN [facility] Work Phone: Comment on above: Patient Position: Sitting; Cuff Location : Left Arm; Cuff Size: Standard 02-25-2014 14:05-0500 BP Systolic 146 mm[Hg] Gypsy Sarmiento LPN [facility] Work Phone: Comment on above: Patient Position: Sitting; Cuff Location : Left Arm; Cuff Size: Standard 02-25-2014 14:05-0500 BSA (Body Surface Area) 1.97 m2 Gypsy Sarmiento LPN [facility] Work Phone: 02-25-2014 14:05-0500 Height 172.72 cm Gypsy Sarmiento LPN [facility] Work Phone: 02-25-2014 14:05-0500 Pulse (Heart Rate) 88 /min Gypsy Sarmiento LPN [facility] Work Phone: Comment on above: Pattern: Regular 02-25-2014 14:05-0500 Pulse Oximetry 98 % Carol Coker [facility] Work Phone: Comment on above: Room air 02-25-2014 14:05-0500 Respiratory Rate 18 /min Gypsy Sarmiento LPN [facility] Work Phone: 02-25-2014 14:05-0500 SaO2% (BldA) [Mass fraction] 98 % Gypsy Sarmiento LPN [facility]; [facility] Work Phone: Comment on above: Room air 02-25-2014 14:05-0500 Weight 83.15 kg Carol Coker [facility] Work Phone: 02-11-2014 09:37-0500 BMI (Body Mass Index) 27.87 kg/m2 Gypsy Sarmiento LPN [facility] Work Phone: 02-11-2014 09:37-0500 Body Temperature 97.4 [degF] Gypsy Sarmiento LPN [facility] Work Phone: Comment on above: Method: Oral 02-11-2014 09:37-0500 Body weight 83.15 kg Gypsy Sarmiento LPN [facility] Work Phone: 02-11-2014 09:37-0500 BP Diastolic 82 mm[Hg] Gypsy Sarmiento LPN [facility] Work Phone: Comment on above: Patient Position: Sitting; Cuff Location : Left Arm; Cuff Size: Standard 02-11-2014 09:37-0500 BP Systolic 132 mm[Hg] Gypsy Sarmiento LPN [facility] Work Phone: Comment on above: Patient Position: Sitting; Cuff Location : Left Arm; Cuff Size: Standard 02-11-2014 09:37-0500 BSA (Body Surface Area) 1.97 m2 Gypsy Sarmiento LPN [facility] Work Phone: 02-11-2014 09:37-0500 Height 172.72 cm Gypsy Sarmiento LPN [facility] Work Phone: 02-11-2014 09:37-0500 Pulse (Heart Rate) 82 /min Gypsy Sarmiento LPN [facility] Work Phone: Comment on above: Pattern: Regular 02-11-2014 09:37-0500 Pulse Oximetry 99 % Carol Coker [facility] Work Phone: Comment on above: Room air 02-11-2014 09:37-0500 Respiratory Rate 18 /min Gypsy Sarmiento LPN [facility] Work Phone: 02-11-2014 09:37-0500 SaO2% (BldA) [Mass fraction] 99 % Gypsy Sarmiento LPN [facility]; [facility] Work Phone: Comment on above: Room air 02-11-2014 09:37-0500 Weight 83.15 kg Carol Coker [facility] Work Phone: 01-21-2014 15:12-0500 BMI (Body Mass Index) 27.87 kg/m2 Gypsy Sarimento LPN [facility] Work Phone: 01-21-2014 15:12-0500 Body Temperature 97.8 [degF] Gypsy Sarmiento LPN [facility] Work Phone: Comment on above: Method: Oral 01-21-2014 15:12-0500 Body weight 83.15 kg Gypsy Sarmiento LPN [facility] Work Phone: 01-21-2014 15:12-0500 BP Diastolic 80 mm[Hg] Gypsy Sarmiento LPN [facility] Work Phone: Comment on above: Patient Position: Sitting; Cuff Location : Left Arm; Cuff Size: Standard 01-21-2014 15:12-0500 BP Systolic 148 mm[Hg] Gypsy Sarmiento LPN [facility] Work Phone: Comment on above: Patient Position: Sitting; Cuff Location : Left Arm; Cuff Size: Standard 01-21-2014 15:12-0500 BSA (Body Surface Area) 1.97 m2 Gypsy Sarmiento LPN [facility] Work Phone: 01-21-2014 15:12-0500 Height 172.72 cm Gypsy Sarmiento LPN [facility] Work Phone: 01-21-2014 15:12-0500 Pulse (Heart Rate) 88 /min Gypsy Sarmiento LPN [facility] Work Phone: Comment on above: Pattern: Regular 01-21-2014 15:12-0500 Pulse Oximetry 98 % Carol Coker [facility] Work Phone: Comment on above: Room air 01-21-2014 15:12-0500 Respiratory Rate 20 /min Gypsy Sarmiento [facility] Work Phone: 01-21-2014 15:12-0500 SaO2% (BldA) [Mass fraction] 98 % Gypsy Sarmiento [facility]; [facility] Work Phone: Comment on above: Room air 01-21-2014 15:12-0500 Weight 83.15 kg Carol Coker [facility] Work Phone: 01-08-2014 13:58-0400 BMI (Body Mass Index) 27.87 kg/m2 Karina Tam RN [facility] Work Phone: 01-08-2014 13:58-0400 Body weight 83.15 kg Karina Tam RN [facility] Work Phone: 01-08-2014 13:58-0400 BP Diastolic 70 mm[Hg] Karina Tam RN [facility] Work Phone: Comment on above: Patient Position: Sitting; Cuff Location : Left Arm; Cuff Size: Standard 01-08-2014 13:58-0400 BP Systolic 122 mm[Hg] Karnia Tam RN [facility] Work Phone: Comment on above: Patient Position: Sitting; Cuff Location : Left Arm; Cuff Size: Standard 01-08-2014 13:58-0400 BSA (Body Surface Area) 1.97 m2 Karina Tam RN [facility] Work Phone: 01-08-2014 13:58-0400 Height 172.72 cm Karina Tam RN [facility] Work Phone: 01-08-2014 13:58-0400 Pulse (Heart Rate) 84 /min Karina Tam RN [facility] Work Phone: Comment on above: Pattern: Regular 01-08-2014 13:58-0400 Pulse Oximetry 97 % Carol Coker [facility] Work Phone: Comment on above: Room air 01-08-2014 13:58-0400 Respiratory Rate 18 /min Karina Tam RN [facility] Work Phone: Comment on above: Pattern: Unlabored 01-08-2014 13:58-0400 SaO2% (BldA) [Mass fraction] 97 % Karina Tam RN [facility]; [facility] Work Phone: Comment on above: Room air 01-08-2014 13:58-0400 Weight 83.15 kg Carol Coker [facility] Work Phone: 12-16-2013 15:24-0400 BMI (Body Mass Index) 27.88 kg/m2 Karina Tam RN [facility] Work Phone: 12-16-2013 15:24-0400 Body weight 83.18 kg Karina Tam RN [facility] Work Phone: 12-16-2013 15:24-0400 BP Diastolic 88 mm[Hg] Karina Tam RN [facility] Work Phone: Comment on above: Patient Position: Sitting; Cuff Location : Left Arm; Cuff Size: Standard 12-16-2013 15:24-0400 BP Systolic 152 mm[Hg] Karina Tam RN [facility] Work Phone: Comment on above: Patient Position: Sitting; Cuff Location : Left Arm; Cuff Size: Standard 12-16-2013 15:24-0400 BSA (Body Surface Area) 1.97 m2 Karina Tam RN [facility] Work Phone: 12-16-2013 15:24-0400 Height 172.72 cm Karina Tam RN [facility] Work Phone: 12-16-2013 15:24-0400 Pulse (Heart Rate) 65 /min Karina Tam RN [facility] Work Phone: Comment on above: Pattern: Regular 12-16-2013 15:24-0400 Pulse Oximetry 98 % Carol Coker [facility] Work Phone: Comment on above: Room air 12-16-2013 15:24-0400 Respiratory Rate 18 /min Karina Tam RN [facility] Work Phone: Comment on above: Pattern: Unlabored 12-16-2013 15:24-0400 SaO2% (BldA) [Mass fraction] 98 % Karina Tam RN [facility]; [facility] Work Phone: Comment on above: Room air 12-16-2013 15:24-0400 Weight 83.18 kg Carol Coker [facility] Work Phone: 06-07-2013 12:56-0400 BMI (Body Mass Index) 28 kg/m2 Karina Tam RN [facility] Work Phone: 06-07-2013 12:56-0400 Body weight 83.52 kg Karina Tam RN [facility] Work Phone: 06-07-2013 12:56-0400 BP Diastolic 84 mm[Hg] Karina Tam RN [facility] Work Phone: Comment on above: Patient Position: Sitting; Cuff Location : Left Arm; Cuff Size: Large 06-07-2013 12:56-0400 BP Systolic 122 mm[Hg] Karina Tam RN [facility] Work Phone: Comment on above: Patient Position: Sitting; Cuff Location : Left Arm; Cuff Size: Large 06-07-2013 12:56-0400 BSA (Body Surface Area) 1.97 m2 Karina Tma RN [facility] Work Phone: 06-07-2013 12:56-0400 Height 172.72 cm Karina Tam RN [facility] Work Phone: 06-07-2013 12:56-0400 Pulse (Heart Rate) 87 /min Karina Tam RN [facility] Work Phone: Comment on above: Pattern: Regular 06-07-2013 12:56-0400 Pulse Oximetry 98 % Carol Coker [facility] Work Phone: Comment on above: Room air 06-07-2013 12:56-0400 Respiratory Rate 20 /min Karina Tam RN [facility] Work Phone: Comment on above: Pattern: Unlabored 06-07-2013 12:56-0400 SaO2% (BldA) [Mass fraction] 98 % Karina Tam RN [facility]; [facility] Work Phone: Comment on above: Room air 06-07-2013 12:56-0400 Weight 83.52 kg Carol Coker [facility] Work Phone: 04-19-2013 13:15-0500 BMI (Body Mass Index) 28 kg/m2 Lalitha Mcdonnell [facility] Work Phone: 04-19-2013 13:15-0500 Body weight 83.52 kg Lalitha [facility]cdonnell [facility] Work Phone: 04-19-2013 13:15-0500 BP Diastolic 80 mm[Hg] Lalitha Mcdonnell [facility] Work Phone: Comment on above: Patient Position: Sitting; Cuff Location : Left Arm; Cuff Size: Standard 04-19-2013 13:15-0500 BP Systolic 126 mm[Hg] Lalitha [facility]cdonnell [facility] Work Phone: Comment on above: Patient Position: Sitting; Cuff Location : Left Arm; Cuff Size: Standard 04-19-2013 13:15-0500 BSA (Body Surface Area) 1.97 m2 Lalitha Mcdonnell [facility] Work Phone: 04-19-2013 13:15-0500 Height 172.72 cm Lalitha [facility]cdonnell [facility] Work Phone: 04-19-2013 13:15-0500 Pulse (Heart Rate) 64 /min Lalitha Mcdonnell [facility] Work Phone: Comment on above: Pattern: Regular 04-19-2013 13:15-0500 Pulse Oximetry 99 % Carol Coker [facility] Work Phone: Comment on above: Room air 04-19-2013 13:15-0500 Respiratory Rate 16 /min Lalitha Mcdonnell [facility] Work Phone: Comment on above: Pattern: Unlabored 04-19-2013 13:15-0500 SaO2% (BldA) [Mass fraction] 99 % Lalitha Mcdonnell [facility]; [facility] Work Phone: Comment on above: Room air 04-19-2013 13:15-0500 Weight 83.52 kg Carol Coker [facility] Work Phone: 04-09-2013 09:01-0500 BMI (Body Mass Index) 28 kg/m2 Tabby Alves RN [facility] Work Phone: 04-09-2013 09:01-0500 Body Temperature 97.8 [degF] Tabby Alves RN [facility] Work Phone: Comment on above: Method: Temporal 04-09-2013 09:01-0500 Body weight 83.52 kg Tabby Alves RN [facility] Work Phone: 04-09-2013 09:01-0500 BP Diastolic 92 mm[Hg] Tabby Alves RN [facility] Work Phone: Comment on above: Patient Position: Sitting; Cuff Location : Left Arm; Cuff Size: Standard 04-09-2013 09:01-0500 BP Systolic 158 mm[Hg] Tabby Alves RN [facility] Work Phone: Comment on above: Patient Position: Sitting; Cuff Location : Left Arm; Cuff Size: Standard 04-09-2013 09:01-0500 BSA (Body Surface Area) 1.97 m2 Tabby Alves RN [facility] Work Phone: 04-09-2013 09:01-0500 Height 172.72 cm Tabby Alves RN [facility] Work Phone: 04-09-2013 09:01-0500 Pulse (Heart Rate) 88 /min Tabby Alves RN [facility] Work Phone: Comment on above: Pattern: Regular 04-09-2013 09:01-0500 Pulse Oximetry 98 % Carol Coker [facility] Work Phone: Comment on above: Room air 04-09-2013 09:01-0500 Respiratory Rate 16 /min Tabby Alves RN [facility] Work Phone: Comment on above: Pattern: Unlabored 04-09-2013 09:01-0500 SaO2% (BldA) [Mass fraction] 98 % Tabby Alves RN [facility]; [facility] Work Phone: Comment on above: Room air 04-09-2013 09:01-0500 Weight 83.52 kg Carol Coker [facility] Work Phone: 11-22-2012 13:08-0400 BMI (Body Mass Index) 28 kg/m2 Karina Tam RN [facility] Work Phone: 11-22-2012 13:08-0400 Body Temperature 98.7 [degF] Karina Tam RN [facility] Work Phone: Comment on above: Method: Oral 11-22-2012 13:08-0400 Body weight 83.52 kg Karina Tam RN [facility] Work Phone: 11-22-2012 13:08-0400 BP Diastolic 78 mm[Hg] Karina Tam RN [facility] Work Phone: Comment on above: Patient Position: Sitting; Cuff Location : Left Arm; Cuff Size: Large 11-22-2012 13:08-0400 BP Systolic 118 mm[Hg] Karina Tam RN [facility] Work Phone: Comment on above: Patient Position: Sitting; Cuff Location : Left Arm; Cuff Size: Large 11-22-2012 13:08-0400 BSA (Body Surface Area) 1.97 m2 Karina Tam RN [facility] Work Phone: 11-22-2012 13:08-0400 Height 172.72 cm Karina Tam RN [facility] Work Phone: 11-22-2012 13:08-0400 Pulse (Heart Rate) 66 /min Karina Tam RN [facility] Work Phone: Comment on above: Pattern: Regular 11-22-2012 13:08-0400 Pulse Oximetry 98 % Carol Coker [facility] Work Phone: Comment on above: Room air 11-22-2012 13:08-0400 Respiratory Rate 18 /min Karian Tam RN [facility] Work Phone: Comment on above: Pattern: Unlabored 11-22-2012 13:08-0400 SaO2% (BldA) [Mass fraction] 98 % Karina Tam RN [facility]; [facility] Work Phone: Comment on above: Room air 11-22-2012 13:08-0400 Weight 83.52 kg Carol Coker [facility] Work Phone: 10-17-2012 10:26-0400 BMI (Body Mass Index) 27.7 kg/m2 Carol Sheela DO Work Phone: [facility] Work Phone: 10-17-2012 10:26-0400 Body Temperature 98.2 [degF] Carol Coker DO Work Phone: [facility] Work Phone: Comment on above: Method: Oral 10-17-2012 10:26-0400 Body weight 82.64 kg Carol Coker DO Work Phone: [facility] Work Phone: 10-17-2012 10:26-0400 BP Diastolic 80 mm[Hg] Carol Lazoon DO Work Phone: [facility] Work Phone: Comment on above: Patient Position: Sitting; Cuff Location : Left Arm; Cuff Size: Large 10-17-2012 10:26-0400 BP Systolic 140 mm[Hg] Carol Lazoon DO Work Phone: [facility] Work Phone: Comment on above: Patient Position: Sitting; Cuff Location : Left Arm; Cuff Size: Large 10-17-2012 10:26-0400 BSA (Body Surface Area) 1.96 m2 Carol Sheela DO Work Phone: [facility] Work Phone: 10-17-2012 10:26-0400 Height 172.72 cm Carol Sheela DO Work Phone: [facility] Work Phone: 10-17-2012 10:26-0400 Pulse (Heart Rate) 72 /min Carol Sheela DO Work Phone: [facility] Work Phone: Comment on above: Pattern: Regular 10-17-2012 10:26-0400 Respiratory Rate 20 /min Carol Coker DO Work Phone: [facility] Work Phone: Comment on above: Pattern: Unlabored 10-17-2012 10:26-0400 Weight 82.64 kg Carol Coker [facility] Work Phone: 04-18-2012 13:20-0500 BMI (Body Mass Index) 26.48 kg/m2 Gypsy Sarmiento LPN [facility] Work Phone: 04-18-2012 13:20-0500 Body Temperature 98 [degF] Gypsy Sarmiento LPN [facility] Work Phone: Comment on above: Method: Oral 04-18-2012 13:20-0500 Body weight 78.98 kg Gypsy Sarmiento LPN [facility] Work Phone: 04-18-2012 13:20-0500 BP Diastolic 84 mm[Hg] Gypsy Sarmiento LPN [facility] Work Phone: Comment on above: Patient Position: Sitting; Cuff Location : Left Arm; Cuff Size: Standard 04-18-2012 13:20-0500 BP Systolic 142 mm[Hg] Gypsy Sarmiento LPN [facility] Work Phone: Comment on above: Patient Position: Sitting; Cuff Location : Left Arm; Cuff Size: Standard 04-18-2012 13:20-0500 BSA (Body Surface Area) 1.93 m2 Gypsy Sarmiento LPN [facility] Work Phone: 04-18-2012 13:20-0500 Height 172.72 cm Gypsy Sarmiento LPN [facility] Work Phone: 04-18-2012 13:20-0500 Pulse (Heart Rate) 70 /min Gypsy Sarmiento LPN [facility] Work Phone: Comment on above: Pattern: Regular 04-18-2012 13:20-0500 Respiratory Rate 18 /min Gypsy Sarmiento [facility] Work Phone: 04-18-2012 13:20-0500 Weight 78.98 kg Carol Coker [facility] Work Phone: 03-16-2012 14:42-0500 BMI (Body Mass Index) 26.48 kg/m2 Karina Tam RN [facility] Work Phone: 03-16-2012 14:42-0500 Body Temperature 98.4 [degF] Karina Tam RN [facility] Work Phone: Comment on above: Method: Oral 03-16-2012 14:42-0500 Body weight 78.98 kg Karina Tam RN [facility] Work Phone: 03-16-2012 14:42-0500 BP Diastolic 98 mm[Hg] Karina Tam RN [facility] Work Phone: Comment on above: Patient Position: Sitting; Cuff Location : Left Arm; Cuff Size: Large 03-16-2012 14:42-0500 BP Systolic 162 mm[Hg] Karina Tam RN [facility] Work Phone: Comment on above: Patient Position: Sitting; Cuff Location : Left Arm; Cuff Size: Large 03-16-2012 14:42-0500 BSA (Body Surface Area) 1.93 m2 Karina Tam RN [facility] Work Phone: 03-16-2012 14:42-0500 Height 172.72 cm Karina aTm RN [facility] Work Phone: 03-16-2012 14:42-0500 Pulse (Heart Rate) 64 /min Karina Tam RN [facility] Work Phone: Comment on above: Pattern: Regular 03-16-2012 14:42-0500 Respiratory Rate 20 /min Karina Tam RN [facility] Work Phone: Comment on above: Pattern: Unlabored 03-16-2012 14:42-0500 Weight 78.98 kg Carol Coker [facility] Work Phone: 05-24-2011 13:45-0400 BMI (Body Mass Index) 26.48 kg/m2 Gypsy Sarmiento LPN [facility] Work Phone: 05-24-2011 13:45-0400 Body Temperature 97.4 [degF] Gypsy Sarmiento LPN [facility] Work Phone: Comment on above: Method: Oral 05-24-2011 13:45-0400 Body weight 78.98 kg Gypsy Sarmiento LPN [facility] Work Phone: 05-24-2011 13:45-0400 BP Diastolic 80 mm[Hg] Gypsy Sarmiento LPN [facility] Work Phone: Comment on above: Patient Position: Sitting; Cuff Location : Left Arm; Cuff Size: Standard 05-24-2011 13:45-0400 BP Systolic 130 mm[Hg] Gypsy Sarmiento LPN [facility] Work Phone: Comment on above: Patient Position: Sitting; Cuff Location : Left Arm; Cuff Size: Standard 05-24-2011 13:45-0400 BSA (Body Surface Area) 1.93 m2 Gypsy Sarmiento LPN [facility] Work Phone: 05-24-2011 13:45-0400 Height 172.72 cm Gypsy Sarmiento LPN [facility] Work Phone: 05-24-2011 13:45-0400 Pulse (Heart Rate) 78 /min Gypsy Sarmiento LPN [facility] Work Phone: Comment on above: Pattern: Regular 05-24-2011 13:45-0400 Pulse Oximetry 96 % Carol Sheela [facility] Work Phone: Comment on above: Room air 05-24-2011 13:45-0400 Respiratory Rate 18 /min Gypsy Sarmiento LPN [facility] Work Phone: Comment on above: Pattern: Unlabored 05-24-2011 13:45-0400 SaO2% (BldA) [Mass fraction] 96 % Gypsy Sarmiento LPN [facility]; [facility] Work Phone: Comment on above: Room air 05-24-2011 13:45-0400 Weight 78.98 kg Carol Coker [facility] Work Phone: 05-10-2011 15:45-0500 BMI (Body Mass Index) 26.48 kg/m2 Gypsy Sramiento LPN [facility] Work Phone: 05-10-2011 15:45-0500 Body Temperature 97.9 [degF] Gypsy Sarmiento LPN [facility] Work Phone: Comment on above: Method: Oral 05-10-2011 15:45-0500 Body weight 78.98 kg Gypsy Sarmiento LPN [facility] Work Phone: 05-10-2011 15:45-0500 BP Diastolic 84 mm[Hg] Gypsy Sarmiento LPN [facility] Work Phone: Comment on above: Patient Position: Sitting; Cuff Location : Left Arm; Cuff Size: Standard 05-10-2011 15:45-0500 BP Systolic 126 mm[Hg] Gypsy Sarmiento LPN [facility] Work Phone: Comment on above: Patient Position: Sitting; Cuff Location : Left Arm; Cuff Size: Standard 05-10-2011 15:45-0500 BSA (Body Surface Area) 1.93 m2 Gypsy Sarmiento LPN [facility] Work Phone: 05-10-2011 15:45-0500 Height 172.72 cm Gypsy Sarmiento LPN [facility] Work Phone: 05-10-2011 15:45-0500 Pulse (Heart Rate) 64 /min Gypsy Sarmiento LPN [facility] Work Phone: Comment on above: Pattern: Regular 05-10-2011 15:45-0500 Pulse Oximetry 98 % Carol Coker [facility] Work Phone: Comment on above: Room air 05-10-2011 15:45-0500 Respiratory Rate 20 /min Gypsy Sarmiento LPN [facility] Work Phone: 05-10-2011 15:45-0500 SaO2% (BldA) [Mass fraction] 98 % Gypsy Sarmiento LPN [facility]; [facility] Work Phone: Comment on above: Room air 05-10-2011 15:45-0500 Weight 78.98 kg Carol Coker [facility] Work Phone: 03-18-2011 13:10-0500 BMI (Body Mass Index) 26.48 kg/m2 Karina Tam RN [facility] Work Phone: 03-18-2011 13:10-0500 Body weight 78.98 kg Karina Tam RN [facility] Work Phone: 03-18-2011 13:10-0500 BP Diastolic 88 mm[Hg] Karina Tam RN [facility] Work Phone: Comment on above: Patient Position: Sitting; Cuff Location : Left Arm; Cuff Size: Large 03-18-2011 13:10-0500 BP Systolic 128 mm[Hg] Karina Tam RN [facility] Work Phone: Comment on above: Patient Position: Sitting; Cuff Location : Left Arm; Cuff Size: Large 03-18-2011 13:10-0500 BSA (Body Surface Area) 1.93 m2 Karina Tam RN [facility] Work Phone: 03-18-2011 13:10-0500 Height 172.72 cm Karina Tam RN [facility] Work Phone: 03-18-2011 13:10-0500 Pulse (Heart Rate) 72 /min Karina Tam RN [facility] Work Phone: Comment on above: Pattern: Regular 03-18-2011 13:10-0500 Respiratory Rate 20 /min Karina Tam RN [facility] Work Phone: Comment on above: Pattern: Unlabored 03-18-2011 13:10-0500 Weight 78.98 kg Carol Coker [facility] Work Phone: 01-27-2011 13:42-0500 BMI (Body Mass Index) 26.15 kg/m2 TRINA Shah LPN [facility] Work Phone: 01-27-2011 13:42-0500 Body Temperature 97.9 [degF] TRINA Shah LPN [facility] Work Phone: Comment on above: Method: Oral 01-27-2011 13:42-0500 Body weight 78.02 kg TRINA Shah LPN [facility] Work Phone: 01-27-2011 13:42-0500 BP Diastolic 80 mm[Hg] TRINA Shah LPN [facility] Work Phone: Comment on above: Patient Position: Sitting; Cuff Location : Left Arm; Cuff Size: Standard 01-27-2011 13:42-0500 BP Systolic 128 mm[Hg] TRINA Shah LPN [facility] Work Phone: Comment on above: Patient Position: Sitting; Cuff Location : Left Arm; Cuff Size: Standard 01-27-2011 13:42-0500 BSA (Body Surface Area) 1.92 m2 TRINA Shah LPN [facility] Work Phone: 01-27-2011 13:42-0500 Height 172.72 cm TRINA Shah LPN [facility] Work Phone: 01-27-2011 13:42-0500 Pulse (Heart Rate) 70 /min TRINA Shah LPN [facility] Work Phone: Comment on above: Pattern: Regular 01-27-2011 13:42-0500 Respiratory Rate 18 /min TRINA Shah LPN [facility] Work Phone: Comment on above: Pattern: Unlabored 01-27-2011 13:42-0500 Weight 78.02 kg Carol Coker [facility] Work Phone: 09-23-2010 10:01-0400 BMI (Body Mass Index) 26.18 kg/m2 Karina Tam RN [facility] Work Phone: 09-23-2010 10:01-0400 Body weight 78.1 kg Karina Tam RN [facility] Work Phone: 09-23-2010 10:01-0400 BP Diastolic 88 mm[Hg] Karina Tam RN [facility] Work Phone: Comment on above: Patient Position: Sitting; Cuff Location : Left Arm; Cuff Size: Standard 09-23-2010 10:01-0400 BP Systolic 132 mm[Hg] Karina Tam RN [facility] Work Phone: Comment on above: Patient Position: Sitting; Cuff Location : Left Arm; Cuff Size: Standard 09-23-2010 10:01-0400 BSA (Body Surface Area) 1.92 m2 Karina Tam RN [facility] Work Phone: 09-23-2010 10:01-0400 Height 172.72 cm Karina Tam RN [facility] Work Phone: 09-23-2010 10:01-0400 Pulse (Heart Rate) 80 /min Karina Tam RN [facility] Work Phone: Comment on above: Pattern: Regular 09-23-2010 10:01-0400 Respiratory Rate 20 /min Karina Tam RN [facility] Work Phone: Comment on above: Pattern: Unlabored 09-23-2010 10:01-0400 Weight 78.1 kg Carol Coker [facility] Work Phone: 11-04-2009 15:00-0400 BMI (Body Mass Index) 27.43 kg/m2 Karina Tam RN [facility] Work Phone: 11-04-2009 15:00-0400 Body weight 81.82 kg Karina Tam RN [facility] Work Phone: 11-04-2009 15:00-0400 BP Diastolic 76 mm[Hg] Karina Tam RN [facility] Work Phone: Comment on above: Patient Position: Sitting; Cuff Location : Left Arm; Cuff Size: Large 11-04-2009 15:00-0400 BP Systolic 122 mm[Hg] Karina Tam RN [facility] Work Phone: Comment on above: Patient Position: Sitting; Cuff Location : Left Arm; Cuff Size: Large 11-04-2009 15:00-0400 BSA (Body Surface Area) 1.96 m2 Karina Tam RN [facility] Work Phone: 11-04-2009 15:00-0400 Height 172.72 cm Karina Tam RN [facility] Work Phone: 11-04-2009 15:00-0400 Pulse (Heart Rate) 60 /min Karina Tam RN [facility] Work Phone: Comment on above: Pattern: Regular 11-04-2009 15:00-0400 Respiratory Rate 20 /min Karina Tam RN [facility] Work Phone: Comment on above: Pattern: Unlabored 11-04-2009 15:00-0400 Weight 81.82 kg Carol Coker [facility] Medicine Work Phone: 10-16-2008 13:44-0400 BMI (Body Mass Index) 24.38 kg/m2 Chantel Truong [facility] Medicine Work Phone: 10-16-2008 13:44-0400 Body Temperature 99.1 [degF] Chantel Truong [facility] Medicine Work Phone: Comment on above: Method: Oral 10-16-2008 13:44-0400 Body weight 72.72 kg Chantel [facility] Medicine Work Phone: 10-16-2008 13:44-0400 BP Diastolic 76 mm[Hg] Chantel [facility] Work Phone: Comment on above: Patient Position: Supine; Cuff Location: Left Arm; Cuff Size: Standard 10-16-2008 13:44-0400 BP Systolic 120 mm[Hg] Chantel [facility] Work Phone: Comment on above: Patient Position: Supine; Cuff Location: Left Arm; Cuff Size: Standard 10-16-2008 13:44-0400 BSA (Body Surface Area) 1.86 m2 Chantel [facility] Medicine Work Phone: 10-16-2008 13:44-0400 Head Circumference 0 cm Carol Coker [facility] Internal Medicine Work Phone: 10-16-2008 13:44-0400 Head Occipital-frontal circumference 0 cm Chantel Truong [facility]; [facility] Work Phone: 10-16-2008 13:44-0400 Height 172.72 cm Chantel [facility] Work Phone: 10-16-2008 13:44-0400 Pulse (Heart Rate) 72 /min Chantel Truong [facility] Medicine Work Phone: Comment on above: Pattern: Regular 10-16-2008 13:44-0400 Respiratory Rate 16 /min Chantel [facility] Medicine Work Phone: Comment on above: Pattern: Unlabored 10-16-2008 13:44-0400 Weight 72.72 kg Carol Coker [facility] Internal Medicine Work Phone: 07-07-2008 13:09-0400 Body Temperature 99.9 [degF] Ariella [facility] Internal Medicine Work Phone: Comment on above: Method: Oral 07-07-2008 13:090400 Body weight 76.2 kg Ariella [facility] Medicine Work Phone: 07-07-2008 13:09-0400 BP Diastolic 80 mm[Hg] [facility] Internal Medicine Work Phone: Comment on above: Patient Position: Sitting; Cuff Location : Left Arm; Cuff Size: Standard 07-07-2008 13:09-0400 BP Systolic 122 mm[Hg] [facility] Work Phone: Comment on above: Patient Position: Sitting; Cuff Location : Left Arm; Cuff Size: Standard 07-07-2008 13:09-0400 Head Circumference 0 cm Carol Coker [facility] Internal Medicine Work Phone: 07-07-2008 13:09-0400 Head Occipital-frontal circumference 0 cm [facility] Internal Medicine; [facility] Medicine Work Phone: 07-07-2008 13:09-0400 Height 0 cm [facility] Internal Medicine Work Phone: 07-07-2008 13:09-0400 Pulse (Heart Rate) 71 /min Ariella [facility] Medicine Work Phone: Comment on above: Pattern: Regular 07-07-2008 13:09-0400 Pulse Oximetry 98 % Carol Coker [facility] Internal Medicine Work Phone: Comment on above: Room air 07-07-2008 13:09-0400 Respiratory Rate 18 /min Ariella Forbes [facility] Work Phone: Comment on above: Pattern: Unlabored 07-07-2008 13:09-0400 SaO2% (BldA) [Mass fraction] 98 % Ariella Forbes [facility]; [facility] Work Phone: Comment on above: Room air 07-07-2008 13:09-0400 Weight 76.2 kg Carol Coker [facility] Work Phone: 05-10-2007 14:55-0500 Body Temperature 98.7 [degF] Karina Tam RN [facility] Work Phone: Comment on above: Method: Oral 05-10-2007 14:55-0500 Body weight 76.2 kg Karina Tam RN [facility] Work Phone: 05-10-2007 14:55-0500 BP Diastolic 78 mm[Hg] Karina Tam RN [facility] Work Phone: Comment on above: Patient Position: Sitting; Cuff Location : Left Arm; Cuff Size: Large 05-10-2007 14:55-0500 BP Systolic 122 mm[Hg] Karina Tam RN [facility] Work Phone: Comment on above: Patient Position: Sitting; Cuff Location : Left Arm; Cuff Size: Large 05-10-2007 14:55-0500 Head Circumference 0 cm Carol Coker [facility] Work Phone: 05-10-2007 14:55-0500 Head Occipital-frontal circumference 0 cm Karina Tam RN [facility]; [facility] Work Phone: 05-10-2007 14:55-0500 Height 0 cm Karina Tam RN [facility] Work Phone: 05-10-2007 14:55-0500 Pulse (Heart Rate) 80 /min Karina Tam RN [facility] Work Phone: Comment on above: Pattern: Regular 05-10-2007 14:55-0500 Respiratory Rate 20 /min Karina Tam RN [facility] Work Phone: Comment on above: Pattern: Unlabored 05-10-2007 14:55-0500 Weight 76.2 kg Carol Coker [facility] Work Phone: 03-08-2007 11:52-0500 Body Temperature 98.1 [degF] Remedios Camejo [facility] Internal Medicine Work Phone: Comment on above: Method: Oral 03-08-2007 11:52-0500 Body weight 0 kg Remedios Camejo [facility] Medicine Work Phone: 03-08-2007 11:52-0500 BP Diastolic 70 mm[Hg] Remedios Camejo [facility] Work Phone: Comment on above: Patient Position: Sitting; Cuff Location : Left Arm; Cuff Size: Standard 03-08-2007 11:52-0500 BP Systolic 112 mm[Hg] Remedios Camejo [facility] Work Phone: Comment on above: Patient Position: Sitting; Cuff Location : Left Arm; Cuff Size: Standard 03-08-2007 11:52-0500 Head Circumference 0 cm Carol Coker [facility] Work Phone: 03-08-2007 11:52-0500 Head Occipital-frontal circumference 0 cm Remedios Camejo [facility]; [facility] Work Phone: 03-08-2007 11:52-0500 Height 0 cm Remedios Camejo [facility] Work Phone: 03-08-2007 11:52-0500 Pulse (Heart Rate) 65 /min Remedios Camejo [facility] Medicine Work Phone: Comment on above: Pattern: Regular 03-08-2007 11:52-0500 Respiratory Rate 16 /min Remedios Camejo [facility] Work Phone: Comment on above: Pattern: Unlabored 03-08-2007 11:52-0500 Weight 0 kg Carol Coker [facility] Work Phone: 02-12-2007 15:19-0500 Body weight 76.2 kg Carol Coker [facility] Work Phone: 02-12-2007 15:19-0500 BP Diastolic 84 mm[Hg] Carol Coker [facility] Work Phone: Comment on above: Patient Position: Sitting; Cuff Location : Left Arm; Cuff Size: Standard 02-12-2007 15:19-0500 BP Systolic 124 mm[Hg] Carol Coker [facility] Work Phone: Comment on above: Patient Position: Sitting; Cuff Location : Left Arm; Cuff Size: Standard 02-12-2007 15:19-0500 Head Circumference 0 cm Carol Coker [facility] Work Phone: 02-12-2007 15:19-0500 Head Occipital-frontal circumference 0 cm Carol Coker DO Work Phone: [facility]; [facility] Work Phone: 02-12-2007 15:19-0500 Height 0 cm Carol Coker [facility] Work Phone: 02-12-2007 15:19-0500 Pulse (Heart Rate) 72 /min Carol Coker [facility] Work Phone: Comment on above: Pattern: Regular 02-12-2007 15:19-0500 Pulse Oximetry 97 % Carol Coker [facility] Work Phone: Comment on above: Room air 02-12-2007 15:19-0500 Respiratory Rate 16 /min Carol Coker [facility] Work Phone: Comment on above: Pattern: Unlabored 02-12-2007 15:19-0500 SaO2% (BldA) [Mass fraction] 97 % Carol Coker DO Work Phone: [facility]; [facility] Work Phone: Comment on above: Room air 02-12-2007 15:19-0500 Weight 76.2 kg Carol Coker [facility] Work Phone: 12-25-2006 16:25-0400 Body weight 76.91 kg Karina Tam RN [facility] Work Phone: 12-25-2006 16:25-0400 BP Diastolic 70 mm[Hg] Karina Tam RN [facility] Work Phone: Comment on above: Patient Position: Sitting; Cuff Location : Left Arm; Cuff Size: Standard 12-25-2006 16:25-0400 BP Systolic 110 mm[Hg] Karina Tam RN [facility] Work Phone: Comment on above: Patient Position: Sitting; Cuff Location : Left Arm; Cuff Size: Standard 12-25-2006 16:25-0400 Head Circumference 0 cm Carol Coker [facility] Work Phone: 12-25-2006 16:25-0400 Head Occipital-frontal circumference 0 cm Karina Tam RN [facility]; [facility] Work Phone: 12-25-2006 16:25-0400 Height 0 cm Karina Tam RN [facility] Work Phone: 12-25-2006 16:25-0400 Pulse (Heart Rate) 60 /min Karina Tam RN [facility] Work Phone: Comment on above: Pattern: Regular 12-25-2006 16:25-0400 Respiratory Rate 16 /min Karina Tam RN [facility] Work Phone: Comment on above: Pattern: Unlabored 12-25-2006 16:25-0400 Weight 76.91 kg Carol Coker [facility] Work Phone: 12-01-2006 11:30-0400 Body Temperature 99.9 [degF] Chantel [facility] Work Phone: Comment on above: Method: Undefined 12-01-2006 11:30-0400 Body weight 0 kg Chantel [facility] Work Phone: 12-01-2006 11:30-0400 BP Diastolic 72 mm[Hg] [facility] Work Phone: Comment on above: Patient Position: Sitting; Cuff Location : Left Arm; Cuff Size: Standard 12-01-2006 11:30-0400 BP Systolic 126 mm[Hg] [facility] Work Phone: Comment on above: Patient Position: Sitting; Cuff Location : Left Arm; Cuff Size: Standard 12-01-2006 11:30-0400 Head Circumference 0 cm Carol Coker [facility] Work Phone: 12-01-2006 11:30-0400 Head Occipital-frontal circumference 0 cm Chantel Truong [facility]; [facility] Work Phone: 12-01-2006 11:30-0400 Height 0 cm Chantel Truong [facility] Work Phone: 12-01-2006 11:30-0400 Pulse (Heart Rate) 72 /min Chantel Truong [facility] Work Phone: Comment on above: Pattern: Regular 12-01-2006 11:30-0400 Respiratory Rate 16 /min Chantel Truong [facility] Work Phone: Comment on above: Pattern: Unlabored 12-01-2006 11:30-0400 Weight 0 kg Carol Coker [facility] Medicine Work Phone: Encounters Encounter Date Encounter Type Care Provider Facility Start: 11-21-2024 ambulatory Carol Coker Facilit y:[facility] Start: 10-16-2024 ambulatory Carol Coker Facilit y:[facility] Start: 07-01-2024 End: 08-31-2024 Follow-up encounter Kathi Echavarria APRN.CNP Gynecology Oncology Start: 07-01-2024 End: 07-01-2024 Telephone encounter Art Aquino RN Gynecology Oncology Comment on above: Results Start: 06-21-2024 End: 08-21-2024 Follow-up encounter Dariela Eller APRN.[employer] Work Phone: Gynecology Oncology Start: 06-20-2024 End: 06-20-2024 ambulatory Amber Roberson MD Work Phone: Gynecology Oncology Comment on above: Endometrial cancer ( HCC) (Primary Dx); Encounter for screening for malignant neoplasm of breast, unspecified screening modality Start: 06-20-2024 End: 06-20-2024 Patient encounter procedure Amber Roberson MD Work Phone: Gynecology Oncology Start: 06-20-2024 End: 04-10-2025 ambulatory CAROL COKER Facility:[facility] Start: 06-20-2024 End: 06-20-2024 Subsequent hospital visit by physician Clinic Imaging Mammo [facility] Work Phone: Mammography Comment on above: Encounter for screen ing mammogram for malignant neoplasm of breast [Z12.31] Start: 12-27-2023 End: 12-27-2023 Telephone encounter Art Aquino RN Gynecology Oncology Comment on above: Results Start: 12-21-2023 End: 12-21-2023 ambulatory AMBER ROBERSON Facility:[facility] Start: 12-21-2023 End: 12-21-2023 Follow-up encounter Amber Roberson MD Work Phone: Gynecology Oncology Comment on above: Encounter for follow -up surveillance of endometrial cancer (Primary Dx); Encounter for screening mammogram for malignant neoplasm of breast Start: 12-21-2023 End: 12-21-2023 Patient encounter procedure Amber Roberson MD Work Phone: Gynecology Oncology Start: 08-17-2023 End: 08-17-2023 ambulatory CAROL COKER Facility:[facility] Start: 08-17-2023 End: 08-17-2023 ambulatory CAROL COKER Facility:[facility] Start: 08-17-2023 End: 08-17-2023 Subsequent hospital visit by physician Diagnostic Mammo Main Mammography Start: 07-07-2023 ambulatory Immanuel Seals Work Phone: Mammography Comment on above: Radio Imaging Study Comments Start: 07-07-2023 Patient encounter procedure Immanuel Lewis MD Work Phone: Mammography Start: 07-04-2023 End: 07-04-2023 ambulatory CAROL COKER Facility:[facility] Start: 07-04-2023 End: 07-04-2023 Subsequent hospital visit by physician Diagnostic Mammo [facility] M[facility] Comment on above: Abnormal mammogram [ R92.8] Start: 06-19-2023 Telephone encounter Abhay Hawkins APRN.CNP Work Phone: Mammogram Comment on above: Orders Start: 06-16-2023 End: 06-16-2023 Emergency department patient visit [facility]-Emergency Department Work Phone: Start: 06-09-2023 Documentation procedure Mammog rory Coordinator [facility] Start: 06-09-2023 Letter encounter Mammography Coordinator [facility] Department Start: 11-24-2022 End: 11-24-2022 ambulatory Amber Roberson MD Work Phone: Gynecology Oncology Comment on above: Endometrial cancer ( HCC) (Primary Dx); Encounter for screening mammogram for malignant neoplasm of breast Start: 11-24-2022 End: 11-24-2022 Patient encounter procedure Amber Roberson MD Work Phone: [facility] Start: 08-10-2022 End: 08-10-2022 Office outpatient visit 15 minutes Carol Sheela DO Work Phone: [facility] Start: 05-19-2022 End: 05-19-2022 Subsequent hospital visit by physician Xr [facility] Work Phone: Radiology Comment on above: Endometrial cancer ( HCC) [C54.1] Start: 05-19-2022 End: 05-19-2022 ambulatory Amber Roberson MD Work Phone: Gynecology Oncology Comment on above: Endometrial cancer ( HCC) (Primary Dx) Start: 05-19-2022 End: 05-19-2022 Patient encounter procedure Amber Roberson MD Work Phone: [facility] Start: 05-19-2022 End: 05-19-2022 Subsequent hospital visit by physician Clinic Imaging Mammo [facility] Work Phone: Mammography Comment on above: Encounter for screen ing mammogram for malignant neoplasm of breast [Z12.31] Start: 02-02-2022 ambulatory Carol Coker DO [facility] Start: 02-02-2022 End: 02-02-2022 Office outpatient visit 25 minutes Carolsupriya Lazoon DO Work Phone: [facility] Start: 10-21-2021 End: 10-21-2021 ambulatory Amber Roberson MD Work Phone: Gynecology Oncology Comment on above: Endometrial cancer ( HCC) (Primary Dx) Start: 10-21-2021 End: 10-21-2021 Patient encounter procedure Amber Roberson MD Work Phone: [facility] Start: 07-05-2021 End: 07-05-2021 Office outpatient visit 25 minutes Carol Sheela DO Work Phone: [facility] Start: 02-19-2021 End: 02-19-2021 Subsequent hospital visit by physician Xr [facility] Work Phone: Radiology Comment on above: Cough [R05.9] Start: 01-04-2021 End: 01-04-2021 Phone Encounter Carol Sheela DO Work Phone: [facility] Start: 01-04-2021 End: 01-04-2021 Carol Sheela DO Work Phone: [facility] Start: 01-04-2021 End: 01-04-2021 Office outpatient visit 5 minutes Carol Sheela DO Work Phone: [facility] Start: 01-01-2021 End: 01-01-2021 Office outpatient visit 15 minutes Carol Sheela DO Work Phone: [facility] Start: 08-03-2020 End: 08-03-2020 Annotation/Addendum Carol Sheela DO Work Phone: [facility] Start: 08-03-2020 End: 08-03-2020 Carol Sheela DO Work Phone: [facility] Start: 07-20-2020 End: 07-20-2020 Office outpatient visit 15 minutes Carol Sheela DO Work Phone: [facility] Start: 06-24-2020 End: 06-24-2020 Office outpatient visit 25 minutes Carol Sheela [facility] Start: 06-24-2020 Review Carol Sheela [facility] Start: 02-21-2020 End: 02-21-2020 Office outpatient visit 5 minutes Carol Sheela [facility] Start: 12-18-2019 End: 12-18-2019 Office outpatient visit 5 minutes Carol Lazoon [facility] Start: 12-04-2019 End: 12-04-2019 Office outpatient visit 15 minutes Carolsupriya Coker [facility] Start: 05-27-2019 End: 05-27-2019 Office outpatient visit 25 minutes Carol Coker [facility] Start: 11-23-2018 End: 11-23-2018 Office outpatient visit 25 minutes Carol Lazoon [facility] Start: 11-23-2018 Review Carol Coker [facility] Start: 11-07-2018 End: 11-07-2018 Lab Order Carol Sheela [facility] Start: 11-07-2018 End: 11-07-2018 Carolsupriya Coker DO Work Phone: [facility] Start: 05-16-2018 End: 05-16-2018 Office outpatient visit 25 minutes Carolsupriya Lazoon [facility] Start: 05-16-2018 Review Carolsupriya Coker [facility] Start: 02-09-2018 End: 02-09-2018 Office outpatient visit 5 minutes Carol Sheela [facility] Start: 02-10-2017 End: 02-10-2017 Office outpatient visit 5 minutes Carol Sheela [facility] Start: 07-18-2016 End: 07-18-2016 Phone Encounter Carol Sheela [facility] Start: 07-18-2016 End: 07-18-2016 Carol Lazoon DO Work Phone: [facility] Start: 04-12-2016 End: 04-12-2016 Phone Encounter Carol Sheela [facility] Start: 04-12-2016 End: 04-12-2016 Carolsupriya Lazoon DO Work Phone: [facility] Start: 04-08-2016 End: 04-08-2016 Office outpatient visit 15 minutes Carol Sheela [facility] Start: 02-29-2016 End: 02-29-2016 Office outpatient visit 15 minutes Carol Sheela [facility] Start: 02-10-2016 End: 02-10-2016 Phone Encounter Carol Sheela [facility] Start: 02-10-2016 End: 02-10-2016 Carolsupriya Lazoon DO Work Phone: [facility] Start: 01-29-2016 End: 01-29-2016 Office outpatient visit 5 minutes Carol Coker [facility] Start: 01-22-2016 End: 01-22-2016 Office outpatient visit 25 minutes Carol Coker [facility] Start: 01-04-2016 End: 01-04-2016 Phone Encounter Carol Coker [facility] Start: 01-04-2016 End: 01-04-2016 Carol Coker DO Work Phone: [facility] Start: 05-26-2015 End: 05-26-2015 Office outpatient visit 25 minutes Carol Coker [facility] Start: 05-14-2015 End: 05-14-2015 Phone Encounter Carol Coker [facility] Start: 05-14-2015 End: 05-14-2015 Carol Coker DO Work Phone: [facility] Start: 05-14-2015 End: 05-14-2015 Office outpatient visit 25 minutes Carol Coker [facility] Start: 01-23-2015 End: 01-23-2015 Office outpatient visit 15 minutes Carol Lazoon [facility] Start: 01-12-2015 End: 01-12-2015 Office outpatient visit 25 minutes Carol Lazoon [facility] Start: 07-08-2014 End: 07-08-2014 Office outpatient visit 25 minutes Carol Lazoon [facility] Start: 05-08-2014 End: 05-08-2014 Office outpatient visit 15 minutes Carol Lazoon [facility] Start: 04-21-2014 End: 04-21-2014 Office outpatient visit 15 minutes Carol Lazoon [facility] Start: 03-31-2014 End: 03-31-2014 Office outpatient visit 25 minutes Carol Coker [facility] Start: 02-25-2014 End: 02-25-2014 Office outpatient visit 25 minutes Carol Coker [facility] Start: 02-11-2014 End: 02-11-2014 Office outpatient visit 25 minutes Carol Coker [facility] Start: 01-21-2014 End: 01-21-2014 Office outpatient visit 25 minutes Carol Coker [facility] Start: 01-08-2014 End: 01-08-2014 Office outpatient visit 15 minutes Carol Coker [facility] Start: 12-16-2013 End: 12-19-2013 Office outpatient visit 15 minutes Carol Coker [facility] Start: 06-07-2013 End: 06-07-2013 Patient encounter Carol Coker [facility] Start: 06-07-2013 End: 06-07-2013 Carol Coker DO Work Phone: [facility] Start: 04-19-2013 End: 04-19-2013 Patient encounter Carol Coker [facility] Start: 04-19-2013 End: 04-19-2013 Carol Coker DO Work Phone: [facility] Start: 04-09-2013 End: 04-09-2013 Patient encounter Carol Coker [facility] Start: 04-09-2013 End: 04-09-2013 Carol Coker DO Work Phone: [facility] Start: 11-22-2012 End: 11-22-2012 Patient encounter Carol Coker [facility] Start: 11-22-2012 End: 11-22-2012 Carol Coker DO Work Phone: [facility] Start: 10-17-2012 End: 10-17-2012 Patient encounter Carol Coker [facility] Start: 10-17-2012 End: 10-17-2012 Carol Coker DO Work Phone: [facility] Start: 04-18-2012 End: 04-18-2012 Patient encounter Carol Coker [facility] Start: 04-18-2012 End: 04-18-2012 Carol Coker DO Work Phone: [facility] Start: 03-16-2012 End: 03-19-2012 Patient encounter Carol Coker [facility] Start: 03-16-2012 End: 03-19-2012 Carol Coker DO Work Phone: [facility] Start: 06-07-2011 End: 06-07-2011 Phone Encounter [facility]rol [facility] Start: 06-07-2011 End: 06-07-2011 Carol Coker DO Work Phone: [facility] Start: 05-24-2011 End: 05-24-2011 Office outpatient visit 25 minutes Carol Coker [facility] Start: 05-10-2011 End: 05-10-2011 Office outpatient visit 25 minutes Carol Coker [facility] Start: 03-18-2011 End: 03-18-2011 Patient encounter Carol Coker [facility] Start: 03-18-2011 End: 03-18-2011 Carol Coker DO Work Phone: [facility] Start: 01-27-2011 End: 01-27-2011 Patient encounter Carol Coker [facility] Start: 01-27-2011 End: 01-27-2011 Carol Coker DO Work Phone: [facility] Start: 10-14-2010 End: 10-14-2010 Phone Encounter Carol Coker [facility] Start: 10-14-2010 End: 10-14-2010 Carol Coker DO Work Phone: [facility] Start: 09-23-2010 End: 09-23-2010 Patient encounter Carol [facility]oker [facility] Start: 09-23-2010 End: 09-23-2010 Carol Coker DO Work Phone: [facility] Start: 11-04-2009 End: 11-04-2009 Patient encounter Carol [facility]oker [facility] Start: 11-04-2009 End: 11-04-2009 Carol Coker DO Work Phone: [facility] Start: 10-16-2008 End: 10-16-2008 Office outpatient visit 15 minutes Carol Coker [facility] Start: 07-07-2008 End: 07-07-2008 Office outpatient visit 25 minutes Carol Coker [facility] Start: 12-11-2007 End: 12-11-2007 Phone Encounter Carol Coker [facility] Start: 12-11-2007 End: 12-11-2007 Carol Coker DO Work Phone: [facility] Start: 05-10-2007 End: 05-10-2007 Patient encounter Carol Coker [facility] Start: 05-10-2007 End: 05-10-2007 Carol Coker DO Work Phone: [facility] Start: 03-08-2007 End: 03-29-2007 Patient encounter Carol Coker [facility] Start: 03-08-2007 End: 03-29-2007 Carol Coker DO Work Phone: [facility] Start: 02-12-2007 End: 02-12-2007 Patient encounter Carol Coker [facility] Start: 02-12-2007 End: 02-12-2007 Carol Coker DO Work Phone: [facility] Start: 01-30-2007 End: 01-30-2007 Historical Summary Carol Coker [facility] Start: 01-30-2007 End: 01-30-2007 Carol Coker DO Work Phone: [facility] Start: 12-25-2006 End: 12-25-2006 Office outpatient visit 40 minutes Caorl Coker [facility] Start: 12-01-2006 End: 12-01-2006 Patient encounter Carol Coker [facility] Start: 12-01-2006 End: 12-01-2006 Carol Coker DO Work Phone: [facility] Start: 03-03-2006 End: 03-03-2006 Phone Encounter Carol Coker [facility] Start: 03-03-2006 End: 03-03-2006 Carol Coker DO Work Phone: [facility] Start: 01-24-2006 End: 01-24-2006 Historical Summary Carol Coker [facility] Start: 01-24-2006 End: 01-24-2006 Carol Coker DO Work Phone: [facility] Procedures Date Procedure Procedure Detail Performing Clinician Start: 08-17-2023 Digital breast tomosynthesis unilateral Immanuel Lewis MD Work Phone: Start: 07-04-2023 Digital breast tomosynthesis unilateral Abhay Hawkins APRN.WYATT Work Phone: Start: 05-19-2022 Radiologic exam ches t 2 views Abhay Hawkins DIRECTOR PATIENT.TNT LINE SUPERVISOR Work Phone: Start: 05-19-2022 MELL SCREENING W JEREMIAH Archer DIRECTOR PATIENT.TNT LINE SUPERVISOR Work Phone: Start: 05-19-2022 Mammography Xr Ca LLD Work Phone: Start: 03-25-2021 Mammography Amber Roberson MD Work Phone: Start: 02-19-2021 Radiologic exam ches t 2 views Celio Anderson DIRECTOR PATIENT.TNT LINE SUPERVISOR Work Phone: Start: 07-08-2020 End: 07-08-2020 Echo Complete Comments: See Note; NOTES: [facility] Cardiovascular Services [address] [place] [address] Echo Complete 07/08/20 1354 MR#: [id number] Acct: [id number] Name: JOSE GRACIA Rep #: [id number] : 1960 59 From: Garrett Harris MD Attending Dr: Dr. Carol Coker, DO Status: R EG CLI Ordering Dr: Carol Coker DO Date: 07/08/20 Location: [facility] Sex: F C Admitted: Reason For Study: RBBB Procedure This was a 2D Doppler, Color Flow transthoracic echocardiogram. Exam performed in department. Left Ventricle Normal LV size. Left ventricular systolic function is normal. The estimated ejection fraction is 60 %. No evidence for diastolic dysfunction. No regional wall motion abnormalities noted. Right Ventricle Normal RV size. Normal systolic function. Atria Normal left atrium. Normal right atrium. No doppler evidence for ASD. Mitral Valve There is mild mitral annular calcification. Extension of the mitral annular calcification onto the base of the posterior mitral valve leaflet. Mild mitral valve prolapse, posterior leaflet. Trivial mitral valve insufficiency. Tricuspid Valve Normal tricuspid valve. Trivial tricuspid valve insufficiency. Unable to estimate RV systolic pressure/pulmonary artery pressure due to technically difficult study. Aortic Valve Trisinus/trileaflet aortic valve. Mild diffuse aortic valve thickening. Pulmonic Valve The pulmonic valve is not well visualized. Great Vessels Normal sized aortic root. Pericardium/Pleural No pericardial effusion. MMode/2D Measurements Calculations LVIDd: 4.7 cm IVSd: 1.1 cm Ao root diam: 3.3 cm LVIDs: 2.8 cm LVPWd: 0.99 cm LA dimension: 2.8 cm FS: 39.4 % LAV(MOD-bp): 45.1 ml LA A4 area: 13.0 cm2 RA A4 area: 11.5 cm2 LAV(MOD-bp) Indexed: 24.2 ml/m2 LAV(MOD-sp2): 57.9 ml LAV(MOD-sp4): 32.3 ml Time Measurements MV dec time: 0.26 sec Doppler Measurements Calculations MV E max marisa: 76.4 cm/sec Lat Peak E' Marisa: 9.7 cm/sec Med Peak E' Marisa: 9.4 cm/sec MV A max marisa: 62.4 cm/sec E/E' lat: 7.8 E/E' med: 8.1 MV E/A: 1.2 MV V2 max: 67.7 cm/sec MV P1/2t max marisa: 67.7 cm/sec Ao V2 max: 112.4 cm/sec MV max P.8 mmHg MV P1/2t: 137.0 msec Ao max P.0 mmHg MV V2 mean: 37.5 cm/sec MV dec slope: 144.8 cm/sec2 MV mean P.67 mmHg MVA(P1/2t): 1.6 cm2 MV V2 VTI: 26.2 cm LV V1 max: 106.3 cm/sec PA V2 max: 83.8 cm/sec LV V1 max P.5 mmHg ECHO/Echo Complete Interpretation Summary Left ventricular systolic function is normal. The estimated ejection fraction is 60 %. There is mild mitral annular calcification. Extension of the mitral annular calcification onto the base of the posterior mitral valve leaflet. Mild mitral valve prolapse, posterior leaflet Trivial mitral valve insufficiency. Trivial tricuspid valve insufficiency. Mild diffuse aortic valve thickening. Unable to estimate RV systolic pressure/pulmonary artery pressure due to technically difficult study. No evidence for diastolic dysfunction. ____ _ Ordering Physician: Carol Coker Referring Physician: Carol Coker Performed By: Dann Delgado [facility] 07/08/201653 Date Garrett Harris MD CC: Dr. Carol Coker DO Date Dictated: 07/08/20 1354 Date Transcribed: 07/08/201653 Loan Auditor: Rylee Coker DO Work Phone: Start: 04-08-2016 End: 04-08-2016 Chest PA and Lateral Comments: See Note; NOTES: [facility] Imaging Services [address] [place] [id number] [place] 4d Chest PA and Lateral MR#: [id number] Acct: [id number] Name: JOSE GRACIA Rep #: [id number] : 1960 F 55 From: Chan Villanueva MD PCP: Carol Coker DO Status: REG CLI Study: Chest PA and Lateral Date of Exam: 04/08/16 Exam# [id number] Ordering Dr: Carol Coker DO STUDY: X-RAY CHEST REASON FOR EXAM: Female, 55 years old. 2 week history of cough. Illness. TECHNIQUE: PA and lateral views of the chest. COMPARISON: None. FINDINGS: Hyperinflation. I suspect an early infiltrate in the posterior medial segment of the left lower lobe. There is no demonstrated pleural abnormality. Normal size heart. Normal mediastinum and samson. Normal visualized pulmonary arteries. Normal visualized aortic arch and descending thoracic aorta. Normal visualized thoracic spine. Normal visualized ribs, clavicles, and shoulders. There is no demonstrated abnormality of the visualized soft tissue structures of the upper abdomen. RAD/Chest PA and Lateral IMPRESSION: Findings suggestive of an early infiltrate in the posterior medial segment of the left lower lobe. Electronically Signed: Chan Villanueva MD at 12:38 EST Tel [phone], Service support [phone], CC: Carol Coker DO Loan Auditor: Signed Carol Coker Work Phone: Start: 05-29-2015 End: 05-29-[address] Lung Screening Comments: See Note; NOTES: [facility] Imaging Services [address] [place] [address] Lung Screening MR#: [id number] Acct: [id number] Name: JOSE GRACIA Rep #: [id number] : 1960 F 54 From: Chan Villanueva MD PCP: Sheela DO,Carol Status: REG CLI Study: Low Dose CT Lung Screening Date of Exam: 05/29/15 Exam# [id number] Ordering Dr: Janice Chaney MD STUDY: CT CHEST WITHOUT CONTRAST REASON FOR EXAM: Female, 54 years old. This is a low dose CT chest for lung cancer screening. History of long-time smoker. RADIATION DOSAGE (If Supplied By Facility): CTDIvol = ( 2.93 ) mGy, DLP = ( 107.92 ) mGycm TECHNIQUE: Transaxial imaging was performed without the administration of intravenous contrast material. Multiplanar coronal and sagittal images were reformatted. COMPARISON: None. FINDINGS: The lungs are normal. There is no demonstrated pleural abnormality. Normal heart and pericardium. Normal mediastinum. Normal hilar regions. Normal unenhanced pulmonary arteries. Normal aorta arch and descending thoracic aorta. There are mild degenerative changes of the thoracic spine. There is no demonstrated abnormality of the visualized upper abdomen. IMPRESSION: Normal unenhanced CT Chest examination. LungRADS 1 - Negative - Recommend continued annual LDCT screening, per established guidelines. Electronically Signed: Chan Villanueva MD at 14:37 EDT Tel [phone], Service support [phone], CC: Janice Chaney MD; Carol Coker DO Loan Auditor: Signed Janice Chaney Work Phone: Start: 05-14-2015 End: 05-14-2015 Spmtry w/vc expiratory mali w/wo mxml vol vntj _ Janice Chaney Work Phone: Comment on above: see scanned document of test done to see results reviewed today with patient Start: 07-08-2014 End: 07-08-2014 Spmtry w/vc expiratory mali w/wo mxml vol vntj _ Carol Coker Work Phone: Comment on above: mild obstruction Start: 04-01-2011 Lipid 1996 panel - Serum or Plasma Amber Roberson MD Work Phone: CARPAL TUNNEL Karina villalobos Comment on above: Surgery 1990 CARPAL TUNNEL Renaldo Rdoriguez Comment on above: Surgery 1990 CARPAL TUNNEL Karina villalobos Comment on above: Surgery 1990 CARPAL TUNNEL Chanelkelvin Jimenez Comment on above: Surgery 1990 CARPAL TUNNEL Sarah Cross Comment on above: Surgery 1990 CARPAL TUNNEL Sarah Cross L PN Comment on above: Surgery 1990 CARPAL TUNNEL Ciara Scott MA Comment on above: Surgery 1990 CARPAL TUNNEL Chanel Barbara CLINICAL PATHOLOGIST Comment on above: Surgery 1990 Peridontal surgery [address] [place] Peridontal surgery 1999 Morg an Rodriguez Peridontal surgery 1999 [place] Peridontal surgery 1999 Trac y Abrbara Peridontal surgery [address] [place] Cross Peridontal surgery 1999 [place] Cross CLINICAL PATHOLOGIST Peridontal surgery 1999 Cedrick Scott MA Peridontal surgery 1999 Trac y Barbara CLINICAL PATHOLOGIST Kayela Newport CURRICULUM MANAGER Baron Waterford LP N Plan of Treatment Date Care Activity Detail Author Start: 06-15-2033 Urine microalbumin profile DTaP,Tdap,Td Vaccine (2 - Td or Tdap) [facility] Start: 06-20-2029 Screening for malign ant neoplasm of cervix Cervical Cancer Screening [facility] Start: 12-20-2028 Screening for malign ant neoplasm of cervix Cervical Cancer Screening [facility] Start: 06-07-2028 Screening for malign ant neoplasm of cervix [facility] Start: 11-25-2027 Screening for malign ant neoplasm of cervix [facility] Start: 05-20-2027 Pap Testing Pap Testing [facility] Start: 10-21-2026 PAP TESTING PAP TESTING [facility] Start: 03-25-2026 PAP TESTING PAP TESTING [facility] Start: 06-26-2025 End: 06-26-2025 Follow-up encounter 06/26/2025 11:10 AM EDT Visit (SP) Office Gynecology Oncology [address] [place] [address] [place] [address] [place] [address] 1yr follow up per pt req Gynecology Oncology Comment on above: 1yr follow up per pt req Start: 06-26-2025 End: 06-26-2025 Patient encounter procedure 06/26/2025 10:10 AM EDT Appointment Mammography [id number] [place] [address] [Z12.39] MELL SCREENING W JEREMIAH Mammography Comment on above: [Z12.39] MELL SCREENI NG W JEREMIAH Start: 06-20-2025 End: 07-20-2025 DBT Breast - bilateral screening MELL SCREENING W JEREMIAH Radiology Routine Encounter for screening for malignant neoplasm of breast, unspecified screening modality Expected: 06/20/2025 (Approximate), Expires: 07/20/2025 [facility] Comment on above: Expected: 06/20/2025 (Approximate), Expires: 07/20/2025 Start: 06-20-2025 Screening for malign ant neoplasm of breast Mammogram Screening [facility] Start: 11-11-2024 Influenza vaccination Influenz a Vaccine (Season Ended) [facility] Start: 06-20-2024 End: 06-20-2024 Follow-up encounter 06/20/2024 10:30 AM EDT Visit (SP) Office Gynecology Oncology [address] [place] [id number] [place] [address] [place] [id number] FOLLOW UP - 6 MNTH Gynecology Oncology Comment on above: FOLLOW UP - 6 MNTH Start: 06-20-2024 End: 06-20-2024 Patient encounter procedure 06/20/2024 9:10 AM EDT Appointment Mammography [address] [place] [address] Encounter for screening mammogram for malignant neoplasm of breast [Z12.31] Mammography Comment on above: Encounter for screen ing mammogram for malignant neoplasm of breast [Z12.31] Start: 06-07-2024 Screening for malign ant neoplasm of breast Mammogram Screening [facility] Start: 01-03-2024 HPV TESTING HPV TESTING [facility] Start: 12-21-2023 End: 12-21-2023 Follow-up encounter Gynecology Oncology Comment on above: FOLLOW UP - 6 MNTH Start: 11-25-2023 BP Controlled (<130/80) BP Controlle d (<130/80) [facility] Start: 11-12-2023 Covid-19 Vaccine () Covid-19 Vaccine () [facility] Start: 11-12-2023 Influenza vaccination [facility] Start: 08-17-2023 End: 08-17-2023 Patient encounter procedure 08/17/2023 11:30 AM EDT Appointment Mammography [address] [address] RIGHT BREAST STEREOTACTIC ([PRONE-3D) BIOPSY Mammography Comment on above: RIGHT BREAST STEREOT ACTIC ([PRONE-3D) BIOPSY Start: 08-17-2023 End: 08-17-2023 Patient encounter procedure 08/17/2023 10:15 AM EDT Appointment Mammography [address] [address] MELL DIAGNOSTIC RIGHT Mammography Comment on above: MELL DIAGNOSTIC RIGHT Start: 06-16-2023 [facility] Start: 05-20-2023 BP CONTROLLED (<130/80) BP CONTROLLE D (<130/80) [facility] Start: 05-20-2023 Mammography [facility] Start: 11-11-2022 Covid-19 Vaccine ( season) Covid-19 Vaccine ( season) [facility] Start: 11-11-2022 Covid-19 Vaccine ( season) Covid-19 Vaccine ( season) [facility] Start: 11-11-2022 Influenza vaccination Influenza Vacc ine (#1) [facility] Start: 08-10-2022 Assay of thyroid stimulating hormone tsh [facility]; [facility] Work Phone: Start: 08-10-2022 Urnls dip stick/tabl et reagent auto microscopy [facility]; [facility] Work Phone: Start: 08-10-2022 Urine albumin quantitative [facility]; [facility] Work Phone: Start: 08-10-2022 Comprehensive metabo lic panel [facility]; [facility] Work Phone: Start: 08-10-2022 Blood count complete auto&auto difrntl wbc [facility]; [facility] Work Phone: Start: 08-10-2022 Lipid panel [facility]; [facility] Work Phone: Start: 08-10-2022 Procedure Education [facility]; [facility] Work Phone: Start: 08-10-2022 Provider Instruction s for Treatment [facility]; [facility] Work Phone: Start: 03-25-2022 Mammography MAMMOGRAM [facility] Start: 02-02-2022 Procedure Education [facility]; [facility] Work Phone: Start: 02-02-2022 Provider Instruction s for Treatment [facility]; [facility] Work Phone: Start: 01-25-2022 DIABETES SCREEN DIABETES SCREEN [facility] Start: 01-25-2022 Diabetes Screening Diabetes Screenin g [facility] Start: 11-11-2021 Influenza vaccination INFLUENZA (#1) [facility] Start: 07-05-2021 Assay of thyroid stimulating hormone tsh TSH (13363) [facility]; [facility] Work Phone: Start: 07-05-2021 Urnls dip stick/tabl et reagent auto microscopy URINALYSIS, W/ MICRO (81144) [facility]; [facility] Work Phone: Start: 07-05-2021 Urine albumin quantitative MICROALBUMIN: CREATININE RATIO (27516) AND (57755) [facility]; [facility] Work Phone: Start: 07-05-2021 Lipid panel LIPID PANEL (97785) [facility]; [facility] Work Phone: Start: 07-05-2021 Comprehensive metabo lic panel METABOLIC PANEL, COMPREHENSIVE (43059) [facility]; [facility] Work Phone: Start: 07-05-2021 Blood count complete auto&auto difrntl wbc CBC W/AUTO DIFF WBC (38977) [facility]; [facility] Work Phone: Start: 07-05-2021 Procedure Education [facility]; [facility] Work Phone: Start: 07-05-2021 Provider Instruction s for Treatment [facility]; [facility] Work Phone: Start: 01-01-2021 Comprehensive metabo lic panel [facility]; [facility] Work Phone: Start: 01-01-2021 Procedure Education [facility]; [facility] Work Phone: Start: 01-01-2021 Provider Instruction s for Treatment [facility]; [facility] Work Phone: Start: 07-20-2020 Procedure Education [facility]; [facility] Work Phone: Start: 07-20-2020 Provider Instruction s for Treatment [facility]; [facility] Work Phone: Start: 06-24-2020 Procedure Education [facility]; [facility] Work Phone: Start: 06-24-2020 Provider Instruction s for Treatment [facility]; [facility] Work Phone: Start: 06-24-2020 HbA1c (Bld) [Mass fraction] HgA1C , Office (71329) [facility]; [facility] Work Phone: Start: 06-24-2020 Hemoglobin glycosyla corie a1c [facility]; [facility] Work Phone: Start: 06-24-2020 Glucose [Mass/Vol] Blood Gluco se , Office (28860) [facility]; [facility] Work Phone: Start: 2019 RSV Vaccine (1 - 1-d ose 60+ series) RSV Vaccine (1 - 1-dose 60+ series) [facility] Start: 2019 RSV Vaccine (1 - Ris k 60-74 years 1-dose series) RSV Vaccine (1 - Risk 60-74 years 1-dose series) [facility] Start: 12-04-2019 Urnls dip stick/tabl et reagent auto microscopy URINALYSIS, W/ MICRO (05434) [facility] Work Phone: Start: 12-04-2019 Urine albumin quantitative MICROALBUMIN: CREATININE RATIO (46341) AND (65415) [facility] Work Phone: Start: 12-04-2019 Comprehensive metabo lic panel METABOLIC PANEL, COMPREHENSIVE (73881) [facility] Work Phone: Start: 12-04-2019 Blood count complete auto&auto difrntl wbc CBC W/AUTO DIFF WBC (29272) [facility] Work Phone: Start: 12-04-2019 TSH Qn TSH (60282) [facility] Work Phone: Start: 12-04-2019 Lipoprotein blood qu an numbers & subclasses NMR Profile (23776) [facility] Work Phone: Start: 12-04-2019 Procedure Education [facility] Work Phone: Start: 12-04-2019 Provider Instruction s for Treatment [facility] Work Phone: Start: 05-27-2019 Procedure Education [facility] Work Phone: Start: 05-27-2019 Provider Instruction s for Treatment [facility] Work Phone: Start: 11-23-2018 Lipoprotein blood qu an numbers & subclasses NMR Profile (08752) [facility] Work Phone: Start: 11-23-2018 TSH Qn TSH (08023) [facility] Work Phone: Start: 11-23-2018 Urnls dip stick/tabl et reagent auto microscopy [facility] Work Phone: Start: 11-23-2018 Urine albumin quantitative MICROALBUMIN: CREATININE RATIO (74232) AND (30229) [facility] Work Phone: Start: 11-23-2018 Comprehensive metabo lic panel METABOLIC PANEL, COMPREHENSIVE (49917) [facility] Work Phone: Start: 11-23-2018 Blood count complete auto&auto difrntl wbc CBC W/AUTO DIFF WBC (74648) [facility] Work Phone: Start: 11-23-2018 Provider Instruction s for Treatment [facility] Work Phone: Start: 11-07-2018 Lipoprotein blood qu an numbers & subclasses [facility] Work Phone: Start: 05-16-2018 Protein mass conc NMR Profile (55766 ) [facility] Work Phone: Start: 05-16-2018 Thyrotropin Qn TSH (29743) [facility] Work Phone: Start: 05-16-2018 Urnls dip stick/tabl et reagent auto microscopy URINALYSIS, W/ MICRO (43273) [facility] Work Phone: Start: 05-16-2018 Urine albumin quantitative MICROALBUMIN: CREATININE RATIO (16085) AND (81271) [facility] Work Phone: Start: 05-16-2018 Comprehensive metabo lic panel METABOLIC PANEL, COMPREHENSIVE (54716) [facility] Work Phone: Start: 05-16-2018 Blood count complete auto&auto difrntl wbc CBC W/AUTO DIFF WBC (09284) [facility] Work Phone: Start: 05-16-2018 Procedure Education [facility] Work Phone: Start: 05-16-2018 Provider Instruction s for Treatment [facility] Work Phone: Start: 04-01-2016 Lipid 1996 panel - Serum or Plasma Lipid Screening [facility] Start: 04-01-2016 Lipid panel Lipid Screening [facility] Start: 04-01-2016 LIPID SCREEN LIPID SCREEN [facility] Start: 02-29-2016 Procedure Education [facility] Work Phone: Start: 02-29-2016 Provider Instruction s for Treatment [facility] Work Phone: Start: 02-10-2016 Hepatitis c antibody Co [facility] Work Phone: Start: 01-22-2016 Procedure Education [facility] Work Phone: Start: 01-22-2016 Provider Instruction s for Treatment [facility] Work Phone: Start: 05-14-2015 ANCA-P (ANTI NEUTROP HIL CYTOPLASMIC ANTIBODY) [facility] Work Phone: Start: 05-14-2015 Assay of gammaglobul in ige [facility] Work Phone: Start: 01-23-2015 Provider Instruction s for Treatment [facility] Work Phone: Start: 01-12-2015 Patient Education [facility] Work Phone: Start: 01-12-2015 Procedure Education [facility] Work Phone: Start: 01-12-2015 Provider Instruction s for Treatment [facility] Work Phone: Start: 07-08-2014 Provider Instruction s for Treatment [facility] Work Phone: Start: 07-08-2014 Assay of thyroid stimulating hormone tsh [facility]; [facility] Work Phone: Start: 07-08-2014 Thyrotropin Qn TSH (43935) [facility] Work Phone: Start: 07-08-2014 Urnls dip stick/tabl et reagent auto microscopy [facility] Work Phone: Start: 07-08-2014 Urine albumin quantitative [facility] Work Phone: Start: 07-08-2014 Comprehensive metabo lic panel [facility] Work Phone: Start: 07-08-2014 Lipid panel [facility] Work Phone: Start: 07-08-2014 Blood count manual c ell count each [facility] Work Phone: Start: 07-08-2014 End: 07-08-2014 Spmtry w/vc expiratory mali w/wo mxml vol vntj [facility]; [facility] Work Phone: Comment on above: mild obstruction Start: 05-08-2014 Patient Education [facility] Work Phone: Start: 05-08-2014 Iaadiadoo influenza Com [facility] Work Phone: Start: 05-08-2014 Antibody jeremy-bar r eb virus early antigen ea [facility] Work Phone: Start: 04-21-2014 Provider Instruction s for Treatment [facility] Work Phone: Start: 03-31-2014 Provider Instruction s for Treatment [facility] Work Phone: Start: 02-25-2014 Provider Instruction s for Treatment [facility] Work Phone: Start: 02-11-2014 Provider Instruction s for Treatment [facility] Work Phone: Start: 01-21-2014 Provider Instruction s for Treatment [facility] Work Phone: Start: 01-08-2014 Provider Instruction s for Treatment [facility] Work Phone: Start: 12-16-2013 Patient Education [facility] Work Phone: Start: 12-16-2013 Procedure Education [facility] Work Phone: Start: 12-16-2013 Provider Instruction s for Treatment [facility] Work Phone: Start: 06-07-2013 Provider Instruction s for Treatment [facility] Work Phone: Start: 04-19-2013 Patient Education [facility] Work Phone: Start: 04-19-2013 Provider Instruction s for Treatment [facility] Work Phone: Start: 11-22-2012 Provider Instruction s for Treatment [facility] Work Phone: Start: 10-17-2012 Patient Education [facility] Work Phone: Start: 10-17-2012 Provider Instruction s for Treatment [facility] Work Phone: Start: 10-11-2012 Lipid panel [facility] Work Phone: Start: 04-18-2012 Provider Instruction s for Treatment [facility] Work Phone: Start: 03-16-2012 Assay of thyroid stimulating hormone tsh [facility]; [facility] Work Phone: Start: 03-16-2012 Thyrotropin Qn TSH (81106) [facility] Work Phone: Start: 03-16-2012 Urine albumin quantitative [facility] Work Phone: Start: 03-16-2012 Urnls dip stick/tabl et reagent auto microscopy [facility] Work Phone: Start: 03-16-2012 Comprehensive metabo lic panel [facility] Work Phone: Start: 03-16-2012 Lipid panel [facility] Work Phone: Start: 03-16-2012 Blood count manual c ell count each [facility] Work Phone: Start: 03-16-2012 Provider Instruction s for Treatment [facility] Work Phone: Start: 05-24-2011 Provider Instruction s for Treatment [facility] Work Phone: Start: 05-10-2011 Provider Instruction s for Treatment [facility] Work Phone: Start: 03-21-2011 Lipid panel [facility] Work Phone: Start: 12-07-2009 SHINGRIX VACCINE (1 of 2) SHINGRIX VACCINE (1 of 2) [facility] Start: 11-04-2009 Assay of thyroid stimulating hormone tsh [facility]; [facility] Work Phone: Start: 11-04-2009 Thyrotropin Qn TSH ([id number]) [facility] Work Phone: Start: 11-04-2009 Lipid panel [facility] Work Phone: Comment on above: fasting 10-12 hr Start: 11-04-2009 Provider Instruction s for Treatment [facility] Work Phone: Start: 07-07-2008 Provider Instruction s for Treatment [facility] Work Phone: Start: 12-26-2007 Pneumococcal Vaccine : 50+ (2 of 2 - PCV) Pneumococcal Vaccine: 50+ (2 of 2 - PCV) [facility] Start: 02-12-2007 Provider Instruction s for Treatment [facility] Work Phone: Start: 12-25-2006 Provider Instruction s for Treatment [facility] Work Phone: Start: 12-01-2006 Provider Instruction s for Treatment [facility] Work Phone: Start: 12-07-2004 COLOGUARD (FIT-DNA) COLOGUARD (FIT-D NA) [facility] Start: 12-07-2004 Colonoscopy COLONOSCOPY [facility] Start: 12-07-2004 COLORECTAL CANCER SCREENING COLORECTAL CANCER SCREENING [facility] Start: 12-07-[address] COLONOGRAPHY [facility] Start: 12-07-2004 FECAL OCCULT BLOOD FECAL OCCULT BLOO D [facility] Start: 12-07-2004 Screening for malign ant neoplasm of colon [facility] Start: 12-07-2004 SIGMOIDOSCOPY SIGMOIDOSCOPY [facility] Start: 12-07-1989 Zoledronic acid therapy Alpha- 1 Antitrypsin Deficiency Screening [facility] Start: 12-07-1978 Urine microalbumin profile [facility] Start: 12-07-1977 ANNUAL PCP TEAM DINING CAR HOP STEVAN DISEASE VISIT ANNUAL PCP TEAM CHRONIC DISEASE VISIT [facility] Start: 12-07-1977 BP CONTROLLED (<130/80) BP CONTROLLE D (<130/80) [facility] Start: 12-07-1977 HEPATITIS C SCREENING HEPATITIS C [facility] Start: 12-07-1977 Hepatitis C screening Hepatitis C [facility] Start: 12-07-1977 HIV SCREENING HIV SCREENING [facility] Start: 12-07-1977 HIV screening HIV Screening [facility] Start: 12-07-1977 Spirometry Spirometry [facility] Start: 12-07-1977 zzBP Controlled (<130/80) (Retired) zzBP Controlled (<130/80) (Retired) [facility] Start: 12-07-1965 PNEUMOCOCCAL (1 - PCV) PNEUMOCOCCAL (1 - PCV) [facility] Start: 12-07-1965 Pneumococcal vaccination Pneumococcal Vaccine (1 - PCV) [facility] Start: 06-06-1960 COVID-19 VACCINE (#1) COVID-19 VACCI NE (#1) [facility] End: 01-19-2025 DBT Breast - bilateral screening MELL SCREENING W JEREMIAH Radiology Routine Encounter for screening mammogram for malignant neoplasm of breast 1 Occurrences starting 12/21/2023 until 01/19/2025 [facility] Comment on above: 1 Occurrences starti ng 12/21/2023 until 01/19/2025 DBT Breast - bilater al screening MELL SCREENING W JEREMIAH Radiology Routine Encounter for screening mammogram for malignant neoplasm of breast 06/20/2024 9:48 AM EDT [facility] Work Phone: End: 12-24-2023 MELL SCREENING W JEREMIAH MELL SCREENING W JEREMIAH Radiology Routine Encounter for screening mammogram for malignant neoplasm of breast 1 Occurrences starting 11/24/2022 until 12/24/2023 [facility] Work Phone: Comment on above: 1 Occurrences starti ng 11/24/2022 until 12/24/2023 End: 08-05-2024 MG Breast - right Diagnostic for implant MELL DIAGNOSTIC RIGHT Radiology Routine Abnormal finding on radiological examination of breast 1 Occurrences starting 07/07/2023 until 08/05/2024 [facility] Work Phone: Comment on above: 1 Occurrences starti ng 07/07/2023 until 08/05/2024 End: 08-05-2024 MG stereo Guidance for biopsy of Breast - right MELL STEREO BX BREAST RIGHT Radiology Routine Abnormal finding on radiological examination of breast 1 Occurrences starting 07/07/2023 until 08/05/2024 [facility] Comment on above: 1 Occurrences starti ng 07/07/2023 until 08/05/2024 PAP FLUID VAGINAL DIAGNOSTIC PAP FLUID VAGINAL DIAGNOSTIC Lab Routine Endometrial cancer ([facility]) Ordered: 10/21/2021 [facility] Work Phone: Comment on above: Ordered: 10/21/2021 PAP FLUID VAGINAL DIAGNOSTIC PAP FLUID VAGINAL DIAGNOSTIC Lab Routine Endometrial cancer ([facility]) 05/19/2022 12:09 PM EST [facility] Work Phone: PAP TEST PAP TEST Lab Rou anshul Endometrial cancer ([facility]) 11/24/2022 12:48 PM EDT [facility] Work Phone: PAP TEST PAP TEST Lab Rou anshul Encounter for follow-up surveillance of endometrial cancer Ordered: 12/21/2023 [facility] Comment on above: Ordered: 12/21/2023 PAP TEST PAP TEST Lab Akash landers Endometrial cancer (HCC) Ordered: 06/20/2024 [facility] Work Phone: Comment on above: Ordered: 06/20/2024 Patient referral [facility] Work Phone: End: 07-18-2024 US Breast - right limited US BREAST LTD RIGHT Radiology Routine Abnormal mammogram 1 Occurrences starting 06/19/2023 until 07/18/2024 [facility] Work Phone: Comment on above: 1 Occurrences starti ng 06/19/2023 until 07/18/2024 End: 01-18-2025 XR Chest PA and Lateral XR CHEST 2V FRONTAL/LAT Radiology Routine Encounter for follow-up surveillance of endometrial cancer 1 Occurrences starting 12/21/2023 until 01/18/2025 [facility] Work Phone: Comment on above: 1 Occurrences starti ng 12/21/2023 until 01/18/2025 [facility] Work Phone: [facility] Work Phone: [facility] Work Phone: [facility] Work Phone: [facility] Work Phone: [facility] Work Phone: [facility] Work Phone: [facility] Work Phone: [facility] Work Phone: [facility] Work Phone: [facility] Work Phone: [facility] Work Phone: [facility] Work Phone: [facility] Work Phone: [facility] Work Phone: [facility] Work Phone: [facility] Work Phone: [facility] Work Phone: [facility] Work Phone: [facility] Work Phone: [facility] Work Phone: [facility] Work Phone: [facility] Work Phone: [facility] Work Phone: [facility] Work Phone: [facility] Work Phone: [facility] Work Phone: [facility] Work Phone: [facility] Work Phone: [facility] Work Phone: [facility] Work Phone: [facility] Work Phone: [facility] Work Phone: [facility] Work Phone: [facility] Work Phone: [facility] Work Phone[facility] Work Phone: [facility] Work Phone: [facility] Work Phone: [facility] Work Phone: [facility] Work Phone: [facility] Work Phone: [facility] Work Phone: [facility] Work Phone: [facility]; [facility] Work Phone: [facility]; [facility] Work Phone: [facility]; [facility] Work Phone: [facility] Immunizations Immunization Date Immunization Notes Care Provider [facility] 06-16-2023 tetanus toxoid, redu jon diphtheria toxoid, and acellular pertussis vaccine, adsorbed [facility] 05-11-2020 COVID-19 (Moderna) [facility] Navarrete [facility]; [facility] Work Phone: 04-13-2020 COVID-19 (Moderna) [facility]arrete [facility]; [facility] Work Phone: 03-09-2012 influenza virus vaccine, unspecified formulation Amber Roberson MD Work Phone: [facility] 12-25-2006 influenza, seasonal, injectable Carol Coker [facility] Work Phone: Comment on above: done km see immuniza tions0.5cc given im rt deltoid lot [id number] exp 09-10-07 12-25-2006 pneumococcal polysaccharide vaccine, 23 valent Carol Coker [facility] Work Phone: Comment on above: done km see immuniza tions0.5 cc given im lt deltoid lot [id number] exp 01-22-08. Payers Date Payer Category Payer Self-pay [id number] 2020 [employer] BLUE CARD PPO OOS [id number] 2020 Unknown [id number] 2017 Unknown 2015 Private Health Insurance [id number] 2009 Unknown [id number] 1959 Unknown [id number] Unknown [id number] Unknown [id number] Unknown [id number] Unknown [id number] Social History Date Type Detail Facility Start: 10-21-2021 End: 12-21-2023 Alcohol Use Former smoker [facility] Work Phone: Comment on above: Occasional alcohol u se 5 avg. None , heterosexua l [employer] Tobacco Use: Former smoker. [facility] Work Phone: Comment on above: uses E-cigs Tobacco Use: Tobacco Use: [facility] Work Phone: Comment on above: uses E-cigs Start: 10-21-2021 End: 12-21-2023 Tobacco smoking status NHIS Ex-smoker [facility] End: 05-23-2012 History of tobacco use Current smoker [facility] End: 05-23-2012 History of tobacco use Cigarette Smoker [facility] Start: 10-21-2021 End: 12-21-2023 Tobacco use and exposure Smokeless tobacco non-user [facility] Start: 10-21-2021 End: 06-20-2024 Alcohol intake Current drinker of alcohol (finding) [facility] Start: 01-30-2019 History SDOH Alcohol Frequency 2 [facility] Start: 09-23-2015 History SDOH Alcohol Comment occasional [facility] Start: 1960 Sex Assigned At Not on file [facility] Start: 01-20-2021 End: 10-21-2021 Exposure to SARS-CoV-2 (event) Not sure [facility] Start: 01-30-2019 End: 12-21-2023 Alcohol Use Disorder Identification Test - Consumption [AUDIT-C] [facility] Work Phone: How often to you hav e a drink containing alcohol? Monthly or less [facility] Work Phone: Average Number of Drinks Not on file [facility] Start: 06-16-2023 Tobacco smoking stat [facility] Unknown if ever smoked [facility] Start: 1960 Sex Assigned At Female [facility] Functional Status Date Assessment Result Facility 05-29-2020 LP-IR Score 73 [facility] Work Phone: Comment on above: INSULIN RESISTANCE Aditi GONZALEZ <--Insulin Sensitive Insulin Resistant--> Percentile in Reference PopulationInsulin Resistance ScoreLP-IR Score Low 25th 50th 75th High <27 27 45 63 >63LP-IR Score is inaccurate if patient is non-fasting. .The LP-IR score is a laboratory developed index that has beenassociated with insulin resistance and diabetes risk and should beused as one component of a physician's clinical assessment. Test(s) 618737-JWU-Q ; 353967-ZOB-D; 393665-Qgcawsmhwafrc; 632932-Sfbbjztvxdx, Total; 041451-HTK-O (Total); 338013-Tqxzg LDL-P; 031131-FUH Size; 223011-WP-BR Scorewas developed and its performance characteristics determinedby [employer]. It has not been cleared or approved by the Foodand Drug Administration.PATIENT WAS FASTINGPERFORMED BY: [address] [id number] BY: ZipRecruiterCentraState Healthcare [id number] [facility] [id number]; ov 06/0305-17-2019 LP-IR Score 77 [facility] Work Phone: Comment on above: INSULIN RESISTANCE M ARKER <--Insulin Sensitive Insulin Resistant--> Percentile in Reference PopulationInsulin Resistance ScoreLP-IR Score Low 25th 50th 75th High <27 27 45 63 >63LP-IR Score is inaccurate if patient is non-fasting. .The LP-IR score is a laboratory developed index that has beenassociated with insulin resistance and diabetes risk and should beused as one component of a physician's clinical assessment. Test(s) 997179-FTN-K ; 975495-ZQL-V; 804653-BVI-F; 341995-Wxgzdndetnpfi; 421171-Oceuhwleeei, Total; 014121-SNI-F (Total);777116-Zcrbm LDL-P; 769241-HXJ Size; 192460-DH-CB Scorewas developed and its performance characteristics determinedby [employer]. It has not been cleared or approved by the Foodand Drug Administration.PATIENT WAS FASTINGPERFORMED BY: [employer] [id number] BY: [employer] [id number] [facility] [id number] 05-25-2018 LP-IR Score 76 [facility] Work Phone: Comment on above: INSULIN RESISTANCE M ARKER <--Insulin Sensitive Insulin Resistant--> Percentile in Reference PopulationInsulin Resistance ScoreLP-IR Score Low 25th 50th 75th High <27 27 45 63 >63LP-IR Score is inaccurate if patient is non-fasting. .The LP-IR score is a laboratory developed index that has beenassociated with insulin resistance and diabetes risk and should beused as one component of a physician's clinical assessment. TheLP-IR score listed above has not been cleared by the [place] Food andDrug Administration. PATIENT WAS FASTINGP ERFORMED BY: CÜR [address] [id number] BY: [id number] [facility] [id number] Clinical Notes 02-19-2021 to 07-01-2024 Telephone Encounter - Art Aquino RN - 07/01/2024 10:31 AM EDTTelephone Encounter - Art Aquino RN - 07/01/2024 10:31 AM EDTRAmber redman MD - 06/20/2024 10:30 AM EDT Note Date & Type Note Facility 07-01-2024 Telephone encounter Note Called and left the patient a VM to call the office in regards to her test results. Patient verified, returned my call. Informed the patient that her pap and HPV were negative. Patient appreciative of the information. Art Aquino RN Gyn/Onc Counter Top Assembler [facility] 07-01-2024 Miscellaneous Notes Called and left the patient a VM to call the office in regards to her test results. Patient verified, returned my call. Informed the patient that her pap and HPV were negative. Patient appreciative of the information. Art Aquino RN Gyn/Onc Counter Top Assembler documented in this encounter [facility] 06-20-2024 History of Presen t illness Narrative Images from the original note were not included. DATE OF SERVICE: 06/20/2024 PROBLEM: Jose Gracia presents for a follow-up visit. 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 Patient was previously seen by Dr. Adler in 2019. CA 125 (U/mL) Date Value 01/08/2019 14 01/08/2019: EMB - Endometrial adenocarcinoma, endometrioid type, FIGO Grade 1. Immunohistochemical (IHC) staining patterns of each MMR protein: PMS2 expressed in carcinoma nuclei MLH1 expressed in carcinoma nuclei MSH6 expressed in carcinoma nuclei MSH2 expressed in carcinoma nuclei 02/01/2019: With Dr. Adler Robotic total hysterectomy, bilateral salpingo-oophorectomy and cystoscopy FINAL DIAGNOSIS Uterus, cervix, bilateral tubes and ovaries, hysterectomy with bilateral salpingo-oophorectomy - Endometrial endometrioid adenocarcinoma, FIGO Grade 1. Tumor 2 cm in size, invading 13% myometrial thickness. Negative for lymphovascular space invasion. - Benign endometrial polyp. - Cervix, fallopian tubes and ovaries negative for malignancy. Tumor Size: Greatest dimension: 2 cm Additional dimension: 1.5 cm Additional dimension: 0.3 cm Histologic Type: Endometrioid carcinoma, NOS Histologic Grade: FIGO grade 1 Myometrial Invasion: Present Depth of invasion: 1.5 mm Myometrial thickness: 12 mm Percentage of myometrial invasion: 13 % Estimated <50% myometrial invasion Uterine Serosa Involvement: Not identified Lower Uterine Segment Involvement: Not identified Cervical Stromal Involvement: Not identified Involvement of other tissue/organs: Not identified Margins: Ectocervical/vaginal cuff margin uninvolved by carcinoma Parametrial/Paracervical margin cannot be assessed: Simple hysterectomy Lymph-Vascular Invasion: Not identified Regional Lymph Nodes: No nodes submitted or found Pathologic Stage Classification (pTNM, AJCC 8th ed) TNM Descriptors: Not applicable Primary Tumor (pT): pT1a (IA): Tumor limited to endometrium or invades less than 1/2 of the myometrium Regional Lymph Nodes (pN): pNX: Regional lymph nodes cannot be assessed Distant Metastasis (pM): Not applicable/Not confirmed pathologically in this case Additional Pathologic Findings: Other: endometerial polyp Ancillary Studies: Ace syndrome screening: Mismatch repair proficient (perviously performed [id number]; 01/11/2019) [employer] Work[employer] Tumor block: Specify: A6 08/19/[address] Adler: Stage IA grade 1 endometrioid endometrial cancer, -LVSI, superficial myometrial invasion 1, No clinical evidence of disease. Signs and symptoms of recurrence reviewed 2. Pap done, will follow 3. CT scan as needed 4. UTD for breast cancer screening 5. RTC in 6 months 04/02/2020 Visit: Patient presents for a follow up visit. Breast exam performed in clinic today. A mammogram will be scheduled. A pap smear was obtained. Will contact the patient with the results. Plan for patient to obtain CXR today. No clinical evidence of disease the patient will be seen in 4 months time. 04/02/2020 CXR: IMPRESSION: No acute radiographic findings in the chest. 07/16/2020 visit: Patient presents for a follow up visit. Patient is up to date on her CXR. A mammogram will be scheduled. A pap smear was obtained. Will contact the patient with the results. No clinical evidence of disease the patient will be seen in 4 months time. 11/20/2020 visit: Patient presents today for follow-up visit with no complaints at this time. Patient reports that she has been wearing stockings due to her diagnosis of varicose veins. Breast exam conducted, no abnormal findings. A Pap smear was obtained will notify patient of results. Plan to schedule a mammogram and RTC in 4 months. 02/19/2021 XR CHEST: IMPRESSION: No acute radiographic abnormality. Chronic lung hyperinflation. 03/25/2021 Visit: Patient presents today for follow-up visit with no complaints at this time. Patient reports that she is wearing compression stockings due to her condition of varicose veins. I reviewed the patient's CXR (02/19/2021) showing no abnormal findings. A Pap smear was obtained will notify patient of results. RTC in 6 months. 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 She is doing well. She denies any vaginal bleeding. A Pap smear was obtained, will notify patient of results. Patient is up to date on her mammogram. No clinical evidence of disease, patient will be seen in 6 months time. 05/19/2022 Visit: - Patient is doing well. - A pap smear was obtained, will notify patient of results. - Breast exam was performed in clinic today with no abnormal findings. Patient underwent a mammogram prior to her visit today. - CXR obtained following today's visit. - No clinical evidence of disease, patient will be seen in 6 months time. 05/19/2022 CXR RESULT: Lines, tubes, and devices: None. Lungs and pleura: Decrease of partial atelectasis in the medial bases. Lungs are hypoinflated/emphysematous. Underlying inflammatory airway thickening is suspected in the perihilar and basilar regions. No pleural effusion or pneumothorax. Cardiomediastinal silhouette: Normal sized heart. Thoracic aorta is tortuous. Bones and soft tissues: Generalized osteopenia. 11/24/2022 Visit: - Patient is doing well. - A pap smear was obtained, will notify patient of results. - Patient is up to date on her mammogram, breast exam, and CXR. A mammogram order will be placed for next year. - No clinical evidence of disease, patient will be seen in 6 months time. 06/08/2023 Visit: - Patient is doing well. Denies any vaginal bleeding. - A pap smear was obtained, will notify patient of results. - Breast exam was performed in clinic today with no abnormal findings. Patient underwent a mammogram earlier today and results still in process. - CXR obtained following today's visit. - No clinical evidence of disease, patient will be seen in 6 months time. 06/08/2023 CXR negative 12/21/2023 Visit: - Patient is doing well. No acute complaints today. - A pap smear was obtained, will notify patient of results. - An order for mammogram will be placed to repeat in 6 months - No clinical evidence of disease, patient will be seen in 6 months time. LABS: CA 125 (U/mL) Date Value 01/08/2019 14 Latest Ref Rng & Units 01/25/2019 Labs WBC 3.70 - 11.00 k/uL 6.05 Hemoglobin 11.5 - 15.5 g/dL 13.0 Hematocrit 36.0 - 46.0 % 39.8 Platelet Count 150 - 400 k/uL 181 Albumin 3.9 - 4.9 g/dL 4.1 Alkaline Phosphatase 34 - 123 U/L 61 ALT 7 - 38 U/L 13 AST 13 - 35 U/L 21 Bilirubin, Total 0.2 - 1.3 mg/dL 0.2 BUN 7 - 21 mg/dL 29 Calcium 8.5 - 10.2 mg/dL 9.4 Creatinine 0.58 - 0.96 mg/dL 1.15 Glucose 74 - 99 mg/dL 86 Potassium 3.7 - 5.1 mmol/L 3.9 Protein, Total 6.3 - 8.0 g/dL 6.1 Sodium 136 - 144 mmol/L 140 IMAGING: CT CHEST: No results found. CT ABD/PELVIS: No results found. HEALTH MAINTENANCE: Last mammogram: 06/20/2024 Last breast exam: 06/08/2023 normal Last pap/HPV: 12/27/2023 negative SUBJECTIVE/INTERVAL HISTORY: Patient is feeling well and denies shortness of breath, nausea, vomiting, constipation, problems urinating, unexplained weight loss, or vaginal bleeding. Candice Richey MA June 20, 2024 10:20 AM OBJECTIVE: BP 131/80 (BP Site: Left Arm, BP Position: Sitting, BP Cuff Size: Regular Adult) Pulse 68 Temp 36.1 C (97 F) (Skin) Ht 172.7 cm (5' 8) Wt 73.9 kg (162 lb 14.7 oz) LMP 02/24/2012 SpO2 98% BMI 24.77 kg/m Female in no acute distress. Neck - Negative. Supraclavicular and axillary - Adenopathy absent. Respiratory - Clear to ausculation. Breasts - No masses. Abdominal - No CVA tenderness. The bowel sounds are positive. The abdomen is soft, nontender and there is no inguinal adenopathy. Pelvic - Normal vulva and vaginal cuff. A pap smear is obtained. Bimanual and rectovaginal exams reveal no masses. Lens Marker for exam: Art Aquino RN The sensitive examination was discussed with the Patient or Patient's Authorized Stockroom Worker. As applicable, any other physician, advance practice provider, medical student, or other health professional student that will be observing or involved in the sensitive examination for educational or training purposes was discussed with the Patient or Authorized Stockroom Worker. The Patient or Authorized Stockroom Worker has agreed to proceed with the sensitive examination. ASSESSMENT/PLAN: Endometrial cancer - Patient is doing well. Denies any vaginal bleeding. It has been 5 years since her surgery. - A pap smear was obtained, will notify patient of results. - Breast exam was performed in clinic today with no abnormal findings. Patient underwent an annual mammogram this morning. - Patient has been followed adequately for her low risk cancer and has shown no signs of recurrence. At this point we could discontinue routine follow-up or return in 1 year for surveillance which patient ultimately elects to do. - No clinical evidence of disease, patient will be seen in 12 months time. ATTESTATION: By signing my name below, INazanin, attest that this documentation has been prepared under the direction and in the presence of Amber Roberson MD. Electronically signed: Brandon Felizleonel, June 20, 2024 11:26 AM Provider Attestation: Amber Davis MD, personally performed the services described in this documentation. All medical record entries made by the scribe were at my direction and in my presence. I have reviewed the chart and discharge instructions (if applicable) and agree that the record reflects my personal performance and is accurate and complete. Amber Roberson MD June 20, 2024 1:18 PM I have confirmed and edited as necessary, the history of the present illness (HPI). Interval changes in the history of present illness are noted. I have confirmed and edited as necessary, the PFSH and ROS obtained by others. I saw the patient and personally participated in the dubose components and agree with the documented findings and plan. Sincerely, Amber Roberson M.D. Reviewed and corrected by Amber Roberson M.D. The previous note written by Dr. Roberson dated 12/21/2023 was copied forward and the necessary changes were made. Medical Decision Making: Problems: Low: Stable chronic illness Data: Unique test result(s) reviewed: 2 Unique test(s) ordered: 2 Risk: Low: Low risk from testing/treatment Medical Decision Making Level: 3 - Low documented in this encounter [facility] 06-20-2024 Note HNO ID: [id number] Author: AMBER ROBERSON MD Service: ? Author Type: Physician Type: Progress Notes Filed: 06/20/2024 13:19 Note Text: DATE OF SERVICE: 06/20/2024 PROBLEM: Jose Gracia presents for a follow-up visit. 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 Patient was previously seen by Dr. Adlre in 2019. CA 125 (U/mL) Date Value 01/08/2019 14 01/08/2019: EMB - Endometrial adenocarcinoma, endometrioid type, FIGO Grade 1. Immunohistochemical (IHC) staining patterns of each MMR protein: PMS2 expressed in carcinoma nuclei MLH1 expressed in carcinoma nuclei MSH6 expressed in carcinoma nuclei MSH2 expressed in carcinoma nuclei 02/01/2019: With Dr. Adler Robotic total hysterectomy, bilateral salpingo-oophorectomy and cystoscopy FINAL DIAGNOSIS Uterus, cervix, bilateral tubes and ovaries, hysterectomy with bilateral salpingo-oophorectomy - Endometrial endometrioid adenocarcinoma, FIGO Grade 1. Tumor 2 cm in size, invading 13% myometrial thickness. Negative for lymphovascular space invasion. - Benign endometrial polyp. - Cervix, fallopian tubes and ovaries negative for malignancy. Tumor Size: Greatest dimension: 2 cm Additional dimension: 1.5 cm Additional dimension: 0.3 cm Histologic Type: Endometrioid carcinoma, NOS Histologic Grade: FIGO grade 1 Myometrial Invasion: Present Depth of invasion: 1.5 mm Myometrial thickness: 12 mm Percentage of myometrial invasion: 13 % Estimated <50% myometrial invasion Uterine Serosa Involvement: Not identified Lower Uterine Segment Involvement: Not identified Cervical Stromal Involvement: Not identified Involvement of other tissue/organs: Not identified Margins: Ectocervical/vaginal cuff margin uninvolved by carcinoma Parametrial/Paracervical margin cannot be assessed: Simple hysterectomy Lymph-Vascular Invasion: Not identified Regional Lymph Nodes: No nodes submitted or found Pathologic Stage Classification (pTNM, AJCC 8th ed) TNM Descriptors: Not applicable Primary Tumor (pT): pT1a (IA): Tumor limited to endometrium or invades less than 1/2 of the myometrium Regional Lymph Nodes (pN): pNX: Regional lymph nodes cannot be assessed Distant Metastasis (pM): Not applicable/Not confirmed pathologically in this case Additional Pathologic Findings: Other: endometerial polyp Ancillary Studies: Ace syndrome screening: Mismatch repair proficient (perviously performed [id number]; 01/11/2019) Stockroom Worker Tumor block: Specify: A6 08/19/[address] Adler: Stage IA grade 1 endometrioid endometrial cancer, -LVSI, superficial myometrial invasion 1, No clinical evidence of disease. Signs and symptoms of recurrence reviewed 2. Pap done, will follow 3. CT scan as needed 4. UTD for breast cancer screening 5. RTC in 6 months 04/02/2020 Visit: Patient presents for a follow up visit. Breast exam performed in clinic today. A mammogram will be scheduled. A pap smear was obtained. Will contact the patient with the results. Plan for patient to obtain CXR today. No clinical evidence of disease the patient will be seen in 4 months time. 04/02/2020 CXR: IMPRESSION: No acute radiographic findings in the chest. 07/16/2020 visit: Patient presents for a follow up visit. Patient is up to date on her CXR. A mammogram will be scheduled. A pap smear was obtained. Will contact the patient with the results. No clinical evidence of disease the patient will be seen in 4 months time. 11/20/2020 visit: Patient presents today for follow-up visit with no complaints at this time. Patient reports that she has been wearing stockings due to her diagnosis of varicose veins. Breast exam conducted, no abnormal findings. A Pap smear was obtained will notify patient of results. Plan to schedule a mammogram and RTC in 4 months. 02/19/2021 XR CHEST: IMPRESSION: No acute radiographic abnormality. Chronic lung hyperinflation. 03/25/2021 Visit: Patient presents today for follow-up visit with no complaints at this time. Patient reports that she is wearing compression stockings due to her condition of varicose veins. I reviewed the patient's CXR (02/19/2021) showing no abnormal findings. A Pap smear was obtained will notify patient of results. RTC in 6 months. 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 She is doing well. She denies any vaginal bleeding. A Pap smear was obtained, will notify patient of results. Patient is up to date on her mammogram. No clinical evidence of disease, patient will be seen in 6 months time. 05/19/2022 Visit: - Patient is doing well. - A pap smear was obtained, will notify patient o (more content not included)... [facility] 06-20-2024 History of Presen t illness Narrative Radiology Service Progress Note PATIENT NAME: Jose Gracia DATE OF SERVICE: June 20, 2024 TIME: 10:34 AM PATIENT IDENTITY VERIFICATION COMPLETED USING TWO (2) IDENTIFIERS: Name and Date of confirmed by patient verbally. FALL SCREENING: Has the patient had 2 falls in the last year or 1 fall with injury or currently using an Ambulatory Assistive Device (Walker, Cane, Wheelchair, Crutches, etc.)? No PATIENT GENDER DATA: Assigned female at . status: : No status: NO. PATIENT RELEVANT IMPLANT DATA REVIEWED: Not Applicable PATIENT PRESENTS WITH AN IMPLANTABLE OR ATTACHED NETWORK CONTROL OPERATOR: No RADIOLOGY DEPARTMENT: Mammography PERIPHERAL IV DATA: Not applicable SIGNED BY: Brant Thornton June 20, 2024 10:34 AM documented in this encounter [facility] 06-20-2024 Note HNO ID: [id number] Author: RICCARDO RODRIGUEZ Mammo Tech Service: ? Author Type: Rehabilitation Tech Type: Progress Notes Filed: 06/20/2024 10:36 Note Text: Radiology Service Progress Note PATIENT NAME: Jose Gracia DATE OF SERVICE: June 20, 2024 TIME: 10:34 AM PATIENT IDENTITY VERIFICATION COMPLETED USING TWO (2) IDENTIFIERS: Name and Date of confirmed by patient verbally. FALL SCREENING: Has the patient had 2 falls in the last year or 1 fall with injury or currently using an Ambulatory Assistive Device (Walker, Cane, Wheelchair, Crutches, etc.)? No PATIENT GENDER DATA: Assigned female at . status: : No status: NO. PATIENT RELEVANT IMPLANT DATA REVIEWED: Not Applicable PATIENT PRESENTS WITH AN IMPLANTABLE OR ATTACHED NETWORK CONTROL OPERATOR: No RADIOLOGY DEPARTMENT: Mammography PERIPHERAL IV DATA: Not applicable SIGNED BY: Brant Thornton June 20, 2024 10:34 AM [facility] 12-27-2023 Telephone encounter Note Called and left the patient a VM to call the office in regards to her test results. Patient verified. The patient called back into the office . I informed the patient per the ELECTRICAL LINEMAN that her pap was normal. Patient appreciative of call. Art Aquino RN Gyn/Onc Counter Top Assembler [facility] 12-27-2023 Miscellaneous Notes Called and left the patient a VM to call the office in regards to her test results. Patient verified. The patient called back into the office . I informed the patient per the ELECTRICAL LINEMAN that her pap was normal. Patient appreciative of call. Art Aquino area relief pilot/Onc Counter Top Assembler documented in this encounter [facility] 12-21-2023 History of Presen t illness Narrative Gynecologic Oncology [facility] Follow up Re: Jose Gracia [facility]#: [id number] Date of service: 12/21/2023 Jose presents for a follow-up visit for stage IA grade 1 endometrioid endometrial cancer. Briefly, she is a 63 year old female who has a past medical history of Adjustment disorder with depressed mood, Asthma, Endometrial cancer, grade I (HCC) (01/08/2019), and Hypertension. Patient was previously seen by Dr. Adler in 2019. TREATMENT HISTORY: CA 125 (U/mL) Date Value 01/08/2019 14 01/08/2019: EMB - Endometrial adenocarcinoma, endometrioid type, FIGO Grade 1. Immunohistochemical (IHC) staining patterns of each MMR protein: PMS2 expressed in carcinoma nuclei MLH1 expressed in carcinoma nuclei MSH6 expressed in carcinoma nuclei MSH2 expressed in carcinoma nuclei 02/01/2019: With Dr. Adler Robotic total hysterectomy, bilateral salpingo-oophorectomy and cystoscopy FINAL DIAGNOSIS Uterus, cervix, bilateral tubes and ovaries, hysterectomy with bilateral salpingo-oophorectomy - Endometrial endometrioid adenocarcinoma, FIGO Grade 1. Tumor 2 cm in size, invading 13% myometrial thickness. Negative for lymphovascular space invasion. - Benign endometrial polyp. - Cervix, fallopian tubes and ovaries negative for malignancy. Tumor Size: Greatest dimension: 2 cm Additional dimension: 1.5 cm Additional dimension: 0.3 cm Histologic Type: Endometrioid carcinoma, NOS Histologic Grade: FIGO grade 1 Myometrial Invasion: Present Depth of invasion: 1.5 mm Myometrial thickness: 12 mm Percentage of myometrial invasion: 13 % Estimated <50% myometrial invasion Uterine Serosa Involvement: Not identified Lower Uterine Segment Involvement: Not identified Cervical Stromal Involvement: Not identified Involvement of other tissue/organs: Not identified Margins: Ectocervical/vaginal cuff margin uninvolved by carcinoma Parametrial/Paracervical margin cannot be assessed: Simple hysterectomy Lymph-Vascular Invasion: Not identified Regional Lymph Nodes: No nodes submitted or found Pathologic Stage Classification (pTNM, AJCC 8th ed) TNM Descriptors: Not applicable Primary Tumor (pT): pT1a (IA): Tumor limited to endometrium or invades less than 1/2 of the myometrium Regional Lymph Nodes (pN): pNX: Regional lymph nodes cannot be assessed Distant Metastasis (pM): Not applicable/Not confirmed pathologically in this case Additional Pathologic Findings: Other: endometerial polyp Ancillary Studies: Ace syndrome screening: Mismatch repair proficient (perviously performed [id number]; 01/11/2019) Stockroom Worker Tumor block: Specify: A6 08/19/[address] Adler: Stage IA grade 1 endometrioid endometrial cancer, -LVSI, superficial myometrial invasion 1, No clinical evidence of disease. Signs and symptoms of recurrence reviewed 2. Pap done, will follow 3. CT scan as needed 4. UTD for breast cancer screening 5. RTC in 6 months 04/02/2020 Visit: Patient presents for a follow up visit. Breast exam performed in clinic today. A mammogram will be scheduled. A pap smear was obtained. Will contact the patient with the results. Plan for patient to obtain CXR today. No clinical evidence of disease the patient will be seen in 4 months time. 04/02/2020 CXR: IMPRESSION: No acute radiographic findings in the chest. 07/16/2020 visit: Patient presents for a follow up visit. Patient is up to date on her CXR. A mammogram will be scheduled. A pap smear was obtained. Will contact the patient with the results. No clinical evidence of disease the patient will be seen in 4 months time. 11/20/2020 visit: Patient presents today for follow-up visit with no complaints at this time. Patient reports that she has been wearing stockings due to her diagnosis of varicose veins. Breast exam conducted, no abnormal findings. A Pap smear was obtained will notify patient of results. Plan to schedule a mammogram and RTC in 4 months. 02/19/2021 XR CHEST: IMPRESSION: No acute radiographic abnormality. Chronic lung hyperinflation. 03/25/2021 Visit: Patient presents today for follow-up visit with no complaints at this time. Patient reports that she is wearing compression stockings due to her condition of varicose veins. I reviewed the patient's CXR (02/19/2021) showing no abnormal findings. A Pap smear was obtained will notify patient of results. RTC in 6 months. 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 She is doing well. She denies any vaginal bleeding. A Pap smear was obtained, will notify patient of results. Patient is up to date on her mammogram. No clinical evidence of disease, patient will be seen in 6 months time. 05/19/2022 Visit: - Patient is doing well. - A pap smear was obtained, will notify patient of results. - Breast exam was performed in clinic today with no abnormal findings. Patient underwent a mammogram prior to her visit today. - CXR obtained following today's visit. - No clinical evidence of disease, patient will be seen in 6 months time. 05/19/2022 CXR RESULT: Lines, tubes, and devices: None. Lungs and pleura: Decrease of partial atelectasis in the medial bases. Lungs are hypoinflated/emphysematous. Underlying inflammatory airway thickening is suspected in the perihilar and basilar regions. No pleural effusion or pneumothorax. Cardiomediastinal silhouette: Normal sized heart. Thoracic aorta is tortuous. Bones and soft tissues: Generalized osteopenia. 11/24/2022 Visit: - Patient is doing well. - A pap smear was obtained, will notify patient of results. - Patient is up to date on her mammogram, breast exam, and CXR. A mammogram order will be placed for next year. - No clinical evidence of disease, patient will be seen in 6 months time. 06/08/2023 Visit: - Patient is doing well. Denies any vaginal bleeding. - A pap smear was obtained, will notify patient of results. - Breast exam was performed in clinic today with no abnormal findings. Patient underwent a mammogram earlier today and results still in process. - CXR obtained following today's visit. - No clinical evidence of disease, patient will be seen in 6 months time. 06/08/2023 CXR negative HEALTH MAINTENANCE: Last pap: 06/08/2023 negative Last mell: 08/17/2023 benign Last breast exam: 06/08/2023 normal Last CXR: 06/08/2023 negative Last colonoscopy: none on file SUBJECTIVE/INTERVAL HISTORY: Patient is feeling well and denies shortness of breath, nausea, vomiting, constipation, problems urinating, unexplained weight loss, or vaginal bleeding. Patient has no concerns. Michelle العراقي, CLINICAL PATHOLOGIST December 21, 2023 10:35 AM OBJECTIVE: BP 132/85 Pulse 65 Temp 36.7 C (98.1 F) Ht 172.7 cm (5' 8) Wt 75.3 kg (166 lb 0.1 oz) LMP 02/24/2012 SpO2 100% BMI 25.24 kg/m Female in no acute distress. Neck - Negative. Supraclavicular - Adenopathy absent. Respiratory - Clear to ausculation. Abdominal - No CVA tenderness. The bowel sounds are positive. The abdomen is soft, nontender and there is no inguinal adenopathy. Pelvic - Normal vulva and vaginal cuff. A pap smear is obtained. Bimanual and rectovaginal exams reveal no masses. Lens Marker for exam: Camille Munoz RN The sensitive examination was discussed with the Patient or Patient's Authorized Stockroom Worker. As applicable, any other physician, advance practice provider, medical student, or other health professional student that will be observing or involved in the sensitive examination for educational or training purposes was discussed with the Patient or Authorized Stockroom Worker. The Patient or Authorized Stockroom Worker has agreed to proceed with the sensitive examination. IMPRESSION/PLAN: 12/21/2023 Dx: stage IA grade 1 endometrioid endometrial cancer - Patient is doing well. No acute complaints today. - A pap smear was obtained, will notify patient of results. - An order for mammogram will be placed to repeat in 6 months - No clinical evidence of disease, patient will be seen in 6 months time. ATTESTATION: By signing my name below, Nazanin Davis, attest that this documentation has been prepared under the direction and in the presence of Amber Roberson MD. Electronically signed: Kely Feliz, December 21, 2023 10:39 AM Provider Attestation: Amber Davis MD, personally performed the services described in this documentation. All medical record entries made by the kely were at my direction and in my presence. I have reviewed the chart and discharge instructions (if applicable) and agree that the record reflects my personal performance and is accurate and complete. Amber Roberson MD December 21, 2023 12:58 PM I have confirmed and edited as necessary, the history of the present illness (HPI). Interval changes in the history of present illness are noted. I have confirmed and edited as necessary, the PFSH and ROS obtained by others. I saw the patient and personally participated in the dubose components and agree with the documented findings and plan. Sincerely, Amber Roberson M.D. Reviewed and corrected by Amber Roberson M.D. The previous note from Dr. Roberson dated 06/08/2023 was copied forward and the necessary changes were made above. A letter and a copy of this office note were sent to: Ramona Cartagena APRN.TNT LINE SUPERVISOR [id number] [facility] [id number] CC: Carol Coker DO (PCP) Medical Decision Making: Problems: Low: Stable chronic illness Data: Unique test result(s) reviewed: 3+ Unique test(s) ordered: 1 Risk: Low: Low risk from testing/treatment Medical Decision Making Level: 3 - Low documented in this encounter [facility] 12-21-2023 Note HNO ID: [id number] Author: AMBER ROBERSON MD Service: ? Author Type: Physician Type: Progress Notes Filed: 12/21/2023 12:58 Note Text: Gynecologic Oncology [facility] Follow up Re: Jose Pennington Dilshad [facility]#: [id number] Date of service: 12/21/2023 Jose presents for a follow-up visit for stage IA grade 1 endometrioid endometrial cancer. Briefly, she is a 63 year old female who has a past medical history of Adjustment disorder with depressed mood, Asthma, Endometrial cancer, grade I (HCC) (01/08/2019), and Hypertension. Patient was previously seen by Dr. Adler in 2019. TREATMENT HISTORY: CA 125 (U/mL) Date Value 01/08/2019 14 01/08/2019: EMB - Endometrial adenocarcinoma, endometrioid type, FIGO Grade 1. Immunohistochemical (IHC) staining patterns of each MMR protein: PMS2 expressed in carcinoma nuclei MLH1 expressed in carcinoma nuclei MSH6 expressed in carcinoma nuclei MSH2 expressed in carcinoma nuclei 02/01/2019: With Dr. Adler Robotic total hysterectomy, bilateral salpingo-oophorectomy and cystoscopy FINAL DIAGNOSIS Uterus, cervix, bilateral tubes and ovaries, hysterectomy with bilateral salpingo-oophorectomy - Endometrial endometrioid adenocarcinoma, FIGO Grade 1. Tumor 2 cm in size, invading 13% myometrial thickness. Negative for lymphovascular space invasion. - Benign endometrial polyp. - Cervix, fallopian tubes and ovaries negative for malignancy. Tumor Size: Greatest dimension: 2 cm Additional dimension: 1.5 cm Additional dimension: 0.3 cm Histologic Type: Endometrioid carcinoma, NOS Histologic Grade: FIGO grade 1 Myometrial Invasion: Present Depth of invasion: 1.5 mm Myometrial thickness: 12 mm Percentage of myometrial invasion: 13 % Estimated <50% myometrial invasion Uterine Serosa Involvement: Not identified Lower Uterine Segment Involvement: Not identified Cervical Stromal Involvement: Not identified Involvement of other tissue/organs: Not identified Margins: Ectocervical/vaginal cuff margin uninvolved by carcinoma Parametrial/Paracervical margin cannot be assessed: Simple hysterectomy Lymph-Vascular Invasion: Not identified Regional Lymph Nodes: No nodes submitted or found Pathologic Stage Classification (pTNM, AJCC 8th ed) TNM Descriptors: Not applicable Primary Tumor (pT): pT1a (IA): Tumor limited to endometrium or invades less than 1/2 of the myometrium Regional Lymph Nodes (pN): pNX: Regional lymph nodes cannot be assessed Distant Metastasis (pM): Not applicable/Not confirmed pathologically in this case Additional Pathologic Findings: Other: endometerial polyp Ancillary Studies: Ace syndrome screening: Mismatch repair proficient (perviously performed [id number]; 01/11/2019) Stockroom Worker Tumor block: Specify: A6 08/19/[address] Adler: Stage IA grade 1 endometrioid endometrial cancer, -LVSI, superficial myometrial invasion 1, No clinical evidence of disease. Signs and symptoms of recurrence reviewed 2. Pap done, will follow 3. CT scan as needed 4. UTD for breast cancer screening 5. RTC in 6 months 04/02/2020 Visit: Patient presents for a follow up visit. Breast exam performed in clinic today. A mammogram will be scheduled. A pap smear was obtained. Will contact the patient with the results. Plan for patient to obtain CXR today. No clinical evidence of disease the patient will be seen in 4 months time. 04/02/2020 CXR: IMPRESSION: No acute radiographic findings in the chest. 07/16/2020 visit: Patient presents for a follow up visit. Patient is up to date on her CXR. A mammogram will be scheduled. A pap smear was obtained. Will contact the patient with the results. No clinical evidence of disease the patient will be seen in 4 months time. 11/20/2020 visit: Patient presents today for follow-up visit with no complaints at this time. Patient reports that she has been wearing stockings due to her diagnosis of varicose veins. Breast exam conducted, no abnormal findings. A Pap smear was obtained will notify patient of results. Plan to schedule a mammogram and RTC in 4 months. 02/19/2021 XR CHEST: IMPRESSION: No acute radiographic abnormality. Chronic lung hyperinflation. 03/25/2021 Visit: Patient presents today for follow-up visit with no complaints at this time. Patient reports that she is wearing compression stockings due to her condition of varicose veins. I reviewed the patient's CXR (02/19/2021) showing no abnormal findings. A Pap smear was obtained will notify patient of results. RTC in 6 months. 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 She is doing well. She denies any vaginal bleeding. A Pap smear was obtained, will notify patient of results. Patient is up to date on her mammogram. No clinical evidence of disease, patient will be seen in 6 months time. 05/19/2022 Vis (more content not included)... [facility] 07-07-2023 Note HNO ID: [id number] Author: IMMANUEL LEWIS MD Service: ? Author Type: Physician Type: Progress Notes Filed: 07/07/2023 09:06 Note Text: Imaging Consult Imaging submitted for review: Right breast diagnostic mammograms and ultrasound 07/04/2023 There is a 7 mm asymmetry in the right breast upper outer aspect seen on screening mammogram 06/08/2023. This was confirmed on ML views on diagnostic mammogram 07/04/2023 and a surgical biopsy was recommended. However, the original CC and MLO findings may represent two findings and therefore repeat diagnostic imaging is recommended prior to stereotactic biopsy to ensure postbiopsy clip correlation with both the CC and MLO findings. Order for diagnostic mammogram and right breast biopsy will be placed in [facility]. A breast imaging nurse navigator will call the patient to assist in scheduling. [facility] 07-07-2023 History of Presen t illness Narrative Imaging Consult Imaging submitted for review: Right breast diagnostic mammograms and ultrasound 07/04/2023 There is a 7 mm asymmetry in the right breast upper outer aspect seen on screening mammogram 06/08/2023. This was confirmed on ML views on diagnostic mammogram 07/04/2023 and a surgical biopsy was recommended. However, the original CC and MLO findings may represent two findings and therefore repeat diagnostic imaging is recommended prior to stereotactic biopsy to ensure postbiopsy clip correlation with both the CC and MLO findings. Order for diagnostic mammogram and right breast biopsy will be placed in [facility]. A breast imaging nurse navigator will call the patient to assist in scheduling. documented in this encounter [facility] 07-04-2023 History of Presen t illness Narrative Radiology Service Progress Note PATIENT NAME: Jose Gracia DATE OF SERVICE: July 04, 2023 TIME: 3:32 PM PATIENT IDENTITY VERIFICATION COMPLETED USING TWO (2) IDENTIFIERS: Name and Date of confirmed by patient verbally. FALL SCREENING: Has the patient had 2 falls in the last year or 1 fall with injury or currently using an Ambulatory Assistive Device (Walker, Cane, Wheelchair, Crutches, etc.)? No PATIENT GENDER DATA: Female. status: : No status: NO. PATIENT RELEVANT IMPLANT DATA REVIEWED: Not Applicable PATIENT PRESENTS WITH AN IMPLANTABLE OR ATTACHED NETWORK CONTROL OPERATOR: No RADIOLOGY DEPARTMENT: Ultrasound PERIPHERAL IV DATA: Not applicable SIGNED BY: Elodia Lal RDMS July 04, 2023 3:32 PM documented in this encounter [facility] 07-04-2023 Note HNO ID: [id number] Author: ELODIA LAL RDMS Service: ? Author Type: Rehabilitation Tech Type: Progress Notes Filed: 07/04/2023 15:32 Note Text: Radiology Service Progress Note PATIENT NAME: Jose Gracia DATE OF SERVICE: July 04, 2023 TIME: 3:32 PM PATIENT IDENTITY VERIFICATION COMPLETED USING TWO (2) IDENTIFIERS: Name and Date of confirmed by patient verbally. FALL SCREENING: Has the patient had 2 falls in the last year or 1 fall with injury or currently using an Ambulatory Assistive Device (Walker, Cane, Wheelchair, Crutches, etc.)? No PATIENT GENDER DATA: Female. status: : No status: NO. PATIENT RELEVANT IMPLANT DATA REVIEWED: Not Applicable PATIENT PRESENTS WITH AN IMPLANTABLE OR ATTACHED NETWORK CONTROL OPERATOR: No RADIOLOGY DEPARTMENT: Ultrasound PERIPHERAL IV DATA: Not applicable SIGNED BY: Elodia Lal RDMS July 04, 2023 3:32 PM [facility] 07-04-2023 Note IMPRESSION: INCOMPLE TE: NEEDS ADDITIONAL IMAGING EVALUATION The 7 mm asymmetry in the right breast is indeterminate. An ultrasound is recommended. LIMITED ULTRASOUND OF RIGHT BREAST: 07/04/2023 RESULT: Comparison is made to exams dated: 06/08/2023 mammogram, 05/19/2022 mammogram, and 03/25/2021 mammogram - [facility]. Real-time ultrasound of the right breast upper outer quadrant was performed. Briones scale images of the real-time examination were reviewed. IMPRESSION: SUSPICIOUS FINDING - BIOPSY SHOULD BE CONSIDERED Since the lesion is seen in two views on the 3D mammogram but not seen sonographically, biopsy based on the mammogram with 3D guidance is suggested. There is no abnormality seen in the right breast to correspond with the mammographic density. Sandra garcia/chantale:07/04/2023 15:28:19 Multiple national specialty organizations have released breast cancer screening guidelines for women at average risk for developing breast cancer - guidelines that are based on both evidence and opinion, yet differ on when to start and how often to screen for breast cancer. With representation from Breast Imaging, Internal Medicine, Women's Health, Family Medicine, and Medical/Surgical Oncology, the [facility] has carefully reviewed the data and reached the following consensus: 1) All women should engage in shared decision-making with their providers to decide when to start and how often to screen; 2) All women should have the opportunity to start screening mammography at age 40; 3) For women ages 45-55, we recommend annual screening mammograms; 4) For women ages 55 and over, we support both the transition from an annual to a biennial interval if this aligns more with patient's values and preferences, or continuation with annual screening; 5) All women should discuss with their providers when to stop screening mammograms. Shearing Machine Tender(s): Elodia Lal, [facility]; RT Enedina(R)(M), [facility] OVERALL STUDY BIRADS: 4 Suspicious finding - Biopsy should be considered Loan Auditor: Chantale Transcribe Date/Time: Jul 04 2023 2:42P Dictated by: SANDRA PATEL MD This examination was interpreted and the report reviewed and electronically signed by: SANDRA PATEL MD on Jul 04 2023 3:28PM [facility] DIVISION OF RADIOLOGY 07-04-2023 Note IMPRESSION: INCOMPLE TE: NEEDS ADDITIONAL IMAGING EVALUATION The 7 mm asymmetry in the right breast is indeterminate. An ultrasound is recommended. LIMITED ULTRASOUND OF RIGHT BREAST: 07/04/2023 RESULT: Comparison is made to exams dated: 06/08/2023 mammogram, 05/19/2022 mammogram, and 03/25/2021 mammogram - [facility]. Real-time ultrasound of the right breast upper outer quadrant was performed. Briones scale images of the real-time examination were reviewed. IMPRESSION: SUSPICIOUS FINDING - BIOPSY SHOULD BE CONSIDERED Since the lesion is seen in two views on the 3D mammogram but not seen sonographically, biopsy based on the mammogram with 3D guidance is suggested. There is no abnormality seen in the right breast to correspond with the mammographic density. Sandra garcia/chantale:07/04/2023 15:28:19 Multiple national specialty organizations have released breast cancer screening guidelines for women at average risk for developing breast cancer - guidelines that are based on both evidence and opinion, yet differ on when to start and how often to screen for breast cancer. With representation from Breast Imaging, Internal Medicine, Women's Health, Family Medicine, and Medical/Surgical Oncology, the [facility] has carefully reviewed the data and reached the following consensus: 1) All women should engage in shared decision-making with their providers to decide when to start and how often to screen; 2) All women should have the opportunity to start screening mammography at age 40; 3) For women ages 45-55, we recommend annual screening mammograms; 4) For women ages 55 and over, we support both the transition from an annual to a biennial interval if this aligns more with patient's values and preferences, or continuation with annual screening; 5) All women should discuss with their providers when to stop screening mammograms. Shearing Machine Tender(s): Elodia Lal, [facility]; Delores Nice, RT(R)(M), [facility] OVERALL STUDY BIRADS: 4 Suspicious finding - Biopsy should be considered Loan Auditor: Chantale Transcribe Date/Time: Jul 04 2023 2:42P Dictated by : SANDRA PATEL MD This examination was interpreted and the report reviewed and electronically signed by: SANDRA PATEL MD on Jul 04 2023 3:28PM [facility] DIVISION OF RADIOLOGY 07-04-2023 History of Presen t illness Narrative Radiology Service Progress Note PATIENT NAME: Jose Gracia DATE OF SERVICE: July 04, 2023 TIME: 3:08 PM PATIENT IDENTITY VERIFICATION COMPLETED USING TWO (2) IDENTIFIERS: Name and Date of confirmed by patient verbally. FALL SCREENING: Has the patient had 2 falls in the last year or 1 fall with injury or currently using an Ambulatory Assistive Device (Walker, Cane, Wheelchair, Crutches, etc.)? No PATIENT GENDER DATA: Female. status: : No status: NO. PATIENT RELEVANT IMPLANT DATA REVIEWED: Not Applicable PATIENT PRESENTS WITH AN IMPLANTABLE OR ATTACHED NETWORK CONTROL OPERATOR: No RADIOLOGY DEPARTMENT: Mammography PERIPHERAL IV DATA: Not applicable SIGNED BY: Brant Mcconnell July 04, 2023 3:08 PM documented in this encounter [facility] 07-04-2023 Note HNO ID: [id number] Author: DELORES NICE Mammo Tech Service: ? Author Type: Rehabilitation Tech Type: Progress Notes Filed: 07/04/2023 15:08 Note Text: Radiology Service Progress Note PATIENT NAME: Jose Gracia DATE OF SERVICE: July 04, 2023 TIME: 3:08 PM PATIENT IDENTITY VERIFICATION COMPLETED USING TWO (2) IDENTIFIERS: Name and Date of confirmed by patient verbally. FALL SCREENING: Has the patient had 2 falls in the last year or 1 fall with injury or currently using an Ambulatory Assistive Device (Walker, Cane, Wheelchair, Crutches, etc.)? No PATIENT GENDER DATA: Female. status: : No status: NO. PATIENT RELEVANT IMPLANT DATA REVIEWED: Not Applicable PATIENT PRESENTS WITH AN IMPLANTABLE OR ATTACHED NETWORK CONTROL OPERATOR: No RADIOLOGY DEPARTMENT: Mammography PERIPHERAL IV DATA: Not applicable SIGNED BY: Brant Mcconnell July 04, 2023 3:08 PM [facility] 06-19-2023 Miscellaneous Notes Could we please have a Ultrasound Rt Breast due to our protocol? Thanks a million documented in this encounter [facility] 06-09-2023 Miscellaneous Notes June 09, 2023 PID: [id number] Jose Gracia [address] [place] [address] Dear Ms. Gracia, Your recent breast imaging exam on 06/08/2023 showed a possible finding that requires additional imaging studies for a complete evaluation. Most such findings are probably benign (not cancer). If you have a healthcare provider who ordered/prescribed your screening mammogram: Please call [phone] or [phone]: [phone] to schedule an appointment for your additional imaging (if you have not already done so). If you DO NOT have a healthcare provider (ie you did not have an order/prescription for your screening mammogram): Please call to schedule an appointment for your additional imaging (if you have not already done so). Your imaging studies and reports are kept on file at [facility] as part of your permanent medical record, and are available for your continuing care. Thank you for allowing us to help in meeting your health care needs. Sincerely, Dr. Purysko Interpreting Radiologist [facility] (Additional imaging) documented in this encounter [facility] 11-24-2022 History of Presen t illness Narrative Gynecologic Oncology [facility] Follow up Re: Jose Gracia [facility]#: [id number] Date of service: 11/24/2022 Jose presents for a follow-up visit for stage IA grade 1 endometrioid endometrial cancer. Briefly, she is a 61 year old female who has a past medical history of Adjustment disorder with depressed mood, Asthma, Endometrial cancer, grade I (HCC) (01/08/2019), and Hypertension. Patient was previously seen by Dr. Adler in 2019. TREATMENT HISTORY: CA 125 (U/mL) Date Value 01/08/2019 14 01/08/2019: EMB - Endometrial adenocarcinoma, endometrioid type, FIGO Grade 1. Immunohistochemical (IHC) staining patterns of each MMR protein: PMS2 expressed in carcinoma nuclei MLH1 expressed in carcinoma nuclei MSH6 expressed in carcinoma nuclei MSH2 expressed in carcinoma nuclei 02/01/2019: With Dr. Adler Robotic total hysterectomy, bilateral salpingo-oophorectomy and cystoscopy FINAL DIAGNOSIS Uterus, cervix, bilateral tubes and ovaries, hysterectomy with bilateral salpingo-oophorectomy - Endometrial endometrioid adenocarcinoma, FIGO Grade 1. Tumor 2 cm in size, invading 13% myometrial thickness. Negative for lymphovascular space invasion. - Benign endometrial polyp. - Cervix, fallopian tubes and ovaries negative for malignancy. Tumor Size: Greatest dimension: 2 cm Additional dimension: 1.5 cm Additional dimension: 0.3 cm Histologic Type: Endometrioid carcinoma, NOS Histologic Grade: FIGO grade 1 Myometrial Invasion: Present Depth of invasion: 1.5 mm Myometrial thickness: 12 mm Percentage of myometrial invasion: 13 % Estimated <50% myometrial invasion Uterine Serosa Involvement: Not identified Lower Uterine Segment Involvement: Not identified Cervical Stromal Involvement: Not identified Involvement of other tissue/organs: Not identified Margins: Ectocervical/vaginal cuff margin uninvolved by carcinoma Parametrial/Paracervical margin cannot be assessed: Simple hysterectomy Lymph-Vascular Invasion: Not identified Regional Lymph Nodes: No nodes submitted or found Pathologic Stage Classification (pTNM, AJCC 8th ed) TNM Descriptors: Not applicable Primary Tumor (pT): pT1a (IA): Tumor limited to endometrium or invades less than 1/2 of the myometrium Regional Lymph Nodes (pN): pNX: Regional lymph nodes cannot be assessed Distant Metastasis (pM): Not applicable/Not confirmed pathologically in this case Additional Pathologic Findings: Other: endometerial polyp Ancillary Studies: Ace syndrome screening: Mismatch repair proficient (perviously performed [id number]; 01/11/2019) Stockroom Worker Tumor block: Specify: A6 08/19/[address] Adler: Stage IA grade 1 endometrioid endometrial cancer, -LVSI, superficial myometrial invasion 1, No clinical evidence of disease. Signs and symptoms of recurrence reviewed 2. Pap done, will follow 3. CT scan as needed 4. UTD for breast cancer screening 5. RTC in 6 months 04/02/2020 Visit: Patient presents for a follow up visit. Breast exam performed in clinic today. A mammogram will be scheduled. A pap smear was obtained. Will contact the patient with the results. Plan for patient to obtain CXR today. No clinical evidence of disease the patient will be seen in 4 months time. 04/02/2020 CXR: IMPRESSION: No acute radiographic findings in the chest. 07/16/2020 visit: Patient presents for a follow up visit. Patient is up to date on her CXR. A mammogram will be scheduled. A pap smear was obtained. Will contact the patient with the results. No clinical evidence of disease the patient will be seen in 4 months time. 11/20/2020 visit: Patient presents today for follow-up visit with no complaints at this time. Patient reports that she has been wearing stockings due to her diagnosis of varicose veins. Breast exam conducted, no abnormal findings. A Pap smear was obtained will notify patient of results. Plan to schedule a mammogram and RTC in 4 months. 02/19/2021 XR CHEST: IMPRESSION: No acute radiographic abnormality. Chronic lung hyperinflation. 03/25/2021 Visit: Patient presents today for follow-up visit with no complaints at this time. Patient reports that she is wearing compression stockings due to her condition of varicose veins. I reviewed the patient's CXR (02/19/2021) showing no abnormal findings. A Pap smear was obtained will notify patient of results. RTC in 6 months. 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 She is doing well. She denies any vaginal bleeding. A Pap smear was obtained, will notify patient of results. Patient is up to date on her mammogram. No clinical evidence of disease, patient will be seen in 6 months time. 05/19/2022 Visit: - Patient is doing well. - A pap smear was obtained, will notify patient of results. - Breast exam was performed in clinic today with no abnormal findings. Patient underwent a mammogram prior to her visit today. - CXR obtained following today's visit. - No clinical evidence of disease, patient will be seen in 6 months time. 05/19/2022 CXR RESULT: Lines, tubes, and devices: None. Lungs and pleura: Decrease of partial atelectasis in the medial bases. Lungs are hypoinflated/emphysematous. Underlying inflammatory airway thickening is suspected in the perihilar and basilar regions. No pleural effusion or pneumothorax. Cardiomediastinal silhouette: Normal sized heart. Thoracic aorta is tortuous. Bones and soft tissues: Generalized osteopenia. HEALTH MAINTENANCE: Last pap: 05/19/2022 negative Last mell: 05/19/2022 negative Last breast exam: 05/19/2022 normal Last colonoscopy: none on file SUBJECTIVE/INTERVAL HISTORY: Patient is feeling well and denies shortness of breath, nausea, vomiting, constipation, problems urinating, unexplained weight loss, or vaginal bleeding. OBJECTIVE: BP 114/76 Pulse (!) 54 Temp 36.1 C (97 F) Ht 172.7 cm (5' 8) Wt 72.7 kg (160 lb 3.2 oz) LMP 02/24/2012 SpO2 98% BMI 24.36 kg/m Female in no acute distress. Neck - Negative. Supraclavicular - Adenopathy absent. Respiratory - Clear to ausculation. Abdominal - No CVA tenderness. The bowel sounds are positive. The abdomen is soft, nontender and there is no inguinal adenopathy. Pelvic - Normal vulva and vaginal cuff. A pap smear is obtained. Bimanual and rectovaginal exams reveal no masses. Lens Marker offered: Patient accepts, visit chaperoned by Ofelia Mason RN IMPRESSION/PLAN: 11/24/2022 Dx: stage IA grade 1 endometrioid endometrial cancer - Patient is doing well. - A pap smear was obtained, will notify patient of results. - Patient is up to date on her mammogram, breast exam, and CXR. A mammogram order will be placed for next year. - No clinical evidence of disease, patient will be seen in 6 months time. ATTESTATION: By signing my name below, Nazanin Davis, attest that this documentation has been prepared under the direction and in the presence of Amber Roberson MD. Electronically signed: Kely Feliz, November 24, 2022 10:44 AM Provider Attestation: Amber Davis MD, personally performed the services described in this documentation. All medical record entries made by the [email or web address] were at my direction and in my presence. I have reviewed the chart and discharge instructions (if applicable) and agree that the record reflects my personal performance and is accurate and complete. Amber Roberson MD November 24, 2022 3:35 PM I have confirmed and edited as necessary, the history of the present illness (HPI). Interval changes in the history of present illness are noted. I have confirmed and edited as necessary, the PFSH and ROS obtained by others. I saw the patient and personally participated in the dubose components and agree with the documented findings and plan. Sincerely, Amber Roberson M.D. Reviewed and corrected by Amber Roberson M.D. The previous note from Dr. Roberson dated 05/19/2022 was copied forward and the necessary changes were made above. A letter and a copy of this office note were sent to: Ramona Cartagena APRN.TNT LINE SUPERVISOR [id number] [facility] [id number] CC: Carol Coker DO (PCP) Medical Decision Making: Problems: Low: Stable chronic illness Data: Unique test(s) ordered: 1 Risk: Low: Low risk from testing/treatment Medical Decision Making Level: 3 - Low documented in this encounter [facility] 05-19-2022 History of Presen t illness Narrative Radiology Service Progress Note PATIENT NAME: Jose Gracia DATE OF SERVICE: May 19, 2022 TIME: 12:03 PM PATIENT IDENTITY VERIFICATION COMPLETED USING TWO (2) IDENTIFIERS: Name and Date of confirmed by patient verbally. FALL SCREENING: Has the patient had 2 falls in the last year or 1 fall with injury or currently using an Ambulatory Assistive Device (Walker, Cane, Wheelchair, Crutches, etc.)? No PATIENT GENDER DATA: Female. status: : No status: NO. PATIENT RELEVANT IMPLANT DATA REVIEWED: Not Applicable RADIOLOGY DEPARTMENT: General X-ray: Exam(s) Completed: Chest X-Ray PERIPHERAL IV DATA: Not applicable SIGNED BY: RT Martinez(R) May 19, 2022 12:03 PM documented in this encounter [facility] 05-19-2022 History of Presen t illness Narrative Gynecologic Oncology [facility] Follow up Re: Jose Pennington Dilshad [facility]#: [id number] Date of service: 05/19/2022 Jose presents today for a follow-up visit regarding stage IA grade 1 endometrioid endometrial cancer. Briefly she is a 61 year old female who has a past medical history of Adjustment disorder with depressed mood, Asthma, Endometrial cancer, grade I (HCC) (01/08/2019), and Hypertension. Patient was previously seen by Dr. Adler in 2019. TREATMENT HISTORY: CA 125 (U/mL) Date Value 01/08/2019 14 01/08/2019: EMB - Endometrial adenocarcinoma, endometrioid type, FIGO Grade 1. Immunohistochemical (IHC) staining patterns of each MMR protein: PMS2 expressed in carcinoma nuclei MLH1 expressed in carcinoma nuclei MSH6 expressed in carcinoma nuclei MSH2 expressed in carcinoma nuclei 02/01/2019: With Dr. Adler Robotic total hysterectomy, bilateral salpingo-oophorectomy and cystoscopy FINAL DIAGNOSIS Uterus, cervix, bilateral tubes and ovaries, hysterectomy with bilateral salpingo-oophorectomy - Endometrial endometrioid adenocarcinoma, FIGO Grade 1. Tumor 2 cm in size, invading 13% myometrial thickness. Negative for lymphovascular space invasion. - Benign endometrial polyp. - Cervix, fallopian tubes and ovaries negative for malignancy. Tumor Size: Greatest dimension: 2 cm Additional dimension: 1.5 cm Additional dimension: 0.3 cm Histologic Type: Endometrioid carcinoma, NOS Histologic Grade: FIGO grade 1 Myometrial Invasion: Present Depth of invasion: 1.5 mm Myometrial thickness: 12 mm Percentage of myometrial invasion: 13 % Estimated <50% myometrial invasion Uterine Serosa Involvement: Not identified Lower Uterine Segment Involvement: Not identified Cervical Stromal Involvement: Not identified Involvement of other tissue/organs: Not identified Margins: Ectocervical/vaginal cuff margin uninvolved by carcinoma Parametrial/Paracervical margin cannot be assessed: Simple hysterectomy Lymph-Vascular Invasion: Not identified Regional Lymph Nodes: No nodes submitted or found Pathologic Stage Classification (pTNM, AJCC 8th ed) TNM Descriptors: Not applicable Primary Tumor (pT): pT1a (IA): Tumor limited to endometrium or invades less than 1/2 of the myometrium Regional Lymph Nodes (pN): pNX: Regional lymph nodes cannot be assessed Distant Metastasis (pM): Not applicable/Not confirmed pathologically in this case Additional Pathologic Findings: Other: endometerial polyp Ancillary Studies: Ace syndrome screening: Mismatch repair proficient (perviously performed [id number]; 01/11/2019) Stockroom Worker Tumor block: Specify: A6 08/19/[address] Adler: Stage IA grade 1 endometrioid endometrial cancer, -LVSI, superficial myometrial invasion 1, No clinical evidence of disease. Signs and symptoms of recurrence reviewed 2. Pap done, will follow 3. CT scan as needed 4. UTD for breast cancer screening 5. RTC in 6 months 04/02/2020 Visit: Patient presents for a follow up visit. Breast exam performed in clinic today. A mammogram will be scheduled. A pap smear was obtained. Will contact the patient with the results. Plan for patient to obtain CXR today. No clinical evidence of disease the patient will be seen in 4 months time. 04/02/2020 CXR: IMPRESSION: No acute radiographic findings in the chest. 07/16/2020 visit: Patient presents for a follow up visit. Patient is up to date on her CXR. A mammogram will be scheduled. A pap smear was obtained. Will contact the patient with the results. No clinical evidence of disease the patient will be seen in 4 months time. 11/20/2020 visit: Patient presents today for follow-up visit with no complaints at this time. Patient reports that she has been wearing stockings due to her diagnosis of varicose veins. Breast exam conducted, no abnormal findings. A Pap smear was obtained will notify patient of results. Plan to schedule a mammogram and RTC in 4 months. 02/19/2021 XR CHEST: IMPRESSION: No acute radiographic abnormality. Chronic lung hyperinflation. 03/25/2021 Visit: Patient presents today for follow-up visit with no complaints at this time. Patient reports that she is wearing compression stockings due to her condition of varicose veins. I reviewed the patient's CXR (02/19/2021) showing no abnormal findings. A Pap smear was obtained will notify patient of results. RTC in 6 months. 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 She is doing well. She denies any vaginal bleeding. A Pap smear was obtained, will notify patient of results. Patient is up to date on her mammogram. No clinical evidence of disease, patient will be seen in 6 months time. HEALTH MAINTENANCE: Last pap: 10/21/2021 negative Last mell: 05/19/2022 in process Last colonoscopy: none on file Last CXR: 02/2021 negative SUBJECTIVE/INTERVAL HISTORY: Patient is feeling well and denies shortness of breath, nausea, vomiting, constipation, problems urinating, unexplained weight loss, or vaginal bleeding. OBJECTIVE: BP 112/76 Pulse 71 Temp 36.2 C (97.1 F) (Temporal) Wt 72.6 kg (160 lb) LMP 02/24/2012 SpO2 98% BMI 24.33 kg/m Female in no acute distress. Neck - Negative. Supraclavicular and axillary - Adenopathy absent. Respiratory - Clear to ausculation. Breasts - No masses. Abdominal - No CVA tenderness. The bowel sounds are positive. The abdomen is soft, nontender and there is no inguinal adenopathy. Pelvic - Normal vulva and vaginal cuff. A pap smear is obtained. Bimanual and rectovaginal exams reveal no masses. Lens Marker offered: Patient accepts, visit chaperoned by Abhay Hawkins CNP IMPRESSION/PLAN: 05/19/2022 Dx: stage IA grade 1 endometrioid endometrial cancer - Patient is doing well. - A pap smear was obtained, will notify patient of results. - Breast exam was performed in clinic today with no abnormal findings. Patient underwent a mammogram prior to her visit today. - CXR obtained following today's visit. - No clinical evidence of disease, patient will be seen in 6 months time. ATTESTATION: By signing my name below, Nazanin Davis, attest that this documentation has been prepared under the direction and in the presence of Amber Roberson MD. Electronically signed: Kely Feliz, May 19, 2022 11:03 AM Provider Attestation: Amber Davis MD, personally performed the services described in this documentation. All medical record entries made by the brandonibe were at my direction and in my presence. I have reviewed the chart and discharge instructions (if applicable) and agree that the record reflects my personal performance and is accurate and complete. Amber Roberson MD May 20, 2022 12:46 PM I have confirmed and edited as necessary, the history of the present illness (HPI). Interval changes in the history of present illness are noted. I have confirmed and edited as necessary, the PFSH and ROS obtained by others. I saw the patient and personally participated in the dubose components and agree with the documented findings and plan. Sincerely, Amber Roberson M.D. Reviewed and corrected by Amber Roberson M.D. The previous note from Dr. Roberson dated 10/21/2021 was copied forward and the necessary changes were made above. A letter and a copy of this office note were sent to: Ramona Cartagena APRN.[employer]NT LINE SUPERVISOR [address] [facility] [id number] CC: Carol Coker DO (PCP) Medical Decision Making: Problems: Low: Stable chronic illness Medical Decision Making Level: 2 - Straightforward documented in this encounter [facility] 05-19-2022 History of Presen t illness Narrative Radiology Service Progress Note PATIENT NAME: Jose Gracia DATE OF SERVICE: May 19, 2022 TIME: 10:37 AM PATIENT IDENTITY VERIFICATION COMPLETED USING TWO (2) IDENTIFIERS: Name and Date of confirmed by patient verbally. FALL SCREENING: Has the patient had 2 falls in the last year or 1 fall with injury or currently using an Ambulatory Assistive Device (Walker, Cane, Wheelchair, Crutches, etc.)? No PATIENT GENDER DATA: Female. status: : No status: NO. PATIENT RELEVANT IMPLANT DATA REVIEWED: Yes RADIOLOGY DEPARTMENT: Mammography PERIPHERAL IV DATA: Not applicable SIGNED BY: RT Shanti(R) May 19, 2022 10:37 AM documented in this encounter [facility] 10-21-2021 History of Presen t illness Narrative Gynecologic Oncology [facility] Follow Up Re: Jose Gracia [facility]#: [id number] Date of service: 10/21/2021 Jose presents today for a follow-up visit regarding stage IA grade 1 endometrioid endometrial cancer. Briefly she is a 60 year old female who has a past medical history of Adjustment disorder with depressed mood, Asthma, Endometrial cancer, grade I (HCC) (01/08/2019), and Hypertension. Patient was previously seen by Dr. Adler in 2019. TREATMENT HISTORY: CA 125 (U/mL) Date Value 01/08/2019 14 01/08/2019: EMB - Endometrial adenocarcinoma, endometrioid type, FIGO Grade 1. Immunohistochemical (IHC) staining patterns of each MMR protein: PMS2 expressed in carcinoma nuclei MLH1 expressed in carcinoma nuclei MSH6 expressed in carcinoma nuclei MSH2 expressed in carcinoma nuclei 02/01/2019: With Dr. Adler Robotic total hysterectomy, bilateral salpingo-oophorectomy and cystoscopy FINAL DIAGNOSIS Uterus, cervix, bilateral tubes and ovaries, hysterectomy with bilateral salpingo-oophorectomy - Endometrial endometrioid adenocarcinoma, FIGO Grade 1. Tumor 2 cm in size, invading 13% myometrial thickness. Negative for lymphovascular space invasion. - Benign endometrial polyp. - Cervix, fallopian tubes and ovaries negative for malignancy. Tumor Size: Greatest dimension: 2 cm Additional dimension: 1.5 cm Additional dimension: 0.3 cm Histologic Type: Endometrioid carcinoma, NOS Histologic Grade: FIGO grade 1 Myometrial Invasion: Present Depth of invasion: 1.5 mm Myometrial thickness: 12 mm Percentage of myometrial invasion: 13 % Estimated <50% myometrial invasion Uterine Serosa Involvement: Not identified Lower Uterine Segment Involvement: Not identified Cervical Stromal Involvement: Not identified Involvement of other tissue/organs: Not identified Margins: Ectocervical/vaginal cuff margin uninvolved by carcinoma Parametrial/Paracervical margin cannot be assessed: Simple hysterectomy Lymph-Vascular Invasion: Not identified Regional Lymph Nodes: No nodes submitted or found Pathologic Stage Classification (pTNM, AJCC 8th ed) TNM Descriptors: Not applicable Primary Tumor (pT): pT1a (IA): Tumor limited to endometrium or invades less than 1/2 of the myometrium Regional Lymph Nodes (pN): pNX: Regional lymph nodes cannot be assessed Distant Metastasis (pM): Not applicable/Not confirmed pathologically in this case Additional Pathologic Findings: Other: endometerial polyp Ancillary Studies: Ace syndrome screening: Mismatch repair proficient (perviously performed [id number]; 01/11/2019) Stockroom Worker Tumor block: Specify: A6 08/19/[address] Adler: Stage IA grade 1 endometrioid endometrial cancer, -LVSI, superficial myometrial invasion 1, No clinical evidence of disease. Signs and symptoms of recurrence reviewed 2. Pap done, will follow 3. CT scan as needed 4. UTD for breast cancer screening 5. RTC in 6 months 04/02/2020 Visit: Patient presents for a follow up visit. Breast exam performed in clinic today. A mammogram will be scheduled. A pap smear was obtained. Will contact the patient with the results. Plan for patient to obtain CXR today. No clinical evidence of disease the patient will be seen in 4 months time. 04/02/2020 CXR: IMPRESSION: No acute radiographic findings in the chest. 07/16/2020 visit: Patient presents for a follow up visit. Patient is up to date on her CXR. A mammogram will be scheduled. A pap smear was obtained. Will contact the patient with the results. No clinical evidence of disease the patient will be seen in 4 months time. 11/20/2020 visit: Patient presents today for follow-up visit with no complaints at this time. Patient reports that she has been wearing stockings due to her diagnosis of varicose veins. Breast exam conducted, no abnormal findings. A Pap smear was obtained will notify patient of results. Plan to schedule a mammogram and RTC in 4 months. 02/19/2021 XR CHEST: IMPRESSION: No acute radiographic abnormality. Chronic lung hyperinflation. 03/25/2021 Visit: Patient presents today for follow-up visit with no complaints at this time. Patient reports that she is wearing compression stockings due to her condition of varicose veins. I reviewed the patient's CXR (02/19/2021) showing no abnormal findings. A Pap smear was obtained will notify patient of results. RTC in 6 months. OBSTETRICAL/GYNECOLOGIC HISTORY: Last pap: 03/25/2021 negative Last mammogram: 03/25/2021 negative Last colonoscopy: none on file Last CXR: 02/2021 negative Survivorship visit on 03/28/2019 SUBJECTIVE/INTERVAL HISTORY: Patient is feeling well and denies shortness of breath, nausea, vomiting, constipation, problems urinating, unexplained weight loss, or vaginal bleeding. OBJECTIVE: BP 139/84 Pulse (!) 57 Temp 36.2 C (97.2 F) (Temporal) Wt 72.6 kg (160 lb) LMP 02/24/2012 SpO2 100% BMI 24.33 kg/m Female in no acute distress. Neck - Negative. Supraclavicular - Adenopathy absent. Respiratory - Clear to ausculation. Abdominal - No CVA tenderness. The bowel sounds are positive. The abdomen is soft, nontender and there is no inguinal adenopathy. Pelvic - Normal vulva and vaginal cuff. A pap smear is obtained. Bimanual and rectovaginal exams reveal no masses. Lens Marker offered: Patient accepts, visit chaperoned by Abhay Hawkins APRN.TNT [employer] SUPERVISOR IMPRESSION/PLAN: 10/21/2021 Patient with stage IA grade 1 endometrioid endometrial cancer presents for a follow-up visit. She is doing well. She denies any vaginal bleeding. A Pap smear was obtained, will notify patient of results. Patient is up to date on her mammogram. No clinical evidence of disease, patient will be seen in 6 months time. ATTESTATION: By signing my name below, Nazanin Davis attest that this documentation has been prepared under the direction and in the presence of Amber Roberson MD. Electronically signed: Kely Feliz, October 21, 2021 2:27 PM Provider Attestation: Amber Davis MD, personally performed the services described in this documentation. All medical record entries made by the scribe were at my direction and in my presence. I have reviewed the chart and discharge instructions (if applicable) and agree that the record reflects my personal performance and is accurate and complete. Amber Roberson MD October 21, 2021 2:31 PM I have confirmed and edited as necessary, the history of the present illness (HPI). Interval changes in the history of present illness are noted. I have confirmed and edited as necessary, the PFSH and ROS obtained by others. I saw the patient and personally participated in the dubose components and agree with the documented findings and plan. Sincerely, Amber Roberosn M.D. Reviewed and corrected by Amber Roberson M.D. The previous note from Dr. Roberson dated 03/25/2021 was copied forward and the necessary changes were made above. A letter and a copy of this office note were sent to: Ramona Cartagena APRN.TNT LINE SUPERVISOR [address] [facility] [id number] CC: Carol oCker DO (PCP) Medical Decision Making: Problems: Low: Stable chronic illness Medical Decision Making Level: 2 - Straightforward documented in this encounter [facility] 02-19-2021 History of Presen t illness Narrative Radiology Service Progress Note PATIENT NAME: Jose Gracia DATE OF SERVICE: February 19, 2021 TIME: 2:02 PM PATIENT IDENTITY VERIFICATION COMPLETED USING TWO (2) IDENTIFIERS: Name and Date of confirmed by patient verbally. FALL SCREENING: Has the patient had 2 falls in the last year or 1 fall with injury or currently using an Ambulatory Assistive Device (Walker, Cane, Wheelchair, Crutches, etc.)? No PATIENT GENDER DATA: Female. status: : No status: NO. PATIENT RELEVANT IMPLANT DATA REVIEWED: Yes RADIOLOGY DEPARTMENT: General X-ray: Exam(s) Completed: Chest X-Ray PERIPHERAL IV DATA: Not applicable SIGNED BY: RT Prudencio(R) February 19, 2021 2:02 PM documented in this encounter [facility] Evaluation note Diagnosis Endometrial cancer (HCC)- Primary Malignant neoplasm of corpus uteri, except isthmus [facility] [place] [facility] Diagnosis Encounter for screening mammogram for malignant neoplasm of breast Other screening mammogram documented in this encounter [facility] note* Diagnosis Endometrial cancer (HCC) Malignant neoplasm of corpus uteri, except isthmus [facility] [place] [facility]* Diagnosis Endometrial cancer (HCC)- Primary Malignant neoplasm of corpus uteri, except isthmus [facility] [place] [facility]* Diagnosis Endometrial cancer (HCC)- Primary Malignant neoplasm of corpus uteri, except isthmus Encounter for screening mammogram for malignant neoplasm of breast Other screening mammogram [facility] [place] noteNo assessment information availableWVeterans Health Administration Work Phone: Evaluation note* Diagnosis Abnormal mammogram- Primary Abnormal mammogram, unspecified documented in this encounter [facility] note* Diagnosis Abnormal mammogram Abnormal mammogram, unspecified documented in this encounter [facility] note* Diagnosis Abnormal finding on radiological examination of breast- Primary Other (abnormal) findings on radiological examination of breast documented in this encounter [facility] note* Diagnosis Abnormal finding on radiological examination of breast Other (abnormal) findings on radiological examination of breast [facility] [place] [facility]* Diagnosis Pre-operative examination- Primary Preoperative examination, unspecified Endometrial cancer (HCC) Malignant neoplasm of corpus uteri, except isthmus Essential hypertension, benign Mild intermittent asthma without complication Unspecified asthma Anxiety and depression Dysthymic disorder Former smoker Personal history of tobacco use, presenting hazards to health Encounter for follow-up surveillance of endometrial cancer- Primary Unspecified follow-up examination Encounter for screening mammogram for malignant neoplasm of breast Other screening mammogram [facility] [place] [facility]* Diagnosis Pre-operative examination- Primary Preoperative examination, unspecified Endometrial cancer (HCC) Malignant neoplasm of corpus uteri, except isthmus Essential hypertension, benign Mild intermittent asthma without complication (HCC) Unspecified asthma Anxiety and depression Dysthymic disorder Former smoker Personal history of tobacco use, presenting hazards to health Endometrial cancer (HCC)- Primary Malignant neoplasm of corpus uteri, except isthmus Encounter for screening for malignant neoplasm of breast, unspecified screening modality [facility] Diagnosis Pre-operative examination- Primary Preoperative examination, unspecified Endometrial cancer (HCC) Malignant neoplasm of corpus uteri, except isthmus Essential hypertension, benign Mild intermittent asthma without complication (HCC) Unspecified asthma Anxiety and depression Dysthymic disorder Former smoker Personal history of tobacco use, presenting hazards to health Encounter for screening mammogram for malignant neoplasm of breast Other screening mammogram documented in this encounter [facility] Discharge instructions Additional Instructions Clean with soap and water and cover with antibiotic ointment. Return immediately if any signs of infection develop like redness, increased swelling or pain, fever or pus.[facility] Work Phone: Instructions* Name Dates Details How to Access Health Informa tion Online using Patient Portal and [employer] Indication:Non-smoker Start:24-Jun-2020 Instruction Type:Patient Education Patient Instructions Indication:Non-smoker Start:24-Jun-2020 Instruction Type:Provider Instructions for Treatment How to access health informa tion online Indication:BMI 24.0-24.9, adult Start:04-Dec-2019 Instruction Type:Patient Education How to access health informa tion online - Detail Indication:BMI 24.0-24.9, adult Start:04-Dec-2019 Instruction Type:Patient Education Patient Instructions Indication:BMI 24.0-24.9, adult Start:04-Dec-2019 Instruction Type:Provider Instructions for Treatment How to access health informa tion online Indication:Current every day smoker Start:27-May-2019 Instruction Type:Patient Education How to access health informa tion online - Detail Indication:Current every day smoker Start:27-May-2019 Instruction Type:Patient Education Patient Instructions Indication:Current every day smoker Start:27-May-2019 Instruction Type:Provider Instructions for Treatment How to access health informa tion online Indication:BMI 25.0-25.9,adult Start:23-Nov-2018 Instruction Type:Patient Education How to access health informa tion online - Detail Indication:BMI 25.0-25.9,adult Start:23-Nov-2018 Instruction Type:Patient Education Patient Instructions Indication:BMI 25.0-25.9,adult Start:23-Nov-2018 Instruction Type:Provider Instructions for Treatment How to access health informa tion online Indication:Current every day smoker Start:16-May-2018 Instruction Type:Patient Education How to access health informa tion online - Detail Indication:Current every day smoker Start:16-May-2018 Instruction Type:Patient Education Patient Instructions Indication:Current every day smoker Start:16-May-2018 Instruction Type:Provider Instructions for Treatment How to access health informa tion online Indication:Current every day smoker Start:29-Feb-2016 Instruction Type:Patient Education How to access health informa tion online - Detail Indication:Current every day smoker Start:29-Feb-2016 Instruction Type:Patient Education Patient Instructions Indication:Current every day smoker Start:29-Feb-2016 Instruction Type:Provider Instructions for Treatment How to access health informa tion online Indication:Current every day smoker Start:22-Jan-2016 Instruction Type:Patient Education How to access health informa tion online - Detail Indication:Current every day smoker Start:22-Jan-2016 Instruction Type:Patient Education Patient Instructions Indication:Current every day smoker Start:22-Jan-2016 Instruction Type:Provider Instructions for Treatment How to access health informa tion online Indication:Acute exacerbation of COPD with asthma Start:26-May-2015 Instruction Type:Patient Education How to access health informa tion online - Detail Indication:Acute exacerbation of COPD with asthma Start:26-May-2015 Instruction Type:Patient Education Patient Instructions Indication:Acute exacerbation of COPD with asthma Start:26-May-2015 Instruction Type:Provider Instructions for Treatment How to access health informa tion online Indication:Acute exacerbation of COPD with asthma Start:14-May-2015 Instruction Type:Patient Education How to access health informa tion online - Detail Indication:Acute exacerbation of COPD with asthma Start:14-May-2015 Instruction Type:Patient Education Patient Instructions Indication:Acute exacerbation of COPD with asthma Start:14-May-2015 Instruction Type:Provider Instructions for Treatment How to access health informa tion online Indication:Asthma Start:12-Jan-2015 Instruction Type:Patient Education How to access health informa tion online - Detail Indication:Asthma Start:12-Jan-2015 Instruction Type:Patient Education Patient Instructions Indication:Asthma Start:12-Jan-2015 Instruction Type:Provider Instructions for Treatment Patient Instructions Indication:Exudative pharyngitis Start:08-May-2014 Instruction Type:Provider Instructions for Treatment Patient Instructions Indication:Lip swelling Start:11-Feb-2014 Instruction Type:Provider Instructions for Treatment Patient Instructions Indication:Benign essential HTN Start:16-Dec-2013 Instruction Type:Provider Instructions for Treatment How to access health informa tion online Indication:Need for prophylactic vaccination and inoculation against influenza Start:16-Dec-2013 Instruction Type:Patient Education How to access health informa tion online - Detail Indication:Need for prophylactic vaccination and inoculation against influenza Start:16-Dec-2013 Instruction Type:Patient Education Patient Instructions Indication:Hypercholesteremia Start:19-Apr-2013 Instruction Type:Provider Instructions for Treatment Patient Instructions Indication:Benign essential HTN Start:19-Apr-2013 Instruction Type:Provider Instructions for Treatment Patient Instructions Indication:Sinusitis, chronic Start:09-Apr-2013 Instruction Type:Provider Instructions for Treatment Patient Instructions Indication:Hypercholesteremia Start:17-Oct-2012 Instruction Type:Provider Instructions for Treatment Patient Instructions Indication:Benign essential HTN Start:18-Apr-2012 Instruction Type:Provider Instructions for Treatment [facility]; [facility] Work Phone: Instructions* Name Dates Details How to Access Health Informa tion Online using Patient Portal and [employer] Apps Indication:Non-smoker Start:20-Jul-2020 Instruction Type:Patient Education Patient Instructions Indication:Non-smoker Start:20-Jul-2020 Instruction Type:Provider Instructions for Treatment How to Access Health Informa tion Online using Patient Portal and [employer] Apps Indication:Non-smoker Start:24-Jun-2020 Instruction Type:Patient Education Patient Instructions Indication:Non-smoker Start:24-Jun-2020 Instruction Type:Provider Instructions for Treatment How to access health informa tion online Indication:BMI 24.0-24.9, adult Start:04-Dec-2019 Instruction Type:Patient Education How to access health informa tion online - Detail Indication:BMI 24.0-24.9, adult Start:04-Dec-2019 Instruction Type:Patient Education Patient Instructions Indication:BMI 24.0-24.9, adult Start:04-Dec-2019 Instruction Type:Provider Instructions for Treatment How to access health informa tion online Indication:Current every day smoker Start:27-May-2019 Instruction Type:Patient Education How to access health informa tion online - Detail Indication:Current every day smoker Start:27-May-2019 Instruction Type:Patient Education Patient Instructions Indication:Current every day smoker Start:27-May-2019 Instruction Type:Provider Instructions for Treatment How to access health informa tion online Indication:BMI 25.0-25.9,adult Start:23-Nov-2018 Instruction Type:Patient Education How to access health informa tion online - Detail Indication:BMI 25.0-25.9,adult Start:23-Nov-2018 Instruction Type:Patient Education Patient Instructions Indication:BMI 25.0-25.9,adult Start:23-Nov-2018 Instruction Type:Provider Instructions for Treatment How to access health informa tion online Indication:Current every day smoker Start:16-May-2018 Instruction Type:Patient Education How to access health informa tion online - Detail Indication:Current every day smoker Start:16-May-2018 Instruction Type:Patient Education Patient Instructions Indication:Current every day smoker Start:16-May-2018 Instruction Type:Provider Instructions for Treatment How to access health informa tion online Indication:Current every day smoker Start:29-Feb-2016 Instruction Type:Patient Education How to access health informa tion online - Detail Indication:Current every day smoker Start:29-Feb-2016 Instruction Type:Patient Education Patient Instructions Indication:Current every day smoker Start:29-Feb-2016 Instruction Type:Provider Instructions for Treatment How to access health informa tion online Indication:Current every day smoker Start:22-Jan-2016 Instruction Type:Patient Education How to access health informa tion online - Detail Indication:Current every day smoker Start:22-Jan-2016 Instruction Type:Patient Education Patient Instructions Indication:Current every day smoker Start:22-Jan-2016 Instruction Type:Provider Instructions for Treatment How to access health informa tion online Indication:Acute exacerbation of COPD with asthma Start:26-May-2015 Instruction Type:Patient Education How to access health informa tion online - Detail Indication:Acute exacerbation of COPD with asthma Start:26-May-2015 Instruction Type:Patient Education Patient Instructions Indication:Acute exacerbation of COPD with asthma Start:26-May-2015 Instruction Type:Provider Instructions for Treatment How to access health informa tion online Indication:Acute exacerbation of COPD with asthma Start:14-May-2015 Instruction Type:Patient Education How to access health informa tion online - Detail Indication:Acute exacerbation of COPD with asthma Start:14-May-2015 Instruction Type:Patient Education Patient Instructions Indication:Acute exacerbation of COPD with asthma Start:14-May-2015 Instruction Type:Provider Instructions for Treatment How to access health informa tion online Indication:Asthma Start:12-Jan-2015 Instruction Type:Patient Education How to access health informa tion online - Detail Indication:Asthma Start:12-Jan-2015 Instruction Type:Patient Education Patient Instructions Indication:Asthma Start:12-Jan-2015 Instruction Type:Provider Instructions for Treatment Patient Instructions Indication:Exudative pharyngitis Start:08-May-2014 Instruction Type:Provider Instructions for Treatment Patient Instructions Indication:Lip swelling Start:11-Feb-2014 Instruction Type:Provider Instructions for Treatment Patient Instructions Indication:Benign essential HTN Start:16-Dec-2013 Instruction Type:Provider Instructions for Treatment How to access health informa tion online Indication:Need for prophylactic vaccination and inoculation against influenza Start:16-Dec-2013 Instruction Type:Patient Education How to access health informa tion online - Detail Indication:Need for prophylactic vaccination and inoculation against influenza Start:16-Dec-2013 Instruction Type:Patient Education Patient Instructions Indication:Hypercholesteremia Start:19-Apr-2013 Instruction Type:Provider Instructions for Treatment Patient Instructions Indication:Benign essential HTN Start:19-Apr-2013 Instruction Type:Provider Instructions for Treatment Patient Instructions Indication:Sinusitis, chronic Start:09-Apr-2013 Instruction Type:Provider Instructions for Treatment Patient Instructions Indication:Hypercholesteremia Start:17-Oct-2012 Instruction Type:Provider Instructions for Treatment Patient Instructions Indication:Benign essential HTN Start:18-Apr-2012 Instruction Type:Provider Instructions for Treatment [facility]; [facility] Work Phone: Instructions* Name Dates Details How to Access Health Informa tion Online using Patient Portal and [employer] Apps Indication:Non-smoker Start:20-Jul-2020 Instruction Type:Patient Education Patient Instructions Indication:Non-smoker Start:20-Jul-2020 Instruction Type:Provider Instructions for Treatment How to Access Health Informa tion Online using Patient Portal and [employer] Apps Indication:Non-smoker Start:24-Jun-2020 Instruction Type:Patient Education Patient Instructions Indication:Non-smoker Start:24-Jun-2020 Instruction Type:Provider Instructions for Treatment How to access health informa tion online Indication:BMI 24.0-24.9, adult Start:04-Dec-2019 Instruction Type:Patient Education How to access health informa tion online - Detail Indication:BMI 24.0-24.9, adult Start:04-Dec-2019 Instruction Type:Patient Education Patient Instructions Indication:BMI 24.0-24.9, adult Start:04-Dec-2019 Instruction Type:Provider Instructions for Treatment How to access health informa tion online Indication:Current every day smoker Start:27-May-2019 Instruction Type:Patient Education How to access health informa tion online - Detail Indication:Current every day smoker Start:27-May-2019 Instruction Type:Patient Education Patient Instructions Indication:Current every day smoker Start:27-May-2019 Instruction Type:Provider Instructions for Treatment How to access health informa tion online Indication:BMI 25.0-25.9,adult Start:23-Nov-2018 Instruction Type:Patient Education How to access health informa tion online - Detail Indication:BMI 25.0-25.9,adult Start:23-Nov-2018 Instruction Type:Patient Education Patient Instructions Indication:BMI 25.0-25.9,adult Start:23-Nov-2018 Instruction Type:Provider Instructions for Treatment How to access health informa tion online Indication:Current every day smoker Start:16-May-2018 Instruction Type:Patient Education How to access health informa tion online - Detail Indication:Current every day smoker Start:16-May-2018 Instruction Type:Patient Education Patient Instructions Indication:Current every day smoker Start:16-May-2018 Instruction Type:Provider Instructions for Treatment How to access health informa tion online Indication:Current every day smoker Start:29-Feb-2016 Instruction Type:Patient Education How to access health informa tion online - Detail Indication:Current every day smoker Start:29-Feb-2016 Instruction Type:Patient Education Patient Instructions Indication:Current every day smoker Start:29-Feb-2016 Instruction Type:Provider Instructions for Treatment How to access health informa tion online Indication:Current every day smoker Start:22-Jan-2016 Instruction Type:Patient Education How to access health informa tion online - Detail Indication:Current every day smoker Start:22-Jan-2016 Instruction Type:Patient Education Patient Instructions Indication:Current every day smoker Start:22-Jan-2016 Instruction Type:Provider Instructions for Treatment How to access health informa tion online Indication:Acute exacerbation of COPD with asthma Start:26-May-2015 Instruction Type:Patient Education How to access health informa tion online - Detail Indication:Acute exacerbation of COPD with asthma Start:26-May-2015 Instruction Type:Patient Education Patient Instructions Indication:Acute exacerbation of COPD with asthma Start:26-May-2015 Instruction Type:Provider Instructions for Treatment How to access health informa tion online Indication:Acute exacerbation of COPD with asthma Start:14-May-2015 Instruction Type:Patient Education How to access health informa tion online - Detail Indication:Acute exacerbation of COPD with asthma Start:14-May-2015 Instruction Type:Patient Education Patient Instructions Indication:Acute exacerbation of COPD with asthma Start:14-May-2015 Instruction Type:Provider Instructions for Treatment How to access health informa tion online Indication:Asthma Start:12-Jan-2015 Instruction Type:Patient Education How to access health informa tion online - Detail Indication:Asthma Start:12-Jan-2015 Instruction Type:Patient Education Patient Instructions Indication:Asthma Start:12-Jan-2015 Instruction Type:Provider Instructions for Treatment Patient Instructions Indication:Exudative pharyngitis Start:08-May-2014 Instruction Type:Provider Instructions for Treatment Patient Instructions Indication:Lip swelling Start:11-Feb-2014 Instruction Type:Provider Instructions for Treatment Patient Instructions Indication:Benign essential HTN Start:16-Dec-2013 Instruction Type:Provider Instructions for Treatment How to access health informa tion online Indication:Need for prophylactic vaccination and inoculation against influenza Start:16-Dec-2013 Instruction Type:Patient Education How to access health informa tion online - Detail Indication:Need for prophylactic vaccination and inoculation against influenza Start:16-Dec-2013 Instruction Type:Patient Education Patient Instructions Indication:Hypercholesteremia Start:19-Apr-2013 Instruction Type:Provider Instructions for Treatment Patient Instructions Indication:Benign essential HTN Start:19-Apr-2013 Instruction Type:Provider Instructions for Treatment Patient Instructions Indication:Sinusitis, chronic Start:09-Apr-2013 Instruction Type:Provider Instructions for Treatment Patient Instructions Indication:Hypercholesteremia Start:17-Oct-2012 Instruction Type:Provider Instructions for Treatment Patient Instructions Indication:Benign essential HTN Start:18-Apr-2012 Instruction Type:Provider Instructions for Treatment [facility]; [facility] Work Phone: Instructions* Name Dates Details Patient Instructions Indication:BMI 24.0-24.9, adult Start:01-Jan-2021 Instruction Type:Provider Instructions for Treatment How to Access Health Informa tion Online using Patient Portal and [employer] Apps Indication:BMI 24.0-24.9, adult Start:01-Jan-2021 Instruction Type:Patient Education How to Access Health Informa tion Online using Patient Portal and [employer] Apps Indication:Non-smoker Start:20-Jul-2020 Instruction Type:Patient Education Patient Instructions Indication:Non-smoker Start:20-Jul-2020 Instruction Type:Provider Instructions for Treatment How to Access Health Informa tion Online using Patient Portal and [employer] Apps Indication:Non-smoker Start:24-Jun-2020 Instruction Type:Patient Education Patient Instructions Indication:Non-smoker Start:24-Jun-2020 Instruction Type:Provider Instructions for Treatment How to access health informa tion online Indication:BMI 24.0-24.9, adult Start:04-Dec-2019 Instruction Type:Patient Education How to access health informa tion online - Detail Indication:BMI 24.0-24.9, adult Start:04-Dec-2019 Instruction Type:Patient Education Patient Instructions Indication:BMI 24.0-24.9, adult Start:04-Dec-2019 Instruction Type:Provider Instructions for Treatment How to access health informa tion online Indication:Current every day smoker Start:27-May-2019 Instruction Type:Patient Education How to access health informa tion online - Detail Indication:Current every day smoker Start:27-May-2019 Instruction Type:Patient Education Patient Instructions Indication:Current every day smoker Start:27-May-2019 Instruction Type:Provider Instructions for Treatment How to access health informa tion online Indication:BMI 25.0-25.9,adult Start:23-Nov-2018 Instruction Type:Patient Education How to access health informa tion online - Detail Indication:BMI 25.0-25.9,adult Start:23-Nov-2018 Instruction Type:Patient Education Patient Instructions Indication:BMI 25.0-25.9,adult Start:23-Nov-2018 Instruction Type:Provider Instructions for Treatment How to access health informa tion online Indication:Current every day smoker Start:16-May-2018 Instruction Type:Patient Education How to access health informa tion online - Detail Indication:Current every day smoker Start:16-May-2018 Instruction Type:Patient Education Patient Instructions Indication:Current every day smoker Start:16-May-2018 Instruction Type:Provider Instructions for Treatment How to access health informa tion online Indication:Current every day smoker Start:29-Feb-2016 Instruction Type:Patient Education How to access health informa tion online - Detail Indication:Current every day smoker Start:29-Feb-2016 Instruction Type:Patient Education Patient Instructions Indication:Current every day smoker Start:29-Feb-2016 Instruction Type:Provider Instructions for Treatment How to access health informa tion online Indication:Current every day smoker Start:22-Jan-2016 Instruction Type:Patient Education How to access health informa tion online - Detail Indication:Current every day smoker Start:22-Jan-2016 Instruction Type:Patient Education Patient Instructions Indication:Current every day smoker Start:22-Jan-2016 Instruction Type:Provider Instructions for Treatment How to access health informa tion online Indication:Acute exacerbation of COPD with asthma Start:26-May-2015 Instruction Type:Patient Education How to access health informa tion online - Detail Indication:Acute exacerbation of COPD with asthma Start:26-May-2015 Instruction Type:Patient Education Patient Instructions Indication:Acute exacerbation of COPD with asthma Start:26-May-2015 Instruction Type:Provider Instructions for Treatment How to access health informa tion online Indication:Acute exacerbation of COPD with asthma Start:14-May-2015 Instruction Type:Patient Education How to access health informa tion online - Detail Indication:Acute exacerbation of COPD with asthma Start:14-May-2015 Instruction Type:Patient Education Patient Instructions Indication:Acute exacerbation of COPD with asthma Start:14-May-2015 Instruction Type:Provider Instructions for Treatment How to access health informa tion online Indication:Asthma Start:12-Jan-2015 Instruction Type:Patient Education How to access health informa tion online - Detail Indication:Asthma Start:12-Jan-2015 Instruction Type:Patient Education Patient Instructions Indication:Asthma Start:12-Jan-2015 Instruction Type:Provider Instructions for Treatment Patient Instructions Indication:Exudative pharyngitis Start:08-May-2014 Instruction Type:Provider Instructions for Treatment Patient Instructions Indication:Lip swelling Start:11-Feb-2014 Instruction Type:Provider Instructions for Treatment Patient Instructions Indication:Benign essential HTN Start:16-Dec-2013 Instruction Type:Provider Instructions for Treatment How to access health informa tion online Indication:Need for prophylactic vaccination and inoculation against influenza Start:16-Dec-2013 Instruction Type:Patient Education How to access health informa tion online - Detail Indication:Need for prophylactic vaccination and inoculation against influenza Start:16-Dec-2013 Instruction Type:Patient Education Patient Instructions Indication:Hypercholesteremia Start:19-Apr-2013 Instruction Type:Provider Instructions for Treatment Patient Instructions Indication:Benign essential HTN Start:19-Apr-2013 Instruction Type:Provider Instructions for Treatment Patient Instructions Indication:Sinusitis, chronic Start:09-Apr-2013 Instruction Type:Provider Instructions for Treatment Patient Instructions Indication:Hypercholesteremia Start:17-Oct-2012 Instruction Type:Provider Instructions for Treatment Patient Instructions Indication:Benign essential HTN Start:18-Apr-2012 Instruction Type:Provider Instructions for Treatment [facility]; [facility] Work Phone: Instructions* Name Dates Details Patient Instructions Indication:BMI 24.0-24.9, adult Start:01-Jan-2021 Instruction Type:Provider Instructions for Treatment How to Access Health Informa tion Online using Patient Portal and [employer] Apps Indication:BMI 24.0-24.9, adult Start:01-Jan-2021 Instruction Type:Patient Education How to Access Health Informa tion Online using Patient Portal and [employer] Apps Indication:Non-smoker Start:20-Jul-2020 Instruction Type:Patient Education Patient Instructions Indication:Non-smoker Start:20-Jul-2020 Instruction Type:Provider Instructions for Treatment How to Access Health Informa tion Online using Patient Portal and [employer] Apps Indication:Non-smoker Start:24-Jun-2020 Instruction Type:Patient Education Patient Instructions Indication:Non-smoker Start:24-Jun-2020 Instruction Type:Provider Instructions for Treatment How to access health informa tion online Indication:BMI 24.0-24.9, adult Start:04-Dec-2019 Instruction Type:Patient Education How to access health informa tion online - Detail Indication:BMI 24.0-24.9, adult Start:04-Dec-2019 Instruction Type:Patient Education Patient Instructions Indication:BMI 24.0-24.9, adult Start:04-Dec-2019 Instruction Type:Provider Instructions for Treatment How to access health informa tion online Indication:Current every day smoker Start:27-May-2019 Instruction Type:Patient Education How to access health informa tion online - Detail Indication:Current every day smoker Start:27-May-2019 Instruction Type:Patient Education Patient Instructions Indication:Current every day smoker Start:27-May-2019 Instruction Type:Provider Instructions for Treatment How to access health informa tion online Indication:BMI 25.0-25.9,adult Start:23-Nov-2018 Instruction Type:Patient Education How to access health informa tion online - Detail Indication:BMI 25.0-25.9,adult Start:23-Nov-2018 Instruction Type:Patient Education Patient Instructions Indication:BMI 25.0-25.9,adult Start:23-Nov-2018 Instruction Type:Provider Instructions for Treatment How to access health informa tion online Indication:Current every day smoker Start:16-May-2018 Instruction Type:Patient Education How to access health informa tion online - Detail Indication:Current every day smoker Start:16-May-2018 Instruction Type:Patient Education Patient Instructions Indication:Current every day smoker Start:16-May-2018 Instruction Type:Provider Instructions for Treatment How to access health informa tion online Indication:Current every day smoker Start:29-Feb-2016 Instruction Type:Patient Education How to access health informa tion online - Detail Indication:Current every day smoker Start:29-Feb-2016 Instruction Type:Patient Education Patient Instructions Indication:Current every day smoker Start:29-Feb-2016 Instruction Type:Provider Instructions for Treatment How to access health informa tion online Indication:Current every day smoker Start:22-Jan-2016 Instruction Type:Patient Education How to access health informa tion online - Detail Indication:Current every day smoker Start:22-Jan-2016 Instruction Type:Patient Education Patient Instructions Indication:Current every day smoker Start:22-Jan-2016 Instruction Type:Provider Instructions for Treatment How to access health informa tion online Indication:Acute exacerbation of COPD with asthma Start:26-May-2015 Instruction Type:Patient Education How to access health informa tion online - Detail Indication:Acute exacerbation of COPD with asthma Start:26-May-2015 Instruction Type:Patient Education Patient Instructions Indication:Acute exacerbation of COPD with asthma Start:26-May-2015 Instruction Type:Provider Instructions for Treatment How to access health informa tion online Indication:Acute exacerbation of COPD with asthma Start:14-May-2015 Instruction Type:Patient Education How to access health informa tion online - Detail Indication:Acute exacerbation of COPD with asthma Start:14-May-2015 Instruction Type:Patient Education Patient Instructions Indication:Acute exacerbation of COPD with asthma Start:14-May-2015 Instruction Type:Provider Instructions for Treatment How to access health informa tion online Indication:Asthma Start:2-Nov-2015 Instruction Type:Patient Education How to access health informa tion online - Detail Indication:Asthma Start:12-Jan-2015 Instruction Type:Patient Education Patient Instructions Indication:Asthma Start:12-Jan-2015 Instruction Type:Provider Instructions for Treatment Patient Instructions Indication:Exudative pharyngitis Start:08-May-2014 Instruction Type:Provider Instructions for Treatment Patient Instructions Indication:Lip swelling Start:11-Feb-2014 Instruction Type:Provider Instructions for Treatment Patient Instructions Indication:Benign essential HTN Start:16-Dec-2013 Instruction Type:Provider Instructions for Treatment How to access health informa tion online Indication:Need for prophylactic vaccination and inoculation against influenza Start:16-Dec-2013 Instruction Type:Patient Education How to access health informa tion online - Detail Indication:Need for prophylactic vaccination and inoculation against influenza Start:16-Dec-2013 Instruction Type:Patient Education Patient Instructions Indication:Hypercholesteremia Start:19-Apr-2013 Instruction Type:Provider Instructions for Treatment Patient Instructions Indication:Benign essential HTN Start:19-Apr-2013 Instruction Type:Provider Instructions for Treatment Patient Instructions Indication:Sinusitis, chronic Start:09-Apr-2013 Instruction Type:Provider Instructions for Treatment Patient Instructions Indication:Hypercholesteremia Start:17-Oct-2012 Instruction Type:Provider Instructions for Treatment Patient Instructions Indication:Benign essential HTN Start:18-Apr-2012 Instruction Type:Provider Instructions for Treatment [facility]; [facility] Work Phone: Instructions* Name Dates Details Patient Instructions Indication:BMI 24.0-24.9, adult Start:05-Jul-2021 Instruction Type:Provider Instructions for Treatment How to Access Health Informa tion Online using Patient Portal and [employer] Apps Indication:BMI 24.0-24.9, adult Start:05-Jul-2021 Instruction Type:Patient Education Patient Instructions Indication:BMI 24.0-24.9, adult Start:01-Jan-2021 Instruction Type:Provider Instructions for Treatment How to Access Health Informa tion Online using Patient Portal and [employer] Apps Indication:BMI 24.0-24.9, adult Start:01-Jan-2021 Instruction Type:Patient Education How to Access Health Informa tion Online using Patient Portal and [employer] Apps Indication:Non-smoker Start:20-Jul-2020 Instruction Type:Patient Education Patient Instructions Indication:Non-smoker Start:20-Jul-2020 Instruction Type:Provider Instructions for Treatment How to Access Health Informa tion Online using Patient Portal and [employer] Apps Indication:Non-smoker Start:24-Jun-2020 Instruction Type:Patient Education Patient Instructions Indication:Non-smoker Start:24-Jun-2020 Instruction Type:Provider Instructions for Treatment How to access health informa tion online Indication:BMI 24.0-24.9, adult Start:04-Dec-2019 Instruction Type:Patient Education How to access health informa tion online - Detail Indication:BMI 24.0-24.9, adult Start:04-Dec-2019 Instruction Type:Patient Education Patient Instructions Indication:BMI 24.0-24.9, adult Start:04-Dec-2019 Instruction Type:Provider Instructions for Treatment How to access health informa tion online Indication:Current every day smoker Start:27-May-2019 Instruction Type:Patient Education How to access health informa tion online - Detail Indication:Current every day smoker Start:27-May-2019 Instruction Type:Patient Education Patient Instructions Indication:Current every day smoker Start:27-May-2019 Instruction Type:Provider Instructions for Treatment How to access health informa tion online Indication:BMI 25.0-25.9,adult Start:23-Nov-2018 Instruction Type:Patient Education How to access health informa tion online - Detail Indication:BMI 25.0-25.9,adult Start:23-Nov-2018 Instruction Type:Patient Education Patient Instructions Indication:BMI 25.0-25.9,adult Start:23-Nov-2018 Instruction Type:Provider Instructions for Treatment How to access health informa tion online Indication:Current every day smoker Start:16-May-2018 Instruction Type:Patient Education How to access health informa tion online - Detail Indication:Current every day smoker Start:16-May-2018 Instruction Type:Patient Education Patient Instructions Indication:Current every day smoker Start:16-May-2018 Instruction Type:Provider Instructions for Treatment How to access health informa tion online Indication:Current every day smoker Start:29-Feb-2016 Instruction Type:Patient Education How to access health informa tion online - Detail Indication:Current every day smoker Start:29-Feb-2016 Instruction Type:Patient Education Patient Instructions Indication:Current every day smoker Start:29-Feb-2016 Instruction Type:Provider Instructions for Treatment How to access health informa tion online Indication:Current every day smoker Start:22-Jan-2016 Instruction Type:Patient Education How to access health informa tion online - Detail Indication:Current every day smoker Start:22-Jan-2016 Instruction Type:Patient Education Patient Instructions Indication:Current every day smoker Start:22-Jan-2016 Instruction Type:Provider Instructions for Treatment How to access health informa tion online Indication:Acute exacerbation of COPD with asthma Start:26-May-2015 Instruction Type:Patient Education How to access health informa tion online - Detail Indication:Acute exacerbation of COPD with asthma Start:26-May-2015 Instruction Type:Patient Education Patient Instructions Indication:Acute exacerbation of COPD with asthma Start:26-May-2015 Instruction Type:Provider Instructions for Treatment How to access health informa tion online Indication:Acute exacerbation of COPD with asthma Start:14-May-2015 Instruction Type:Patient Education How to access health informa tion online - Detail Indication:Acute exacerbation of COPD with asthma Start:14-May-2015 Instruction Type:Patient Education Patient Instructions Indication:Acute exacerbation of COPD with asthma Start:14-May-2015 Instruction Type:Provider Instructions for Treatment How to access health informa tion online Indication:Asthma Start:12-Jan-2015 Instruction Type:Patient Education How to access health informa tion online - Detail Indication:Asthma Start:12-Jan-2015 Instruction Type:Patient Education Patient Instructions Indication:Asthma Start:12-Jan-2015 Instruction Type:Provider Instructions for Treatment Patient Instructions Indication:Exudative pharyngitis Start:08-May-2014 Instruction Type:Provider Instructions for Treatment Patient Instructions Indication:Lip swelling Start:11-Feb-2014 Instruction Type:Provider Instructions for Treatment Patient Instructions Indication:Benign essential HTN Start:16-Dec-2013 Instruction Type:Provider Instructions for Treatment How to access health informa tion online Indication:Need for prophylactic vaccination and inoculation against influenza Start:16-Dec-2013 Instruction Type:Patient Education How to access health informa tion online - Detail Indication:Need for prophylactic vaccination and inoculation against influenza Start:16-Dec-2013 Instruction Type:Patient Education Patient Instructions Indication:Hypercholesteremia Start:19-Apr-2013 Instruction Type:Provider Instructions for Treatment Patient Instructions Indication:Benign essential HTN Start:19-Apr-2013 Instruction Type:Provider Instructions for Treatment Patient Instructions Indication:Sinusitis, chronic Start:09-Apr-2013 Instruction Type:Provider Instructions for Treatment Patient Instructions Indication:Hypercholesteremia Start:17-Oct-2012 Instruction Type:Provider Instructions for Treatment Patient Instructions Indication:Benign essential HTN Start:18-Apr-2012 Instruction Type:Provider Instructions for Treatment [facility]; [facility] Work Phone: Instructions* Name Dates Details Patient Instructions Indication:BMI 24.0-24.9, adult Start:05-Jul-2021 Instruction Type:Provider Instructions for Treatment How to Access Health Informa tion Online using Patient Portal and [employer] Apps Indication:BMI 24.0-24.9, adult Start:05-Jul-2021 Instruction Type:Patient Education Patient Instructions Indication:BMI 24.0-24.9, adult Start:01-Jan-2021 Instruction Type:Provider Instructions for Treatment How to Access Health Informa tion Online using Patient Portal and [employer] Apps Indication:BMI 24.0-24.9, adult Start:01-Jan-2021 Instruction Type:Patient Education How to Access Health Informa tion Online using Patient Portal and [employer] Apps Indication:Non-smoker Start:20-Jul-2020 Instruction Type:Patient Education Patient Instructions Indication:Non-smoker Start:20-Jul-2020 Instruction Type:Provider Instructions for Treatment How to Access Health Informa tion Online using Patient Portal and [employer] Apps Indication:Non-smoker Start:24-Jun-2020 Instruction Type:Patient Education Patient Instructions Indication:Non-smoker Start:24-Jun-2020 Instruction Type:Provider Instructions for Treatment How to access health informa tion online Indication:BMI 24.0-24.9, adult Start:04-Dec-2019 Instruction Type:Patient Education How to access health informa tion online - Detail Indication:BMI 24.0-24.9, adult Start:04-Dec-2019 Instruction Type:Patient Education Patient Instructions Indication:BMI 24.0-24.9, adult Start:04-Dec-2019 Instruction Type:Provider Instructions for Treatment How to access health informa tion online Indication:Current every day smoker Start:27-May-2019 Instruction Type:Patient Education How to access health informa tion online - Detail Indication:Current every day smoker Start:27-May-2019 Instruction Type:Patient Education Patient Instructions Indication:Current every day smoker Start:27-May-2019 Instruction Type:Provider Instructions for Treatment How to access health informa tion online Indication:BMI 25.0-25.9,adult Start:23-Nov-2018 Instruction Type:Patient Education How to access health informa tion online - Detail Indication:BMI 25.0-25.9,adult Start:23-Nov-2018 Instruction Type:Patient Education Patient Instructions Indication:BMI 25.0-25.9,adult Start:23-Nov-2018 Instruction Type:Provider Instructions for Treatment How to access health informa tion online Indication:Current every day smoker Start:16-May-2018 Instruction Type:Patient Education How to access health informa tion online - Detail Indication:Current every day smoker Start:16-May-2018 Instruction Type:Patient Education Patient Instructions Indication:Current every day smoker Start:16-May-2018 Instruction Type:Provider Instructions for Treatment How to access health informa tion online Indication:Current every day smoker Start:29-Feb-2016 Instruction Type:Patient Education How to access health informa tion online - Detail Indication:Current every day smoker Start:29-Feb-2016 Instruction Type:Patient Education Patient Instructions Indication:Current every day smoker Start:29-Feb-2016 Instruction Type:Provider Instructions for Treatment How to access health informa tion online Indication:Current every day smoker Start:22-Jan-2016 Instruction Type:Patient Education How to access health informa tion online - Detail Indication:Current every day smoker Start:22-Jan-2016 Instruction Type:Patient Education Patient Instructions Indication:Current every day smoker Start:22-Jan-2016 Instruction Type:Provider Instructions for Treatment How to access health informa tion online Indication:Acute exacerbation of COPD with asthma Start:26-May-2015 Instruction Type:Patient Education How to access health informa tion online - Detail Indication:Acute exacerbation of COPD with asthma Start:26-May-2015 Instruction Type:Patient Education Patient Instructions Indication:Acute exacerbation of COPD with asthma Start:26-May-2015 Instruction Type:Provider Instructions for Treatment How to access health informa tion online Indication:Acute exacerbation of COPD with asthma Start:14-May-2015 Instruction Type:Patient Education How to access health informa tion online - Detail Indication:Acute exacerbation of COPD with asthma Start:14-May-2015 Instruction Type:Patient Education Patient Instructions Indication:Acute exacerbation of COPD with asthma Start:14-May-2015 Instruction Type:Provider Instructions for Treatment How to access health informa tion online Indication:Asthma Start:12-Jan-2015 Instruction Type:Patient Education How to access health informa tion online - Detail Indication:Asthma Start:12-Jan-2015 Instruction Type:Patient Education Patient Instructions Indication:Asthma Start:12-Jan-2015 Instruction Type:Provider Instructions for Treatment Patient Instructions Indication:Exudative pharyngitis Start:08-May-2014 Instruction Type:Provider Instructions for Treatment Patient Instructions Indication:Lip swelling Start:11-Feb-2014 Instruction Type:Provider Instructions for Treatment Patient Instructions Indication:Benign essential HTN Start:16-Dec-2013 Instruction Type:Provider Instructions for Treatment How to access health informa tion online Indication:Need for prophylactic vaccination and inoculation against influenza Start:16-Dec-2013 Instruction Type:Patient Education How to access health informa tion online - Detail Indication:Need for prophylactic vaccination and inoculation against influenza Start:16-Dec-2013 Instruction Type:Patient Education Patient Instructions Indication:Hypercholesteremia Start:19-Apr-2013 Instruction Type:Provider Instructions for Treatment Patient Instructions Indication:Benign essential HTN Start:19-Apr-2013 Instruction Type:Provider Instructions for Treatment Patient Instructions Indication:Sinusitis, chronic Start:09-Apr-2013 Instruction Type:Provider Instructions for Treatment Patient Instructions Indication:Hypercholesteremia Start:17-Oct-2012 Instruction Type:Provider Instructions for Treatment Patient Instructions Indication:Benign essential HTN Start:18-Apr-2012 Instruction Type:Provider Instructions for Treatment [facility]; [facility] Work Phone: Instructions* Name Dates Details Patient Instructions Indication:BMI 23.0-23.9, adult Start:02-Feb-2022 Instruction Type:Provider Instructions for Treatment How to Access Health Informa tion Online using Patient Portal and [employer] Apps Indication:BMI 23.0-23.9, adult Start:02-Feb-2022 Instruction Type:Patient Education Patient Instructions Indication:BMI 24.0-24.9, adult Start:05-Jul-2021 Instruction Type:Provider Instructions for Treatment How to Access Health Informa tion Online using Patient Portal and [employer] Apps Indication:BMI 24.0-24.9, adult Start:05-Jul-2021 Instruction Type:Patient Education Patient Instructions Indication:BMI 24.0-24.9, adult Start:01-Jan-2021 Instruction Type:Provider Instructions for Treatment How to Access Health Informa tion Online using Patient Portal and [employer] Apps Indication:BMI 24.0-24.9, adult Start:01-Jan-2021 Instruction Type:Patient Education How to Access Health Informa tion Online using Patient Portal and [employer] Apps Indication:Non-smoker Start:20-Jul-2020 Instruction Type:Patient Education Patient Instructions Indication:Non-smoker Start:20-Jul-2020 Instruction Type:Provider Instructions for Treatment How to Access Health Informa tion Online using Patient Portal and [employer] Apps Indication:Non-smoker Start:24-Jun-2020 Instruction Type:Patient Education Patient Instructions Indication:Non-smoker Start:24-Jun-2020 Instruction Type:Provider Instructions for Treatment How to access health informa tion online Indication:BMI 24.0-24.9, adult Start:04-Dec-2019 Instruction Type:Patient Education How to access health informa tion online - Detail Indication:BMI 24.0-24.9, adult Start:04-Dec-2019 Instruction Type:Patient Education Patient Instructions Indication:BMI 24.0-24.9, adult Start:04-Dec-2019 Instruction Type:Provider Instructions for Treatment How to access health informa tion online Indication:Current every day smoker Start:27-May-2019 Instruction Type:Patient Education How to access health informa tion online - Detail Indication:Current every day smoker Start:27-May-2019 Instruction Type:Patient Education Patient Instructions Indication:Current every day smoker Start:27-May-2019 Instruction Type:Provider Instructions for Treatment How to access health informa tion online Indication:BMI 25.0-25.9,adult Start:23-Nov-2018 Instruction Type:Patient Education How to access health informa tion online - Detail Indication:BMI 25.0-25.9,adult Start:23-Nov-2018 Instruction Type:Patient Education Patient Instructions Indication:BMI 25.0-25.9,adult Start:23-Nov-2018 Instruction Type:Provider Instructions for Treatment How to access health informa tion online Indication:Current every day smoker Start:16-May-2018 Instruction Type:Patient Education How to access health informa tion online - Detail Indication:Current every day smoker Start:16-May-2018 Instruction Type:Patient Education Patient Instructions Indication:Current every day smoker Start:16-May-2018 Instruction Type:Provider Instructions for Treatment How to access health informa tion online Indication:Current every day smoker Start:29-Feb-2016 Instruction Type:Patient Education How to access health informa tion online - Detail Indication:Current every day smoker Start:29-Feb-2016 Instruction Type:Patient Education Patient Instructions Indication:Current every day smoker Start:29-Feb-2016 Instruction Type:Provider Instructions for Treatment How to access health informa tion online Indication:Current every day smoker Start:22-Jan-2016 Instruction Type:Patient Education How to access health informa tion online - Detail Indication:Current every day smoker Start:22-Jan-2016 Instruction Type:Patient Education Patient Instructions Indication:Current every day smoker Start:22-Jan-2016 Instruction Type:Provider Instructions for Treatment How to access health informa tion online Indication:Acute exacerbation of COPD with asthma Start:26-May-2015 Instruction Type:Patient Education How to access health informa tion online - Detail Indication:Acute exacerbation of COPD with asthma Start:26-May-2015 Instruction Type:Patient Education Patient Instructions Indication:Acute exacerbation of COPD with asthma Start:26-May-2015 Instruction Type:Provider Instructions for Treatment How to access health informa tion online Indication:Acute exacerbation of COPD with asthma Start:14-May-2015 Instruction Type:Patient Education How to access health informa tion online - Detail Indication:Acute exacerbation of COPD with asthma Start:14-May-2015 Instruction Type:Patient Education Patient Instructions Indication:Acute exacerbation of COPD with asthma Start:14-May-2015 Instruction Type:Provider Instructions for Treatment How to access health informa tion online Indication:Asthma Start:12-Jan-2015 Instruction Type:Patient Education How to access health informa tion online - Detail Indication:Asthma Start:12-Jan-2015 Instruction Type:Patient Education Patient Instructions Indication:Asthma Start:12-Jan-2015 Instruction Type:Provider Instructions for Treatment Patient Instructions Indication:Exudative pharyngitis Start:08-May-2014 Instruction Type:Provider Instructions for Treatment Patient Instructions Indication:Lip swelling Start:11-Feb-2014 Instruction Type:Provider Instructions for Treatment Patient Instructions Indication:Benign essential HTN Start:16-Dec-2013 Instruction Type:Provider Instructions for Treatment How to access health informa tion online Indication:Need for prophylactic vaccination and inoculation against influenza Start:16-Dec-2013 Instruction Type:Patient Education How to access health informa tion online - Detail Indication:Need for prophylactic vaccination and inoculation against influenza Start:16-Dec-2013 Instruction Type:Patient Education Patient Instructions Indication:Hypercholesteremia Start:19-Apr-2013 Instruction Type:Provider Instructions for Treatment Patient Instructions Indication:Benign essential HTN Start:19-Apr-2013 Instruction Type:Provider Instructions for Treatment Patient Instructions Indication:Sinusitis, chronic Start:09-Apr-2013 Instruction Type:Provider Instructions for Treatment Patient Instructions Indication:Hypercholesteremia Start:17-Oct-2012 Instruction Type:Provider Instructions for Treatment Patient Instructions Indication:Benign essential HTN Start:18-Apr-2012 Instruction Type:Provider Instructions for Treatment [facility]; [facility] Work Phone: Instructions* Name Dates Details Patient Instructions Indication:BMI 23.0-23.9, adult Start:02-Feb-2022 Instruction Type:Provider Instructions for Treatment How to Access Health Informa tion Online using Patient Portal and [employer] Apps Indication:BMI 23.0-23.9, adult Start:02-Feb-2022 Instruction Type:Patient Education Patient Instructions Indication:BMI 24.0-24.9, adult Start:05-Jul-2021 Instruction Type:Provider Instructions for Treatment How to Access Health Informa tion Online using Patient Portal and [employer] Apps Indication:BMI 24.0-24.9, adult Start:05-Jul-2021 Instruction Type:Patient Education Patient Instructions Indication:BMI 24.0-24.9, adult Start:01-Jan-2021 Instruction Type:Provider Instructions for Treatment How to Access Health Informa tion Online using Patient Portal and [employer] Apps Indication:BMI 24.0-24.9, adult Start:01-Jan-2021 Instruction Type:Patient Education How to Access Health Informa tion Online using Patient Portal and [employer] Apps Indication:Non-smoker Start:20-Jul-2020 Instruction Type:Patient Education Patient Instructions Indication:Non-smoker Start:20-Jul-2020 Instruction Type:Provider Instructions for Treatment How to Access Health Informa tion Online using Patient Portal and [employer] Apps Indication:Non-smoker Start:24-Jun-2020 Instruction Type:Patient Education Patient Instructions Indication:Non-smoker Start:24-Jun-2020 Instruction Type:Provider Instructions for Treatment How to access health informa tion online Indication:BMI 24.0-24.9, adult Start:04-Dec-2019 Instruction Type:Patient Education How to access health informa tion online - Detail Indication:BMI 24.0-24.9, adult Start:04-Dec-2019 Instruction Type:Patient Education Patient Instructions Indication:BMI 24.0-24.9, adult Start:04-Dec-2019 Instruction Type:Provider Instructions for Treatment How to access health informa tion online Indication:Current every day smoker Start:27-May-2019 Instruction Type:Patient Education How to access health informa tion online - Detail Indication:Current every day smoker Start:27-May-2019 Instruction Type:Patient Education Patient Instructions Indication:Current every day smoker Start:27-May-2019 Instruction Type:Provider Instructions for Treatment How to access health informa tion online Indication:BMI 25.0-25.9,adult Start:23-Nov-2018 Instruction Type:Patient Education How to access health informa tion online - Detail Indication:BMI 25.0-25.9,adult Start:23-Nov-2018 Instruction Type:Patient Education Patient Instructions Indication:BMI 25.0-25.9,adult Start:23-Nov-2018 Instruction Type:Provider Instructions for Treatment How to access health informa tion online Indication:Current every day smoker Start:16-May-2018 Instruction Type:Patient Education How to access health informa tion online - Detail Indication:Current every day smoker Start:16-May-2018 Instruction Type:Patient Education Patient Instructions Indication:Current every day smoker Start:16-May-2018 Instruction Type:Provider Instructions for Treatment How to access health informa tion online Indication:Current every day smoker Start:29-Feb-2016 Instruction Type:Patient Education How to access health informa tion online - Detail Indication:Current every day smoker Start:29-Feb-2016 Instruction Type:Patient Education Patient Instructions Indication:Current every day smoker Start:29-Feb-2016 Instruction Type:Provider Instructions for Treatment How to access health informa tion online Indication:Current every day smoker Start:22-Jan-2016 Instruction Type:Patient Education How to access health informa tion online - Detail Indication:Current every day smoker Start:22-Jan-2016 Instruction Type:Patient Education Patient Instructions Indication:Current every day smoker Start:22-Jan-2016 Instruction Type:Provider Instructions for Treatment How to access health informa tion online Indication:Acute exacerbation of COPD with asthma Start:26-May-2015 Instruction Type:Patient Education How to access health informa tion online - Detail Indication:Acute exacerbation of COPD with asthma Start:26-May-2015 Instruction Type:Patient Education Patient Instructions Indication:Acute exacerbation of COPD with asthma Start:26-May-2015 Instruction Type:Provider Instructions for Treatment How to access health informa tion online Indication:Acute exacerbation of COPD with asthma Start:14-May-2015 Instruction Type:Patient Education How to access health informa tion online - Detail Indication:Acute exacerbation of COPD with asthma Start:14-May-2015 Instruction Type:Patient Education Patient Instructions Indication:Acute exacerbation of COPD with asthma Start:14-May-2015 Instruction Type:Provider Instructions for Treatment How to access health informa tion online Indication:Asthma Start:12-Jan-2015 Instruction Type:Patient Education How to access health informa tion online - Detail Indication:Asthma Start:12-Jan-2015 Instruction Type:Patient Education Patient Instructions Indication:Asthma Start:12-Jan-2015 Instruction Type:Provider Instructions for Treatment Patient Instructions Indication:Exudative pharyngitis Start:08-May-2014 Instruction Type:Provider Instructions for Treatment Patient Instructions Indication:Lip swelling Start:11-Feb-2014 Instruction Type:Provider Instructions for Treatment Patient Instructions Indication:Benign essential HTN Start:16-Dec-2013 Instruction Type:Provider Instructions for Treatment How to access health informa tion online Indication:Need for prophylactic vaccination and inoculation against influenza Start:16-Dec-2013 Instruction Type:Patient Education How to access health informa tion online - Detail Indication:Need for prophylactic vaccination and inoculation against influenza Start:16-Dec-2013 Instruction Type:Patient Education Patient Instructions Indication:Hypercholesteremia Start:19-Apr-2013 Instruction Type:Provider Instructions for Treatment Patient Instructions Indication:Benign essential HTN Start:19-Apr-2013 Instruction Type:Provider Instructions for Treatment Patient Instructions Indication:Sinusitis, chronic Start:09-Apr-2013 Instruction Type:Provider Instructions for Treatment Patient Instructions Indication:Hypercholesteremia Start:17-Oct-2012 Instruction Type:Provider Instructions for Treatment Patient Instructions Indication:Benign essential HTN Start:18-Apr-2012 Instruction Type:Provider Instructions for Treatment [facility] Work Phone: Instructions* Name Dates Details Patient Instructions Indication:Non-smoker Start:10-Aug-2022 Instruction Type:Provider Instructions for Treatment How to Access Health Informa tion Online using Patient Portal and 3rd [employer] Apps Indication:Non-smoker Start:10-Aug-2022 Instruction Type:Patient Education Patient Instructions Indication:BMI 23.0-23.9, adult Start:02-Feb-2022 Instruction Type:Provider Instructions for Treatment How to Access Health Informa tion Online using Patient Portal and [employer]rd [employer] Apps Indication:BMI 23.0-23.9, adult Start:02-Feb-2022 Instruction Type:Patient Education Patient Instructions Indication:BMI 24.0-24.9, adult Start:05-Jul-2021 Instruction Type:Provider Instructions for Treatment How to Access Health Informa tion Online using Patient Portal and [employer]rd [employer] Apps Indication:BMI 24.0-24.9, adult Start:05-Jul-2021 Instruction Type:Patient Education Patient Instructions Indication:BMI 24.0-24.9, adult Start:01-Jan-2021 Instruction Type:Provider Instructions for Treatment How to Access Health Informa tion Online using Patient Portal and [employer]rd [employer] Apps Indication:BMI 24.0-24.9, adult Start:01-Jan-2021 Instruction Type:Patient Education How to Access Health Informa tion Online using Patient Portal and [employer]rd [employer] Apps Indication:Non-smoker Start:20-Jul-2020 Instruction Type:Patient Education Patient Instructions Indication:Non-smoker Start:20-Jul-2020 Instruction Type:Provider Instructions for Treatment How to Access Health Informa tion Online using Patient Portal and [employer]rd [employer] Apps Indication:Non-smoker Start:24-Jun-2020 Instruction Type:Patient Education Patient Instructions Indication:Non-smoker Start:24-Jun-2020 Instruction Type:Provider Instructions for Treatment How to access health informa tion online Indication:BMI 24.0-24.9, adult Start:04-Dec-2019 Instruction Type:Patient Education How to access health informa tion online - Detail Indication:BMI 24.0-24.9, adult Start:04-Dec-2019 Instruction Type:Patient Education Patient Instructions Indication:BMI 24.0-24.9, adult Start:04-Dec-2019 Instruction Type:Provider Instructions for Treatment How to access health informa tion online Indication:Current every day smoker Start:27-May-2019 Instruction Type:Patient Education How to access health informa tion online - Detail Indication:Current every day smoker Start:27-May-2019 Instruction Type:Patient Education Patient Instructions Indication:Current every day smoker Start:27-May-2019 Instruction Type:Provider Instructions for Treatment How to access health informa tion online Indication:BMI 25.0-25.9,adult Start:23-Nov-2018 Instruction Type:Patient Education How to access health informa tion online - Detail Indication:BMI 25.0-25.9,adult Start:23-Nov-2018 Instruction Type:Patient Education Patient Instructions Indication:BMI 25.0-25.9,adult Start:23-Nov-2018 Instruction Type:Provider Instructions for Treatment How to access health informa tion online Indication:Current every day smoker Start:16-May-2018 Instruction Type:Patient Education How to access health informa tion online - Detail Indication:Current every day smoker Start:16-May-2018 Instruction Type:Patient Education Patient Instructions Indication:Current every day smoker Start:16-May-2018 Instruction Type:Provider Instructions for Treatment How to access health informa tion online Indication:Current every day smoker Start:29-Feb-2016 Instruction Type:Patient Education How to access health informa tion online - Detail Indication:Current every day smoker Start:29-Feb-2016 Instruction Type:Patient Education Patient Instructions Indication:Current every day smoker Start:29-Feb-2016 Instruction Type:Provider Instructions for Treatment How to access health informa tion online Indication:Current every day smoker Start:22-Jan-2016 Instruction Type:Patient Education How to access health informa tion online - Detail Indication:Current every day smoker Start:22-Jan-2016 Instruction Type:Patient Education Patient Instructions Indication:Current every day smoker Start:22-Jan-2016 Instruction Type:Provider Instructions for Treatment How to access health informa tion online Indication:Acute exacerbation of COPD with asthma Start:26-May-2015 Instruction Type:Patient Education How to access health informa tion online - Detail Indication:Acute exacerbation of COPD with asthma Start:26-May-2015 Instruction Type:Patient Education Patient Instructions Indication:Acute exacerbation of COPD with asthma Start:26-May-2015 Instruction Type:Provider Instructions for Treatment How to access health informa tion online Indication:Acute exacerbation of COPD with asthma Start:14-May-2015 Instruction Type:Patient Education How to access health informa tion online - Detail Indication:Acute exacerbation of COPD with asthma Start:14-May-2015 Instruction Type:Patient Education Patient Instructions Indication:Acute exacerbation of COPD with asthma Start:14-May-2015 Instruction Type:Provider Instructions for Treatment How to access health informa tion online Indication:Asthma Start:12-Jan-2015 Instruction Type:Patient Education How to access health informa tion online - Detail Indication:Asthma Start:12-Jan-2015 Instruction Type:Patient Education Patient Instructions Indication:Asthma Start:12-Jan-2015 Instruction Type:Provider Instructions for Treatment Patient Instructions Indication:Exudative pharyngitis Start:08-May-2014 Instruction Type:Provider Instructions for Treatment Patient Instructions Indication:Lip swelling Start:11-Feb-2014 Instruction Type:Provider Instructions for Treatment Patient Instructions Indication:Benign essential HTN Start:16-Dec-2013 Instruction Type:Provider Instructions for Treatment How to access health informa tion online Indication:Need for prophylactic vaccination and inoculation against influenza Start:16-Dec-2013 Instruction Type:Patient Education How to access health informa tion online - Detail Indication:Need for prophylactic vaccination and inoculation against influenza Start:16-Dec-2013 Instruction Type:Patient Education Patient Instructions Indication:Hypercholesteremia Start:19-Apr-2013 Instruction Type:Provider Instructions for Treatment Patient Instructions Indication:Benign essential HTN Start:19-Apr-2013 Instruction Type:Provider Instructions for Treatment Patient Instructions Indication:Sinusitis, chronic Start:09-Apr-2013 Instruction Type:Provider Instructions for Treatment Patient Instructions Indication:Hypercholesteremia Start:17-Oct-2012 Instruction Type:Provider Instructions for Treatment Patient Instructions Indication:Benign essential HTN Start:18-Apr-2012 Instruction Type:Provider Instructions for Treatment [facility] Work Phone: Instructions* Name Dates Details Patient Instructions Indication:Non-smoker Start:10-Aug-2022 Instruction Type:Provider Instructions for Treatment How to Access Health Informa tion Online using Patient Portal and [employer] Apps Indication:Non-smoker Start:10-Aug-2022 Instruction Type:Patient Education Patient Instructions Indication:BMI 23.0-23.9, adult Start:02-Feb-2022 Instruction Type:Provider Instructions for Treatment How to Access Health Informa tion Online using Patient Portal and [employer] Apps Indication:BMI 23.0-23.9, adult Start:02-Feb-2022 Instruction Type:Patient Education Patient Instructions Indication:BMI 24.0-24.9, adult Start:05-Jul-2021 Instruction Type:Provider Instructions for Treatment How to Access Health Informa tion Online using Patient Portal and [employer]rd [employer] Apps Indication:BMI 24.0-24.9, adult Start:05-Jul-2021 Instruction Type:Patient Education Patient Instructions Indication:BMI 24.0-24.9, adult Start:01-Jan-2021 Instruction Type:Provider Instructions for Treatment How to Access Health Informa tion Online using Patient Portal and [employer]rd [employer] Apps Indication:BMI 24.0-24.9, adult Start:01-Jan-2021 Instruction Type:Patient Education How to Access Health Informa tion Online using Patient Portal and [employer]rd [employer] Apps Indication:Non-smoker Start:20-Jul-2020 Instruction Type:Patient Education Patient Instructions Indication:Non-smoker Start:20-Jul-2020 Instruction Type:Provider Instructions for Treatment How to Access Health Informa tion Online using Patient Portal and [employer]rd [employer] Apps Indication:Non-smoker Start:24-Jun-2020 Instruction Type:Patient Education Patient Instructions Indication:Non-smoker Start:24-Jun-2020 Instruction Type:Provider Instructions for Treatment How to access health informa tion online Indication:BMI 24.0-24.9, adult Start:04-Dec-2019 Instruction Type:Patient Education How to access health informa tion online - Detail Indication:BMI 24.0-24.9, adult Start:04-Dec-2019 Instruction Type:Patient Education Patient Instructions Indication:BMI 24.0-24.9, adult Start:04-Dec-2019 Instruction Type:Provider Instructions for Treatment How to access health informa tion online Indication:Current every day smoker Start:27-May-2019 Instruction Type:Patient Education How to access health informa tion online - Detail Indication:Current every day smoker Start:27-May-2019 Instruction Type:Patient Education Patient Instructions Indication:Current every day smoker Start:27-May-2019 Instruction Type:Provider Instructions for Treatment How to access health informa tion online Indication:BMI 25.0-25.9,adult Start:23-Nov-2018 Instruction Type:Patient Education How to access health informa tion online - Detail Indication:BMI 25.0-25.9,adult Start:23-Nov-2018 Instruction Type:Patient Education Patient Instructions Indication:BMI 25.0-25.9,adult Start:23-Nov-2018 Instruction Type:Provider Instructions for Treatment How to access health informa tion online Indication:Current every day smoker Start:16-May-2018 Instruction Type:Patient Education How to access health informa tion online - Detail Indication:Current every day smoker Start:16-May-2018 Instruction Type:Patient Education Patient Instructions Indication:Current every day smoker Start:16-May-2018 Instruction Type:Provider Instructions for Treatment How to access health informa tion online Indication:Current every day smoker Start:29-Feb-2016 Instruction Type:Patient Education How to access health informa tion online - Detail Indication:Current every day smoker Start:29-Feb-2016 Instruction Type:Patient Education Patient Instructions Indication:Current every day smoker Start:29-Feb-2016 Instruction Type:Provider Instructions for Treatment How to access health informa tion online Indication:Current every day smoker Start:22-Jan-2016 Instruction Type:Patient Education How to access health informa tion online - Detail Indication:Current every day smoker Start:22-Jan-2016 Instruction Type:Patient Education Patient Instructions Indication:Current every day smoker Start:22-Jan-2016 Instruction Type:Provider Instructions for Treatment How to access health informa tion online Indication:Acute exacerbation of COPD with asthma Start:26-May-2015 Instruction Type:Patient Education How to access health informa tion online - Detail Indication:Acute exacerbation of COPD with asthma Start:26-May-2015 Instruction Type:Patient Education Patient Instructions Indication:Acute exacerbation of COPD with asthma Start:26-May-2015 Instruction Type:Provider Instructions for Treatment How to access health informa tion online Indication:Acute exacerbation of COPD with asthma Start:14-May-2015 Instruction Type:Patient Education How to access health informa tion online - Detail Indication:Acute exacerbation of COPD with asthma Start:14-May-2015 Instruction Type:Patient Education Patient Instructions Indication:Acute exacerbation of COPD with asthma Start:14-May-2015 Instruction Type:Provider Instructions for Treatment How to access health informa tion online Indication:Asthma Start:12-Jan-2015 Instruction Type:Patient Education How to access health informa tion online - Detail Indication:Asthma Start:12-Jan-2015 Instruction Type:Patient Education Patient Instructions Indication:Asthma Start:12-Jan-2015 Instruction Type:Provider Instructions for Treatment Patient Instructions Indication:Exudative pharyngitis Start:08-May-2014 Instruction Type:Provider Instructions for Treatment Patient Instructions Indication:Lip swelling Start:11-Feb-2014 Instruction Type:Provider Instructions for Treatment Patient Instructions Indication:Benign essential HTN Start:16-Dec-2013 Instruction Type:Provider Instructions for Treatment How to access health informa tion online Indication:Need for prophylactic vaccination and inoculation against influenza Start:16-Dec-2013 Instruction Type:Patient Education How to access health informa tion online - Detail Indication:Need for prophylactic vaccination and inoculation against influenza Start:16-Dec-2013 Instruction Type:Patient Education Patient Instructions Indication:Hypercholesteremia Start:19-Apr-2013 Instruction Type:Provider Instructions for Treatment Patient Instructions Indication:Benign essential HTN Start:19-Apr-2013 Instruction Type:Provider Instructions for Treatment Patient Instructions Indication:Sinusitis, chronic Start:09-Apr-2013 Instruction Type:Provider Instructions for Treatment Patient Instructions Indication:Hypercholesteremia Start:17-Oct-2012 Instruction Type:Provider Instructions for Treatment Patient Instructions Indication:Benign essential HTN Start:18-Apr-2012 Instruction Type:Provider Instructions for Treatment [facility] Work Phone: reason for referral (narrative)* Diagnostic Procedure Only (Routine) - Closed Specialty Diagnoses / Procedures Referred By Salma manzanares Referred To Contact [facility] Diagnoses Encounter for screening mammogram for malignant neoplasm of breast Procedures MELL SCREENING W JEREMIAH SCREENING DIGITAL BREAST TOMOSYNTHESIS BI SCREENING MAMMOGRAPHY BI 2-VIEW BREAST INC Jennifer Lo APRN.CNP [address] [place] [address] [facility] [address] [place] [phone] Referral ID Status Reason Start Date Expiration Date V isits Requested Visits Authorized [id number] Closed Auto-Generate d Referral 03/01/2022 03/31/2023 1 1 [facility] for referral (narrative)* Diagnostic Procedure Only (Routine) - Pending Review Specialty Diagnoses / Procedures Referred By Salma manzanares Referred To Contact [facility] Diagnoses Encounter for screening mammogram for malignant neoplasm of breast Procedures MELL SCREENING W JEREMIAH SCREENING DIGITAL BREAST TOMOSYNTHESIS BI SCREENING MAMMOGRAPHY BI 2-VIEW BREAST INC CAD Jennifer Archer APRN.TNT LINE SUPERVISOR [address] [place] [address] [facility] [address] [place] [phone] Referral ID Status Reason Start Date Expiration Date Visits Requested Visits Authorized [id number] Pending Review Auto-Generat ed Referral 11/24/2022 12/24/2023 1 1 [facility] for referral (narrative)* Diagnostic Procedure Only (Routine) - Pending Review Specialty Diagnoses / Procedures Referred By Salma manzanares Referred To Contact [facility] Diagnoses Abnormal mammogram Procedures US BREAST LTD RIGHT US BREAST UNI REAL TIME WITH IMAGE LIMITED Jennifer Archer APRN.TNT LINE SUPERVISOR [address] [place] [address] [facility] [address] [place] [phone] Referral ID Status Reason Start Date Expiration Date Visits Requested Visits Authorized [id number] Pending Review Auto-Generat ed Referral 06/19/2023 07/18/2024 1 1 [facility] for referral (narrative)* Diagnostic Procedure Only (Routine) - Authorized Specialty Diagnoses / Procedures Referred By Salma manzanares Referred To Contact [facility] Diagnoses Abnormal finding on radiological examination of breast Procedures MELL STEREO BX BREAST RIGHT BX BREAST W/DEVICE 1ST [facility] Immanuel Willoughby MD [address] [place] [id number] [facility] [address] [place] [phone] Referral ID Status Reason Start Date Expiration Date Visits Requested Visits Authorized [id number] Authorized Auto-Generat ed Referral 07/07/2023 08/05/2024 1 1 * Diagnostic Procedure Only (Routine) - Authorized Specialty Diagnoses / Procedures Referred By Contac t Referred To Contact [facility] Diagnoses Abnormal finding on radiological examination of breast Procedures MELL DIAGNOSTIC RIGHT DIAGNOSTIC MAMMOGRAPHY COMPUTER-AIDED DETCJ Immanuel Martinez MD [address] [place] [address] [facility] [address] [place] [phone] Referral ID Status Reason Start Date Expiration Date Visits Requested Visits Authorized [id number] Authorized Auto-Generat ed Referral 07/07/2023 08/05/2024 1 1 [facility] for referral (narrative)* Diagnostic Procedure Only (Routine) - Authorized Specialty Diagnoses / Procedures Referred By Aniyaac t Referred To Contact [facility] Diagnoses Encounter for screening mammogram for malignant neoplasm of breast Procedures MELL SCREENING W JEREMIAH SCREENING DIGITAL BREAST TOMOSYNTHESIS BI SCREENING MAMMOGRAPHY BI 2-VIEW BREAST INC Dariela Toney, DIRECTOR PATIENT.TNT LINE SUPERVISOR [address] [place] [address] [facility] [address] [place] [phone] Referral ID Status Reason Start Date Expiration Date Visits Requested Visits Authorized [id number] Authorized Auto-Generat ed Referral 01/19/2025 1 1 [facility] for visit Narrative* Diagnostic Procedure Only (Routine) - Closed Specialty Diagnoses / Procedures [facility] Diagnoses Abnormal mammogram Procedures MELL DIAGNOSTIC RIGHT DIAGNOSTIC MAMMOGRAPHY COMPUTER-AIDED DETCJ UNI Abhay Hawkins, DIRECTOR PATIENT.TNT LINE SUPERVISOR [address] [place] [address] [facility] [address] [place] [phone] Referral ID Status Reason Start Date Expiration Date V isits Requested Visits Authorized [id number] Closed Auto-Generate d Referral 06/09/2023 07/08/2024 1 1 [facility] for visit Narrative* Diagnostic Procedure Only (Routine) - Closed Specialty Diagnoses / Procedures Referred By Contac t Referred To Contact [facility] Diagnoses Abnormal finding on radiological examination of breast Procedures MELL DIAGNOSTIC RIGHT DIAGNOSTIC MAMMOGRAPHY COMPUTER-AIDED DETCJ UNI Immanuel Lewis MD [address] [place] [address] [facility] [address] [place] [phone] Referral ID Status Reason Start Date Expiration Date V isits Requested Visits Authorized [id number] Closed Auto-Generate d Referral 07/07/2023 08/05/2024 1 1 [facility] for visit Narrative* Diagnostic Procedure Only (Routine) - Closed Specialty Diagnoses / Procedures Referred By Salma manzanares Referred To Contact [facility] Diagnoses Abnormal finding on radiological examination of breast Procedures MELL STEREO BX BREAST RIGHT BX BREAST W/DEVICE 1ST [facility] [place] [address] [place] [address] [facility] [address] [place] [phone] Referral ID Status Reason Start Date Expiration Date V isits Requested Visits Authorized [id number] Closed Auto-Generate d Referral 07/07/2023 08/05/2024 1 1 [facility] Family History No Family History Records FoundUnknown Family Member Name Dates Details Father Comments:CAD Status:Active First Degree Relatives Comments:[place], Blood disorde r, [place], DM, Emotional, Heart/Lung, HBP, HIgh cholesterol, Ovarian pelvic disease, Seizures, stroke Status:Active Unknown Family Member Name Dates Details Father Comments:CAD Status:Active First Degree Relatives Comments:[place], Blood disorde r, [place], DM, Emotional, Heart/Lung, HBP, HIgh cholesterol, Ovarian pelvic disease, Seizures, stroke Status:Active Unknown Family Member Name Dates Details Father Comments:CAD Status:Active First Degree Relatives Comments:[place], Blood disorde r, [place], DM, Emotional, Heart/Lung, HBP, HIgh cholesterol, Ovarian pelvic disease, Seizures, stroke Status:Active Unknown Family Member Name Dates Details Father Comments:CAD Status:Active First Degree Relatives Comments:[place], Blood disorde r, [place], DM, Emotional, Heart/Lung, HBP, HIgh cholesterol, Ovarian pelvic disease, Seizures, stroke Status:Active Unknown Family Member Name Dates Details Father Comments:CAD Status:Active First Degree Relatives Comments:[place], Blood disorde r, [place], DM, Emotional, Heart/Lung, HBP, HIgh cholesterol, Ovarian pelvic disease, Seizures, stroke Status:Active Unknown Family Member Name Dates Details Father Comments:CAD Status:Active First Degree Relatives Comments:[place], Blood disorde r, [place], DM, Emotional, Heart/Lung, HBP, HIgh cholesterol, Ovarian pelvic disease, Seizures, stroke Status:Active Unknown Family Member Name Dates Details Father Comments:CAD Status:Active First Degree Relatives Comments:[place], Blood disorde r, [place], DM, Emotional, Heart/Lung, HBP, HIgh cholesterol, Ovarian pelvic disease, Seizures, stroke Status:Active Unknown Family Member Name Dates Details Father Comments:CAD Status:Active First Degree Relatives Comments:[place], Blood disorde r, [place], DM, Emotional, Heart/Lung, HBP, HIgh cholesterol, Ovarian pelvic disease, Seizures, stroke Status:Active Unknown Family Member Name Dates Details Father Comments:CAD Status:Active First Degree Relatives Comments:[place], Blood disorde r, [place], DM, Emotional, Heart/Lung, HBP, HIgh cholesterol, Ovarian pelvic disease, Seizures, stroke Status:Active Unknown Family Member Name Dates Details Father Comments:CAD Status:Active First Degree Relatives Comments:ETOH, Blood disorde r, [place], DM, Emotional, Heart/Lung, HBP, HIgh cholesterol, Ovarian pelvic disease, Seizures, stroke Status:Active Unknown Family Member Name Dates Details Father Comments:CAD Status:Active First Degree Relatives Comments:ETOH, Blood disorde r, [place], DM, Emotional, Heart/Lung, HBP, HIgh cholesterol, Ovarian pelvic disease, Seizures, stroke Status:Active Unknown Family Member Name Dates Details Father Comments:CAD Status:Active First Degree Relatives Comments:ETOH, Blood disorde r, [place], DM, Emotional, Heart/Lung, HBP, HIgh cholesterol, Ovarian pelvic disease, Seizures, stroke Status:Active Unknown Family Member Name Dates Details Father Comments:CAD Status:Active First Degree Relatives Comments:ETOH, Blood disorde r, [place], DM, Emotional, Heart/Lung, HBP, HIgh cholesterol, Ovarian pelvic disease, Seizures, stroke Status:Active Unknown Family Member Name Dates Details Father Comments:CAD Status:Active First Degree Relatives Comments:ETOH, Blood disorde r, [place], DM, Emotional, Heart/Lung, HBP, HIgh cholesterol, Ovarian pelvic disease, Seizures, stroke Status:Active Unknown Family Member Name Dates Details Father Comments:CAD Status:Active First Degree Relatives Comments:ETOH, Blood disorde r, [place], DM, Emotional, Heart/Lung, HBP, HIgh cholesterol, Ovarian pelvic disease, Seizures, stroke Status:Active Unknown Family Member Name Dates Details Father Comments:CAD Status:Active First Degree Relatives Comments:ETOH, Blood disorde r, [place], DM, Emotional, Heart/Lung, HBP, HIgh cholesterol, Ovarian pelvic disease, Seizures, stroke Status:Active Unknown Family Member Name Dates Details Father Comments:CAD Status:Active First Degree Relatives Comments:ETOH, Blood disorde r, [place], DM, Emotional, Heart/Lung, HBP, HIgh cholesterol, Ovarian pelvic disease, Seizures, stroke Status:Active Unknown Family Member Name Dates Details Father Comments:CAD Status:Active First Degree Relatives Comments:ETOH, Blood disorde r, [place], DM, Emotional, Heart/Lung, HBP, HIgh cholesterol, Ovarian pelvic disease, Seizures, stroke Status:Active Unknown Family Member Name Dates Details Father Comments:CAD Status:Active First Degree Relatives Comments:ETOH, Blood disorde r, [place], DM, Emotional, Heart/Lung, HBP, HIgh cholesterol, Ovarian pelvic disease, Seizures, stroke Status:Active Unknown Family Member Name Dates Details Father Comments:CAD Status:Active First Degree Relatives Comments:ETOH, Blood disorde r, [place], DM, Emotional, Heart/Lung, HBP, HIgh cholesterol, Ovarian pelvic disease, Seizures, stroke Status:Active Unknown Family Member Name Dates Details Father Comments:CAD Status:Active First Degree Relatives Comments:ETOH, Blood disorde r, [place], DM, Emotional, Heart/Lung, HBP, HIgh cholesterol, Ovarian pelvic disease, Seizures, stroke Status:Active Unknown Family Member Name Dates Details Father Comments:CAD Status:Active First Degree Relatives Comments:ETOH, Blood disorde r, [place], DM, Emotional, Heart/Lung, HBP, HIgh cholesterol, Ovarian pelvic disease, Seizures, stroke Status:Active Unknown Family Member Name Dates Details Father Comments:CAD Status:Active First Degree Relatives Comments:ETOH, Blood disorde r, [place], DM, Emotional, Heart/Lung, HBP, HIgh cholesterol, Ovarian pelvic disease, Seizures, stroke Status:Active Instructions Name Dates Details Current every day smoker : H ow to access health information online Indication:Current every day smoker Current every day smoker : H ow to access health information online - Detail Indication:Current every day smoker Current every day smoker : P atient Instructions Indication:Current every day smoker Acute exacerbation of COPD w ith asthma : How to access health information online Indication:Acute exacerbation of COPD with asthma Acute exacerbation of COPD w ith asthma : How to access health information online - Detail Indication:Acute exacerbation of COPD with asthma Acute exacerbation of COPD w ith asthma : Patient Instructions Indication:Acute exacerbation of COPD with asthma Asthma : How to access healt h information online Indication:Asthma Asthma : How to access healt h information online - Detail Indication:Asthma Asthma : Patient Instruction s Indication:Asthma Exudative pharyngitis : Alma ent Instructions Indication:Exudative pharyngitis Lip swelling : Patient Instr uctions Indication:Lip swelling Benign essential HTN : Patie nt Instructions Indication:Benign essential HTN Need for prophylactic vaccin ation and inoculation against influenza : How to access health information online Indication:Need for prophylactic vaccination and inoculation against influenza Need for prophylactic vaccin ation and inoculation against influenza : How to access health information online - Detail Indication:Need for prophylactic vaccination and inoculation against influenza Hypercholesteremia : Patient Instructions Indication:Hypercholesteremia Sinusitis, chronic : Patient Instructions Indication:Sinusitis, chronic Name Dates Details Current every day smoker : H ow to access health information online Indication:Current every day smoker Current every day smoker : H ow to access health information online - Detail Indication:Current every day smoker Current every day smoker : P atient Instructions Indication:Current every day smoker Acute exacerbation of COPD w ith asthma : How to access health information online Indication:Acute exacerbation of COPD with asthma Acute exacerbation of COPD w ith asthma : How to access health information online - Detail Indication:Acute exacerbation of COPD with asthma Acute exacerbation of COPD w ith asthma : Patient Instructions Indication:Acute exacerbation of COPD with asthma Asthma : How to access healt h information online Indication:Asthma Asthma : How to access healt h information online - Detail Indication:Asthma Asthma : Patient Instruction s Indication:Asthma Exudative pharyngitis : Alma ent Instructions Indication:Exudative pharyngitis Lip swelling : Patient Instr uctions Indication:Lip swelling Benign essential HTN : Patie nt Instructions Indication:Benign essential HTN Need for prophylactic vaccin ation and inoculation against influenza : How to access health information online Indication:Need for prophylactic vaccination and inoculation against influenza Need for prophylactic vaccin ation and inoculation against influenza : How to access health information online - Detail Indication:Need for prophylactic vaccination and inoculation against influenza Hypercholesteremia : Patient Instructions Indication:Hypercholesteremia Sinusitis, chronic : Patient Instructions Indication:Sinusitis, chronic Name Dates Details Current every day smoker : H ow to access health information online Indication:Current every day smoker Current every day smoker : H ow to access health information online - Detail Indication:Current every day smoker Current every day smoker : P atient Instructions Indication:Current every day smoker Acute exacerbation of COPD w ith asthma : How to access health information online Indication:Acute exacerbation of COPD with asthma Acute exacerbation of COPD w ith asthma : How to access health information online - Detail Indication:Acute exacerbation of COPD with asthma Acute exacerbation of COPD w ith asthma : Patient Instructions Indication:Acute exacerbation of COPD with asthma Asthma : How to access healt h information online Indication:Asthma Asthma : How to access healt h information online - Detail Indication:Asthma Asthma : Patient Instruction s Indication:Asthma Exudative pharyngitis : Alma ent Instructions Indication:Exudative pharyngitis Lip swelling : Patient Instr uctions Indication:Lip swelling Benign essential HTN : Patie nt Instructions Indication:Benign essential HTN Need for prophylactic vaccin ation and inoculation against influenza : How to access health information online Indication:Need for prophylactic vaccination and inoculation against influenza Need for prophylactic vaccin ation and inoculation against influenza : How to access health information online - Detail Indication:Need for prophylactic vaccination and inoculation against influenza Hypercholesteremia : Patient Instructions Indication:Hypercholesteremia Sinusitis, chronic : Patient Instructions Indication:Sinusitis, chronic Name Dates Details Current every day smoker : H ow to access health information online Indication:Current every day smoker Current every day smoker : H ow to access health information online - Detail Indication:Current every day smoker Current every day smoker : P atient Instructions Indication:Current every day smoker Acute exacerbation of COPD w ith asthma : How to access health information online Indication:Acute exacerbation of COPD with asthma Acute exacerbation of COPD w ith asthma : How to access health information online - Detail Indication:Acute exacerbation of COPD with asthma Acute exacerbation of COPD w ith asthma : Patient Instructions Indication:Acute exacerbation of COPD with asthma Asthma : How to access healt h information online Indication:Asthma Asthma : How to access healt h information online - Detail Indication:Asthma Asthma : Patient Instruction s Indication:Asthma Exudative pharyngitis : Alma ent Instructions Indication:Exudative pharyngitis Lip swelling : Patient Instr uctions Indication:Lip swelling Benign essential HTN : Patie nt Instructions Indication:Benign essential HTN Need for prophylactic vaccin ation and inoculation against influenza : How to access health information online Indication:Need for prophylactic vaccination and inoculation against influenza Need for prophylactic vaccin ation and inoculation against influenza : How to access health information online - Detail Indication:Need for prophylactic vaccination and inoculation against influenza Hypercholesteremia : Patient Instructions Indication:Hypercholesteremia Sinusitis, chronic : Patient Instructions Indication:Sinusitis, chronic Name Dates Details How to access health informa tion online Indication:Current every day smoker Start:16-May-2018 Instruction Type:Patient Education How to access health informa tion online - Detail Indication:Current every day smoker Start:16-May-2018 Instruction Type:Patient Education Patient Instructions Indication:Current every day smoker Start:16-May-2018 Instruction Type:Provider Instructions for Treatment How to access health informa tion online Indication:Current every day smoker Start:29-Feb-2016 Instruction Type:Patient Education How to access health informa tion online - Detail Indication:Current every day smoker Start:29-Feb-2016 Instruction Type:Patient Education Patient Instructions Indication:Current every day smoker Start:29-Feb-2016 Instruction Type:Provider Instructions for Treatment How to access health informa tion online Indication:Current every day smoker Start:22-Jan-2016 Instruction Type:Patient Education How to access health informa tion online - Detail Indication:Current every day smoker Start:22-Jan-2016 Instruction Type:Patient Education Patient Instructions Indication:Current every day smoker Start:22-Jan-2016 Instruction Type:Provider Instructions for Treatment How to access health informa tion online Indication:Acute exacerbation of COPD with asthma Start:26-May-2015 Instruction Type:Patient Education How to access health informa tion online - Detail Indication:Acute exacerbation of COPD with asthma Start:26-May-2015 Instruction Type:Patient Education Patient Instructions Indication:Acute exacerbation of COPD with asthma Start:26-May-2015 Instruction Type:Provider Instructions for Treatment How to access health informa tion online Indication:Acute exacerbation of COPD with asthma Start:14-May-2015 Instruction Type:Patient Education How to access health informa tion online - Detail Indication:Acute exacerbation of COPD with asthma Start:14-May-2015 Instruction Type:Patient Education Patient Instructions Indication:Acute exacerbation of COPD with asthma Start:14-May-2015 Instruction Type:Provider Instructions for Treatment How to access health informa tion online Indication:Asthma Start:12-Jan-2015 Instruction Type:Patient Education How to access health informa tion online - Detail Indication:Asthma Start:12-Jan-2015 Instruction Type:Patient Education Patient Instructions Indication:Asthma Start:12-Jan-2015 Instruction Type:Provider Instructions for Treatment Patient Instructions Indication:Exudative pharyngitis Start:08-May-2014 Instruction Type:Provider Instructions for Treatment Patient Instructions Indication:Lip swelling Start:11-Feb-2014 Instruction Type:Provider Instructions for Treatment Patient Instructions Indication:Benign essential HTN Start:16-Dec-2013 Instruction Type:Provider Instructions for Treatment How to access health informa tion online Indication:Need for prophylactic vaccination and inoculation against influenza Start:16-Dec-2013 Instruction Type:Patient Education How to access health informa tion online - Detail Indication:Need for prophylactic vaccination and inoculation against influenza Start:16-Dec-2013 Instruction Type:Patient Education Patient Instructions Indication:Hypercholesteremia Start:19-Apr-2013 Instruction Type:Provider Instructions for Treatment Patient Instructions Indication:Benign essential HTN Start:19-Apr-2013 Instruction Type:Provider Instructions for Treatment Patient Instructions Indication:Sinusitis, chronic Start:09-Apr-2013 Instruction Type:Provider Instructions for Treatment Patient Instructions Indication:Hypercholesteremia Start:17-Oct-2012 Instruction Type:Provider Instructions for Treatment Patient Instructions Indication:Benign essential HTN Start:18-Apr-2012 Instruction Type:Provider Instructions for Treatment Name Dates Details How to access health informa tion online Indication:BMI 25.0-25.9,adult Start:23-Nov-2018 Instruction Type:Patient Education How to access health informa tion online - Detail Indication:BMI 25.0-25.9,adult Start:23-Nov-2018 Instruction Type:Patient Education Patient Instructions Indication:BMI 25.0-25.9,adult Start:23-Nov-2018 Instruction Type:Provider Instructions for Treatment How to access health informa tion online Indication:Current every day smoker Start:16-May-2018 Instruction Type:Patient Education How to access health informa tion online - Detail Indication:Current every day smoker Start:16-May-2018 Instruction Type:Patient Education Patient Instructions Indication:Current every day smoker Start:16-May-2018 Instruction Type:Provider Instructions for Treatment How to access health informa tion online Indication:Current every day smoker Start:29-Feb-2016 Instruction Type:Patient Education How to access health informa tion online - Detail Indication:Current every day smoker Start:29-Feb-2016 Instruction Type:Patient Education Patient Instructions Indication:Current every day smoker Start:29-Feb-2016 Instruction Type:Provider Instructions for Treatment How to access health informa tion online Indication:Current every day smoker Start:22-Jan-2016 Instruction Type:Patient Education How to access health informa tion online - Detail Indication:Current every day smoker Start:22-Jan-2016 Instruction Type:Patient Education Patient Instructions Indication:Current every day smoker Start:22-Jan-2016 Instruction Type:Provider Instructions for Treatment How to access health informa tion online Indication:Acute exacerbation of COPD with asthma Start:26-May-2015 Instruction Type:Patient Education How to access health informa tion online - Detail Indication:Acute exacerbation of COPD with asthma Start:26-May-2015 Instruction Type:Patient Education Patient Instructions Indication:Acute exacerbation of COPD with asthma Start:26-May-2015 Instruction Type:Provider Instructions for Treatment How to access health informa tion online Indication:Acute exacerbation of COPD with asthma Start:14-May-2015 Instruction Type:Patient Education How to access health informa tion online - Detail Indication:Acute exacerbation of COPD with asthma Start:14-May-2015 Instruction Type:Patient Education Patient Instructions Indication:Acute exacerbation of COPD with asthma Start:14-May-2015 Instruction Type:Provider Instructions for Treatment How to access health informa tion online Indication:Asthma Start:12-Jan-2015 Instruction Type:Patient Education How to access health informa tion online - Detail Indication:Asthma Start:12-Jan-2015 Instruction Type:Patient Education Patient Instructions Indication:Asthma Start:12-Jan-2015 Instruction Type:Provider Instructions for Treatment Patient Instructions Indication:Exudative pharyngitis Start:08-May-2014 Instruction Type:Provider Instructions for Treatment Patient Instructions Indication:Lip swelling Start:11-Feb-2014 Instruction Type:Provider Instructions for Treatment Patient Instructions Indication:Benign essential HTN Start:16-Dec-2013 Instruction Type:Provider Instructions for Treatment How to access health informa tion online Indication:Need for prophylactic vaccination and inoculation against influenza Start:16-Dec-2013 Instruction Type:Patient Education How to access health informa tion online - Detail Indication:Need for prophylactic vaccination and inoculation against influenza Start:16-Dec-2013 Instruction Type:Patient Education Patient Instructions Indication:Hypercholesteremia Start:19-Apr-2013 Instruction Type:Provider Instructions for Treatment Patient Instructions Indication:Benign essential HTN Start:19-Apr-2013 Instruction Type:Provider Instructions for Treatment Patient Instructions Indication:Sinusitis, chronic Start:09-Apr-2013 Instruction Type:Provider Instructions for Treatment Patient Instructions Indication:Hypercholesteremia Start:17-Oct-2012 Instruction Type:Provider Instructions for Treatment Patient Instructions Indication:Benign essential HTN Start:18-Apr-2012 Instruction Type:Provider Instructions for Treatment Name Dates Details How to access health informa tion online Indication:BMI 25.0-25.9,adult Start:23-Nov-2018 Instruction Type:Patient Education How to access health informa tion online - Detail Indication:BMI 25.0-25.9,adult Start:23-Nov-2018 Instruction Type:Patient Education Patient Instructions Indication:BMI 25.0-25.9,adult Start:23-Nov-2018 Instruction Type:Provider Instructions for Treatment How to access health informa tion online Indication:Current every day smoker Start:16-May-2018 Instruction Type:Patient Education How to access health informa tion online - Detail Indication:Current every day smoker Start:16-May-2018 Instruction Type:Patient Education Patient Instructions Indication:Current every day smoker Start:16-May-2018 Instruction Type:Provider Instructions for Treatment How to access health informa tion online Indication:Current every day smoker Start:29-Feb-2016 Instruction Type:Patient Education How to access health informa tion online - Detail Indication:Current every day smoker Start:29-Feb-2016 Instruction Type:Patient Education Patient Instructions Indication:Current every day smoker Start:29-Feb-2016 Instruction Type:Provider Instructions for Treatment How to access health informa tion online Indication:Current every day smoker Start:22-Jan-2016 Instruction Type:Patient Education How to access health informa tion online - Detail Indication:Current every day smoker Start:22-Jan-2016 Instruction Type:Patient Education Patient Instructions Indication:Current every day smoker Start:22-Jan-2016 Instruction Type:Provider Instructions for Treatment How to access health informa tion online Indication:Acute exacerbation of COPD with asthma Start:26-May-2015 Instruction Type:Patient Education How to access health informa tion online - Detail Indication:Acute exacerbation of COPD with asthma Start:26-May-2015 Instruction Type:Patient Education Patient Instructions Indication:Acute exacerbation of COPD with asthma Start:26-May-2015 Instruction Type:Provider Instructions for Treatment How to access Virtual [employer] online Indication:Acute exacerbation of COPD with asthma Start:14-May-2015 Instruction Type:Patient Education How to access health informa tion online - Detail Indication:Acute exacerbation of COPD with asthma Start:14-May-2015 Instruction Type:Patient Education Patient Instructions Indication:Acute exacerbation of COPD with asthma Start:14-May-2015 Instruction Type:Provider Instructions for Treatment How to access health informa [employer] online Indication:Asthma Start:12-Jan-2015 Instruction Type:Patient Education How to access health informa tion online - Detail Indication:Asthma Start:12-Jan-2015 Instruction Type:Patient Education Patient Instructions Indication:Asthma Start:12-Jan-2015 Instruction Type:Provider Instructions for Treatment Patient Instructions Indication:Exudative pharyngitis Start:08-May-2014 Instruction Type:Provider Instructions for Treatment Patient Instructions Indication:Lip swelling Start:11-Feb-2014 Instruction Type:Provider Instructions for Treatment Patient Instructions Indication:Benign essential HTN Start:16-Dec-2013 Instruction Type:Provider Instructions for Treatment How to access Virtual [email or web address] Indication:Need for prophylactic vaccination and inoculation against influenza Start:16-Dec-2013 Instruction Type:Patient Education How to access [employer] informa tion online - Detail Indication:Need for prophylactic vaccination and inoculation against influenza Start:16-Dec-2013 Instruction Type:Patient Education Patient Instructions Indication:Hypercholesteremia Start:19-Apr-2013 Instruction Type:Provider Instructions for Treatment Patient Instructions Indication:Benign essential HTN Start:19-Apr-2013 Instruction Type:Provider Instructions for Treatment Patient Instructions Indication:Sinusitis, chronic Start:09-Apr-2013 Instruction Type:Provider Instructions for Treatment Patient Instructions Indication:Hypercholesteremia Start:17-Oct-2012 Instruction Type:Provider Instructions for Treatment Patient Instructions Indication:Benign essential HTN Start:18-Apr-2012 Instruction Type:Provider Instructions for Treatment Name Dates Details How to access Virtual [email or web address] Indication:BMI 24.0-24.9, adult Start:04-Dec-2019 Instruction Type:Patient Education How to access health informa tion online - Detail Indication:BMI 24.0-24.9, adult Start:04-Dec-2019 Instruction Type:Patient Education Patient Instructions Indication:BMI 24.0-24.9, adult Start:04-Dec-2019 Instruction Type:Provider Instructions for Treatment How to access health informa tion online Indication:Current every day smoker Start:27-May-2019 Instruction Type:Patient Education How to access health informa tion online - Detail Indication:Current every day smoker Start:27-May-2019 Instruction Type:Patient Education Patient Instructions Indication:Current every day smoker Start:27-May-2019 Instruction Type:Provider Instructions for Treatment How to access health informa tion online Indication:BMI 25.0-25.9,adult Start:23-Nov-2018 Instruction Type:Patient Education How to access health informa tion online - Detail Indication:BMI 25.0-25.9,adult Start:23-Nov-2018 Instruction Type:Patient Education Patient Instructions Indication:BMI 25.0-25.9,adult Start:23-Nov-2018 Instruction Type:Provider Instructions for Treatment How to access health informa tion online Indication:Current every day smoker Start:16-May-2018 Instruction Type:Patient Education How to access health informa tion online - Detail Indication:Current every day smoker Start:16-May-2018 Instruction Type:Patient Education Patient Instructions Indication:Current every day smoker Start:16-May-2018 Instruction Type:Provider Instructions for Treatment How to access health informa tion online Indication:Current every day smoker Start:29-Feb-2016 Instruction Type:Patient Education How to access health informa tion online - Detail Indication:Current every day smoker Start:29-Feb-2016 Instruction Type:Patient Education Patient Instructions Indication:Current every day smoker Start:29-Feb-2016 Instruction Type:Provider Instructions for Treatment How to access health informa tion online Indication:Current every day smoker Start:22-Jan-2016 Instruction Type:Patient Education How to access health informa tion online - Detail Indication:Current every day smoker Start:22-Jan-2016 Instruction Type:Patient Education Patient Instructions Indication:Current every day smoker Start:22-Jan-2016 Instruction Type:Provider Instructions for Treatment How to access health informa tion online Indication:Acute exacerbation of COPD with asthma Start:26-May-2015 Instruction Type:Patient Education How to access health informa tion online - Detail Indication:Acute exacerbation of COPD with asthma Start:26-May-2015 Instruction Type:Patient Education Patient Instructions Indication:Acute exacerbation of COPD with asthma Start:26-May-2015 Instruction Type:Provider Instructions for Treatment How to access Virtual [employer] online Indication:Acute exacerbation of COPD with asthma Start:14-May-2015 Instruction Type:Patient Education How to access health informa tion online - Detail Indication:Acute exacerbation of COPD with asthma Start:14-May-2015 Instruction Type:Patient Education Patient Instructions Indication:Acute exacerbation of COPD with asthma Start:14-May-2015 Instruction Type:Provider Instructions for Treatment How to access [employer] online Indication:Asthma Start:12-Jan-2015 Instruction Type:Patient Education How to access health informa tion [email or web address] - Detail Indication:Asthma Start:12-Jan-2015 Instruction Type:Patient Education Patient Instructions Indication:Asthma Start:12-Jan-2015 Instruction Type:Provider Instructions for Treatment Patient Instructions Indication:Exudative pharyngitis Start:08-May-2014 Instruction Type:Provider Instructions for Treatment Patient Instructions Indication:Lip swelling Start:11-Feb-2014 Instruction Type:Provider Instructions for Treatment Patient Instructions Indication:Benign essential HTN Start:16-Dec-2013 Instruction Type:Provider Instructions for Treatment How to access Virtual [email or web address] Indication:Need for prophylactic vaccination and inoculation against influenza Start:16-Dec-2013 Instruction Type:Patient Education How to access health informa tion [email or web address] - Detail Indication:Need for prophylactic vaccination and inoculation against influenza Start:16-Dec-2013 Instruction Type:Patient Education Patient Instructions Indication:Hypercholesteremia Start:19-Apr-2013 Instruction Type:Provider Instructions for Treatment Patient Instructions Indication:Benign essential HTN Start:19-Apr-2013 Instruction Type:Provider Instructions for Treatment Patient Instructions Indication:Sinusitis, chronic Start:09-Apr-2013 Instruction Type:Provider Instructions for Treatment Patient Instructions Indication:Hypercholesteremia Start:17-Oct-2012 Instruction Type:Provider Instructions for Treatment Patient Instructions Indication:Benign essential HTN Start:18-Apr-2012 Instruction Type:Provider Instructions for Treatment Name Dates Details How to access [employer] Indication:BMI 24.0-24.9, adult Start:04-Dec-2019 Instruction Type:Patient Education How to access health informa tion online - Detail Indication:BMI 24.0-24.9, adult Start:04-Dec-2019 Instruction Type:Patient Education Patient Instructions Indication:BMI 24.0-24.9, adult Start:04-Dec-2019 Instruction Type:Provider Instructions for Treatment How to access health informa tion online Indication:Current every day smoker Start:27-May-2019 Instruction Type:Patient Education How to access health informa tion online - Detail Indication:Current every day smoker Start:27-May-2019 Instruction Type:Patient Education Patient Instructions Indication:Current every day smoker Start:27-May-2019 Instruction Type:Provider Instructions for Treatment How to access health informa tion online Indication:BMI 25.0-25.9,adult Start:23-Nov-2018 Instruction Type:Patient Education How to access health informa tion online - Detail Indication:BMI 25.0-25.9,adult Start:23-Nov-2018 Instruction Type:Patient Education Patient Instructions Indication:BMI 25.0-25.9,adult Start:23-Nov-2018 Instruction Type:Provider Instructions for Treatment How to access health informa tion online Indication:Current every day smoker Start:16-May-2018 Instruction Type:Patient Education How to access health informa tion online - Detail Indication:Current every day smoker Start:16-May-2018 Instruction Type:Patient Education Patient Instructions Indication:Current every day smoker Start:16-May-2018 Instruction Type:Provider Instructions for Treatment How to access health informa tion online Indication:Current every day smoker Start:29-Feb-2016 Instruction Type:Patient Education How to access health informa tion online - Detail Indication:Current every day smoker Start:29-Feb-2016 Instruction Type:Patient Education Patient Instructions Indication:Current every day smoker Start:29-Feb-2016 Instruction Type:Provider Instructions for Treatment How to access health informa tion online Indication:Current every day smoker Start:22-Jan-2016 Instruction Type:Patient Education How to access health informa tion online - Detail Indication:Current every day smoker Start:22-Jan-2016 Instruction Type:Patient Education Patient Instructions Indication:Current every day smoker Start:22-Jan-2016 Instruction Type:Provider Instructions for Treatment How to access health informa tion online Indication:Acute exacerbation of COPD with asthma Start:26-May-2015 Instruction Type:Patient Education How to access health informa tion online - Detail Indication:Acute exacerbation of COPD with asthma Start:26-May-2015 Instruction Type:Patient Education Patient Instructions Indication:Acute exacerbation of COPD with asthma Start:26-May-2015 Instruction Type:Provider Instructions for Treatment How to access health informa tion online Indication:Acute exacerbation of COPD with asthma Start:14-May-2015 Instruction Type:Patient Education How to access health informa tion online - Detail Indication:Acute exacerbation of COPD with asthma Start:14-May-2015 Instruction Type:Patient Education Patient Instructions Indication:Acute exacerbation of COPD with asthma Start:14-May-2015 Instruction Type:Provider Instructions for Treatment How to access health informa tion online Indication:Asthma Start:12-Jan-2015 Instruction Type:Patient Education How to access health informa tion online - Detail Indication:Asthma Start:12-Jan-2015 Instruction Type:Patient Education Patient Instructions Indication:Asthma Start:12-Jan-2015 Instruction Type:Provider Instructions for Treatment Patient Instructions Indication:Exudative pharyngitis Start:08-May-2014 Instruction Type:Provider Instructions for Treatment Patient Instructions Indication:Lip swelling Start:11-Feb-2014 Instruction Type:Provider Instructions for Treatment Patient Instructions Indication:Benign essential HTN Start:16-Dec-2013 Instruction Type:Provider Instructions for Treatment How to access health informa [employer] online Indication:Need for prophylactic vaccination and inoculation against influenza Start:16-Dec-2013 Instruction Type:Patient Education How to access health informa tion online - Detail Indication:Need for prophylactic vaccination and inoculation against influenza Start:16-Dec-2013 Instruction Type:Patient Education Patient Instructions Indication:Hypercholesteremia Start:19-Apr-2013 Instruction Type:Provider Instructions for Treatment Patient Instructions Indication:Benign essential HTN Start:19-Apr-2013 Instruction Type:Provider Instructions for Treatment Patient Instructions Indication:Sinusitis, chronic Start:09-Apr-2013 Instruction Type:Provider Instructions for Treatment Patient Instructions Indication:Hypercholesteremia Start:17-Oct-2012 Instruction Type:Provider Instructions for Treatment Patient Instructions Indication:Benign essential HTN Start:18-Apr-2012 Instruction Type:Provider Instructions for Treatment Name Dates Details How to access health [employer] [place] [email or web address] Indication:BMI 24.0-24.9, adult Start:04-Dec-2019 Instruction Type:Patient Education How to access health informa tion online - Detail Indication:BMI 24.0-24.9, adult Start:04-Dec-2019 Instruction Type:Patient Education Patient Instructions Indication:BMI 24.0-24.9, adult Start:04-Dec-2019 Instruction Type:Provider Instructions for Treatment How to access health informa tion online Indication:Current every day smoker Start:27-May-2019 Instruction Type:Patient Education How to access health informa tion online - Detail Indication:Current every day smoker Start:27-May-2019 Instruction Type:Patient Education Patient Instructions Indication:Current every day smoker Start:27-May-2019 Instruction Type:Provider Instructions for Treatment How to access health informa tion online Indication:BMI 25.0-25.9,adult Start:23-Nov-2018 Instruction Type:Patient Education How to access health informa tion online - Detail Indication:BMI 25.0-25.9,adult Start:23-Nov-2018 Instruction Type:Patient Education Patient Instructions Indication:BMI 25.0-25.9,adult Start:23-Nov-2018 Instruction Type:Provider Instructions for Treatment How to access health informa tion online Indication:Current every day smoker Start:16-May-2018 Instruction Type:Patient Education How to access health informa tion online - Detail Indication:Current every day smoker Start:16-May-2018 Instruction Type:Patient Education Patient Instructions Indication:Current every day smoker Start:16-May-2018 Instruction Type:Provider Instructions for Treatment How to access health informa tion online Indication:Current every day smoker Start:29-Feb-2016 Instruction Type:Patient Education How to access health informa tion online - Detail Indication:Current every day smoker Start:29-Feb-2016 Instruction Type:Patient Education Patient Instructions Indication:Current every day smoker Start:29-Feb-2016 Instruction Type:Provider Instructions for Treatment How to access health informa tion online Indication:Current every day smoker Start:22-Jan-2016 Instruction Type:Patient Education How to access health informa tion online - Detail Indication:Current every day smoker Start:22-Jan-2016 Instruction Type:Patient Education Patient Instructions Indication:Current every day smoker Start:22-Jan-2016 Instruction Type:Provider Instructions for Treatment How to access health informa tion online Indication:Acute exacerbation of COPD with asthma Start:26-May-2015 Instruction Type:Patient Education How to access health informa tion online - Detail Indication:Acute exacerbation of COPD with asthma Start:26-May-2015 Instruction Type:Patient Education Patient Instructions Indication:Acute exacerbation of COPD with asthma Start:26-May-2015 Instruction Type:Provider Instructions for Treatment How to access health informa tion online Indication:Acute exacerbation of COPD with asthma Start:14-May-2015 Instruction Type:Patient Education How to access health informa tion online - Detail Indication:Acute exacerbation of COPD with asthma Start:14-May-2015 Instruction Type:Patient Education Patient Instructions Indication:Acute exacerbation of COPD with asthma Start:14-May-2015 Instruction Type:Provider Instructions for Treatment How to access health informa tion online Indication:Asthma Start:12-Jan-2015 Instruction Type:Patient Education How to access health informa tion online - Detail Indication:Asthma Start:12-Jan-2015 Instruction Type:Patient Education Patient Instructions Indication:Asthma Start:12-Jan-2015 Instruction Type:Provider Instructions for Treatment Patient Instructions Indication:Exudative pharyngitis Start:08-May-2014 Instruction Type:Provider Instructions for Treatment Patient Instructions Indication:Lip swelling Start:11-Feb-2014 Instruction Type:Provider Instructions for Treatment Patient Instructions Indication:Benign essential HTN Start:16-Dec-2013 Instruction Type:Provider Instructions for Treatment How to access health informa tion online Indication:Need for prophylactic vaccination and inoculation against influenza Start:16-Dec-2013 Instruction Type:Patient Education How to access health informa tion online - Detail Indication:Need for prophylactic vaccination and inoculation against influenza Start:16-Dec-2013 Instruction Type:Patient Education Patient Instructions Indication:Hypercholesteremia Start:19-Apr-2013 Instruction Type:Provider Instructions for Treatment Patient Instructions Indication:Benign essential HTN Start:19-Apr-2013 Instruction Type:Provider Instructions for Treatment Patient Instructions Indication:Sinusitis, chronic Start:09-Apr-2013 Instruction Type:Provider Instructions for Treatment Patient Instructions Indication:Hypercholesteremia Start:17-Oct-2012 Instruction Type:Provider Instructions for Treatment Patient Instructions Indication:Benign essential HTN Start:18-Apr-2012 Instruction Type:Provider Instructions for Treatment Name Dates Details How to access health informa tion online Indication:BMI 24.0-24.9, adult Start:04-Dec-2019 Instruction Type:Patient Education How to access health informa tion online - Detail Indication:BMI 24.0-24.9, adult Start:04-Dec-2019 Instruction Type:Patient Education Patient Instructions Indication:BMI 24.0-24.9, adult Start:04-Dec-2019 Instruction Type:Provider Instructions for Treatment How to access health informa tion online Indication:Current every day smoker Start:27-May-2019 Instruction Type:Patient Education How to access health informa tion online - Detail Indication:Current every day smoker Start:27-May-2019 Instruction Type:Patient Education Patient Instructions Indication:Current every day smoker Start:27-May-2019 Instruction Type:Provider Instructions for Treatment How to access health informa tion online Indication:BMI 25.0-25.9,adult Start:23-Nov-2018 Instruction Type:Patient Education How to access health informa tion online - Detail Indication:BMI 25.0-25.9,adult Start:23-Nov-2018 Instruction Type:Patient Education Patient Instructions Indication:BMI 25.0-25.9,adult Start:23-Nov-2018 Instruction Type:Provider Instructions for Treatment How to access health informa tion online Indication:Current every day smoker Start:16-May-2018 Instruction Type:Patient Education How to access health informa tion online - Detail Indication:Current every day smoker Start:16-May-2018 Instruction Type:Patient Education Patient Instructions Indication:Current every day smoker Start:16-May-2018 Instruction Type:Provider Instructions for Treatment How to access health informa tion online Indication:Current every day smoker Start:29-Feb-2016 Instruction Type:Patient Education How to access health informa tion online - Detail Indication:Current every day smoker Start:29-Feb-2016 Instruction Type:Patient Education Patient Instructions Indication:Current every day smoker Start:29-Feb-2016 Instruction Type:Provider Instructions for Treatment How to access health informa tion online Indication:Current every day smoker Start:22-Jan-2016 Instruction Type:Patient Education How to access health informa tion online - Detail Indication:Current every day smoker Start:22-Jan-2016 Instruction Type:Patient Education Patient Instructions Indication:Current every day smoker Start:22-Jan-2016 Instruction Type:Provider Instructions for Treatment How to access health informa tion online Indication:Acute exacerbation of COPD with asthma Start:26-May-2015 Instruction Type:Patient Education How to access health informa tion online - Detail Indication:Acute exacerbation of COPD with asthma Start:26-May-2015 Instruction Type:Patient Education Patient Instructions Indication:Acute exacerbation of COPD with asthma Start:26-May-2015 Instruction Type:Provider Instructions for Treatment How to access health informa tion online Indication:Acute exacerbation of COPD with asthma Start:14-May-2015 Instruction Type:Patient Education How to access health informa tion online - Detail Indication:Acute exacerbation of COPD with asthma Start:14-May-2015 Instruction Type:Patient Education Patient Instructions Indication:Acute exacerbation of COPD with asthma Start:14-May-2015 Instruction Type:Provider Instructions for Treatment How to access health informa tion online Indication:Asthma Start:12-Jan-2015 Instruction Type:Patient Education How to access health informa tion online - Detail Indication:Asthma Start:12-Jan-2015 Instruction Type:Patient Education Patient Instructions Indication:Asthma Start:12-Jan-2015 Instruction Type:Provider Instructions for Treatment Patient Instructions Indication:Exudative pharyngitis Start:08-May-2014 Instruction Type:Provider Instructions for Treatment Patient Instructions Indication:Lip swelling Start:11-Feb-2014 Instruction Type:Provider Instructions for Treatment Patient Instructions Indication:Benign essential HTN Start:16-Dec-2013 Instruction Type:Provider Instructions for Treatment How to access health informa tion online Indication:Need for prophylactic vaccination and inoculation against influenza Start:16-Dec-2013 Instruction Type:Patient Education How to access health informa tion online - Detail Indication:Need for prophylactic vaccination and inoculation against influenza Start:16-Dec-2013 Instruction Type:Patient Education Patient Instructions Indication:Hypercholesteremia Start:19-Apr-2013 Instruction Type:Provider Instructions for Treatment Patient Instructions Indication:Benign essential HTN Start:19-Apr-2013 Instruction Type:Provider Instructions for Treatment Patient Instructions Indication:Sinusitis, chronic Start:09-Apr-2013 Instruction Type:Provider Instructions for Treatment Patient Instructions Indication:Hypercholesteremia Start:17-Oct-2012 Instruction Type:Provider Instructions for Treatment Patient Instructions Indication:Benign essential HTN Start:18-Apr-2012 Instruction Type:Provider Instructions for Treatment Name Dates Details How to Access Health [employer] using Patient Portal and [employer] Indication:Non-smoker Start:24-Jun-2020 Instruction Type:Patient Education Patient Instructions Indication:Non-smoker Start:24-Jun-2020 Instruction Type:Provider Instructions for Treatment How to access health [employer] online Indication:BMI 24.0-24.9, adult Start:04-Dec-2019 Instruction Type:Patient Education How to access health informa tion online - Detail Indication:BMI 24.0-24.9, adult Start:04-Dec-2019 Instruction Type:Patient Education Patient Instructions Indication:BMI 24.0-24.9, adult Start:04-Dec-2019 Instruction Type:Provider Instructions for Treatment How to access health informa tion online Indication:Current every day smoker Start:27-May-2019 Instruction Type:Patient Education How to access health informa tion online - Detail Indication:Current every day smoker Start:27-May-2019 Instruction Type:Patient Education Patient Instructions Indication:Current every day smoker Start:27-May-2019 Instruction Type:Provider Instructions for Treatment How to access health informa tion online Indication:BMI 25.0-25.9,adult Start:23-Nov-2018 Instruction Type:Patient Education How to access health informa tion online - Detail Indication:BMI 25.0-25.9,adult Start:23-Nov-2018 Instruction Type:Patient Education Patient Instructions Indication:BMI 25.0-25.9,adult Start:23-Nov-2018 Instruction Type:Provider Instructions for Treatment How to access health informa tion online Indication:Current every day smoker Start:16-May-2018 Instruction Type:Patient Education How to access health informa tion online - Detail Indication:Current every day smoker Start:16-May-2018 Instruction Type:Patient Education Patient Instructions Indication:Current every day smoker Start:16-May-2018 Instruction Type:Provider Instructions for Treatment How to access health informa tion online Indication:Current every day smoker Start:29-Feb-2016 Instruction Type:Patient Education How to access health informa tion online - Detail Indication:Current every day smoker Start:29-Feb-2016 Instruction Type:Patient Education Patient Instructions Indication:Current every day smoker Start:29-Feb-2016 Instruction Type:Provider Instructions for Treatment How to access health informa tion online Indication:Current every day smoker Start:22-Jan-2016 Instruction Type:Patient Education How to access health informa tion online - Detail Indication:Current every day smoker Start:22-Jan-2016 Instruction Type:Patient Education Patient Instructions Indication:Current every day smoker Start:22-Jan-2016 Instruction Type:Provider Instructions for Treatment How to access health informa tion online Indication:Acute exacerbation of COPD with asthma Start:26-May-2015 Instruction Type:Patient Education How to access health informa tion online - Detail Indication:Acute exacerbation of COPD with asthma Start:26-May-2015 Instruction Type:Patient Education Patient Instructions Indication:Acute exacerbation of COPD with asthma Start:26-May-2015 Instruction Type:Provider Instructions for Treatment How to access health informa tion online Indication:Acute exacerbation of COPD with asthma Start:14-May-2015 Instruction Type:Patient Education How to access health informa tion online - Detail Indication:Acute exacerbation of COPD with asthma Start:14-May-2015 Instruction Type:Patient Education Patient Instructions Indication:Acute exacerbation of COPD with asthma Start:14-May-2015 Instruction Type:Provider Instructions for Treatment How to access health informa tion online Indication:Asthma Start:12-Jan-2015 Instruction Type:Patient Education How to access health informa tion online - Detail Indication:Asthma Start:12-Jan-2015 Instruction Type:Patient Education Patient Instructions Indication:Asthma Start:12-Jan-2015 Instruction Type:Provider Instructions for Treatment Patient Instructions Indication:Exudative pharyngitis Start:08-May-2014 Instruction Type:Provider Instructions for Treatment Patient Instructions Indication:Lip swelling Start:11-Feb-2014 Instruction Type:Provider Instructions for Treatment Patient Instructions Indication:Benign essential HTN Start:16-Dec-2013 Instruction Type:Provider Instructions for Treatment How to access health informa tion online Indication:Need for prophylactic vaccination and inoculation against influenza Start:16-Dec-2013 Instruction Type:Patient Education How to access health informa tion online - Detail Indication:Need for prophylactic vaccination and inoculation against influenza Start:16-Dec-2013 Instruction Type:Patient Education Patient Instructions Indication:Hypercholesteremia Start:19-Apr-2013 Instruction Type:Provider Instructions for Treatment Patient Instructions Indication:Benign essential HTN Start:19-Apr-2013 Instruction Type:Provider Instructions for Treatment Patient Instructions Indication:Sinusitis, chronic Start:09-Apr-2013 Instruction Type:Provider Instructions for Treatment Patient Instructions Indication:Hypercholesteremia Start:17-Oct-2012 Instruction Type:Provider Instructions for Treatment Patient Instructions Indication:Benign essential HTN Start:18-Apr-2012 Instruction Type:Provider Instructions for Treatment Name Dates Details How to Access Health Informa [employer] Online using Patient Portal and [employer] Indication:Non-smoker Start:24-Jun-2020 Instruction Type:Patient Education Patient Instructions Indication:Non-smoker Start:24-Jun-2020 Instruction Type:Provider Instructions for Treatment How to access health informa tion online Indication:BMI 24.0-24.9, adult Start:04-Dec-2019 Instruction Type:Patient Education How to access health informa tion online - Detail Indication:BMI 24.0-24.9, adult Start:04-Dec-2019 Instruction Type:Patient Education Patient Instructions Indication:BMI 24.0-24.9, adult Start:04-Dec-2019 Instruction Type:Provider Instructions for Treatment How to access health informa tion online Indication:Current every day smoker Start:27-May-2019 Instruction Type:Patient Education How to access health informa tion online - Detail Indication:Current every day smoker Start:27-May-2019 Instruction Type:Patient Education Patient Instructions Indication:Current every day smoker Start:27-May-2019 Instruction Type:Provider Instructions for Treatment How to access health informa tion online Indication:BMI 25.0-25.9,adult Start:23-Nov-2018 Instruction Type:Patient Education How to access health informa tion online - Detail Indication:BMI 25.0-25.9,adult Start:23-Nov-2018 Instruction Type:Patient Education Patient Instructions Indication:BMI 25.0-25.9,adult Start:23-Nov-2018 Instruction Type:Provider Instructions for Treatment How to access health informa tion online Indication:Current every day smoker Start:16-May-2018 Instruction Type:Patient Education How to access health informa tion online - Detail Indication:Current every day smoker Start:16-May-2018 Instruction Type:Patient Education Patient Instructions Indication:Current every day smoker Start:16-May-2018 Instruction Type:Provider Instructions for Treatment How to access health informa tion online Indication:Current every day smoker Start:29-Feb-2016 Instruction Type:Patient Education How to access health informa tion online - Detail Indication:Current every day smoker Start:29-Feb-2016 Instruction Type:Patient Education Patient Instructions Indication:Current every day smoker Start:29-Feb-2016 Instruction Type:Provider Instructions for Treatment How to access health informa tion online Indication:Current every day smoker Start:22-Jan-2016 Instruction Type:Patient Education How to access health informa tion online - Detail Indication:Current every day smoker Start:22-Jan-2016 Instruction Type:Patient Education Patient Instructions Indication:Current every day smoker Start:22-Jan-2016 Instruction Type:Provider Instructions for Treatment How to access health informa tion online Indication:Acute exacerbation of COPD with asthma Start:26-May-2015 Instruction Type:Patient Education How to access health informa tion online - Detail Indication:Acute exacerbation of COPD with asthma Start:26-May-2015 Instruction Type:Patient Education Patient Instructions Indication:Acute exacerbation of COPD with asthma Start:26-May-2015 Instruction Type:Provider Instructions for Treatment How to access health informa tion online Indication:Acute exacerbation of COPD with asthma Start:14-May-2015 Instruction Type:Patient Education How to access health informa tion online - Detail Indication:Acute exacerbation of COPD with asthma Start:14-May-2015 Instruction Type:Patient Education Patient Instructions Indication:Acute exacerbation of COPD with asthma Start:14-May-2015 Instruction Type:Provider Instructions for Treatment How to access health informa tion online Indication:Asthma Start:12-Jan-2015 Instruction Type:Patient Education How to access health informa tion online - Detail Indication:Asthma Start:12-Jan-2015 Instruction Type:Patient Education Patient Instructions Indication:Asthma Start:12-Jan-2015 Instruction Type:Provider Instructions for Treatment Patient Instructions Indication:Exudative pharyngitis Start:08-May-2014 Instruction Type:Provider Instructions for Treatment Patient Instructions Indication:Lip swelling Start:11-Feb-2014 Instruction Type:Provider Instructions for Treatment Patient Instructions Indication:Benign essential HTN Start:16-Dec-2013 Instruction Type:Provider Instructions for Treatment How to access health informa tion online Indication:Need for prophylactic vaccination and inoculation against influenza Start:16-Dec-2013 Instruction Type:Patient Education How to access health informa tion online - Detail Indication:Need for prophylactic vaccination and inoculation against influenza Start:16-Dec-2013 Instruction Type:Patient Education Patient Instructions Indication:Hypercholesteremia Start:19-Apr-2013 Instruction Type:Provider Instructions for Treatment Patient Instructions Indication:Benign essential HTN Start:19-Apr-2013 Instruction Type:Provider Instructions for Treatment Patient Instructions Indication:Sinusitis, chronic Start:09-Apr-2013 Instruction Type:Provider Instructions for Treatment Patient Instructions Indication:Hypercholesteremia Start:17-Oct-2012 Instruction Type:Provider Instructions for Treatment Patient Instructions Indication:Benign essential HTN Start:18-Apr-2012 Instruction Type:Provider Instructions for Treatment Advance Directives No Advanced Directives Records Found Name Dates Details Immunization Registry [place] - Effective on 06/24/2020. Expiration date unspecified Effective:24-Jun-2020 Name Dates Details Immunization Registry [place] - Effective on 06/24/2020. Expiration date unspecified Effective:24-Jun-2020 Name Dates Details Immunization Registry [place] - Effective on 06/24/2020. Expiration date unspecified Effective:24-Jun-2020 Name Dates Details Immunization Registry [place] - Effective on 06/24/2020. Expiration date unspecified Effective:24-Jun-2020 Name Dates Details Immunization Registry [place] - Effective on 06/24/2020. Expiration date unspecified Effective:24-Jun-2020 Name Dates Details Immunization Registry [place] - Effective on 06/24/2020. Expiration date unspecified Effective:24-Jun-2020 Name Dates Details Immunization Registry [place] - Effective on 06/24/2020. Expiration date unspecified Effective:24-Jun-2020 Name Dates Details Immunization Registry [place] - Effective on 06/24/2020. Expiration date unspecified Effective:24-Jun-2020 Name Dates Details Immunization Registry [place] - Effective on 06/24/2020. Expiration date unspecified Effective:24-Jun-2020 Name Dates Details Immunization Registry [place] - Effective on 06/24/2020. Expiration date unspecified Effective:24-Jun-2020 Name Dates Details Immunization Registry [place] - Effective on 06/24/2020. Expiration date unspecified Effective:24-Jun-2020 Advance Directive Response Recorded Date/ Time Living Will No June 16, 2023 3:40pm Power of Pilot Boat Operator No June 15 3:40pm Summary Purpose Chief Complaint and Reason for Visit Chief Complaint CAT Additional Source Comments Source Comments (unrecognize d section and content) In the event this informatio n is protected by the Federal Confidentiality of Alcohol and Drug Abuse Patient Records regulations: The Federal rules restrict any use of the information to criminally investigate or prosecute any alcohol or drug abuse patient.[facility] the event this information is protected by the Federal Confidentiality of Alcohol and Drug Abuse Patient Records regulations: The Federal rules restrict any use of the information to criminally investigate or prosecute any alcohol or drug abuse patient.[facility] CenterIn the event this information is protected by the Federal Confidentiality of Alcohol and Drug Abuse Patient Records regulations: The Federal rules restrict any use of the information to criminally investigate or prosecute any alcohol or drug abuse patient.[facility] CenterIn the event this information is protected by the Federal Confidentiality of Alcohol and Drug Abuse Patient Records regulations: The Federal rules restrict any use of the information to criminally investigate or prosecute any alcohol or drug abuse patient.[facility] CenterIn the event this information is protected by the Federal Confidentiality of Alcohol and Drug Abuse Patient Records regulations: The Federal rules restrict any use of the information to criminally investigate or prosecute any alcohol or drug abuse patient.[facility] CenterIn the event this information is protected by the Federal Confidentiality of Alcohol and Drug Abuse Patient Records regulations: The Federal rules restrict any use of the information to criminally investigate or prosecute any alcohol or drug abuse patient.[facility] CenterIn the event this information is protected by the Federal Confidentiality of Alcohol and Drug Abuse Patient Records regulations: The Federal rules restrict any use of the information to criminally investigate or prosecute any alcohol or drug abuse patient.[facility] CenterIn the event this information is protected by the Federal Confidentiality of Alcohol and Drug Abuse Patient Records regulations: The Federal rules restrict any use of the information to criminally investigate or prosecute any alcohol or drug abuse patient.[facility] CenterIn the event this information is protected by the Federal Confidentiality of Alcohol and Drug Abuse Patient Records regulations: The Federal rules restrict any use of the information to criminally investigate or prosecute any alcohol or drug abuse patient.[facility] CenterIn the event this information is protected by the Federal Confidentiality of Alcohol and Drug Abuse Patient Records regulations: The Federal rules restrict any use of the information to criminally investigate or prosecute any alcohol or drug abuse patient.[facility] CenterIn the event this information is protected by the Federal Confidentiality of Alcohol and Drug Abuse Patient Records regulations: The Federal rules restrict any use of the information to criminally investigate or prosecute any alcohol or drug abuse patient.[facility] CenterIn the event this information is protected by the Federal Confidentiality of Alcohol and Drug Abuse Patient Records regulations: The Federal rules restrict any use of the information to criminally investigate or prosecute any alcohol or drug abuse patient.[facility] CenterIn the event this information is protected by the Federal Confidentiality of Alcohol and Drug Abuse Patient Records regulations: The Federal rules restrict any use of the information to criminally investigate or prosecute any alcohol or drug abuse patient.[facility] CenterIn the event this information is protected by the Federal Confidentiality of Alcohol and Drug Abuse Patient Records regulations: The Federal rules restrict any use of the information to criminally investigate or prosecute any alcohol or drug abuse patient.[facility] CenterIn the event this information is protected by the Federal Confidentiality of Alcohol and Drug Abuse Patient Records regulations: The Federal rules restrict any use of the information to criminally investigate or prosecute any alcohol or drug abuse patient.[facility] CenterIn the event this information is protected by the Federal Confidentiality of Alcohol and Drug Abuse Patient Records regulations: The Federal rules restrict any use of the information to criminally investigate or prosecute any alcohol or drug abuse patient.[facility] CenterIn the event this information is protected by the Federal Confidentiality of Alcohol and Drug Abuse Patient Records regulations: The Federal rules restrict any use of the information to criminally investigate or prosecute any alcohol or drug abuse patient.[facility] CenterIn the event this information is protected by the Federal Confidentiality of Alcohol and Drug Abuse Patient Records regulations: The Federal rules restrict any use of the information to criminally investigate or prosecute any alcohol or drug abuse patient.[facility] CenterIn the event this information is protected by the Federal Confidentiality of Alcohol and Drug Abuse Patient Records regulations: The Federal rules restrict any use of the information to criminally investigate or prosecute any alcohol or drug abuse patient.[facility] CenterIn the event this information is protected by the Federal Confidentiality of Alcohol and Drug Abuse Patient Records regulations: The Federal rules restrict any use of the information to criminally investigate or prosecute any alcohol or drug abuse patient.[facility] Reason for Visit (unrecogniz ed section and content) Reason Comments Follow Up Reason Comments Radiology Mammogram Specialty Diagnoses / Procedures Referred By Aniyaac t Referred To Contact [facility] Diagnoses Encounter for screening mammogram for malignant neoplasm of breast Procedures MELL SCREENING W JEREMIAH SCREENING DIGITAL BREAST TOMOSYNTHESIS BI SCREENING MAMMOGRAPHY BI 2-VIEW BREAST INC CAD Jennifer Archer, DIRECTOR PATIENT.TNT LINE SUPERVISOR [address] [place] [address] [facility] [address] [place] [address] Referral ID Status Reason Start Date Expiration Date V isits Requested Visits Authorized [id number] Closed Auto-Generate d Referral 03/01/2022 03/31/2023 1 1 Reason Comments Radio Gen [id number] Reason Comments Follow Up Reason Comments Orders Reason Comments Radiology US Specialty Diagnoses / Procedures Referred By Salma t Referred To Contact [facility] Diagnoses Abnormal mammogram Procedures US BREAST LTD RIGHT US BREAST UNI REAL TIME WITH IMAGE LIMITED Jennifer Archer DIRECTOR PATIENT.TNT LINE SUPERVISOR [address] [place] [address] [facility] [address] [place] [address] Referral ID Status Reason Start Date Expiration Date V isits Requested Visits Authorized [id number] Closed Auto-Generate d Referral 06/19/2023 07/18/2024 1 1 Reason Comments Radio Imaging Study Comments Reason Comments Follow Up Jose presents for a follow-up visit for stage IA grade 1 endometrioid endometrial cancer. Reason Comments Results Reason Comments Radiology Mammogram Specialty Diagnoses / Procedures [facility] Diagnoses Encounter for screening mammogram for malignant neoplasm of breast Procedures MELL SCREENING W JEREMIAH SCREENING DIGITAL BREAST TOMOSYNTHESIS BI SCREENING MAMMOGRAPHY BI 2-VIEW BREAST INC Dariela Toney, DIRECTOR PATIENT.TNT LINE SUPERVISOR [address] [place] [address] Phone: tel: fax: [facility] [address] [place] [address] Referral ID Status Reason Start Date Expiration Date V isits Requested Visits Authorized [id number] Closed Auto-Generate d Referral 12/21/2023 01/19/2025 1 1 Care Teams (unrecognized sec tion and content) Revenue Analyst Relationship Specialty Start Date End Date Carol Coker DO PCP - General 05/03/05 Revenue Analyst Relationship Specialty Start Date End Date Carol Coker DO PCP - General 05/03/05 Revenue Analyst Relationship Specialty Start Date End Date Carol Coker DO PCP - General 05/03/05 Revenue Analyst Relationship Specialty Start Date End Date Carol Coker DO PCP - General 05/03/05 Revenue Analyst Relationship Specialty Start Date End Date Carol Coker DO PCP - General 05/03/05 Team Status: Active Member Role Status Dates Dr. Carol Coker DO Family Provider Active Dr. Carol Coker DO Primary Care Provider Active Team Status: Inactive Member Role Status Dates Dr. Carol Coker DO Primary Care Provider Active Dr. Peter Roberts MD Emergency Provider Active Revenue Analyst Relationship Specialty Start Date End Date Carol Coker DO PCP - General 05/03/05 Revenue Analyst Relationship Specialty Start Date End Date Carol Coker DO PCP - General 05/03/05 Revenue Analyst Relationship Specialty Start Date End Date Carol Coker DO PCP - General 05/03/05 Revenue Analyst Relationship Specialty Start Date End Date Carol Coker DO PCP - General 05/03/05 Revenue Analyst Relationship Specialty Start Date End Date Carol Coker DO Karina PCP - General 05/03/05 Revenue Analyst Relationship Specialty Start Date End Date Carol Coker DO Karina PCP - General 05/03/05 Revenue Analyst Relationship Specialty Start Date End Date Carol Coker DO Karina PCP - General 05/03/05 Revenue Analyst Relationship Specialty Start Date End Date Carol Coker DO Karina PCP - General 05/03/05 Revenue Analyst Relationship Specialty Start Date End Date Carol Coker DO Karina PCP - General 05/03/05 Revenue Analyst Relationship Specialty Start Date End Date Carol Coker DO Karina PCP - General 05/03/05 Revenue Analyst Relationship Specialty Start Date End Date Carol Coker DO Karina PCP - General 05/03/05 Revenue Analyst Relationship Specialty Start Date End Date Carol Coker DO Karina PCP - General 05/03/05 Revenue Analyst Relationship Specialty Start Date End Date Carol Coker DO Karina PCP - General 05/03/05 INFORMATION SOURCE (unrecogn ized section and content) DATE CREATED AUTHOR 02/03/2022 [facility] DATE CREATED AUTHOR AUTHOR'S ORGANIZ ATION 07/02/2024 [facility] DATE CREATED AUTHOR AUTHOR'S ORGANIZ ATION 11/20/2024 [facility] Goals (unrecognized section and content) Goals may be documented in a n alternate section FOR RECORDS PERTAINING TO PATIENTS WHO ARE OR HAVE BEEN ENROLLED IN A CHEMICAL DEPENDENCY/SUBSTANCEABUSE PROGRAM, SOME INFORMATION MAY BE OMITTED. This clinical summary was aggregated from multiple sources. Caution should be exercised in using it in the provision of clinical care. This summary normalizes information from multiple sources, and as a consequence, information in this document may materially change the coding, format and clinical context of patient data. In addition, data may be omitted in some cases. CLINICAL DECISIONS SHOULD BE BASED ON THE PRIMARY CLINICAL RECORDS. [facility] [employer] provides no warranty or guarantee of the accuracy or completeness of information in this document.
--- NOTE | 2024-11-21 10:28 | STRESSREP ---
Stress Test Report Date: 11/21/2024 Procedure: Exercise tolerance test/imaging study Indications: Chest pain Consent: Per the patient Procedure: The patient exercised on a Jose R protocol for 5 minutes and 1 second achieving a peak heart rate of 139 bpm (89% predicted maximal heart rate) with a peak blood pressure 150/72 mmHg and a peak MET capacity of 7.0 METs. The baseline ECG demonstrated sinus rhythm. The peak exercise ECG showed sinus tachycardia with no ischemic changes. Occasional PVCs noted during exercise and in recovery. The functional capacity was considered average for age. There was no complaint of chest discomfort during exercise or recovery. The examination was discontinued secondary to target heart rate being achieved and dyspnea. The patient was injected with 11.5 mCi of technetium 99m Cardiolite and subsequently rest SPECT Cardiolite nuclear imaging was obtained in the horizontal long, vertical long, and short axis views. Post-exercise, the patient was injected with 33.8 mCi of technetium 99m Cardiolite and subsequently stress SPECT Cardiolite nuclear imaging was obtained in the horizontal long, vertical long, and short axis views. A gated Cardiolite study at peak stress was obtained. Rest and stress SPECT Cardiolite nuclear imaging status post realignment, normalization, and attenuation correction, demonstrates the appearance of relative uniform tracer uptake and myocardial perfusion appearing within normal limits. There is end systolic thickening and brightening. The gated Cardiolite study demonstrates myocardial thickening and inward wall motion. The reported LVEF is 77%. Impression: 1. Technically adequate (percent predicted maximal heart rate greater than 85%) exercise tolerance test 2. Peak exercise ECG with no ischemic changes. No angina reported 3. Occasional PVCs during exercise and in recovery 4. Rest and stress SPECT Cardiolite nuclear imaging demonstrate relative uniform tracer uptake and myocardial perfusion appearing within normal limits. 5. The gated Cardiolite study reports an LVEF of 77%. This note was generated with [employer] software. It may contain incorrect words, spelling, and punctuation that were not noted in checking the note before signing.
== END | disposition home or self-care (01) ==
PROVIDERS: PCP Internal Medicine; Referring Provider Internal Medicine; Visit Provider Internal Medicine
DX: R93.1 Abnormal findings on diagnostic imaging of heart and coronary circulation (principal)
CPT/HCPCS: 78452; 93017; A9500; A4216

== ENCOUNTER → 2024-12-27 | Outpatient (CLI) | payer BC, SELFPAY ==
[2024-12-27 10:46] LABS: AST(SGOT) 40 U/L (<=31); Alanine Aminotransfer ALT/SGPT 36 U/L (<=34); Albumin, Serum 4.3 g/dL (3.4-4.8); Alkaline Phosphatase 59 U/L (35-104); Bilirubin, Direct 0.16 mg/dL (0.00-0.30); Cholesterol 124 mg/dL (<=200); Globulin 2.7 g/dL (2.2-4.2); Low Density Lipoprotein Calc. 51 mg/dL; Triglycerides 143 mg/dL; Very Low Density Lipoprotein 29 mg/dL (5-40); cholesterol:hdl ratio screen 2.81
== END | disposition home or self-care (01) ==
LOC: MTLAB 09:10
PROVIDERS: PCP Internal Medicine; Referring Provider Internal Medicine; Visit Provider Internal Medicine
DX: Z51.81 Encounter for therapeutic drug level monitoring (principal); Z79.899 Other long term (current) drug therapy
CPT/HCPCS: 36415; 80061; 80076

== ENCOUNTER → 2025-02-05 | Outpatient (CLI) | payer BC, SELFPAY | END | disposition home or self-care (01) | LOC: CIMLAB 10:59 | PROVIDERS: PCP Internal Medicine; Referring Provider Internal Medicine; Visit Provider Internal Medicine | DX: T14.8XXA Other injury of unspecified body region, initial encounter (principal); W57.XXXA Bitten or stung by nonvenomous insect and other nonvenomous arthropods, initial encounter | CPT/HCPCS: 36415; 86617 ==